=== PATIENT | male | born 1975 | race Caucasian/White ===

== ENCOUNTER → 2017-10-11 07:46 | Outpatient (CLI) | payer OTHER, MEDICAID, SELFPAY ==
[2017-10-11 09:35] LABS: Add Manual Diff / Slide Review NO; Basophils Percent Auto 1.1 % (0-2); Eosinophils Percent Auto 3.2 % (2-4); Hematocrit 46.5 % (41-53); Hemoglobin 16.5 g/dL (13.5-17.5); Lymphocytes Percent Auto 22.4 % (25-40); Mean Corpuscular HGB Conc 35.4 % (30-36); Mean Corpuscular Hemoglobin 29.3 PG (26-34); Mean Corpuscular Volume 82.8 fL (80-100); Monocytes Percent Auto 7.4 % (3-14); Neutrophils Absolute Auto 3700 /uL (3000-5900); Neutrophils Percent Auto 65.9 % (50-75); Platelet Count 209 X10^3/uL (150-400); Red Blood Cell Count 5.62 X10^6/uL (4.5-5.9); Red Cell Distribution Width 12.8 % (11.6-14.8); White Blood Cell Count 5.6 X10^3/uL (4.5-11.0)
[2017-10-11 09:48] LABS: Alanine Aminotransferase 48 IU/L (21-72); Albumin 4.5 g/dL (3.5-5.0); Albumin Globulin Ratio 1.5 (1.0-2.8); Alkaline Phosphatase 72 U/L (38-126); Aspartate Aminotransferase 31 IU/L (17-59); BUN Creatinine Ratio 15.7 (6-22); Bilirubin Total 1.6 mg/dL (0.2-1.3); Blood Urea Nitrogen 11 mg/dL (9-20); Carbon Dioxide 24 mmol/L (22-32); Chloride 100 mmol/L (98-107); Cholesterol 223 mg/dL (140-199); Estimated Glomerular Filt Rate > 60.0 mL/min (>60); Glucose 257 mg/dL (70-100); HDL Cholesterol 34 mg/dL (40-60); HEMOLYSIS < 15 (0-50); LDL Cholesterol Calculated 159 mg/dL (<100); Potassium 4.4 mmol/L (3.4-5.1); Sodium 137 mmol/L (137-145); Total Protein 7.5 g/dL (6.3-8.2); Triglycerides 152 mg/dL (35-150)
[2017-10-11 10:11] LABS: Hemoglobin A1C% w Est Avg Glu 12.1 % (4.0-6.0)
[2017-10-11 10:16] LABS: Thyroid Stimulating Hormone 1.17 uIU/mL (0.47-4.68)
== END ==
PROVIDERS: PCP Family Medicine; Visit Provider Nurse Practitioner Family
DX: Z00.01 Encounter for general adult medical examination with abnormal findings (principal)
CPT/HCPCS: 36415; 80053; 80061; 83036; 84443; 85025

== ENCOUNTER → 2017-11-23 13:16 | Outpatient (CLI) | payer OTHER, MEDICAID, SELFPAY ==
[2017-11-23 15:20] VITALS: BMI 34.4
== END ==
PROVIDERS: Visit Provider Family Medicine
DX: E11.9 Type 2 diabetes mellitus without complications (principal); Z71.3 Dietary counseling and surveillance
CPT/HCPCS: 97802

== ENCOUNTER → 2018-01-24 09:27 | Outpatient (CLI) | payer MEDICARE, MEDICAID, SELFPAY ==
[2018-01-24 11:18] LABS: Albumin 4.7 g/dL (3.5-5.0); Blood Urea Nitrogen 16 mg/dL (9-20); Calcium 9.8 mg/dL (8.4-10.2); Carbon Dioxide 25 mmol/L (22-32); Chloride 103 mmol/L (98-107); Estimated Glomerular Filt Rate > 60.0 mL/min (>60); Glucose 185 mg/dL (70-100); HEMOLYSIS 17 (0-50); Phosphorous 3.7 mg/dL (2.5-4.5); Potassium 4.9 mmol/L (3.4-5.1); Sodium 142 mmol/L (137-145)
== END ==
PROVIDERS: PCP Nurse Practitioner Family; Visit Provider Nurse Practitioner Family
DX: E11.65 Type 2 diabetes mellitus with hyperglycemia (principal)
CPT/HCPCS: 36415; 80069; 83036

== ENCOUNTER → 2018-05-21 10:45 | Outpatient (CLI) | payer MEDICARE, MEDICAID, SELFPAY ==
[2018-05-21 11:49] LABS: Hemoglobin A1C% w Est Avg Glu 9.6 % (4.0-6.0)
[2018-05-21 11:53] LABS: BUN Creatinine Ratio 12.5 (6-22); Blood Urea Nitrogen 10 mg/dL (9-20); Calcium 9.3 mg/dL (8.4-10.2); Carbon Dioxide 24 mmol/L (22-32); Chloride 102 mmol/L (98-107); Cholesterol 238 mg/dL (140-199); Estimated Glomerular Filt Rate > 60.0 mL/min (>60); Glucose 301 mg/dL (70-100); HDL Cholesterol 42 mg/dL (40-60); HEMOLYSIS 15 (0-50); LDL Cholesterol Calculated 157 mg/dL (<100); Potassium 4.3 mmol/L (3.4-5.1); Sodium 140 mmol/L (137-145); Triglycerides 196 mg/dL (35-150)
== END ==
PROVIDERS: Visit Provider Internal Medicine
DX: I10 Essential (primary) hypertension (principal); E11.9 Type 2 diabetes mellitus without complications; E66.9 Obesity, unspecified
CPT/HCPCS: 36415; 80048; 80061; 83036

== ENCOUNTER 2018-10-18 10:15 | Observation (INO) | payer MEDICARE, MEDICAID, SELFPAY ==
[2018-10-18] VITALS (9 sets, daily range): BP systolic 106–150; BP diastolic 65–96; PULSE 79–113; RESP 17–27; TEMP 36.3–36.7; O2SAT 95–100; BMI 30.7; BMI 30.3
--- NOTE | 2018-10-18 10:22 | ED.NEUROSD ---
HPI - Neuro Symptoms/Deficit General Chief Complaint: Neuro Symptoms/Deficit Stated Complaint: right half went numb, back to normal, nervous Time Seen by Provider: 10/18/18 10:19 Source: patient Mode of arrival: ambulatory Limitations: no limitations History of Present Illness HPI Narrative: 43-year-old male nonsmoker with a history of diabetes and asthma presents with a chief complaint of blurred vision which started at 6:00 a.m., lasted 15 minutes and then resolved. He he was in his normal state of health until about 10:00 a.m. when he started developing right-sided facial numbness and tingling as well as right upper and lower extremity numbness and tingling. He denies any weakness, trouble with speech or ambulation. He states the tingling is largely improved at this point Onset (ago): hour(s) Location: right face and right arm History of same: No Severity: mild Quality: numb and tingling Relieving factors: none Exacerbating factors: none Context: sudden onset On Anticoagulants: No Treatments Prior to Arrival: none Related Data Previous Rx's Medication Instructions Recorded METFORMIN HCL (GLUCOPHAGE) 500 mg PO Q DAY #180 08/16/11 ALBUTEROL SULFATE (Ventolin Hfa) 0 INH SEE INSTRUCTIONS #1 inh 06/10/12 AZITHROMYCIN (ZITHROMAX Z-HARRIETT) 250 mg PO QDAY #1 pck 06/10/12 Allergies Allergy/AdvReac Type Severity Reaction Status Date / Time Penicillins [PENICILLINS] Allergy Severe RASH Verified 10/18/18 10:28 acetaminophen AdvReac Severe VOMITING Verified 10/18/18 10:28 [From EXCEDRIN PM] diphenhydramine AdvReac Severe VOMITING Verified 10/18/18 10:28 [From EXCEDRIN PM] Review of Systems Constitutional Denies chills, Denies fever(s), Denies lethargy and Denies weakness Eyes Reports change in vision, Denies eye discharge, Denies irritation and Denies loss of vision ENT Ears, Nose, Mouth, and Throat: Denies change in voice, Denies neck pain and Denies sore throat Cardiovascular Denies chest pain, Denies irregular heart rhythm, Denies lightheadedness, Denies palpitations, Denies dyspnea, Denies dyspnea on exertion and Denies orthopnea Respiratory Denies cough, Denies dyspnea, Denies dyspnea on exertion and Denies wheezing Gastrointestinal Gastrointestinal: Denies abdominal pain, Denies change in bowel habits, Denies diarrhea, Denies nausea and Denies vomiting Genitourinary Denies hematuria, Denies flank pain, Denies urinary incontinence and Denies urinary urgency Musculoskeletal Denies neck pain Integumentary/Breasts Denies pruritus, Denies erythema, Denies rash and Denies wounds Neurologic Denies confusion, Denies loss of vision, Reports sensory deficit and Denies weakness Psychiatric Denies anxiety, Denies confusion, Denies depression, Denies homicidal ideation and Denies suicidal ideation Endocrine Denies palpitations Hematologic/Lymphatic Denies easy bruising Allergic/Immunologic Denies wheezing PFSH Social History Smoking Status: Never smoker Social History Smoking Status: Never smoker Exam Narrative Exam Narrative: GENERAL: This is a well-nourished, well-developed patient, in mild distress. HEAD: Atraumatic. Normocephalic. No temporal or scalp tenderness. EYES: Pupils equal round and reactive. Extraocular motions intact. No scleral icterus. No injection or drainage. ENT: Nose without bleeding, purulent drainage or septal hematoma. Throat without erythema, tonsillar hypertrophy or exudate. Uvula midline. Airway patent. NECK: Trachea midline. No JVD or lymphadenopathy. Supple, nontender, no meningeal signs. CARDIOVASCULAR: Regular rate and rhythm without murmurs, gallops, or rubs. RESPIRATORY: Clear to auscultation. Breath sounds equal bilaterally. No wheezes, rales, or rhonchi. GASTROINTESTINAL: Abdomen soft, non-tender, nondistended. No hepato-splenomegaly, or palpable masses. No guarding. EXTREMITIES: No clubbing, cyanosis, or edema. No joint tenderness, effusion, or edema noted. BACK: Nontender without deformity or crepitance. No flank tenderness. NEURO: AOx3. SKIN: No rash or erythema. Initial Vital Signs Initial Vital Signs: Vital Signs Temperature 97.6 F 10/18/18 10:15 Pulse Rate 113 H 10/18/18 10:15 Respiratory Rate 18 10/18/18 10:15 Blood Pressure 150/94 H 10/18/18 10:15 Pulse Oximetry 97 10/18/18 10:15 Course Orders Ordered: ED Orders 10/18/18 10:21 Urine Drug Screen, Rapid Stat EKG-12 Lead Stat 10/18/18 10:25 Basic Metabolic Panel Stat Complete Blood Count AUTO DIFF Stat Partial Thromboplastin Time Stat Prothrombin Time INR Stat 10/18/18 10:51 CT head/brain wo con Stat 10/18/18 11:14 MR stroke Stat 10/18/18 14:06 Education, smoking cessation ONGOING 10/19/18 Lipid Panel Routine Enoxaparin Sodium (Lovenox) 40 mg SUBCUT DAILY TRENT Sodium Chloride (Normal Saline 0.9%) 1,000 mls @ 150 mls/hr IV CONT TRENT Last Admin: 10/18/18 10:37 Dose: 150 mls/hr Discontinued Medications Aspirin (Aspirin Chew) 324 mg PO NOW ONE Stop: 10/18/18 14:05 Reevaluation(s) Reevaluation #1: Patient remains symptom-free Consultations Consultation #1: Called to [facility] stroke physician to discuss case. He is quick to recommend admission for echo, tele, etc. Consultation #2: hospitalist happy to accept. Plan relayed to patient and he is in agreement Vital Signs - 8 hr 10/18/18 10:15 10/18/18 10:39 10/18/18 11:30 Temperature 97.6 F Pulse Rate 113 H 97 H 94 H Respiratory Rate 18 27 H 23 Blood Pressure 150/94 H Blood Pressure [Left Arm] 120/78 116/81 Pulse Oximetry 97 95 100 10/18/18 13:14 Temperature Pulse Rate 94 H Respiratory Rate 19 Blood Pressure Blood Pressure [Left Arm] 106/74 Pulse Oximetry 98 MDM - Neuro Symptoms/Deficit Lab Data Result diagrams: 10/18/18 10:25 10/18/18 10:25 Lab Results 10/18/18 10/18/18 10/18/18 Range/Units 10:25 10:25 10:25 WBC 5.8 (4.5-11.0) X10^3/uL RBC 5.40 (4.5-5.9) X10^6/uL Hgb 15.6 (13.5-17.5) g/dL Hct 44.9 (41-53) % MCV 83.2 (80-100) fL MCH 28.9 (26-34) PG MCHC 34.8 (30-36) % RDW 12.6 (11.6-14.8) % Plt Count 209 (150-400) X10^3/uL Neut % (Auto) 62.0 (50-75) % Lymph % (Auto) 25.6 (25-40) % [place] % (Auto) 7.4 (3-14) % Eos % (Auto) 4.1 H (2-4) % Baso % (Auto) 0.9 (0-2) % Neut # (Auto) 3600 (2066-2352) /uL Lymph # (Auto) 1500 (8490-8489) /uL [place] # (Auto) 400 (0-900) /uL Eos # (Auto) 200 (0-450) /uL Baso # (Auto) 100 (0-100) /uL PT 10.9 (10.1-12.7) SECONDS INR 0.9 (0.9-1.3) APTT 29 (26.4-36.2) SECONDS Sodium 136 L (137-145) mmol/L Potassium 4.1 (3.4-5.1) mmol/L Chloride 98 (98-107) mmol/L Carbon Dioxide 26 (22-32) mmol/L BUN 13 (9-20) mg/dL Creatinine 0.80 (0.66-1.25) mg/dL Estimated GFR > 60.0 (>60) mL/min BUN/Creatinine Ratio 16.3 (6-22) Glucose 249 H (70-100) mg/dL Calcium 9.5 (8.4-10.2) mg/dL Point of Care Testing Glucose POC [address] scan - head: Radiologist's impression: Kyle Navarrete 43 M [address] [address] [address] Scan Report Signed Patient: Kyle Navarrete EMR#: [id number] : 1975Acct:[id number] Age/Sex: 43 / MDate of Service: 10/18/18 Loc: ED Accession Number: [id number] Procedure: CT head/brain wo con Ordering Provider: Salazar Luna D.O. PROCEDURE: CT HEAD/BRAIN WO CON INDICATIONS: vision, Right side weakness TECHNIQUE: Noncontrast 4.5 mm thick angled axial sections acquired from the foramen magnum to the vertex, with coronal and sagittal reformats. For radiation dose reduction, the following was used: automated exposure control, adjustment of mA and/or kV according to patient size. COMPARISON: None. FINDINGS: Image quality: Excellent. CSF spaces: Basal cisterns are patent. No extra-axial fluid collections. Ventricles are normal in size and shape. Brain: No midline shift. No intracranial masses or hemorrhage. Andres-white matter interface is normal. Skull and face: Calvarium and visualized facial bones are intact, without suspicious lesions. Sinuses: Visualized sinuses and mastoids are clear. IMPRESSION: Normal intracranial study, without an imaging explanation for patient's presenting symptoms. If there is strong clinical suspicion for an acute stroke, please consider an MRI for further evaluation, as it is more sensitive (assuming that there is no contraindication to MRI). Dictated by: Gabriel Saab M.D. on 10/18/2018 at 9:58 Approved by: Gabriel Saab M.D. on 10/18/2018 at 9:59 MRI - head: Radiologist's impression: [place] [address] Magnetic Resonance Report Signed Patient: Kyle Navarrete EMR#: [id number] : 1975Acct:[id number] Age/Sex: 43 / MDate of Service: 10/18/18 Loc: ED Accession Number: [id number] Procedure: MR stroke Ordering Provider: Salazar Luna D.O. PROCEDURE: MR STROKE Pre- and post-contrast brain MRI, non-contrast brain MR angiogram, pre- and postcontrast neck MR angiogram INDICATIONS: vision change, R sided numbness tingling TECHNIQUE: Brain: Noncontrast axial T1 spin echo, axial T2 fast spin echo, sagittal and axial FLAIR, coronal T2 fast spin echo, axial gradient echo, axial diffusion and ADC through the brain. After the administration of contrast, axial 3D VIBE of the cranial vasculature and brain. Brain MRA: Non-contrast 3-D time of flight MR angiogram, with multiple ushltsh-qltvcbmlc-gzqdszriad (MIP) reformats performed. Neck MRA: Axial and sagittal TruFISP through the neck. Coronal dynamic MR angiogram during administration of contrast in the arterial and venous phases, with 3-dimenstional wdrapwi-qhwzgbmyi-zpqtyxozvh (MIP) reformats constructed from subtraction images. COMPARISON: [facility], CT, CT HEAD/BRAIN WO CON, 10/18/2018, 10:24. FINDINGS: Image quality: Excellent. BRAIN: CSF spaces: Ventricles are normal in size and shape. Basal cisterns are patent. No extra-axial fluid collections. Brain: No intracranial bleeds or mass effects. Andres-white matter interface is normal. Diffusion weighted images show no acute ischemic insults. Brainstem appears normal. Normal intravascular flow voids are present. No abnormal intracranial enhancement. Skull and face: Calvarial marrow signal is normal. Orbits appear normal. Sinuses: Sinuses and mastoids are clear. BRAIN MR ANGIOGRAM: Anterior circulation: Intracranial internal carotid arteries are normal in size and enhancement. The flow within the paired anterior cerebral arteries is normal and symmetric. The flow within the middle cerebral arteries is normal and symmetric. The anterior communicating artery is seen. No stenoses, occlusions, or aneurysms. Posterior circulation: The visualized portions of the vertebral arteries demonstrate normal caliber, and join to form a normal appearing basilar artery. The flow within the posterior cerebral arteries is normal and symmetric. No stenoses, occlusions, or aneurysms. NECK MR ANGIOGRAM: Carotids: Great vessels demonstrate a conventional anatomy as they arise from the aortic arch. The origins of the common carotid arteries appear patent. The calibers and courses of both common carotid arteries are normal. The bifurcation regions appear normal bilaterally. The internal carotid arteries demonstrate normal course and caliber. Posterior circulation: The origins of the vertebral arteries appear patent. More superior portions of both vertebral arteries demonstrate normal course and caliber, and join to form a normal appearing basilar artery. Miscellaneous: Subclavian arteries appear patent. Pre-contrast images through the neck show no soft tissue abnormalities. IMPRESSION: BRAIN MRI: 1. No acute process. No recent infarct. BRAIN MR ANGIOGRAM: Negative cerebral MR angiography. NECK MR ANGIOGRAM: 1. No internal carotid artery stenosis bilaterally. 2. Patent bilateral vertebral arteries. Dictated by: Clint Ogden M.D. on 10/18/2018 at 12:58 Approved by: Clint Ogden M.D. on 10/18/2018 at 13:03 [facility] Narrative Medical decision making narrative: 43-year-old male diabetic with concerning symptoms for stroke presents with symptoms that had largely resolved. He had blurred vision and right-sided numbness and tingling. Head CT and MRI are unremarkable. Patient will require hospitalization none the last 2 perform echocardiogram, cardiac monitoring etc Discharge Plan Departure Patient Disposition: Admitted as Observation Clinical Impression: Transient cerebral ischemia Qualifiers: Transient cerebral ischemia type: unspecified Qualified Code(s): G45.9 - Transient cerebral ischemic attack, unspecified Admit Date/Time: 10/18/18 14:00 Admit Provider: Jason Hampton
--- NOTE | 2018-10-18 10:27 | ED_ITS ---
HPI - Neuro Symptoms/Deficit General Chief Complaint: Neuro Symptoms/Deficit Stated Complaint: right half went numb, back to normal, nervous Time Seen by Provider: 10/18/18 10:19 Source: patient Mode of arrival: ambulatory Limitations: no limitations History of Present Illness HPI Narrative: 43-year-old male nonsmoker with a history of diabetes and asthma presents with a chief complaint of blurred vision which started at 6:00 a.m., lasted 15 minutes and then resolved. He he was in his normal state of health until about 10:00 a.m. when he started developing right-sided facial numbness and tingling as well as right upper and lower extremity numbness and tingling. He denies any weakness, trouble with speech or ambulation. He states the tingling is largely improved at this point Onset (ago): hour(s) Location: right face and right arm History of same: No Severity: mild Quality: numb and tingling Relieving factors: none Exacerbating factors: none Context: sudden onset On Anticoagulants: No Treatments Prior to Arrival: none Related Data Previous Rx's Medication Instructions Recorded METFORMIN HCL (GLUCOPHAGE) 500 mg PO Q DAY #180 08/16/11 ALBUTEROL SULFATE (Ventolin Hfa) 0 INH SEE INSTRUCTIONS #1 inh 06/10/12 AZITHROMYCIN (ZITHROMAX Z-HARRIETT) 250 mg PO QDAY #1 pck 06/10/12 Allergies Allergy/AdvReac Type Severity Reaction Status Date / Time Penicillins [PENICILLINS] Allergy Severe RASH Verified 10/18/18 10:28 acetaminophen AdvReac Severe VOMITING Verified 10/18/18 10:28 [From EXCEDRIN PM] diphenhydramine AdvReac Severe VOMITING Verified 10/18/18 10:28 [From EXCEDRIN PM] Review of Systems Constitutional Denies chills, Denies fever(s), Denies lethargy and Denies weakness Eyes Reports change in vision, Denies eye discharge, Denies irritation and Denies loss of vision ENT Ears, Nose, Mouth, and Throat: Denies change in voice, Denies neck pain and Denies sore throat Cardiovascular Denies chest pain, Denies irregular heart rhythm, Denies lightheadedness, Denies palpitations, Denies dyspnea, Denies dyspnea on exertion and Denies orthopnea Respiratory Denies cough, Denies dyspnea, Denies dyspnea on exertion and Denies wheezing Gastrointestinal Gastrointestinal: Denies abdominal pain, Denies change in bowel habits, Denies diarrhea, Denies nausea and Denies vomiting Genitourinary Denies hematuria, Denies flank pain, Denies urinary incontinence and Denies urinary urgency Musculoskeletal Denies neck pain Integumentary/Breasts Denies pruritus, Denies erythema, Denies rash and Denies wounds Neurologic Denies confusion, Denies loss of vision, Reports sensory deficit and Denies weakness Psychiatric Denies anxiety, Denies confusion, Denies depression, Denies homicidal ideation and Denies suicidal ideation Endocrine Denies palpitations Hematologic/Lymphatic Denies easy bruising Allergic/Immunologic Denies wheezing PFSH Social History Smoking Status: Never smoker Social History Smoking Status: Never smoker Exam Narrative Exam Narrative: GENERAL: This is a well-nourished, well-developed patient, in mild distress. HEAD: Atraumatic. Normocephalic. No temporal or scalp tenderness. EYES: Pupils equal round and reactive. Extraocular motions intact. No scleral icterus. No injection or drainage. ENT: Nose without bleeding, purulent drainage or septal hematoma. Throat without erythema, tonsillar hypertrophy or exudate. Uvula midline. Airway patent. NECK: Trachea midline. No JVD or lymphadenopathy. Supple, nontender, no meningeal signs. CARDIOVASCULAR: Regular rate and rhythm without murmurs, gallops, or rubs. RESPIRATORY: Clear to auscultation. Breath sounds equal bilaterally. No wheezes, rales, or rhonchi. GASTROINTESTINAL: Abdomen soft, non-tender, nondistended. No hepato-s plenomegaly, or palpable masses. No guarding. EXTREMITIES: No clubbing, cyanosis, or edema. No joint tenderness, effusion, or edema noted. BACK: Nontender without deformity or crepitance. No flank tenderness. NEURO: AOx3. SKIN: No rash or erythema. Initial Vital Signs Initial Vital Signs: Vital Signs Temperature 97.6 F 10/18/18 10:15 Pulse Rate 113 H 10/18/18 10:15 Respiratory Rate 18 10/18/18 10:15 Blood Pressure 150/94 H 10/18/18 10:15 Pulse Oximetry 97 10/18/18 10:15 Course Orders Ordered: ED Orders 10/18/18 10:21 Urine Drug Screen, Rapid Stat EKG-12 Lead Stat 10/18/18 10:25 Basic Metabolic Panel Stat Complete Blood Count AUTO DIFF Stat Partial Thromboplastin Time Stat Prothrombin Time INR Stat 10/18/18 10:51 CT head/brain wo con Stat 10/18/18 11:14 MR stroke Stat 10/18/18 14:06 Education, smoking cessation ONGOING 10/19/18 Lipid Panel Routine Enoxaparin Sodium (Lovenox) 40 mg SUBCUT DAILY TRENT Sodium Chloride (Normal Saline 0.9%) 1,000 mls @ 150 mls/hr IV CONT TRENT Last Admin: 10/18/18 10:37 Dose: 150 mls/hr Discontinued Medications Aspirin (Aspirin Chew) 324 mg PO NOW ONE Stop: 10/18/18 14:05 Reevaluation(s) Reevaluation #1: Patient remains symptom-free Consultations Consultation #1: Called to [facility] stroke physician to discuss case. He is quick to recommend admission for echo, tele, etc. Consultation #2: hospitalist happy to accept. Plan relayed to patient and he is in agreement Vital Signs - 8 hr 10/18/18 10:15 10/18/18 10:39 10/18/18 11:30 Temperature 97.6 F Pulse Rate 113 H 97 H 94 H Respiratory Rate 18 27 H 23 Blood Pressure 150/94 H Blood Pressure [Left Arm] 120/78 116/81 Pulse Oximetry 97 95 100 10/18/18 13:14 Temperature Pulse Rate 94 H Respiratory Rate 19 Blood Pressure Blood Pressure [Left Arm] 106/74 Pulse Oximetry 98 MDM - Neuro Symptoms/Deficit Lab Data Result diagrams: 10/18/18 10:25 10/18/18 10:25 Lab Results 10/18/18 10/18/18 10/18/18 Range/Units 10:25 10:25 10:25 WBC 5.8 (4.5-11.0) X10^3/uL RBC 5.40 (4.5-5.9) X10^6/uL Hgb 15.6 (13.5-17.5) g/dL Hct 44.9 (41-53) % MCV 83.2 (80-100) fL MCH 28.9 (26-34) PG MCHC 34.8 (30-36) % RDW 12.6 (11.6-14.8) % Plt Count 209 (150-400) X10^3/uL Neut % (Auto) 62.0 (50-75) % Lymph % (Auto) 25.6 (25-40) % Faulk % (Auto) 7.4 (3-14) % Eos % (Auto) 4.1 H (2-4) % Baso % (Auto) 0.9 (0-2) % Neut # (Auto) 3600 (3825-2207) /uL Lymph # (Auto) 1500 (0142-8965) /uL Faulk # (Auto) 400 (0-900) /uL Eos # (Auto) 200 (0-450) /uL Baso # (Auto) 100 (0-100) /uL PT 10.9 (10.1-12.7) SECONDS INR 0.9 (0.9-1.3) APTT 29 (26.4-36.2) SECONDS Sodium 136 L (137-145) mmol/L Potassium 4.1 (3.4-5.1) mmol/L Chloride 98 (98-107) mmol/L Carbon Dioxide 26 (22-32) mmol/L BUN 13 (9-20) mg/dL Creatinine 0.80 (0.66-1.25) mg/dL Estimated GFR > 60.0 (>60) mL/min BUN/Creatinine Ratio 16.3 (6-22) Glucose 249 H (70-100) mg/dL Calcium 9.5 (8.4-10.2) mg/dL Point of Care Testing Glucose POC [address] scan - head: Radiologist's impression: Kyle Navarrete 43 M [address] [address] [address] Scan Report Signed Patient: Kyle Navarrete EMR#: [id number] : 1975Acct:[id number] Age/Sex: 43 / MDate of Service: 10/18/18 Loc: ED Accession Number: [id number] Procedure: CT head/brain wo con Ordering Provider: Salazar Luna D.O. PROCEDURE: CT HEAD/BRAIN WO CON INDICATIONS: vision, Right side weakness TECHNIQUE: Noncontrast 4.5 mm thick angled axial sections acquired from the foramen magnum to the vertex, with coronal and sagittal reformats. For radiation dose reduction, the following was used: automated exposure control, adjustment of mA and/or kV according to patient size. COMPARISON: None. FINDINGS: Image quality: Excellent. CSF spaces: Basal cisterns are patent. No extra-axial fluid collections. Ventricles are normal in size and shape. Brain: No midline shift. No intracranial masses or hemorrhage. Andres-white matter interface is normal. Skull and face: Calvarium and visualized facial bones are intact, without suspicious lesions. Sinuses: Visualized sinuses and mastoids are clear. IMPRESSION: Normal intracranial study, without an imaging explanation for patient's presenting symptoms. If there is strong clinical suspicion for an acute stroke, please consider an MRI for further evaluation, as it is more sensitive (assuming that there is no contraindication to MRI). Dictated by: Gabriel Saab M.D. on 10/18/2018 at 9:58 Approved by: Gabriel Saab M.D. on 10/18/2018 at 9:59 MRI - head: Radiologist's impression: [place] [address] Magnetic Resonance Report Signed Patient: Kyle Navarrete EMR#: [id number] : 1975Acct:[id number] Age/Sex: 43 / MDate of Service: 10/18/18 Loc: Accession Number: [id number] Procedure: MR stroke Ordering Provider: Salazar Luna D.O. PROCEDURE: MR STROKE Pre- and post-contrast brain MRI, non-contrast brain MR angiogram, pre- and postcontrast neck MR angiogram INDICATIONS: vision change, R sided numbness tingling TECHNIQUE: Brain: Noncontrast axial T1 spin echo, axial T2 fast spin echo, sagittal and axial FLAIR, coronal T2 fast spin echo, axial gradient echo, axial diffusion and ADC through the brain. After the administration of contrast, axial 3D VIBE of the cranial vasculature and brain. Brain MRA: Non-contrast 3-D time of flight MR angiogram, with multiple kkidscl-fpryhuplk-ileezrbpeh (MIP) reformats performed. Neck MRA: Axial and sagittal TruFISP through the neck. Coronal dynamic MR angiogram during administration of contrast in the arterial and venous phases, with 3- dimenstional avahlxr-lioxiilbc-fuysojtjpb (MIP) reformats constructed from subtraction images. COMPARISON: [facility], CT, CT HEAD/BRAIN WO CON, 10/18/2018, 10:24. FINDINGS: Image quality: Excellent. BRAIN: CSF spaces: Ventricles are normal in size and shape. Basal cisterns are patent. No extra-axial fluid collections. Brain: No intracranial bleeds or mass effects. Andres-white matter interface is normal. Diffusion weighted images show no acute ischemic insults. Brainstem appears normal. Normal intravascular flow voids are present. No abnormal intracranial enhancement. Skull and face: Calvarial marrow signal is normal. Orbits appear normal. Sinuses: Sinuses and mastoids are clear. BRAIN MR ANGIOGRAM: Anterior circulation: Intracranial internal carotid arteries are normal in size and enhancement. The flow within the paired anterior cerebral arteries is normal and symmetric. The flow within the middle cerebral arteries is normal and symmetric. The anterior communicating artery is seen. No stenoses, occlusions, or aneurysms. Posterior circulation: The visualized portions of the vertebral arteries demonstrate normal caliber, and join to form a normal appearing basilar artery. The flow within the posterior cerebral arteries is normal and symmetric. No stenoses, occlusions, or aneurysms. NECK MR ANGIOGRAM: Carotids: Great vessels demonstrate a conventional anatomy as they arise from the aortic arch. The origins of the common carotid arteries appear patent. The calibers and courses of both common carotid arteries are normal. The bifurcation regions appear normal bilaterally. The internal carotid arteries demonstrate normal course and caliber. Posterior circulation: The origins of the vertebral arteries appear patent. More superior portions of both vertebral arteries demonstrate normal course and caliber, and join to form a normal appearing basilar artery. Miscellaneous: Subclavian arteries appear patent. Pre-contrast images through the neck show no soft tissue abnormalities. IMPRESSION: BRAIN MRI: 1. No acute process. No recent infarct. BRAIN MR ANGIOGRAM: Negative cerebral MR angiography. NECK MR ANGIOGRAM: 1. No internal carotid artery stenosis bilaterally. 2. Patent bilateral vertebral arteries. Dictated by: Clint Ogden M.D. on 10/18/2018 at 12:58 Approved by: Clint Ogden M.D. on 10/18/2018 at 13:03 MDM Narrative Medical decision making narrative: 43-year-old male diabetic with concerning symptoms for stroke presents with symptoms that had largely resolved. He had blurred vision and right-sided numbness and tingling. Head CT and MRI are unremarkable. Patient will require hospitalization none the last 2 perform echocardiogram, cardiac monitoring etc Discharge Plan Departure Patient Disposition: Admitted as Observation Clinical Impression: Transient cerebral ischemia Qualifiers: Transient cerebral ischemia type: unspecified Qualified Code(s): G45.9 - Transient cerebral ischemic attack, unspecified Admit Date/Time: 10/18/18 14:00 Admit Provider: Jason Hampton
[2018-10-18 10:33] LABS: Add Manual Diff / Slide Review NO; Basophils Absolute Auto 100 /uL (0-100); Basophils Percent Auto 0.9 % (0-2); Eosinophils Absolute Auto 200 /uL (0-450); Eosinophils Percent Auto 4.1 % (2-4); Hematocrit 44.9 % (41-53); Hemoglobin 15.6 g/dL (13.5-17.5); Lymphocytes Absolute Auto 1500 /uL (1100-4500); Lymphocytes Percent Auto 25.6 % (25-40); Mean Corpuscular HGB Conc 34.8 % (30-36); Mean Corpuscular Hemoglobin 28.9 PG (26-34); Mean Corpuscular Volume 83.2 fL (80-100); Monocytes Absolute Auto 400 /uL (0-900); Monocytes Percent Auto 7.4 % (3-14); Neutrophils Absolute Auto 3600 /uL (1500-7000); Platelet Count 209 X10^3/uL (150-400); Red Cell Distribution Width 12.6 % (11.6-14.8); White Blood Cell Count 5.8 X10^3/uL (4.5-11.0)
[2018-10-18] MEDS: SODIUM CHLORIDE 0.9% 1,000 ML 150 ML IV (10:37)
[2018-10-18 10:41] LABS: INR 0.9 (0.9-1.3); Prothrombin Time 10.9 SECONDS (10.1-12.7)
[2018-10-18 10:43] LABS: BUN Creatinine Ratio 16.3 (6-22); Blood Urea Nitrogen 13 mg/dL (9-20); Calcium 9.5 mg/dL (8.4-10.2); Carbon Dioxide 26 mmol/L (22-32); Chloride 98 mmol/L (98-107); Estimated Glomerular Filt Rate > 60.0 mL/min (>60); Glucose 249 mg/dL (70-100); HEMOLYSIS < 15 (0-50); Potassium 4.1 mmol/L (3.4-5.1); Sodium 136 mmol/L (137-145)
[2018-10-18 10:44] LABS: PTT Partial Thromboplastin Tim 29 SECONDS (26.4-36.2)
--- NOTE | 2018-10-18 10:51 | DI.CT.S_ITS ---
PROCEDURE: CT HEAD/BRAIN WO CON INDICATIONS: vision, Right side weakness TECHNIQUE: Noncontrast 4.5 mm thick angled axial sections acquired from the foramen magnum to the vertex, with coronal and sagittal reformats. For radiation dose reduction, the following was used: automated exposure control, adjustment of mA and/or kV according to patient size. COMPARISON: None. FINDINGS: Image quality: Excellent. CSF spaces: Basal cisterns are patent. No extra-axial fluid collections. Ventricles are normal in size and shape. Brain: No midline shift. No intracranial masses or hemorrhage. Andres-white matter interface is normal. Skull and face: Calvarium and visualized facial bones are intact, without suspicious lesions. Sinuses: Visualized sinuses and mastoids are clear. IMPRESSION: Normal intracranial study, without an imaging explanation for patient's presenting symptoms. If there is strong clinical suspicion for an acute stroke, please consider an MRI for further evaluation, as it is more sensitive (assuming that there is no contraindication to MRI). Dictated by: Gabriel Saab M.D. on 10/18/2018 at 9:58 Approved by: Gabriel Saab M.D. on 10/18/2018 at 9:59
--- NOTE | 2018-10-18 11:14 | DI.MRI.S_ITS ---
PROCEDURE: MR STROKE Pre- and post-contrast brain MRI, non-contrast brain MR angiogram, pre- and postcontrast neck MR angiogram INDICATIONS: vision change, R sided numbness tingling TECHNIQUE: Brain: Noncontrast axial T1 spin echo, axial T2 fast spin echo, sagittal and axial FLAIR, coronal T2 fast spin echo, axial gradient echo, axial diffusion and ADC through the brain. After the administration of contrast, axial 3D VIBE of the cranial vasculature and brain. Brain MRA: Non-contrast 3-D time of flight MR angiogram, with multiple uubenjo-asupbotco-wzwssyvssc (MIP) reformats performed. Neck MRA: Axial and sagittal TruFISP through the neck. Coronal dynamic MR angiogram during administration of contrast in the arterial and venous phases, with 3-dimenstional pauonyc-baefbymsl-qmvezsoywa (MIP) reformats constructed from subtraction images. COMPARISON: [facility], CT, CT HEAD/BRAIN WO CON, 10/18/2018, 10:24. FINDINGS: Image quality: Excellent. BRAIN: CSF spaces: Ventricles are normal in size and shape. Basal cisterns are patent. No extra-axial fluid collections. Brain: No intracranial bleeds or mass effects. Andres-white matter interface is normal. Diffusion weighted images show no acute ischemic insults. Brainstem appears normal. Normal intravascular flow voids are present. No abnormal intracranial enhancement. Skull and face: Calvarial marrow signal is normal. Orbits appear normal. Sinuses: Sinuses and mastoids are clear. BRAIN MR ANGIOGRAM: Anterior circulation: Intracranial internal carotid arteries are normal in size and enhancement. The flow within the paired anterior cerebral arteries is normal and symmetric. The flow within the middle cerebral arteries is normal and symmetric. The anterior communicating artery is seen. No stenoses, occlusions, or aneurysms. Posterior circulation: The visualized portions of the vertebral arteries demonstrate normal caliber, and join to form a normal appearing basilar artery. The flow within the posterior cerebral arteries is normal and symmetric. No stenoses, occlusions, or aneurysms. NECK MR ANGIOGRAM: Carotids: Great vessels demonstrate a conventional anatomy as they arise from the aortic arch. The origins of the common carotid arteries appear patent. The calibers and courses of both common carotid arteries are normal. The bifurcation regions appear normal bilaterally. The internal carotid arteries demonstrate normal course and caliber. Posterior circulation: The origins of the vertebral arteries appear patent. More superior portions of both vertebral arteries demonstrate normal course and caliber, and join to form a normal appearing basilar artery. Miscellaneous: Subclavian arteries appear patent. Pre-contrast images through the neck show no soft tissue abnormalities. IMPRESSION: BRAIN MRI: 1. No acute process. No recent infarct. BRAIN MR ANGIOGRAM: Negative cerebral MR angiography. NECK MR ANGIOGRAM: 1. No internal carotid artery stenosis bilaterally. 2. Patent bilateral vertebral arteries. Dictated by: Clint Ogden M.D. on 10/18/2018 at 12:58 Approved by: Clint Ogden M.D. on 10/18/2018 at 13:03
--- NOTE | 2018-10-18 14:09 | DI.ECHO.S_ITS ---
[facility] +---------+ : : [address] [place] : : : : [id number] : : : : Phone: [phone]+ Echocardiogram Report + + :Name: FRANCESCA HICKMAN Study Date: 10/19/2018 Height: 66 in : :[facility] Weight: 190 lb : : Gender: Male BSA: 2.0 m2 : :: 1975 Age: 43 yrs BP: 130/90 mmHg: :Reason For Study: STROKE : :Ordering Physician: Alka : :Hospitalist Performed By: Rizwana Luis : :Referring: Jason WHALEN E : + + Interpretation Summary The left ventricle is normal in size, wall thickness, and systolic function without any focal wall motion abnormalities. The ejection fraction is estimated to be 60-65%. Diastolic parameters suggest probable normal left ventricular diastolic function and normal filling pressures. The right ventricle is normal in size and function. Pulmonary artery pressures cannot be estimated because of the lack of a measurable TR jet velocity. The left atrial size is normal. The right atrium is borderline dilated. Injection of contrast documented no interatrial shunt. There is no significant valvular heart disease. The aortic root is normal size. Procedure: A two-dimensional transthoracic echocardiogram with color flow and Doppler was performed. The study quality was technically adequate. There is no prior echocardiogram noted for this patient. A saline contrast injection was performed to assess for cardiac shunting. The patient was in normal sinus rhythm during the exam. Left Ventricle: The left ventricle is normal in size, wall thickness, and systolic function without any focal wall motion abnormalities. The ejection fraction is estimated to be 60-65%. Diastolic parameters suggest probable normal left ventricular diastolic function and normal filling pressures. Right Ventricle: The right ventricle is normal in size and function. Atria: The left atrial size is normal. The right atrium is borderline dilated. Injection of contrast documented no interatrial shunt. Mitral Valve: The mitral valve is normal. There is trace mitral regurgitation. Aortic Valve: The aortic valve is normal in structure and function. No aortic regurgitation is present. Tricuspid Valve: The tricuspid valve is normal. There is a trace or physiologic amount of tricuspid regurgitation. Pulmonary artery pressures cannot be estimated because of the lack of a measurable TR jet velocity. Pulmonic Valve: The pulmonic valve is not well visualized. There is a trace or physiologic amount of pulmonic regurgitation. There is no significant valvular heart disease. Great Vessels: The aortic root is normal size. The ascending aorta is normal in size. The aortic arch is normal in size. The pulmonary is not well visualized. The IVC is of normal diameter and collapses greater than 50% with a sniff. This suggests a low right atrial pressure of 3 mm Hg. Pericardium/ Pleura There is no pericardial effusion. There is no pleural effusion. MMode/2D Measurements & Calculations LVIDd: 4.0 cm LVOT diam: 2.1 cm LVIDs: 2.4 cm Ao root diam: 3.2 cm FS: 40.4 % asc Aorta Diam: 2.7 cm IVSd: 0.72 cm Ao Arch Diam (Prox Trans): 2.4 cm LVPWd: 0.82 cm LV ramirez. diameter/BSA (cm/m^2): 2.0 LV sys. diameter/BSA (cm/m^2): 1.2 LA A2 area: 16.5 cm2 RA long axis: 4.5 cm LA A4 area: 16.3 cm2 RA area: 18.1 cm2 LA length (vol): 4.8 cm RA vol: 62.5 ml LA vol: 47.1 ml RA : 31.9 ml/m2 LA vol index: 24.1 ml/m2 IVC diam: 1.3 cm RVD1 (basal): 4.0 cm RVD2 (mid): 3.6 cm TAPSE: 2.4 cm Doppler Measurements & Calculations Ao V2 max: 105.6 cm/sec LVOT Max Benjamin: 104.8 cm/sec Ao V2 mean: 71.6 cm/sec LV V1 max P.4 mmHg Ao max P.5 mmHg LV V1 VTI: 18.0 cm Ao mean P.3 mmHg ISRA(I,D): 3.6 cm2 Ao V2 VTI: 17.7 cm ISAR(V,D): 3.5 cm2 sev ratio: 1.0 ISRA indexed to BSA (cm^2/m^2): 1.8 MV E max benjamin: 97.7 cm/sec PA V2 max: 73.7 cm/sec MV A max benjamin: 46.1 cm/sec PA V2 mean: 48.4 cm/sec MV E/A: 2.1 PA mean P.1 mmHg Med Peak E' Benjamin: 7.5 cm/sec PA Accel Time: 0.10 sec E/E' med: 13.1 Lat Peak E' Benjamin: 10.2 cm/sec E/E' lat: 9.6 E/e' average: 11.3 MV dec time: 0.13 sec SV(LVOT): 63.8 ml Reading Physician:12:49 PM
--- NOTE | 2018-10-18 14:10 | PM.HP.1 ---
History of Present Illness Date Patient Seen: 10/18/18 Time Patient Seen: 14:10 Chief complaint: right half went numb, back to normal, nervous Narrative: This is a 43-year-old male with 2 episodes of neurological symptoms this morning. He is at baseline disabled due to borderline personality and other mental issues since the age of 20. He lives alone in an apartment 2 blocks away from the hospital. He has diabetes and psoriasis but is otherwise generally healthy. At 6:00 a.m. he had an episode of blurry vision and a splotchy spot in the vision of the right eye that lasted for 15 minutes. Then at 10:00 a.m. he began to experience tingling and numbness on the right face, right arm, right body and right leg. This lasted for 5 minutes. There was no headache. He did not have any seizures. He has no history of migraines and there is no family history of migraines. He used to have some stress/tension headaches but that was over 10 years ago and they were not considered migraines. His MR stroke protocol is negative. He has had no arrhythmia so far. After discussion with Neurology he will be monitored on telemetry overnight with an echocardiogram in the morning. His main risk factor is the diabetes. There is no family history of strokes or heart attack. He was started on bupropion for depression a few weeks ago but had not noticed any symptoms or side effects. Patient History Medical History (Updated 10/18/18 @ 14:38 by Jason Hampton MD) Borderline personality disorder (Acute) Depression (Acute) Diabetes mellitus (Acute) Psoriasis (Acute) Family History (Updated 10/18/18 @ 14:39 by Jason Hampton MD) Grandmother Diabetes mellitus Grandfather Diabetes mellitus Social History Smoking Status: Never smoker Comment: He denies any surgical history. Family & Social History Family History (Updated 10/18/18 @ 14:39 by Jason Hampton MD) Grandmother Diabetes mellitus Grandfather Diabetes mellitus Social History: He lives alone in an apartment 2 blocks away from the hospital. His primary care provider is at the [facility] clinic here in town He denies smoking, marijuana, alcohol, illicit drugs. 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 His backup decision maker would be his mother Jessica Navarrete and his father. Safety & Behavioral: Feels Safe in Current Yes Environment Tobacco & Substance use: Smoking Status Never smoker alcohol intake frequency 0-2 drinks per day Substance Use Type does not use Meds Home Medications Medication Instructions Recorded Confirmed Type bupropion HCl 75 mg PO DAILY 10/18/18 10/18/18 History lisinopril 5 mg PO DAILY 10/18/18 10/18/18 History metformin 500 mg PO DAILY 10/18/18 10/18/18 History Allergies Allergy/AdvReac Type Severity Reaction Status Date / Time Penicillins [PENICILLINS] Allergy Severe RASH Verified 10/18/18 10:28 acetaminophen AdvReac Severe VOMITING Verified 10/18/18 10:28 [From EXCEDRIN PM] diphenhydramine AdvReac Severe VOMITING Verified 10/18/18 10:28 [From EXCEDRIN PM] Review of Systems Review of Systems Positive for numbness, visual changes and depression. Negative for headache, seizures, chest pain, nausea, vomiting, abdominal pain, coughing, fever, chills, sweating, joint pain, rash other than his baseline psoriasis, new allergies, difficulty talking, difficulty walking, sore throat. All systems reviewed & are unremarkable except as noted in HPI and below Exam Vital Signs (past 8 hours): - 10/18/18 10:15 10/18/18 10:39 10/18/18 11:30 Temperature 97.6 F Pulse Rate 113 H 97 H 94 H Respiratory Rate 18 27 H 23 Blood Pressure 150/94 H Blood Pressure [Left Arm] 120/78 116/81 Pulse Oximetry 97 95 100 10/18/18 13:14 Temperature Pulse Rate 94 H Respiratory Rate 19 Blood Pressure Blood Pressure [Left Arm] 106/74 Pulse Oximetry 98 Oxygen Delivery Method Room Air Narrative Exam Narrative: He is alert and oriented x3. There is no apparent distress. He appears to be quite bright and interacts at a high social level. Pupils are equally round and reactive to light and accommodation. Extraocular muscles are intact. Sclerae are pink and not icteric. No lymph nodes are felt head, neck, supraclavicular area. There is diffuse thickening of the thyroid area consistent with diffuse thyroid enlargement. JVD is less than 6 cm. No carotid bruits are heard. Heart is regular rate and rhythm without murmur. Lungs are clear to auscultation bilaterally. Abdomen is soft, bowel sounds positive, nontender, no organomegaly. Extremities have no ankle edema. Neuro exam cranial nerves 2-12 test intact. Motor function is 5/5 throughout. Gait and balance are normal. Finger to nose pointing is normal. Deep tendon reflexes are symmetric throughout. Skin exam. Mild psoriatic changes on the elbows. There is a 3 x 4 cm rash on the anterior aspect of the right ankle. This looks like a Koebners Phenomena. The skin is slightly pink, slightly raised, flaking and plaque-like. There is no jaundice. Objective Labs Result Diagrams: 10/18/18 10:25 10/18/18 10:25 Labs: Laboratory Results - last 24 hr 10/18/18 10/18/18 10/18/18 10:25 10:25 10:25 WBC 5.8 RBC 5.40 Hgb 15.6 Hct 44.9 MCV 83.2 MCH 28.9 MCHC 34.8 RDW 12.6 Plt Count 209 Neut % (Auto) 62.0 Lymph % (Auto) 25.6 [place] % (Auto) 7.4 Eos % (Auto) 4.1 H Baso % (Auto) 0.9 Neut # (Auto) 3600 Lymph # (Auto) 1500 [place] # (Auto) 400 Eos # (Auto) 200 Baso # (Auto) 100 PT 10.9 INR 0.9 APTT 29 Sodium 136 L Potassium 4.1 Chloride 98 Carbon Dioxide 26 BUN 13 Creatinine 0.80 Estimated GFR > 60.0 BUN/Creatinine Ratio 16.3 Glucose 249 H Calcium 9.5 Assessment & Plan Assessment & Plan narrative: Neurological Event -Rule out TIA and Migraine Equivalent -observe on telemetry, obtain echocardiogram, check lipids and continue blood sugar checks. Diabetes Mellitus 2 -follow blood sugars and continue metformin. -check lipids and continue lisinopril. Depression/borderline personality -continue bupropion. Thyroid enlargement -check TSH and thyroid ultrasound. Psoriasis -the plaque on his ankle is quite impressive. It is probably not a neoplastic rash but a biopsy should be considered. Consider topical steroid therapy. -follow-up as an outpatient with his primary care.
[2018-10-18] MEDS: ASPIRIN 81 MG TAB 324 MG PO (14:33)
--- NOTE | 2018-10-18 15:00 | PC.NURSE ---
AM Shift pt arrived to room at 1500. AOx4, pleasant, and reporting some anxiety regarding communications with his girlfriend. The ELECTRICAL MANUFACTURING TECHNICIAN and I oriented the pt to the room, especially the phone, and stated his plan of care. pt has no questions currently.
--- NOTE | 2018-10-18 15:57 | DI.US.S_ITS ---
PROCEDURE: US THYROID INDICATIONS: THYROID ENLARGEMENT TECHNIQUE: Real-time scanning was performed of the thyroid gland, with image documentation. COMPARISON: [facility], MR, MR STROKE, 10/18/2018, 12:25. FINDINGS: Right: Thyroid lobe measures 5.6 x 2.2 x 2.2 cm, and is homogeneous in echotexture. Left: Thyroid lobe measures 5.0 x 1.5 x 1.9 cm, and is homogenous in echotexture. Isthmus: 4 mm thick. Nodule number: 1 Location: Superior right thyroid lobe Size: 4 x 3 x 4 mm. Composition: Cystic Echogenicity: Hypoechoic Shape: wider than tall. Margins: Smooth Echogenic foci: Punctate Total points: 5 ACR TI-RADS category: 4 Nodule number: 2 Location: Inferior right thyroid lobe Size: 0.8 x 0.5 x 0.6 cm. Composition: Predominantly solid Echogenicity: Isoechoic Shape: wider than tall. Margins: Smooth Echogenic foci: None Total points: 3 ACR TI-RADS category: 3 Nodule number: 3 Location: Mid left thyroid lobe Size: 1.5 x 1.0 x 1.4 cm. Composition: Predominantly solid Echogenicity: Isoechoic Shape: wider than tall. Margins: Irregular Echogenic foci: Punctate Total points: 8 ACR TI-RADS category: 5 IMPRESSION: 1. Thyromegaly 2. Bilateral thyroid nodules. Recommend ultrasound guided fine needle aspiration biopsy of nodule #3. Other nodules can be followed with ultrasound. ACR TI-RADS definitions and recommendations: TI-RADS 1 (benign): 0 points. FNA not needed. TI-RADS 2 (not suspicious): 2 points. FNA not needed. TI-RADS 3 (mildly suspicious): 3 points. * FNA if 2.5 cm or larger, follow up if 1.5 cm or larger (at 1, 3, and 5 years). TI-RADS 4 (moderately suspicious): 4-6 points. * FNA if 1.5 cm or larger, follow up if 1 cm or larger (at 1, 2, 3, and 5 years). TI-RADS 5 (highly suspicious): 7 points or more. * FNA if 1 cm or larger, follow up if 0.5 cm or larger (every year for 5 years). Dictated by: Amelia Hernandez M.D. on 10/18/2018 at 22:12 Approved by: Amelia Hernandez M.D. on 10/18/2018 at 22:19
[2018-10-18 16:29] LABS: Urine Amphetamines Negative (Negative); Urine Barbiturates Negative (Negative); Urine Benzodiazepines Negative (Negative); Urine Cocaine Negative (Negative); Urine MDMA Negative (Negative); Urine Methadone Negative (Negative); Urine Methamphetamines Negative (Negative); Urine Morphine/Opi cutoff 2000 Negative (Negative); Urine Oxycodone Negative (Negative); Urine Phencyclidine Negative (Negative); Urine Tetrahydrocannabinol Negative (Negative); Urine Tricyclic Antidepressant Negative (Negative)
[2018-10-18 18:18] LABS: TSH w/ Reflex to FT4 0.84 uIU/mL (0.47-4.68)
[2018-10-19 00:05] VITALS: O2SAT 98
[2018-10-19 03:50] VITALS: BP 111/71; PULSE 65; RESP 16; TEMP 36.4; O2SAT 98
[2018-10-19 05:50] LABS: Cholesterol 189 mg/dL (140-199); HDL Cholesterol 30 mg/dL (40-60); LDL Cholesterol Calculated 125 mg/dL (<100); Triglycerides 170 mg/dL (35-150)
[2018-10-19 08:00] VITALS: BP 130/90; PULSE 80; RESP 18; TEMP 36.3; O2SAT 97; O2SAT 99
[2018-10-19] MEDS: METFORMIN HCL 500 MG TABLET PO (08:32)
[2018-10-19] MEDS: LISINOPRIL 5 MG TABLET PO (08:32)
[2018-10-19] MEDS: buPROPion 75 MG TABLET PO (08:32)
[2018-10-19] MEDS: ENOXAPARIN 40 MG/0.4 ML SYRINGE SUBCUT (08:32)
[2018-10-19] MEDS: SODIUM CHLORIDE 0.9% FLUSH 10 ML IV (08:33)
--- NOTE | 2018-10-19 10:59 | PC.NURSE ---
AM NOTE - pt is alert, states earlier r side numbness and tingling, r eye visual change have all resolved, no headache, speech is clear, responses appropriate, extremities wnl, hr reg 66, ra 99%, echo in this am.
[2018-10-19 12:00] VITALS: BP 142/82; PULSE 84; RESP 18; TEMP 36.6; O2SAT 97
--- NOTE | 2018-10-19 13:15 | CM.DANOTE ---
Addendum entered by Raine Robbins 10/19/18 13:23: Contact is Alfie Navarrete (Father) [phone]. Original Note: DCP/Assessment: Reviewed chart. Patient is a 43yr old male admitted to [facility] under [facility] status complaining of unusual numbness. PCP is Dr. Chandler at [facility]. Primary payor is 1) Medicare 2)Medicaid. Met with patient explained CM/SW role. Patient very pleasant, alert and oriented male. Patient reports that he is completely I in all ADL's. Patient resides in apartment about 2 blocks away from the hospital. Patient denies any d/c planning needs. Patient confirms history of depression and borderline personality disorder. Patient reports that medications he receives for these conditions are prescribed by [facility]. Patient denies seeing a psychiatrist at this time. Provided patient with community resources for [facility] if he were to ever decide to obtain mental health assistance or find himself in crisis. Patient appreciative. At this time d/c plan is for patient to d/c home when medically stable. Patient hopeful he can leave today. P: Home when stable. Community resources provided. EDUARDO Douglas Discharge Planning/Care Management CM Discharge Assessment Start: 10/19/18 13:11 Freq: Status: Active Protocol: Document 10/19/18 13:11 KJS (Rec: 10/19/18 13:15 KJS [id number]) Discharge Planning Assessment Assigned Biofuels Technology Manager EDUARDO Douglas Contact Information Jessica Navarrete (mother) Advance Directives? No History Provided By Patient Medical Record Prior Living Arrangements Apartment/Condo Household Members none Independent with ADL's Yes Is patient alert and oriented? Yes Caregiver for Another No Barriers to Discharge No Discharge Plan Home Referrals Initiated Other Additional Comment [facility] brochure provided. Whiteboard Updated in Patient Room with Yes name and ext. # of Biofuels Technology Manager Review Status In Process Next Review Type Continued Stay Review
--- NOTE | 2018-10-19 14:45 | PM.DS.1 ---
History of Present Illness Date Patient Seen: 10/19/18 Time Patient Seen: 14:46 Chief complaint: right half went numb, back to normal, nervous Narrative: This is a 43-year-old male with 2 episodes of neurological symptoms this morning. He is at baseline disabled due to borderline personality and other mental issues since the age of 20. He lives alone in an apartment 2 blocks away from the hospital. He has diabetes and psoriasis but is otherwise generally healthy. At 6:00 a.m. he had an episode of blurry vision and a splotchy spot in the vision of the right eye that lasted for 15 minutes. Then at 10:00 a.m. he began to experience tingling and numbness on the right face, right arm, right body and right leg. This lasted for 5 minutes. There was no headache. He did not have any seizures. He has no history of migraines and there is no family history of migraines. He used to have some stress/tension headaches but that was over 10 years ago and they were not considered migraines. His MR stroke protocol is negative. He has had no arrhythmia so far. After discussion with Neurology he will be monitored on telemetry overnight with an echocardiogram in the morning. His main risk factor is the diabetes. There is no family history of strokes or heart attack. He was started on bupropion for depression a few weeks ago but had not noticed any symptoms or side effects. Discharge Providers Date of admission: 10/18/18 14:00 Discharge Date: 10/19/18 Primary care physician: JERRY Jang Discharge provider: Jason Hampton MD Summary Discharge Diagnosis: Neurological Event Diabetes Mellitus Type 2 Depression/borderline personality Thyroid enlargement Psoriasis Hospital Course: Neurological Event -echocardiogram and telemetry monitoring overnight is normal. -MR stroke protocol yesterday showed no stroke or other brain lesion. -his symptoms sound most suspicious for a migraine equivalent. He is directed to follow up with his primary care provider and discuss possible neurological consultation or treatment if symptoms recur with migraine directed medications. Diabetes Mellitus 2 -continue metformin. -continue lisinopril. -total cholesterol today of 189 with an LDL 125. Consider statin therapy. Depression/borderline personality -continue bupropion. Thyroid enlargement Nodule number: 3 Location: Mid left thyroid lobe Size: 1.5 x 1.0 x 1.4 cm. Composition: Predominantly solid Echogenicity: Isoechoic Shape: wider than tall. Margins: Irregular Echogenic foci: Punctate Total points: 8 ACR TI-RADS category: 5 IMPRESSION: 1. Thyromegaly 2. Bilateral thyroid nodules. Recommend ultrasound guided fine needle aspiration biopsy of nodule #3. Other nodules can be followed with ultrasound. I called him back, after he left the hospital, to discuss the thyroid ultrasound findings as those had been overlooked when he was here. He acknowledged that he understood my concern and would be speaking with his doctor about arranging a fine-needle aspiration. Psoriasis -the plaque on his ankle is quite impressive. It is probably not a neoplastic rash but a biopsy should be considered. Consider topical steroid therapy. -follow-up as an outpatient with his primary care. Status at Discharge Cognitive/behavioral status at discharge: at baseline, oriented Functional status at discharge: independent ambulation Overall status at discharge: patient is back to baseline Time Spent with Patient Less than 30 minutes Exam Vital Signs (past 8 hours): - 10/19/18 08:00 Temperature 97.4 F L Pulse Rate 80 Respiratory Rate 18 Blood Pressure 130/90 Pulse Oximetry 99 Oxygen Delivery Method Room Air Oxygen Flow Rate 0 Narrative Exam Narrative: Heart is regular rate and rhythm without murmur. Lungs are clear to auscultation bilaterally. He is alert and oriented x3, impatient to go home. No apparent distress. Cranial nerves 2-12 tested intact. Motor function is 5/5 throughout. There has been no recurrence of numbness since admission. Objective Labs Result Diagrams: 10/18/18 10:25 10/18/18 10:25 Labs: Laboratory Results - last 24 hr 10/18/18 10/18/18 10/19/18 10:25 16:20 04:42 Triglycerides 170 H Cholesterol 189 LDL Cholesterol, Calc 125 H HDL Cholesterol 30 L TSH 0.84 Urine Opiates Screen Negative Ur Oxycodone Screen Negative Urine Methadone Screen Negative Ur Barbiturates Screen Negative U Tricyclic Antidepress Negative Ur Phencyclidine Scrn Negative Ur Amphetamines Screen Negative U Methamphetamines Scrn Negative Ur MDMA Scrn (Ecstasy) Negative U Benzodiazepines Scrn Negative Urine Cocaine Screen Negative U Marijuana (THC) Screen Negative Discharge Plan Discharge Plan Patient Disposition: Home Discharge Med Rec/Prescriptions Prescriptions: Continued metformin 500 mg Tablet 500 mg PO DAILY RF: 0 bupropion HCl 75 mg Tablet 75 mg PO DAILY RF: 0 lisinopril 5 mg Tablet 5 mg PO DAILY RF: 0 Follow up/Referrals: Mary Bueno ARNP [Primary Care Provider] - Visit Report/Discharge Packet Instructions: DI for Transient Ischemic Attack Discharge Data Primary Care Provider: Mary Bueno Attending Provider: Jason Hampton Admit Date/Time: 10/18/18 14:00 Discharges patient from system. Discharge Date/Time: 10/19/18 15:37 Quality VTE Deep Vein Thrombosis/Pulmonary Embolism Present on Admission: No
== END 2018-10-19 15:37 | disposition home or self-care (01) ==
LOC: ED 13:49 → AC 14:00
PROVIDERS: Admitting Provider Family Medicine; Emergency Provider Emergency Medicine; PCP Nurse Practitioner Family; Visit Provider Family Medicine
DX: R29.818 Other symptoms and signs involving the nervous system (principal); H53.8 Other visual disturbances; E11.9 Type 2 diabetes mellitus without complications; Z79.84 Long term (current) use of oral hypoglycemic drugs; E04.9 Nontoxic goiter, unspecified; L40.9 Psoriasis, unspecified; F60.3 Borderline personality disorder; F32.9 Major depressive disorder, single episode, unspecified
CPT/HCPCS: 36415; 36591; 70450; 70548; 70553; 76536; 80048; 80061; 80305; 82962; 84443; 85025; 85610; 85730; 93005; 93306; 96360; 96361; 96372; 99283; 99285; G0378; A9579; J1650

== ENCOUNTER → 2018-11-06 09:31 | Outpatient (CLI) | payer MEDICARE, MEDICAID, SELFPAY ==
[2018-10-18 17:45] VITALS: BMI 30.3
--- NOTE | 2018-11-06 | PATH_ITS ---
Note [facility] Accession Number: [id number] TESTS RESULT FLAG UNITS REF RANGE LAB Clinician Provided Cytology Information No. of containers..01 ThinPrep Vial No. of containers..10 Previously Prepared Cytology Slide 01 L MID THYROID NODULE DIAGNOSIS: 02 L MID THYROID NODULE NEGATIVE FOR MALIGNANT CELLS. B[place] CATEGORY II. SPECIMEN CONSISTS OF BENIGN FOLLICULAR CELLS, COLLOID, AND BLOOD. THIS PATTERN IS CONSISTENT WITH A COLLOID NODULE. Pathologist ICD10: 02 E04.1 02 Naheed Herndon MD, Pathologist NPI- [id number] John Weaver, Retail Business Analyst ([facility]) 01 30 CC, COLORLESS, CLEAR RECEIVED: 5 ALCOHOL FIXED AND 5 QUICK STAINED SLIDES WITH 1 RNA VIAL FOR FUTHER TESTING. /VDU FLAG LEGEND: L-Low Normal,H-High Normal,LL-Alert Low,HH-Alert High <-Panic Low,>-Panic High,A-Abnormal,AA-Critical Abnormal Performed at: 01 =Z [facility] [address], [place] [address] Alfie Palomo MD, 02 [facility] [address] [place] [id number] Mary Hernandez MD, Performed at: 01 [facility] [address], [place], [place] [id number] MD Alfie Palomo MD Phone: [phone]
--- NOTE | 2018-11-06 | DI.US.S_ITS ---
PROCEDURE: US FINE NEEDLE ASPIRATION INDICATIONS: LEFT THYROID NODULE TECHNIQUE: The indications, alternatives, benefits, risks, and complications of the procedure were explained to the patient. Written informed consent was obtained and placed in the chart. The thyroid region was examined sonographically and a site was chosen for ultrasound guided percutaneous sampling. The skin was prepared and draped in the usual fashion, and anesthetized with 1% lidocaine infiltrated from the skin down to the thyroid gland. Multiple passes were then performed, with contents emptied into an appropriate pathology specimen container. A bandage was applied to the area of access at completion of the study. COMPARISON: None. FINDINGS: Location(s) of lesion(s) sampled: Left lobe [place]: 25 gauge hypodermic needles. Number of passes: 6 Medications: 1% lidocaine for local anaesthesia. Complications: None. IMPRESSION: Successful ultrasound-guided thyroid nodule fine needle aspiration, with cytology results pending. Please see chart below for management recommendations based on cytology results. [facility] ReportingRecommendationsNon-diagnostic* Repeat US-guided FNA, with on-site cytology evaluation if possible. * Repeated non-diagnostic nodules without high suspicion US features: close observation vs surgical consult. * Consider surgery if nodule has high suspicion US features, grows >20% in 2 dimensions on followup, or patient has clinical risk factors for malignancy. Benign* If nodule has high suspicion US features: repeat US and FNA within 12 months. * If nodule has low to intermediate suspicion US features: repeat US at 12-24 months. If nodule grows (20% increase in at least 2 dimensions, with minimal increase of 2 mm or >50% change in volume), or development of new suspicious US features, then repeat FNA or continue followup. * If nodule has very low suspicion US features: followup US at >24 months. Atypia of undetermined significance, follicular lesion of undetermined significanceRepeat FNA, molecular testing, followup US, or surgical consult.Follicular neoplasm, suspicious for follicular neoplasmSurgical consult; also consider molecular testing. Suspicious for malignancySurgical consult.MalignantSurgical consult. Dictated by: Robel Alvarado M.D. on 11/06/2018 at 13:31 Approved by: Robel Alvarado M.D. on 11/06/2018 at 13:33
== END ==
PROVIDERS: PCP Internal Medicine; Visit Provider Internal Medicine
DX: E04.1 Nontoxic single thyroid nodule (principal)
CPT/HCPCS: 10005

== ENCOUNTER → 2019-02-17 10:06 | Outpatient (CLI) | payer MEDICARE, SELFPAY ==
[2018-10-18 17:45] VITALS: BMI 30.3
[2019-02-17 11:47] LABS: Add Manual Diff / Slide Review NO; Basophils Absolute Auto 100 /uL (0-100); Basophils Percent Auto 1.1 % (0-2); Eosinophils Absolute Auto 300 /uL (0-450); Eosinophils Percent Auto 4.7 % (2-4); Hematocrit 43.8 % (41-53); Lymphocytes Absolute Auto 1400 /uL (1100-4500); Lymphocytes Percent Auto 24.3 % (25-40); Mean Corpuscular HGB Conc 34.1 % (30-36); Mean Corpuscular Volume 85.1 fL (80-100); Monocytes Absolute Auto 400 /uL (0-900); Monocytes Percent Auto 6.3 % (3-14); Neutrophils Absolute Auto 3800 /uL (1500-7000); Neutrophils Percent Auto 63.6 % (50-75); Platelet Count 216 X10^3/uL (150-400); Red Blood Cell Count 5.15 X10^6/uL (4.5-5.9); White Blood Cell Count 5.9 X10^3/uL (4.5-11.0)
[2019-02-17 11:53] LABS: Hemoglobin A1C% w Est Avg Glu 8.5 % (4.0-6.0)
[2019-02-17 12:02] LABS: Alanine Aminotransferase 29 IU/L (21-72); Albumin 4.4 g/dL (3.5-5.0); Albumin Globulin Ratio 1.5 (1.0-2.8); Alkaline Phosphatase 66 U/L (38-126); Aspartate Aminotransferase 29 IU/L (17-59); BUN Creatinine Ratio 16.3 (6-22); Bilirubin Total 2.2 mg/dL (0.2-1.3); Blood Urea Nitrogen 13 mg/dL (9-20); Calcium 9.4 mg/dL (8.4-10.2); Carbon Dioxide 26 mmol/L (22-32); Chloride 100 mmol/L (98-107); Cholesterol 196 mg/dL (140-199); Estimated Glomerular Filt Rate > 60.0 mL/min (>60); Globulin 2.9 g/dL (1.7-4.1); Glucose 194 mg/dL (70-100); HDL Cholesterol 36 mg/dL (40-60); HEMOLYSIS < 15 (0-50); LDL Cholesterol Calculated 136 mg/dL (<100); Potassium 4.3 mmol/L (3.4-5.1); Sodium 137 mmol/L (137-145); Total Protein 7.3 g/dL (6.3-8.2); Triglycerides 122 mg/dL (35-150)
[2019-02-17 12:32] LABS: Thyroid Stimulating Hormone 0.87 uIU/mL (0.47-4.68)
[2019-02-17 14:32] LABS: Appearance Urine UA CLEAR; Bilirubin Urine UA NEGATIVE (NEGATIVE); Color Urine UA YELLOW; Glucose Urine UA 1+ g/dL (Negative); Ketones Urine UA TRACE (NEGATIVE); Leukocyte Esterase Urine UA NEGATIVE (NEGATIVE); Nitrite Urine UA NEGATIVE (Negative); Occult Blood Urine UA NEGATIVE (Negative); Protein Urine UA NEGATIVE (Negative)
== END ==
PROVIDERS: PCP Family Medicine; Visit Provider Family Medicine
DX: E11.9 Type 2 diabetes mellitus without complications (principal); F60.3 Borderline personality disorder; S46.911A Strain of unspecified muscle, fascia and tendon at shoulder and upper arm level, right arm, initial encounter; Z91.19 Patient's noncompliance with other medical treatment and regimen
CPT/HCPCS: 36415; 80053; 80061; 81003; 83036; 84443; 85025

== ENCOUNTER → 2019-04-16 09:32 | Outpatient (CLI) | payer MEDICARE, MEDICAID, SELFPAY ==
[2018-10-18 17:45] VITALS: BMI 30.3
--- NOTE | 2019-04-16 09:36 | DI.RAD.S_ITS ---
PROCEDURE: XR SHOULDER RT MIN 2V INDICATIONS: shoulder pain TECHNIQUE: 3 views of the shoulder were acquired. COMPARISON: None. FINDINGS: Bones: No acute fractures or dislocations. No suspicious bony lesions. Visualized ribs appear intact. Soft tissues: There is a 0.9 cm linear soft tissue calcification along the superior lateral aspect of the proximal right humeral head. IMPRESSION: 0.9 cm linear soft tissue calcification along the superior lateral aspect of the proximal right humeral head. Differential considerations include calcific tendinitis versus chronic sequela of prior rotator cuff injury (with degenerative change or prior chronic fracture thought less likely). Dictated by: Navneet Rivera M.D. on 04/16/2019 at 11:06 Approved by: Navneet Rivera M.D. on 04/16/2019 at 11:15
== END ==
PROVIDERS: PCP Family Medicine; Visit Provider Family Medicine
DX: S46.911A Strain of unspecified muscle, fascia and tendon at shoulder and upper arm level, right arm, initial encounter (principal); M25.511 Pain in right shoulder; X58.XXXA Exposure to other specified factors, initial encounter
CPT/HCPCS: 73030

== ENCOUNTER 2019-08-05 09:00 | Outpatient (RCR) | payer MEDICARE, MEDICAID, SELFPAY ==
[2018-10-18 17:45] VITALS: BMI 30.3
--- NOTE | 2019-05-01 16:25 | PT.OIE ---
Current Diagnoses Other soft tissue disorders related to use, overuse and pressure, right shoulder (05/01/19) Other symptoms and signs involving the musculoskeletal system (05/01/19) Strain of unspecified muscle, fascia and tendon at shoulder and upper arm level, right arm, initial encounter (05/01/19) Past Medical History (Last Reviewed 02/05/19 @ 11:03 by Dary Gudino DO) Borderline personality disorder (Acute) Depression (Acute) Diabetes mellitus (Acute) Psoriasis (Acute) Visit Care Team Role Provider Type Dary Gudino DO Attending Provider Physician Primary Care Provider Specialty: Family Practice Address: [address] [place] [address], [address], [facility] Email: [email or web address] Physical Therapy Initial Evaluation PT-OP-A Visit Information Start: 05/01/19 11:24 Freq: Status: Active Protocol: Document 05/01/19 11:25 LRN (Rec: 05/01/19 17:38 LRN [id number]) Out-Patient Physical Therapy Visit Information Visit Information Visit Type Initial Evaluation Visit Start Time 11:25 Visit Stop Time 12:13 Total Visit Minutes 48 Visit Number 1 Number of TIGHTENING MACHINE OPERATOR Visits 0 Evaluation Information Evaluation Date 05/01/19 Precautions Precautions Adult onset Diabetes. ?TIA vs Migraine PT-OP-B Current Condition Start: 05/01/19 11:24 Freq: Status: Active Protocol: Document 05/01/19 11:25 LRN (Rec: 05/01/19 17:38 LRN [id number]) Current Condition History of Current Condition Onset Date 1 month ago Current Complaints Intermittent R shoulder pain when moving in back (taking jacket off) History of Current Condition Slept wrong on the shoulder and woke with R shoulder pain. Pt is R handed. Never had before. Mild throbbing pain with twitches of pain. The L arm feels like the L elbow joint is being poked. Slowly improved because not moving the arm, but does use the arm. Pain with extreme rotation of the arm. Prior Treatments and Tests X-rays Treatment Goals Patient/Caregiver Goals PT goal is no pain putting on jacket, dressing, sleeping (on R side), getting out of the tub. Denies difficulty with carrying groceries or eating. Prior Functional Status Baseline Function- ADL's Independent Baseline Function- Mobility Independent Baseline Function- Work/School Not employed Baseline Function- Other Sleeps on R side without difficulty Current Functional Impairments (Reported) Functional Limitations- ADL's Difficulty dressing, sleeping and getting out of a tub. Functional Limitations- Other Having to sleep on back, can't sleep on the R side. Personal Factors Other Personal Factors That May Effect Diabetes. Therapy/Recovery Pt denies TIA,states he was told it was a migraine. PT-OP-C Subjective Start: 05/01/19 11:24 Freq: Status: Active Protocol: Document 05/01/19 11:25 LRN (Rec: 05/01/19 17:38 LRN [id number]) OP-PT Pain Assessment Location R shoulder Pain Location Details R shoulder subacromial > Deltoid Intensity 2 Scale Used Numeric (1 - 10) Description Aching Frequency Intermittent Pain Aggravating Factors Position,Activity Pain Alleviating Factors Medication Other Pain Alleviating Factors IBP PT-OP-E Functional Tests Start: 05/01/19 11:24 Freq: Status: Active Protocol: Document 05/01/19 11:25 LRN (Rec: 05/01/19 17:38 LRN [id number]) Functional Tests Apley's Scratch Test Action 2- Left T2 Action 2- Right T2 Action 3- Left 1 away from spine Action 3- Right 1 away from spine PT-OP-F Manual Assessment Start: 05/01/19 11:24 Freq: Status: Active Protocol: Document 05/01/19 11:25 LRN (Rec: 05/01/19 17:38 LRN [id number]) Manual Assessments Soft Tissue Assessment Soft Tissue Mobility Assessment Increased tightness and tender at R UT, Supraspinatus, Anterior Scalene. Decreased muscle tone of R posterior upper back muscles. PT-OP-H Neuro Start: 05/01/19 11:24 Freq: Status: Active Protocol: Document 05/01/19 11:25 LRN (Rec: 05/01/19 17:38 LRN [id number]) Sensation Evaluation Gross Sensation Gross Sensation WNL Deep Tendon Reflex & Clonus Assessment Deep Tendon Reflex Bilateral Brachioradialis Deep Tendon Reflex 2+ Normal Bilateral Tricep Deep Tendon Reflex 3+ Normal But Brisk Bilateral Bicep Deep Tendon Reflex 2+ Normal PT-OP-J Posture/Palpation/Skin Start: 05/01/19 11:24 Freq: Status: Active Protocol: Document 05/01/19 11:25 LRN (Rec: 05/01/19 17:38 LRN [id number]) Posture Evaluation Position Standing Evaluation View All positions Head/C-Spine Posture C-Spine Flattened,Forward Head T-Spine Posture Increased Kyphosis Scapula Posture (R) Rotated Down,(R) Depressed Arm Posture (L) Internally Rotated,(R) Internally Rotated PT-OP-K Range of Motion Start: 05/01/19 11:24 Freq: Status: Active Protocol: Document 05/01/19 11:25 LRN (Rec: 05/01/19 17:38 LRN [id number]) Cervical Spine Range of Motion Cervical Spine Active Degrees Testing Position Sitting Flexion 40 Extension 38 Rotation Left 45 Rotation Right 67 Lateral Flexion Left 45 Lateral Flexion Right 67 Comments Pain limitations from L elbow and R shoulder Shoulder Goniometric Range of Motion Shoulder Right Active Testing Position Sitting Flexion 128 Abduction 78 External Rotation at 0 degrees Abduction 23 Left Active Testing Position Sitting Flexion 130 Abduction 80 External Rotation at 0 degrees Abduction 22 Shoulder ROM Limitations Shoulder ROM Limitations Pain Comments supine: shoulder ER is 68 deg right, 53 deg left. shoulder IR is 25 deg right, 8 deg left. PT-OP-L Special Tests Start: 05/01/19 11:24 Freq: Status: Active Protocol: Document 05/01/19 11:25 LRN (Rec: 05/01/19 17:38 LRN [id number]) Special Tests Cervical Spine Special Tests Vertebral Artery Test Results negative bilaterally Traction Test Results negative Foraminal Compression Test Results negative Shoulder Special Tests IR/Horizontal ADD Impingement Test Results + bilaterally Drop Arm Rotator Cuff Test Results negative bilaterally PT-OP-M Strength Start: 05/01/19 11:24 Freq: Status: Active Protocol: Document 05/01/19 11:25 LRN (Rec: 05/01/19 17:38 LRN [id number]) Cervical Spine Strength Cervical Spine Manual Muscle Testing Testing Position Sitting Comments Generally 5/5 without complaints of pain of UE's. Shoulder Strength Shoulder Manual Muscle Testing Right Comments Generally, 5/5. Pain with testing of shoulder abductors. Left Comments Generally 5/5 PT-OP-Q Treatments Start: 05/01/19 11:24 Freq: Status: Active Protocol: Document 05/01/19 11:25 LRN (Rec: 05/01/19 17:38 LRN [id number]) Therapeutic Exercises Standing Exercises Pec stretch Standing Exercise Name Ehsan Pec stretch Reps/Minutes 2' Self-Care/Home Management Treatment Education Patient Education Home Exercise Program,Posture Other Education Educated pt in proper upper body posturing to open chest. Activities Self-Care/Home Management Activities Reviewed and issued HEP: corner Pectoralis stretch, and I/S to use cold pack for pain management. PT-OP-T Assessment and Plan Start: 05/01/19 11:24 Freq: Status: Active Protocol: Document 05/01/19 11:25 LRN (Rec: 05/01/19 17:38 LRN [id number]) Physical Therapy Assessment Rehab Potential Rehabilitation Potential Good Evaluation Complexity Number of Personal Factors/Comorbidities 1-2 Number of Body Systems Impaired 4 or More Clinical Presentation at Evaluation Stable Impairments Impairments Functional Activities,Pain, Posture,ROM,Soft Tissue Mobility Goals Four Impairment Functional strength limited due to subacromial pain. Short Term Goal (STG) Pt will increase use of ice for pain management at home. STG Duration 05/08/19 Business Applications Analyst Goal (LTG) Pt will be able to exit a bathtub without pain. LTG Duration 07/30/19 Three Impairment Decreased R shoulder AROM limiting ability to dress self Prison Goal (LTG) Pt will be able to don/doff his coat and a T-shirt with mild discomfort, but no pain. LTG Duration 07/30/19 Two Impairment R shoulder pain with lying on R side Business Applications Analyst Goal (LTG) Pt will be able to sleep at night with ability to be on his R side with discomfort, no pain. LTG Duration 07/30/19 One Impairment Pt lacks appropriate HEP. Business Applications Analyst Goal (LTG) Pt will be independent in self care HEP. LTG Duration 07/30/19 Assessment Summary Assessment Pt presents with a mechanical dysfunction of the R shoulder, exhibiting signs of Impingement Syndrome, after sleeping on his R shoulder through the night. He doesn't appear to have neurological cervical involvement but may have UE neural tension resulting from his poor posturing. The pt will benefit from skilled physical therapy to improve posture, R shoulder ROM and functional use and strength. He does indicate that he has L anterior elbow pain, but the pt will be referred back for further assessment if needed after his R shoulder rehabilitation. Physical Therapy Plan Frequency and Duration Frequency of Treatment 2x/Week Plan of Care Start Date 05/01/19 Plan of Care End Date 07/29/18 Therapeutic Interventions Therapeutic Interventions Aquatic Therapy,Home Exercise Program,Joint Mobilizations, Manual Therapy,Neuromuscular Re-education,Patient/Caregiver Education,Self-Care/Home Management,Soft Tissue Mobilization,Taping, Therapeutic Activities, Therapeutic Exercises Modalities Cold Pack/Ice Massage,Electric Stimulation,Hot Packs, Iontophoresis,Ultrasound Other Therapeutic Interventions Iontophoresis with 4mg/mL Dexamethasone with Sodium Phosphate. Next Visit Focus/Plan Next Note Type Treatment Note Next Visit Plan MH/IFES to the R neck/shoulder followed by manual STM and ROM of R shoulder and stretch to anterior neck and anterior chest for improved posture and GHJ mechanics. Pt will be progressed with rotator cuff strengthening when appropriate . Modalities of Iontophoresis and cryotherapy will be used if needed for pain management once plan of care has been returned.
--- NOTE | 2019-05-15 15:46 | PT.OTN ---
Current Diagnoses Other soft tissue disorders related to use, overuse and pressure, right shoulder (05/15/19) Other symptoms and signs involving the musculoskeletal system (05/15/19) Strain of unspecified muscle, fascia and tendon at shoulder and upper arm level, right arm, initial encounter (05/15/19) Physical Therapy Treatment Note PT-OP-A Visit Information Start: 05/01/19 11:24 Freq: Status: Active Protocol: Document 05/15/19 09:54 LRN (Rec: 05/15/19 10:36 LRN [id number]) Out-Patient Physical Therapy Visit Information Visit Information Visit Type Treatment Note Visit Start Time 09:55 Visit Stop Time 10:46 Total Visit Minutes 41 Visit Number 2 Number of HUNTER GUIDE Visits 0 Evaluation Information Evaluation Date 05/01/19 Precautions Precautions Adult onset Diabetes. ?TIA vs Migraine PT-OP-B Current Condition Start: 05/01/19 11:24 Freq: Status: Active Protocol: Document 05/01/19 11:25 LRN (Rec: 05/01/19 17:38 LRN [id number]) Current Condition History of Current Condition Onset Date 1 month ago Current Complaints Intermittent R shoulder pain when moving in back (taking jacket off) History of Current Condition Slept wrong on the shoulder and woke with R shoulder pain. Pt is R handed. Never had before. Mild throbbing pain with twitches of pain. The L arm feels like the L elbow joint is being poked. Slowly improved because not moving the arm, but does use the arm. Pain with extreme rotation of the arm. Prior Treatments and Tests X-rays Treatment Goals Patient/Caregiver Goals PT goal is no pain putting on jacket, dressing, sleeping (on R side), getting out of the tub. Denies difficulty with carrying groceries or eating. Prior Functional Status Baseline Function- ADL's Independent Baseline Function- Mobility Independent Baseline Function- Work/School Not employed Baseline Function- Other Sleeps on R side without difficulty Current Functional Impairments (Reported) Functional Limitations- ADL's Difficulty dressing, sleeping and getting out of a tub. Functional Limitations- Other Having to sleep on back, can't sleep on the R side. Personal Factors Other Personal Factors That May Effect Diabetes. Therapy/Recovery Pt denies TIA,states he was told it was a migraine. PT-OP-C Subjective Start: 05/01/19 11:24 Freq: Status: Active Protocol: Document 05/15/19 09:54 LRN (Rec: 05/15/19 10:36 LRN [id number]) OP-PT Subjective Patient Comments Patient Comments Overall doing a lot better, because the pain is down. The other arm (L) is worse than the R now. Doing stretches and working on posture. PT-OP-E Functional Tests Start: 05/01/19 11:24 Freq: Status: Active Protocol: Document 05/01/19 11:25 LRN (Rec: 05/01/19 17:38 LRN [id number]) Functional Tests Apley's Scratch Test Action 2- Left T2 Action 2- Right T2 Action 3- Left 1 away from spine Action 3- Right 1 away from spine PT-OP-F Manual Assessment Start: 05/01/19 11:24 Freq: Status: Active Protocol: Document 05/01/19 11:25 LRN (Rec: 05/01/19 17:38 LRN [id number]) Manual Assessments Soft Tissue Assessment Soft Tissue Mobility Assessment Increased tightness and tender at R UT, Supraspinatus, Anterior Scalene. Decreased muscle tone of R posterior upper back muscles. PT-OP-H Neuro Start: 05/01/19 11:24 Freq: Status: Active Protocol: Document 05/01/19 11:25 LRN (Rec: 05/01/19 17:38 LRN [id number]) Sensation Evaluation Gross Sensation Gross Sensation WNL Deep Tendon Reflex & Clonus Assessment Deep Tendon Reflex Bilateral Brachioradialis Deep Tendon Reflex 2+ Normal Bilateral Tricep Deep Tendon Reflex 3+ Normal But Brisk Bilateral Bicep Deep Tendon Reflex 2+ Normal PT-OP-J Posture/Palpation/Skin Start: 05/01/19 11:24 Freq: Status: Active Protocol: Document 05/01/19 11:25 LRN (Rec: 05/01/19 17:38 LRN [id number]) Posture Evaluation Position Standing Evaluation View All positions Head/C-Spine Posture C-Spine Flattened,Forward Head T-Spine Posture Increased Kyphosis Scapula Posture (R) Rotated Down,(R) Depressed Arm Posture (L) Internally Rotated,(R) Internally Rotated PT-OP-K Range of Motion Start: 05/01/19 11:24 Freq: Status: Active Protocol: Document 05/01/19 11:25 LRN (Rec: 05/01/19 17:38 LRN [id number]) Cervical Spine Range of Motion Cervical Spine Active Degrees Testing Position Sitting Flexion 40 Extension 38 Rotation Left 45 Rotation Right 67 Lateral Flexion Left 45 Lateral Flexion Right 67 Comments Pain limitations from L elbow and R shoulder Shoulder Goniometric Range of Motion Shoulder Right Active Testing Position Sitting Flexion 128 Abduction 78 External Rotation at 0 degrees Abduction 23 Left Active Testing Position Sitting Flexion 130 Abduction 80 External Rotation at 0 degrees Abduction 22 Shoulder ROM Limitations Shoulder ROM Limitations Pain Comments supine: shoulder ER is 68 deg right, 53 deg left. shoulder IR is 25 deg right, 8 deg left. PT-OP-L Special Tests Start: 05/01/19 11:24 Freq: Status: Active Protocol: Document 05/01/19 11:25 LRN (Rec: 05/01/19 17:38 LRN [id number]) Special Tests Cervical Spine Special Tests Vertebral Artery Test Results negative bilaterally Traction Test Results negative Foraminal Compression Test Results negative Shoulder Special Tests IR/Horizontal ADD Impingement Test Results + bilaterally Drop Arm Rotator Cuff Test Results negative bilaterally PT-OP-M Strength Start: 05/01/19 11:24 Freq: Status: Active Protocol: Document 05/01/19 11:25 LRN (Rec: 05/01/19 17:38 LRN [id number]) Cervical Spine Strength Cervical Spine Manual Muscle Testing Testing Position Sitting Comments Generally 5/5 without complaints of pain of UE's. Shoulder Strength Shoulder Manual Muscle Testing Right Comments Generally, 5/5. Pain with testing of shoulder abductors. Left Comments Generally 5/5 PT-OP-Q Treatments Start: 05/01/19 11:24 Freq: Status: Active Protocol: Document 05/15/19 09:54 LRN (Rec: 05/15/19 10:36 LRN [id number]) Therapeutic Exercises Supine Exercises Windshield wipe Supine Exercise Name Active shoulder ER/IR, arm at 45 deg AB Reps/Minutes 10x Shoulder IR Supine Exercise Name Stretch w/arm in 90/90 Side right Shoulder ER Supine Exercise Name Stretch w/arm 90/90, & with hand on forehead Side right Pec Stretch Supine Exercise Name Kade shoulder pinches Reps/Minutes 8x Manual Therapy Treatment Manual Techniques R pec major/minor Type Manual stretch Body Location R Pec Mario/Minor Body Position Supine Reps/Duration 5' R anterior Scaplenes Type Manual stretch Body Location R Anterior Scalenes Body Position Supine Reps/Duration 4' R UT Type Manual stretch Body Location R UT Body Position Supine Reps/Duration 8' Self-Care/Home Management Treatment Education Patient Education Home Exercise Program Activities Self-Care/Home Management Activities HEP issued: Pec stretch and shoulder ER stretch in 90/90 PT-OP-T Assessment and Plan Start: 05/01/19 11:24 Freq: Status: Active Protocol: Document 05/15/19 09:54 LRN (Rec: 05/15/19 10:36 LRN [id number]) Physical Therapy Assessment Goals Four Impairment Functional strength limited due to subacromial pain. Short Term Goal (STG) Pt will increase use of ice for pain management at home. STG Duration 05/08/19 Road Train Driver Goal (LTG) Pt will be able to exit a bathtub without pain. LTG Duration 07/30/19 Three Impairment Decreased R shoulder AROM limiting ability to dress self Alf Goal (LTG) Pt will be able to don/doff his coat and a T-shirt with mild discomfort, but no pain. LTG Duration 07/30/19 Two Impairment R shoulder pain with lying on R side Road Train Driver Goal (LTG) Pt will be able to sleep at night with ability to be on his R side with discomfort, no pain. LTG Duration 07/30/19 One Impairment Pt lacks appropriate HEP. Alf Goal (LTG) Pt will be independent in self care HEP. LTG Duration 07/30/19 Assessment Summary Assessment R shoulder impingement with decreased shoulder IR>ER today . Tender at R UT & Supraspinatus. Appears to be tight in R Subscapularis. No tenderness at intrascapular, extrascapular, or deltoid region. Cryotherapy today vs MH/IFES to assess need for IFES at next visit. Physical Therapy Plan Frequency and Duration Frequency of Treatment 2x/Week Plan of Care Start Date 05/01/19 Plan of Care End Date 07/29/18 Next Visit Focus/Plan Next Note Type Treatment Note Next Visit Plan Assess need for MH/IFES to the R neck/shoulder. Manual stretch to subscapularis and ROM of R shoulder and stretch to anterior neck and anterior chest for improved posture and GHJ mechanics. Pt will be progressed with rotator cuff strengthening when appropriate . Modalities of Iontophoresis and cryotherapy will be used if needed for pain management once plan of care has been returned.
--- NOTE | 2019-05-15 15:48 | PT.OTN ---
Current Diagnoses Other soft tissue disorders related to use, overuse and pressure, right shoulder (05/15/19) Other symptoms and signs involving the musculoskeletal system (05/15/19) Strain of unspecified muscle, fascia and tendon at shoulder and upper arm level, right arm, initial encounter (05/15/19) Physical Therapy Treatment Note PT-OP-A Visit Information Start: 05/01/19 11:24 Freq: Status: Active Protocol: Document 05/15/19 09:54 LRN (Rec: 05/15/19 10:36 LRN [id number]) Out-Patient Physical Therapy Visit Information Visit Information Visit Type Treatment Note Visit Start Time 09:55 Visit Stop Time 10:46 Total Visit Minutes 41 Visit Number 2 Number of SHIPPING CLERK CRATING Visits 0 Evaluation Information Evaluation Date 05/01/19 Precautions Precautions Adult onset Diabetes. ?TIA vs Migraine PT-OP-B Current Condition Start: 05/01/19 11:24 Freq: Status: Active Protocol: Document 05/01/19 11:25 LRN (Rec: 05/01/19 17:38 LRN [id number]) Current Condition History of Current Condition Onset Date 1 month ago Current Complaints Intermittent R shoulder pain when moving in back (taking jacket off) History of Current Condition Slept wrong on the shoulder and woke with R shoulder pain. Pt is R handed. Never had before. Mild throbbing pain with twitches of pain. The L arm feels like the L elbow joint is being poked. Slowly improved because not moving the arm, but does use the arm. Pain with extreme rotation of the arm. Prior Treatments and Tests X-rays Treatment Goals Patient/Caregiver Goals PT goal is no pain putting on jacket, dressing, sleeping (on R side), getting out of the tub. Denies difficulty with carrying groceries or eating. Prior Functional Status Baseline Function- ADL's Independent Baseline Function- Mobility Independent Baseline Function- Work/School Not employed Baseline Function- Other Sleeps on R side without difficulty Current Functional Impairments (Reported) Functional Limitations- ADL's Difficulty dressing, sleeping and getting out of a tub. Functional Limitations- Other Having to sleep on back, can't sleep on the R side. Personal Factors Other Personal Factors That May Effect Diabetes. Therapy/Recovery Pt denies TIA,states he was told it was a migraine. PT-OP-C Subjective Start: 05/01/19 11:24 Freq: Status: Active Protocol: Document 05/15/19 09:54 LRN (Rec: 05/15/19 10:36 LRN [id number]) OP-PT Subjective Patient Comments Patient Comments Overall doing a lot better, because the pain is down. The other arm (L) is worse than the R now. Doing stretches and working on posture. PT-OP-E Functional Tests Start: 05/01/19 11:24 Freq: Status: Active Protocol: Document 05/01/19 11:25 LRN (Rec: 05/01/19 17:38 LRN [id number]) Functional Tests Apley's Scratch Test Action 2- Left T2 Action 2- Right T2 Action 3- Left 1 away from spine Action 3- Right 1 away from spine PT-OP-F Manual Assessment Start: 05/01/19 11:24 Freq: Status: Active Protocol: Document 05/01/19 11:25 LRN (Rec: 05/01/19 17:38 LRN [id number]) Manual Assessments Soft Tissue Assessment Soft Tissue Mobility Assessment Increased tightness and tender at R UT, Supraspinatus, Anterior Scalene. Decreased muscle tone of R posterior upper back muscles. PT-OP-H Neuro Start: 05/01/19 11:24 Freq: Status: Active Protocol: Document 05/01/19 11:25 LRN (Rec: 05/01/19 17:38 LRN [id number]) Sensation Evaluation Gross Sensation Gross Sensation WNL Deep Tendon Reflex & Clonus Assessment Deep Tendon Reflex Bilateral Brachioradialis Deep Tendon Reflex 2+ Normal Bilateral Tricep Deep Tendon Reflex 3+ Normal But Brisk Bilateral Bicep Deep Tendon Reflex 2+ Normal PT-OP-J Posture/Palpation/Skin Start: 05/01/19 11:24 Freq: Status: Active Protocol: Document 05/01/19 11:25 LRN (Rec: 05/01/19 17:38 LRN [id number]) Posture Evaluation Position Standing Evaluation View All positions Head/C-Spine Posture C-Spine Flattened,Forward Head T-Spine Posture Increased Kyphosis Scapula Posture (R) Rotated Down,(R) Depressed Arm Posture (L) Internally Rotated,(R) Internally Rotated PT-OP-K Range of Motion Start: 05/01/19 11:24 Freq: Status: Active Protocol: Document 05/01/19 11:25 LRN (Rec: 05/01/19 17:38 LRN [id number]) Cervical Spine Range of Motion Cervical Spine Active Degrees Testing Position Sitting Flexion 40 Extension 38 Rotation Left 45 Rotation Right 67 Lateral Flexion Left 45 Lateral Flexion Right 67 Comments Pain limitations from L elbow and R shoulder Shoulder Goniometric Range of Motion Shoulder Right Active Testing Position Sitting Flexion 128 Abduction 78 External Rotation at 0 degrees Abduction 23 Left Active Testing Position Sitting Flexion 130 Abduction 80 External Rotation at 0 degrees Abduction 22 Shoulder ROM Limitations Shoulder ROM Limitations Pain Comments supine: shoulder ER is 68 deg right, 53 deg left. shoulder IR is 25 deg right, 8 deg left. PT-OP-L Special Tests Start: 05/01/19 11:24 Freq: Status: Active Protocol: Document 05/01/19 11:25 LRN (Rec: 05/01/19 17:38 LRN [id number]) Special Tests Cervical Spine Special Tests Vertebral Artery Test Results negative bilaterally Traction Test Results negative Foraminal Compression Test Results negative Shoulder Special Tests IR/Horizontal ADD Impingement Test Results + bilaterally Drop Arm Rotator Cuff Test Results negative bilaterally PT-OP-M Strength Start: 05/01/19 11:24 Freq: Status: Active Protocol: Document 05/01/19 11:25 LRN (Rec: 05/01/19 17:38 LRN [id number]) Cervical Spine Strength Cervical Spine Manual Muscle Testing Testing Position Sitting Comments Generally 5/5 without complaints of pain of UE's. Shoulder Strength Shoulder Manual Muscle Testing Right Comments Generally, 5/5. Pain with testing of shoulder abductors. Left Comments Generally 5/5 PT-OP-Q Treatments Start: 05/01/19 11:24 Freq: Status: Active Protocol: Document 05/15/19 09:54 LRN (Rec: 05/15/19 10:36 LRN [id number]) Therapeutic Exercises Supine Exercises Windshield wipe Supine Exercise Name Active shoulder ER/IR, arm at 45 deg AB Reps/Minutes 10x Shoulder IR Supine Exercise Name Stretch w/arm in 90/90 Side right Shoulder ER Supine Exercise Name Stretch w/arm 90/90, & with hand on forehead Side right Pec Stretch Supine Exercise Name Kade shoulder pinches Reps/Minutes 8x Manual Therapy Treatment Manual Techniques R pec major/minor Type Manual stretch Body Location R Pec Mario/Minor Body Position Supine Reps/Duration 5' R anterior Scaplenes Type Manual stretch Body Location R Anterior Scalenes Body Position Supine Reps/Duration 4' R UT Type Manual stretch Body Location R UT Body Position Supine Reps/Duration 8' Self-Care/Home Management Treatment Education Patient Education Home Exercise Program Activities Self-Care/Home Management Activities HEP issued: Pec stretch and shoulder ER stretch in 90/90 PT-OP-R Modalities Start: 05/01/19 11:24 Freq: Status: Active Protocol: Document 05/15/19 09:54 LRN (Rec: 05/15/19 15:48 LRN [id number]) Hot Pack/Cold Pack Treatment Cold Pack Location R Shoulder Patient Position Supine Treatment Duration (minutes) 10 PT-OP-T Assessment and Plan Start: 05/01/19 11:24 Freq: Status: Active Protocol: Document 05/15/19 09:54 LRN (Rec: 05/15/19 10:36 LRN [id number]) Physical Therapy Assessment Goals Four Impairment Functional strength limited due to subacromial pain. Short Term Goal (STG) Pt will increase use of ice for pain management at home. STG Duration 05/08/19 [facility] Goal (LTG) Pt will be able to exit a bathtub without pain. LTG Duration 07/30/19 Three Impairment Decreased R shoulder AROM limiting ability to dress self [facility] Goal (LTG) Pt will be able to don/doff his coat and a T-shirt with mild discomfort, but no pain. 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 LTG Duration 07/30/19 One Impairment Pt lacks appropriate HEP. [facility] Goal (LTG) Pt will be independent in self care HEP. LTG Duration 07/30/19 Assessment Summary Assessment R shoulder impingement with decreased shoulder IR>ER today . Tender at R UT & Supraspinatus. Appears to be tight in R Subscapularis. No tenderness at intrascapular, extrascapular, or deltoid region. Cryotherapy today vs MH/IFES to assess need for IFES at next visit. Physical Therapy Plan Frequency and Duration Frequency of Treatment 2x/Week Plan of Care Start Date 05/01/19 Plan of Care End Date 07/29/18 Next Visit Focus/Plan Next Note Type Treatment Note Next Visit Plan Assess need for MH/IFES to the R neck/shoulder. Manual stretch to subscapularis and ROM of R shoulder and stretch to anterior neck and anterior chest for improved posture and GHJ mechanics. Pt will be progressed with rotator cuff strengthening when appropriate . Modalities of Iontophoresis and cryotherapy will be used if needed for pain management once plan of care has been returned.
--- NOTE | 2019-05-20 12:42 | PT-OP ANOTE ---
Per phone, pt forgot.
--- NOTE | 2019-05-23 14:02 | PT.OTN ---
Current Diagnoses Other soft tissue disorders related to use, overuse and pressure, right shoulder (05/23/19) Other symptoms and signs involving the musculoskeletal system (05/23/19) Strain of unspecified muscle, fascia and tendon at shoulder and upper arm level, right arm, initial encounter (05/23/19) Physical Therapy Treatment Note PT-OP-A Visit Information Start: 05/01/19 11:24 Freq: Status: Active Protocol: Document 05/23/19 13:09 LRN (Rec: 05/23/19 14:00 LRN [id number]) Out-Patient Physical Therapy Visit Information Visit Information Visit Type Treatment Note Visit Start Time 13:09 Visit Stop Time 14:02 Total Visit Minutes 53 Visit Number 3 Number of CAN CLOSING MACHINE TENDER Visits 0 Evaluation Information Evaluation Date 05/01/19 Precautions Precautions Adult onset Diabetes. ?TIA vs Migraine PT-OP-B Current Condition Start: 05/01/19 11:24 Freq: Status: Active Protocol: Document 05/01/19 11:25 LRN (Rec: 05/01/19 17:38 LRN [id number]) Current Condition History of Current Condition Onset Date 1 month ago Current Complaints Intermittent R shoulder pain when moving in back (taking jacket off) History of Current Condition Slept wrong on the shoulder and woke with R shoulder pain. Pt is R handed. Never had before. Mild throbbing pain with twitches of pain. The L arm feels like the L elbow joint is being poked. Slowly improved because not moving the arm, but does use the arm. Pain with extreme rotation of the arm. Prior Treatments and Tests X-rays Treatment Goals Patient/Caregiver Goals PT goal is no pain putting on jacket, dressing, sleeping (on R side), getting out of the tub. Denies difficulty with carrying groceries or eating. Prior Functional Status Baseline Function- ADL's Independent Baseline Function- Mobility Independent Baseline Function- Work/School Not employed Baseline Function- Other Sleeps on R side without difficulty Current Functional Impairments (Reported) Functional Limitations- ADL's Difficulty dressing, sleeping and getting out of a tub. Functional Limitations- Other Having to sleep on back, can't sleep on the R side. Personal Factors Other Personal Factors That May Effect Diabetes. Therapy/Recovery Pt denies TIA,states he was told it was a migraine. PT-OP-C Subjective Start: 05/01/19 11:24 Freq: Status: Active Protocol: Document 05/23/19 13:09 LRN (Rec: 05/23/19 14:00 LRN [id number]) OP-PT Subjective Patient Comments Patient Comments States his R shoulder is getting better, pretty painless. Pain in R shoulder with movement is 3-4/10. PT-OP-E Functional Tests Start: 05/01/19 11:24 Freq: Status: Active Protocol: Document 05/01/19 11:25 LRN (Rec: 05/01/19 17:38 LRN [id number]) Functional Tests Apley's Scratch Test Action 2- Left T2 Action 2- Right T2 Action 3- Left 1 away from spine Action 3- Right 1 away from spine PT-OP-F Manual Assessment Start: 05/01/19 11:24 Freq: Status: Active Protocol: Document 05/01/19 11:25 LRN (Rec: 05/01/19 17:38 LRN [id number]) Manual Assessments Soft Tissue Assessment Soft Tissue Mobility Assessment Increased tightness and tender at R UT, Supraspinatus, Anterior Scalene. Decreased muscle tone of R posterior upper back muscles. PT-OP-H Neuro Start: 05/01/19 11:24 Freq: Status: Active Protocol: Document 05/01/19 11:25 LRN (Rec: 05/01/19 17:38 LRN [id number]) Sensation Evaluation Gross Sensation Gross Sensation WNL Deep Tendon Reflex & Clonus Assessment Deep Tendon Reflex Bilateral Brachioradialis Deep Tendon Reflex 2+ Normal Bilateral Tricep Deep Tendon Reflex 3+ Normal But Brisk Bilateral Bicep Deep Tendon Reflex 2+ Normal PT-OP-J Posture/Palpation/Skin Start: 05/01/19 11:24 Freq: Status: Active Protocol: Document 05/01/19 11:25 LRN (Rec: 05/01/19 17:38 LRN [id number]) Posture Evaluation Position Standing Evaluation View All positions Head/C-Spine Posture C-Spine Flattened,Forward Head T-Spine Posture Increased Kyphosis Scapula Posture (R) Rotated Down,(R) Depressed Arm Posture (L) Internally Rotated,(R) Internally Rotated PT-OP-K Range of Motion Start: 05/01/19 11:24 Freq: Status: Active Protocol: Document 05/01/19 11:25 LRN (Rec: 05/01/19 17:38 LRN [id number]) Cervical Spine Range of Motion Cervical Spine Active Degrees Testing Position Sitting Flexion 40 Extension 38 Rotation Left 45 Rotation Right 67 Lateral Flexion Left 45 Lateral Flexion Right 67 Comments Pain limitations from L elbow and R shoulder Shoulder Goniometric Range of Motion Shoulder Right Active Testing Position Sitting Flexion 128 Abduction 78 External Rotation at 0 degrees Abduction 23 Left Active Testing Position Sitting Flexion 130 Abduction 80 External Rotation at 0 degrees Abduction 22 Shoulder ROM Limitations Shoulder ROM Limitations Pain Comments supine: shoulder ER is 68 deg right, 53 deg left. shoulder IR is 25 deg right, 8 deg left. PT-OP-L Special Tests Start: 05/01/19 11:24 Freq: Status: Active Protocol: Document 05/01/19 11:25 LRN (Rec: 05/01/19 17:38 LRN [id number]) Special Tests Cervical Spine Special Tests Vertebral Artery Test Results negative bilaterally Traction Test Results negative Foraminal Compression Test Results negative Shoulder Special Tests IR/Horizontal ADD Impingement Test Results + bilaterally Drop Arm Rotator Cuff Test Results negative bilaterally PT-OP-M Strength Start: 05/01/19 11:24 Freq: Status: Active Protocol: Document 05/01/19 11:25 LRN (Rec: 05/01/19 17:38 LRN [id number]) Cervical Spine Strength Cervical Spine Manual Muscle Testing Testing Position Sitting Comments Generally 5/5 without complaints of pain of UE's. Shoulder Strength Shoulder Manual Muscle Testing Right Comments Generally, 5/5. Pain with testing of shoulder abductors. Left Comments Generally 5/5 PT-OP-Q Treatments Start: 05/01/19 11:24 Freq: Status: Active Protocol: Document 05/23/19 13:09 LRN (Rec: 05/23/19 14:00 LRN [id number]) Cardio Equipment Upper Body Ergometer (UBE) Duration (Minutes) 6 RPM 90 Height 1.5 Therapeutic Exercises Supine Exercises Lat Pull Down Supine Exercise Name Lat Pull Down Side bilateral Resistance Lev 2 Equipment Used Stick/T-Band Reps/Minutes 10x Comments Pt moved slowly Windshield wipe Supine Exercise Name Active shoulder ER/IR, arm at 45 deg AB Side right Reps/Minutes 15 x Sitting Exercises Makayla shoulder ROM Sitting Exercise Name PROM Flex & AB Side right Reps/Minutes 10' Manual Therapy Treatment Manual Techniques R pec major/minor Type Manual stretch Body Location R Pec Mario/Minor Body Position Supine Reps/Duration 5' R anterior Scaplenes Type Manual stretch Body Location R Anterior Scalenes Body Position Supine Reps/Duration 4' PT-OP-R Modalities Start: 05/01/19 11:24 Freq: Status: Active Protocol: Document 05/23/19 13:09 LRN (Rec: 05/23/19 14:00 LRN [id number]) Hot Pack/Cold Pack Treatment Cold Pack Location R Shoulder Patient Position Supine Treatment Duration (minutes) 10 PT-OP-T Assessment and Plan Start: 05/01/19 11:24 Freq: Status: Active Protocol: Document 05/23/19 13:09 LRN (Rec: 05/23/19 14:00 LRN [id number]) Physical Therapy Assessment Goals Four Impairment Functional strength limited due to subacromial pain. Short Term Goal (STG) Pt will increase use of ice for pain management at home. (05/23/19: Not using ice at home because he reports it hasn't been hurting). STG Duration 05/08/19 Sebd Teacher Goal (LTG) Pt will be able to exit a bathtub without pain. LTG Duration 07/30/19 Three Impairment Decreased R shoulder AROM limiting ability to dress self Sebd Teacher Goal (LTG) Pt will be able to don/doff his coat and a T-shirt with mild discomfort, but no pain. LTG Duration 07/30/19 Two Impairment R shoulder pain with lying on R side Sebd Teacher Goal (LTG) Pt will be able to sleep at night with ability to be on his R side with discomfort, no pain. LTG Duration 07/30/19 (05/23/19: Partially Met> Sleeping on the back without pain) One Impairment Pt lacks appropriate HEP. Jail Goal (LTG) Pt will be independent in self care HEP. LTG Duration 07/30/19 Assessment Summary Assessment Pt R shoulder mobility appears to be improving with supine ER ~75-80 deg's. Good tolerance to exercise without pain except end-range shoulder stretching; therefore currently use of E-Stim does't seem necessary. Pt is ready to slowly progress RC strengthening. Physical Therapy Plan Frequency and Duration Frequency of Treatment 2x/Week Plan of Care Start Date 05/01/19 Plan of Care End Date 07/29/18 Next Visit Focus/Plan Next Note Type Treatment Note Next Visit Plan Issue HEP for scapular depression and when able, RC strengthening with T-Band. Manual stretch to subscapularis and ROM of R shoulder. Cont stretch to anterior neck and anterior chest for improved posture and GHJ mechanics. Progress rotator cuff strengthening. Modalities of Iontophoresis and cryotherapy if needed for pain management (with return of plan of care).
--- NOTE | 2019-05-26 11:08 | PT.OTN ---
Current Diagnoses Other soft tissue disorders related to use, overuse and pressure, right shoulder (05/26/19) Other symptoms and signs involving the musculoskeletal system (05/26/19) Strain of unspecified muscle, fascia and tendon at shoulder and upper arm level, right arm, initial encounter (05/26/19) Physical Therapy Treatment Note PT-OP-A Visit Information Start: 05/01/19 11:24 Freq: Status: Active Protocol: Document 05/26/19 09:06 LRN (Rec: 05/26/19 09:45 LRN [id number]) Out-Patient Physical Therapy Visit Information Visit Information Visit Type Treatment Note Visit Start Time 09:06 Visit Stop Time 09:55 Total Visit Minutes 49 Visit Number 4 Number of TOP PRECIPITATOR OPERATOR Visits 0 Evaluation Information Evaluation Date 05/01/19 Precautions Precautions Adult onset Diabetes. ?TIA vs Migraine PT-OP-B Current Condition Start: 05/01/19 11:24 Freq: Status: Active Protocol: Document 05/01/19 11:25 LRN (Rec: 05/01/19 17:38 LRN [id number]) Current Condition History of Current Condition Onset Date 1 month ago Current Complaints Intermittent R shoulder pain when moving in back (taking jacket off) History of Current Condition Slept wrong on the shoulder and woke with R shoulder pain. Pt is R handed. Never had before. Mild throbbing pain with twitches of pain. The L arm feels like the L elbow joint is being poked. Slowly improved because not moving the arm, but does use the arm. Pain with extreme rotation of the arm. Prior Treatments and Tests X-rays Treatment Goals Patient/Caregiver Goals PT goal is no pain putting on jacket, dressing, sleeping (on R side), getting out of the tub. Denies difficulty with carrying groceries or eating. Prior Functional Status Baseline Function- ADL's Independent Baseline Function- Mobility Independent Baseline Function- Work/School Not employed Baseline Function- Other Sleeps on R side without difficulty Current Functional Impairments (Reported) Functional Limitations- ADL's Difficulty dressing, sleeping and getting out of a tub. Functional Limitations- Other Having to sleep on back, can't sleep on the R side. Personal Factors Other Personal Factors That May Effect Diabetes. Therapy/Recovery Pt denies TIA,states he was told it was a migraine. PT-OP-C Subjective Start: 05/01/19 11:24 Freq: Status: Active Protocol: Document 05/26/19 09:06 LRN (Rec: 05/26/19 09:45 LRN [id number]) OP-PT Subjective Patient Comments Patient Comments Mobility is better, making steady progress. Hurts a little today. PT-OP-E Functional Tests Start: 05/01/19 11:24 Freq: Status: Active Protocol: Document 05/01/19 11:25 LRN (Rec: 05/01/19 17:38 LRN [id number]) Functional Tests Apley's Scratch Test Action 2- Left T2 Action 2- Right T2 Action 3- Left 1 away from spine Action 3- Right 1 away from spine PT-OP-F Manual Assessment Start: 05/01/19 11:24 Freq: Status: Active Protocol: Document 05/01/19 11:25 LRN (Rec: 05/01/19 17:38 LRN [id number]) Manual Assessments Soft Tissue Assessment Soft Tissue Mobility Assessment Increased tightness and tender at R UT, Supraspinatus, Anterior Scalene. Decreased muscle tone of R posterior upper back muscles. PT-OP-H Neuro Start: 05/01/19 11:24 Freq: Status: Active Protocol: Document 05/01/19 11:25 LRN (Rec: 05/01/19 17:38 LRN [id number]) Sensation Evaluation Gross Sensation Gross Sensation WNL Deep Tendon Reflex & Clonus Assessment Deep Tendon Reflex Bilateral Brachioradialis Deep Tendon Reflex 2+ Normal Bilateral Tricep Deep Tendon Reflex 3+ Normal But Brisk Bilateral Bicep Deep Tendon Reflex 2+ Normal PT-OP-J Posture/Palpation/Skin Start: 05/01/19 11:24 Freq: Status: Active Protocol: Document 05/01/19 11:25 LRN (Rec: 05/01/19 17:38 LRN [id number]) Posture Evaluation Position Standing Evaluation View All positions Head/C-Spine Posture C-Spine Flattened,Forward Head T-Spine Posture Increased Kyphosis Scapula Posture (R) Rotated Down,(R) Depressed Arm Posture (L) Internally Rotated,(R) Internally Rotated PT-OP-K Range of Motion Start: 05/01/19 11:24 Freq: Status: Active Protocol: Document 05/01/19 11:25 LRN (Rec: 05/01/19 17:38 LRN [id number]) Cervical Spine Range of Motion Cervical Spine Active Degrees Testing Position Sitting Flexion 40 Extension 38 Rotation Left 45 Rotation Right 67 Lateral Flexion Left 45 Lateral Flexion Right 67 Comments Pain limitations from L elbow and R shoulder Shoulder Goniometric Range of Motion Shoulder Right Active Testing Position Sitting Flexion 128 Abduction 78 External Rotation at 0 degrees Abduction 23 Left Active Testing Position Sitting Flexion 130 Abduction 80 External Rotation at 0 degrees Abduction 22 Shoulder ROM Limitations Shoulder ROM Limitations Pain Comments supine: shoulder ER is 68 deg right, 53 deg left. shoulder IR is 25 deg right, 8 deg left. PT-OP-L Special Tests Start: 05/01/19 11:24 Freq: Status: Active Protocol: Document 05/01/19 11:25 LRN (Rec: 05/01/19 17:38 LRN [id number]) Special Tests Cervical Spine Special Tests Vertebral Artery Test Results negative bilaterally Traction Test Results negative Foraminal Compression Test Results negative Shoulder Special Tests IR/Horizontal ADD Impingement Test Results + bilaterally Drop Arm Rotator Cuff Test Results negative bilaterally PT-OP-M Strength Start: 05/01/19 11:24 Freq: Status: Active Protocol: Document 05/01/19 11:25 LRN (Rec: 05/01/19 17:38 LRN [id number]) Cervical Spine Strength Cervical Spine Manual Muscle Testing Testing Position Sitting Comments Generally 5/5 without complaints of pain of UE's. Shoulder Strength Shoulder Manual Muscle Testing Right Comments Generally, 5/5. Pain with testing of shoulder abductors. Left Comments Generally 5/5 PT-OP-Q Treatments Start: 05/01/19 11:24 Freq: Status: Active Protocol: Document 05/26/19 09:06 LRN (Rec: 05/26/19 09:45 LRN [id number]) Cardio Equipment Recumbent Elliptical ([employer]) Duration (Minutes) 5 Resistance 1 Seat Position 9 Therapeutic Exercises Supine Exercises T-Bar shoulder Flex Supine Exercise Name Shoulder Flex stretch Side bilateral Lat Pull Down Supine Exercise Name Lat Pull Down Side bilateral Resistance Lev 2 Equipment Used Stick/T-Band Reps/Minutes 10x Comments Pt moved slowly Shoulder IR Supine Exercise Name Stretch w/arm in 90/90, PROM Side right Shoulder ER Supine Exercise Name Stretch w/arm 90/90, PROM Side right Pec Stretch Supine Exercise Name Kade shoulder pinches Reps/Minutes 10x Standing Exercises Row Standing Exercise Name Scapular Depression/Retraction Side bilateral Resistance Lev 1 T-Band, minimal @ end- range Equipment Used T-Band Reps/Minutes 10x Shoulder ER Standing Exercise Name Shoulder ER Side right Resistance Lev 1 T-Band, minimal @ end- range Equipment Used T-Band & towel roll Reps/Minutes 15x Comments Towel roll @ elbow Shoulder IR Standing Exercise Name Shoulder IR Side right Resistance Lev 1 T-Band, minimal @ end- range Equipment Used T-Band & towel roll Reps/Minutes 15 x Comments Towel roll @ elbow PT-OP-R Modalities Start: 05/01/19 11:24 Freq: Status: Active Protocol: Document 05/26/19 09:06 LRN (Rec: 05/26/19 09:45 LRN [id number]) Hot Pack/Cold Pack Treatment Cold Pack Location R Shoulder Patient Position Supine Treatment Duration (minutes) 10 PT-OP-T Assessment and Plan Start: 05/01/19 11:24 Freq: Status: Active Protocol: Document 05/26/19 09:06 LRN (Rec: 05/26/19 09:45 LRN [id number]) Physical Therapy Assessment Assessment Summary Assessment Good tolerance to start of RC strengthening. PT is extremely weak and was shaking during all movements with T- Band at minimal resistance at the end-range. No increase in R shoulder pain with ex's. Pt had more complaints wth L shoulder. Physical Therapy Plan Frequency and Duration Frequency of Treatment 2x/Week Plan of Care Start Date 05/01/19 Plan of Care End Date 07/29/18 Next Visit Focus/Plan Next Note Type Treatment Note Next Visit Plan Start Biodex and Makayla for start of ex and stretch. Issue HEP for scapular depression and shoulder IR/ER/ row with T-Band if pt shows + response to ex. Manual stretch to subscapularis and ROM of R shoulder. Cont stretch to anterior neck and anterior chest for improved posture and GHJ mechanics. Progress rotator cuff strengthening. Modalities of Iontophoresis and cryotherapy if needed for pain management (with return of plan of care).
--- NOTE | 2019-05-29 16:49 | PT.OTN ---
Current Diagnoses Other soft tissue disorders related to use, overuse and pressure, right shoulder (05/29/19) Other symptoms and signs involving the musculoskeletal system (05/29/19) Strain of unspecified muscle, fascia and tendon at shoulder and upper arm level, right arm, initial encounter (05/29/19) Physical Therapy Treatment Note PT-OP-A Visit Information Start: 05/01/19 11:24 Freq: Status: Active Protocol: Document 05/29/19 09:09 LRN (Rec: 05/29/19 10:29 LRN [id number]) Out-Patient Physical Therapy Visit Information Visit Information Visit Type Progress Note Visit Start Time 09:09 Visit Stop Time 10:11 Total Visit Minutes 62 Visit Number 5 Number of DATA SECURITY ADMINISTRATOR Visits 0 PT-OP-B Current Condition Start: 05/01/19 11:24 Freq: Status: Active Protocol: Document 05/01/19 11:25 LRN (Rec: 05/01/19 17:38 LRN [id number]) Current Condition History of Current Condition Onset Date 1 month ago Current Complaints Intermittent R shoulder pain when moving in back (taking jacket off) History of Current Condition Slept wrong on the shoulder and woke with R shoulder pain. Pt is R handed. Never had before. Mild throbbing pain with twitches of pain. The L arm feels like the L elbow joint is being poked. Slowly improved because not moving the arm, but does use the arm. Pain with extreme rotation of the arm. Prior Treatments and Tests X-rays Treatment Goals Patient/Caregiver Goals PT goal is no pain putting on jacket, dressing, sleeping (on R side), getting out of the tub. Denies difficulty with carrying groceries or eating. Prior Functional Status Baseline Function- ADL's Independent Baseline Function- Mobility Independent Baseline Function- Work/School Not employed Baseline Function- Other Sleeps on R side without difficulty Current Functional Impairments (Reported) Functional Limitations- ADL's Difficulty dressing, sleeping and getting out of a tub. Functional Limitations- Other Having to sleep on back, can't sleep on the R side. Personal Factors Other Personal Factors That May Effect Diabetes. Therapy/Recovery Pt denies TIA,states he was told it was a migraine. PT-OP-C Subjective Start: 05/01/19 11:24 Freq: Status: Active Protocol: Document 01/16/20 09:09 LRN (Rec: 05/29/19 10:29 LRN [id number]) OP-PT Subjective Patient Comments Patient Comments States dressing and removing clothes his pain is less, 1/10 , primarily with his arm moving backwards. PT-OP-E Functional Tests Start: 05/01/19 11:24 Freq: Status: Active Protocol: Document 05/01/19 11:25 LRN (Rec: 05/01/19 17:38 LRN [id number]) Functional Tests Apley's Scratch Test Action 2- Left T2 Action 2- Right T2 Action 3- Left 1 away from spine Action 3- Right 1 away from spine PT-OP-F Manual Assessment Start: 05/01/19 11:24 Freq: Status: Active Protocol: Document 05/01/19 11:25 LRN (Rec: 05/01/19 17:38 LRN [id number]) Manual Assessments Soft Tissue Assessment Soft Tissue Mobility Assessment Increased tightness and tender at R UT, Supraspinatus, Anterior Scalene. Decreased muscle tone of R posterior upper back muscles. PT-OP-H Neuro Start: 05/01/19 11:24 Freq: Status: Active Protocol: Document 05/01/19 11:25 LRN (Rec: 05/01/19 17:38 LRN [id number]) Sensation Evaluation Gross Sensation Gross Sensation WNL Deep Tendon Reflex & Clonus Assessment Deep Tendon Reflex Bilateral Brachioradialis Deep Tendon Reflex 2+ Normal Bilateral Tricep Deep Tendon Reflex 3+ Normal But Brisk Bilateral Bicep Deep Tendon Reflex 2+ Normal PT-OP-J Posture/Palpation/Skin Start: 05/01/19 11:24 Freq: Status: Active Protocol: Document 05/01/19 11:25 LRN (Rec: 05/01/19 17:38 LRN [id number]) Posture Evaluation Position Standing Evaluation View All positions Head/C-Spine Posture C-Spine Flattened,Forward Head T-Spine Posture Increased Kyphosis Scapula Posture (R) Rotated Down,(R) Depressed Arm Posture (L) Internally Rotated,(R) Internally Rotated PT-OP-K Range of Motion Start: 05/01/19 11:24 Freq: Status: Active Protocol: Document 05/29/19 09:09 LRN (Rec: 05/29/19 16:47 LRN [id number]) Shoulder Goniometric Range of Motion Shoulder Right Active Shoulder ROM WFL No Testing Position Sitting Flexion 145 Abduction 154 Shoulder ROM Limitations Shoulder ROM Limitations Pain Comments Supine: R shoulder: ER is 68 degs, IR is 54 deg's Flex is 140 deg's, AB (in scapular plane) is 95 deg's. PT-OP-L Special Tests Start: 05/01/19 11:24 Freq: Status: Active Protocol: Document 05/01/19 11:25 LRN (Rec: 05/01/19 17:38 LRN [id number]) Special Tests Cervical Spine Special Tests Vertebral Artery Test Results negative bilaterally Traction Test Results negative Foraminal Compression Test Results negative Shoulder Special Tests IR/Horizontal ADD Impingement Test Results + bilaterally Drop Arm Rotator Cuff Test Results negative bilaterally PT-OP-M Strength Start: 05/01/19 11:24 Freq: Status: Active Protocol: Document 05/01/19 11:25 LRN (Rec: 05/01/19 17:38 LRN [id number]) Cervical Spine Strength Cervical Spine Manual Muscle Testing Testing Position Sitting Comments Generally 5/5 without complaints of pain of UE's. Shoulder Strength Shoulder Manual Muscle Testing Right Comments Generally, 5/5. Pain with testing of shoulder abductors. Left Comments Generally 5/5 PT-OP-Q Treatments Start: 05/01/19 11:24 Freq: Status: Active Protocol: Document 05/29/19 09:09 LRN (Rec: 05/29/19 10:29 LRN [id number]) Cardio Equipment Upper Body Ergometer (UBE) Duration (Minutes) 8 RPM 80 Seat Position 13 Height 2 Therapeutic Exercises Supine Exercises T-Bar shoulder AB Supine Exercise Name T-Bar shoulder AB stretch Side right Reps/Minutes 2' T-Bar shoulder rot stretch Supine Exercise Name T-Bar self shoulder rot stretch Side right Reps/Minutes 2' T-Bar shoulder Flex Supine Exercise Name Shoulder Flex stretch Side bilateral Reps/Minutes 2' Lat Pull Down Supine Exercise Name Lat Pull Down Side bilateral Resistance Lev 2 Equipment Used Stick/T-Band Reps/Minutes 10x 2 Comments Pt moved slowly Shoulder ER Supine Exercise Name Stretch w/arm 90/90, PROM Side right Pec Stretch Supine Exercise Name Kade shoulder pinches Reps/Minutes 10x Sitting Exercises Makayla shoulder ROM Sitting Exercise Name PROM Flex & AB Side right Reps/Minutes 10' Standing Exercises Row Standing Exercise Name Scapular Depression/Retraction Side bilateral Resistance Lev 2 T-Band, minimal @ end- range Equipment Used T-Band Reps/Minutes 10x Shoulder ER Standing Exercise Name Shoulder ER Side right Resistance Lev 1 T-Band, minimal @ end- range Equipment Used T-Band & towel roll Reps/Minutes 15x Comments Towel roll @ elbow Shoulder IR Standing Exercise Name Shoulder IR Side right Resistance Lev 1 T-Band, minimal @ end- range Equipment Used T-Band & towel roll Reps/Minutes 15 x Comments Towel roll @ elbow Self-Care/Home Management Treatment Education Patient Education Home Exercise Program Activities Self-Care/Home Management Activities Issued & reviewed HEP: Wand ex for ROM - flex, ab, ER. Issued Lev 1 T-Band with I/S to try RC strengthening if he can remember the exercise. PT-OP-R Modalities Start: 05/01/19 11:24 Freq: Status: Active Protocol: Document 05/29/19 09:09 LRLucas (Rec: 05/29/19 10:29 [facility] [id number]) Hot Pack/Cold Pack Treatment Cold Pack Location R Shoulder Patient Position Supine Treatment Duration (minutes) 10 PT-OP-T Assessment and Plan Start: 05/01/19 11:24 Freq: Status: Active Protocol: Document 05/29/19 09:09 LRN (Rec: 05/29/19 10:29 [facility] [id number]) Physical Therapy Assessment Rehab Potential Rehabilitation Potential Good Evaluation Complexity Number of Personal Factors/Comorbidities 1-2 Number of Body Systems Impaired 4 or More Clinical Presentation at Evaluation Stable Impairments Impairments Functional Activities,Pain, Posture,ROM,Soft Tissue Mobility Goals Six Impairment L shoulder pain with lying on L side Founder President And Ceo Goal (LTG) If new Plan of Care signed, LTG: Pt will be able to sleep at night with ability to be on his R side with discomfort, no pain. LTG Duration 07/30/19 Five Impairment Decreased L shoulder ROM Founder President [employer] Goal (LTG) If new Plan of Care signed, LTG: Pt will be able to don/ doff his coat and a T-shirt with mild discomfort, but no pain. LTG Duration 07/30/19 Four Impairment Functional strength limited due to subacromial pain. Short Term Goal (STG) Pt will increase use of ice for pain management at home. (05/23/19: Not using ice at home because he reports it hasn't been hurting). STG Duration 05/08/19 (05/29/19: DC Goal, no longer appropriate) Senior Living Goal (LTG) Pt will be able to exit a bathtub without pain. LTG Duration 07/30/19 (05/29/19: NOT MET, focus has been on ROM) Three Impairment Decreased R shoulder AROM limiting ability to dress self F[employer] President [employer] Goal (LTG) Pt will be able to don/doff his coat and a T-shirt with mild discomfort, but no pain. LTG Duration 07/30/19 (05/29/19: Pain rated ) Two Impairment R shoulder pain with lying on R side Senior Living Goal (LTG) Pt will be able to sleep at night with ability to be on his R side with discomfort, no pain. LTG Duration 07/30/19 (05/29/19: Partially Met> On the back without pain ) One Impairment Pt lacks appropriate HEP. Founder President [employer] Goal (LTG) Pt will be independent in self care HEP. LTG Duration 07/30/19 (05/29/19: Progressing ) Assessment Summary Assessment The pt showed good tolerance to R shoulder strengthening with no c/o increased pain. His painfree R shoulder is improving except ER/IR is limited probably due to to poor posture and scapular positioning. He has pain with functional activities at this time due to UE weakness, but shows good tolerance to progressive strengthening. he pt is also being limited with L shoulder mobility and strength that the pt reports started the same way his R shoulder pain started. His L shoulder pain as well as his R shoulder pain appears to be afffecting his function; therefore it is recommended rehabilitation be started on his L shoulder as well as the R. A new Plan of Care will be needed to start of treatment on the L shoulder. Physical Therapy Plan Frequency and Duration Frequency of Treatment 2x/Week Plan of Care Start Date 05/01/19 Plan of Care End Date 07/29/18 Therapeutic Interventions Therapeutic Interventions Aquatic Therapy,Home Exercise Program,Joint Mobilizations, Manual Therapy,Neuromuscular Re-education,Patient/Caregiver Education,Self-Care/Home Management,Soft Tissue Mobilization,Taping, Therapeutic Activities, Therapeutic Exercises Modalities Cold Pack/Ice Massage,Electric Stimulation,Hot Packs, Iontophoresis,Ultrasound Other Therapeutic Interventions Iontophoresis with 4mg/mL Dexamethasone with Sodium Phosphate. Other Referrals/Consults Referrals/Consults Recommended PT rehab for L shoulder. ( Please see assessment above and plan of care below). Next Visit Focus/Plan Next Note Type Treatment Note Next Visit Plan Re-eval needed for L shoulder if new Plan of Care is returned. MD to sign new Plan of Care if agreeable to treatment of the L shoulder, otherwise we will continue with treatment of the R shoulder only. Rx Plan: Start UBE or Biodex and Makayla for start of ex and stretch. Check for a change of neck involvement. Review HEP last issued and start shoulder IR stretch with towel and wand. Issue HEP for scapular depression. Issue HEP for shoulder IR/ER/row with T-Band if pt shows + response to ex. Manual stretch to subscapularis and ROM of R shoulder. Cont stretch to anterior neck and anterior chest for improved posture and GHJ mechanics. Progress rotator cuff strengthening. Modalities of Iontophoresis and cryotherapy if needed for pain management (with return of plan of care).
--- NOTE | 2019-05-29 17:02 | PT.OPPN ---
Current Diagnoses Other soft tissue disorders related to use, overuse and pressure, right shoulder (05/29/19) Other symptoms and signs involving the musculoskeletal system (05/29/19) Strain of unspecified muscle, fascia and tendon at shoulder and upper arm level, right arm, initial encounter (05/29/19) Physical Therapy Progress Note PT-OP-A Visit Information Start: 05/01/19 11:24 Freq: Status: Active Protocol: Document 05/29/19 09:09 LRN (Rec: 05/29/19 10:29 LRN [id number]) Out-Patient Physical Therapy Visit Information Visit Information Visit Type Progress Note Visit Start Time 09:09 Visit Stop Time 10:11 Total Visit Minutes 62 Visit Number 5 Number of LAST PATTERN GRADER Visits 0 PT-OP-B Current Condition Start: 05/01/19 11:24 Freq: Status: Active Protocol: Document 05/01/19 11:25 LRN (Rec: 05/01/19 17:38 LRN [id number]) Current Condition History of Current Condition Onset Date 1 month ago Current Complaints Intermittent R shoulder pain when moving in back (taking jacket off) History of Current Condition Slept wrong on the shoulder and woke with R shoulder pain. Pt is R handed. Never had before. Mild throbbing pain with twitches of pain. The L arm feels like the L elbow joint is being poked. Slowly improved because not moving the arm, but does use the arm. Pain with extreme rotation of the arm. Prior Treatments and Tests X-rays Treatment Goals Patient/Caregiver Goals PT goal is no pain putting on jacket, dressing, sleeping (on R side), getting out of the tub. Denies difficulty with carrying groceries or eating. Prior Functional Status Baseline Function- ADL's Independent Baseline Function- Mobility Independent Baseline Function- Work/School Not employed Baseline Function- Other Sleeps on R side without difficulty Current Functional Impairments (Reported) Functional Limitations- ADL's Difficulty dressing, sleeping and getting out of a tub. Functional Limitations- Other Having to sleep on back, can't sleep on the R side. Personal Factors Other Personal Factors That May Effect Diabetes. Therapy/Recovery Pt denies TIA,states he was told it was a migraine. PT-OP-C Subjective Start: 05/01/19 11:24 Freq: Status: Active Protocol: Document 01/16/20 09:09 LRN (Rec: 05/29/19 10:29 LRN [id number]) OP-PT Subjective Patient Comments Patient Comments States dressing and removing clothes his pain is less, 1/10 , primarily with his arm moving backwards. PT-OP-E Functional Tests Start: 05/01/19 11:24 Freq: Status: Active Protocol: Document 05/01/19 11:25 LRN (Rec: 05/01/19 17:38 LRN [id number]) Functional Tests Apley's Scratch Test Action 1: The subject is instructed to touch the opposite shoulder with his/her hand. This motion checks Glenohumeral adduction, internal rotation , horizontal adduction and scapular protraction Action 2: The subject is instructed to place his/her arm overhead and reach behind the neck to touch his/her upper back. This motion checks Glenohumeral abduction, external rotation and scapular upward rotation and elevation. Action 3: The subject puts his/her hand on the lower back and reaches upward as far as possible. This motion checks glenohumeral adduction, internal rotation and scapular retraction with downward rotation Action 2- Left T2 Action 2- Right T2 Action 3- Left 1 away from spine Action 3- Right 1 away from spine PT-OP-F Manual Assessment Start: 05/01/19 11:24 Freq: Status: Active Protocol: Document 05/01/19 11:25 LRN (Rec: 05/01/19 17:38 LRN [id number]) Manual Assessments Soft Tissue Assessment Soft Tissue Mobility Assessment Increased tightness and tender at R UT, Supraspinatus, Anterior Scalene. Decreased muscle tone of R posterior upper back muscles. PT-OP-H Neuro Start: 05/01/19 11:24 Freq: Status: Active Protocol: Document 05/01/19 11:25 LRN (Rec: 05/01/19 17:38 LRN [id number]) Sensation Evaluation Gross Sensation Gross Sensation WNL Deep Tendon Reflex & Clonus Assessment Deep Tendon Reflex Bilateral Brachioradialis Deep Tendon Reflex 2+ Normal Bilateral Tricep Deep Tendon Reflex 3+ Normal But Brisk Bilateral Bicep Deep Tendon Reflex 2+ Normal PT-OP-J Posture/Palpation/Skin Start: 05/01/19 11:24 Freq: Status: Active Protocol: Document 05/01/19 11:25 LRN (Rec: 05/01/19 17:38 LRN [id number]) Posture Evaluation Position Standing Evaluation View All positions Head/C-Spine Posture C-Spine Flattened,Forward Head T-Spine Posture Increased Kyphosis Scapula Posture (R) Rotated Down,(R) Depressed Arm Posture (L) Internally Rotated,(R) Internally Rotated PT-OP-K Range of Motion Start: 05/01/19 11:24 Freq: Status: Active Protocol: Document 05/29/19 09:09 LRN (Rec: 05/29/19 16:47 LRN [id number]) Shoulder Goniometric Range of Motion Shoulder Measured in Degrees Right Active Shoulder ROM WFL No Testing Position Sitting Flexion 145 Abduction 154 Shoulder ROM Limitations Shoulder ROM Limitations Pain Comments Supine: R shoulder: ER is 68 degs, IR is 54 deg's Flex is 140 deg's, AB (in scapular plane) is 95 deg's. PT-OP-L Special Tests Start: 05/01/19 11:24 Freq: Status: Active Protocol: Document 05/01/19 11:25 LRN (Rec: 05/01/19 17:38 LRN [id number]) Special Tests Cervical Spine Special Tests Vertebral Artery Test Results negative bilaterally Traction Test Results negative Foraminal Compression Test Results negative Shoulder Special Tests IR/Horizontal ADD Impingement Test Results + bilaterally Drop Arm Rotator Cuff Test Results negative bilaterally PT-OP-M Strength Start: 05/01/19 11:24 Freq: Status: Active Protocol: Document 05/01/19 11:25 LRN (Rec: 05/01/19 17:38 LRN [id number]) Cervical Spine Strength Cervical Spine Manual Muscle Testing Testing Position Sitting Comments Generally 5/5 without complaints of pain of UE's. Shoulder Strength Shoulder Manual Muscle Testing Right Comments Generally, 5/5. Pain with testing of shoulder abductors. Left Comments Generally 5/5 PT-OP-T Assessment and Plan Start: 05/01/19 11:24 Freq: Status: Active Protocol: Document 05/29/19 09:09 LRN (Rec: 05/29/19 10:29 LRN [id number]) Physical Therapy Assessment Rehab Potential Rehabilitation Potential Good Evaluation Complexity Number of Personal Factors/Comorbidities 1-2 Number of Body Systems Impaired 4 or More Clinical Presentation at Evaluation Stable Impairments Impairments Functional Activities,Pain, Posture,ROM,Soft Tissue Mobility Goals Six Impairment L shoulder pain with lying on L side Senior Living Goal (LTG) If new Plan of Care signed, LTG: Pt will be able to sleep at night with ability to be on his R side with discomfort, no pain. LTG Duration 07/30/19 Five Impairment Decreased L shoulder ROM Senior Living Goal (LTG) If new Plan of Care signed, LTG: Pt will be able to don/ doff his coat and a T-shirt with mild discomfort, but no pain. LTG Duration 07/30/19 Four Impairment Functional strength limited due to subacromial pain. Short Term Goal (STG) Pt will increase use of ice for pain management at home. (05/23/19: Not using ice at home because he reports it hasn't been hurting). STG Duration 05/08/19 (05/29/19: DC Goal, no longer appropriate) [employer] War[employer] Combatant Crewman Goal (LTG) Pt will be able to exit a bathtub without pain. LTG Duration 07/30/19 (05/29/19: NOT MET, focus has been on ROM) Three Impairment Decreased R shoulder AROM limiting ability to dress self [employer]ant Crewman Goal (LTG) Pt will be able to don/doff his coat and a T-shirt with mild discomfort, but no pain. LTG Duration 07/30/19 (05/29/19: Pain rated 1 /10) Two Impairment R shoulder pain with lying on R side [employer] Crewman Goal (LTG) Pt will be able to sleep at night with ability to be on his R side with discomfort, no pain. LTG Duration 07/30/19 (05/29/19: Partially Met> On the back without pain ) One Impairment Pt lacks appropriate HEP. [employer] Combatant Crewman Goal (LTG) Pt will be independent in self care HEP. LTG Duration 07/30/19 (05/29/19: Progressing ) Assessment Summary Assessment The pt showed good tolerance to R shoulder strengthening with no c/o increased pain. His painfree R shoulder is improving except ER/IR is limited probably due to to poor posture and scapular positioning. He has pain with functional activities at this time due to UE weakness, but shows good tolerance to progressive strengthening. he pt is also being limited with L shoulder mobility and strength that the pt reports started the same way his R shoulder pain started. His L shoulder pain as well as his R shoulder pain appears to be afffecting his function; therefore it is recommended rehabilitation be started on his L shoulder as well as the R. A new Plan of Care will be needed to start of treatment on the L shoulder. Physical Therapy Plan Frequency and Duration Frequency of Treatment 2x/Week Plan of Care Start Date 05/01/19 Plan of Care End Date 07/29/18 Therapeutic Interventions Therapeutic Interventions Aquatic Therapy,Home Exercise Program,Joint Mobilizations, Manual Therapy,Neuromuscular Re-education,Patient/Caregiver Education,Self-Care/Home Management,Soft Tissue Mobilization,Taping, Therapeutic Activities, Therapeutic Exercises Modalities Cold Pack/Ice Massage,Electric Stimulation,Hot Packs, Iontophoresis,Ultrasound Other Therapeutic Interventions Iontophoresis with 4mg/mL Dexamethasone with Sodium Phosphate. Other Referrals/Consults Referrals/Consults Recommended PT rehab for L shoulder. ( Please see assessment above and plan of care below). Next Visit Focus/Plan Next Note Type Treatment Note Next Visit Plan Re-eval needed for L shoulder if new Plan of Care is returned. MD to sign new Plan of Care if agreeable to treatment of the L shoulder, otherwise we will continue with treatment of the R shoulder only. Rx Plan: Start UBE or Biodex and Makayla for start of ex and stretch. Check for a change of neck involvement. Review HEP last issued and start shoulder IR stretch with towel and wand. Issue HEP for scapular depression. Issue HEP for shoulder IR/ER/row with T-Band if pt shows + response to ex. Manual stretch to subscapularis and ROM of R shoulder. Cont stretch to anterior neck and anterior chest for improved posture and GHJ mechanics. Progress rotator cuff strengthening. Modalities of Iontophoresis and cryotherapy if needed for pain management (with return of plan of care).
--- NOTE | 2019-05-29 17:02 | PT.OPPOC ---
Physical, Occupational & Speech Therapy At [facility] Current Diagnoses Other soft tissue disorders related to use, overuse and pressure, right shoulder (05/29/19) Other symptoms and signs involving the musculoskeletal system (05/29/19) Strain of unspecified muscle, fascia and tendon at shoulder and upper arm level, right arm, initial encounter (05/29/19) Visit Care Team Role Provider Type Dary Gudino DO Attending Provider Physician Primary Care Provider Specialty: [facility] Address: [address] [place] [address], [address], [facility] Email: [email or web address] Plan Of Care PT-OP-T Assessment and Plan Start: 05/01/19 11:24 Freq: Status: Active Protocol: Document 05/29/19 09:09 LRN (Rec: 05/29/19 10:29 LRN [id number]) Physical Therapy Assessment Rehab Potential Rehabilitation Potential Good Evaluation Complexity Number of Personal Factors/Comorbidities 1-2 Number of Body Systems Impaired 4 or More Clinical Presentation at Evaluation Stable Impairments Impairments Functional Activities,Pain, Posture,ROM,Soft Tissue Mobility Goals Six Impairment L shoulder pain with lying on L side Long-Term Goal (LTG) If new Plan of Care signed, LTG: Pt will be able to sleep at night with ability to be on his R side with discomfort, no pain. LTG Duration 07/30/19 Five Impairment Decreased L shoulder ROM Long-Term Goal (LTG) If new Plan of Care signed, LTG: Pt will be able to don/ doff his coat and a T-shirt with mild discomfort, but no pain. LTG Duration 07/30/19 Four Impairment Functional strength limited due to subacromial pain. Short Term Goal (STG) Pt will increase use of ice for pain management at home. (05/23/19: Not using ice at home because he reports it hasn't been hurting). STG Duration 05/08/19 (05/29/19: DC Goal, no longer appropriate) Portable Trackman Goal (LTG) Pt will be able to exit a bathtub without pain. LTG Duration 07/30/19 (05/29/19: NOT MET, focus has been on ROM) Three Impairment Decreased R shoulder AROM limiting ability to dress self Portable Trackman Goal (LTG) Pt will be able to don/doff his coat and a T-shirt with mild discomfort, but no pain. LTG Duration 07/30/19 (05/29/19: Pain rated 1 /10) Two Impairment R shoulder pain with lying on R side Long-Term Goal (LTG) Pt will be able to sleep at night with ability to be on his R side with discomfort, no pain. LTG Duration 07/30/19 (05/29/19: Partially Met> On the back without pain ) One Impairment Pt lacks appropriate HEP. Portable Trackman Goal (LTG) Pt will be independent in self care HEP. LTG Duration 07/30/19 (05/29/19: Progressing ) Assessment Summary Assessment The pt showed good tolerance to R shoulder strengthening with no c/o increased pain. His painfree R shoulder is improving except ER/IR is limited probably due to to poor posture and scapular positioning. He has pain with functional activities at this time due to UE weakness, but shows good tolerance to progressive strengthening. he pt is also being limited with L shoulder mobility and strength that the pt reports started the same way his R shoulder pain started. His L shoulder pain as well as his R shoulder pain appears to be afffecting his function; therefore it is recommended rehabilitation be started on his L shoulder as well as the R. A new Plan of Care will be needed to start of treatment on the L shoulder. Physical Therapy Plan Frequency and Duration Frequency of Treatment 2x/Week Plan of Care Start Date 05/01/19 Plan of Care End Date 07/29/18 Therapeutic Interventions Therapeutic Interventions Aquatic Therapy,Home Exercise Program,Joint Mobilizations, Manual Therapy,Neuromuscular Re-education,Patient/Caregiver Education,Self-Care/Home Management,Soft Tissue Mobilization,Taping, Therapeutic Activities, Therapeutic Exercises Modalities Cold Pack/Ice Massage,Electric Stimulation,Hot Packs, Iontophoresis,Ultrasound Other Therapeutic Interventions Iontophoresis with 4mg/mL Dexamethasone with Sodium Phosphate. Other Referrals/Consults Referrals/Consults Recommended PT rehab for L shoulder. ( Please see assessment above and plan of care below). Next Visit Focus/Plan Next Note Type Treatment Note Next Visit Plan Re-eval needed for L shoulder if new Plan of Care is returned. MD to sign new Plan of Care if agreeable to treatment of the L shoulder, otherwise we will continue with treatment of the R shoulder only. Rx Plan: Start UBE or Biodex and Makayla for start of ex and stretch. Check for a change of neck involvement. Review HEP last issued and start shoulder IR stretch with towel and wand. Issue HEP for scapular depression. Issue HEP for shoulder IR/ER/row with T-Band if pt shows + response to ex. Manual stretch to subscapularis and ROM of R shoulder. Cont stretch to anterior neck and anterior chest for improved posture and GHJ mechanics. Progress rotator cuff strengthening. Modalities of Iontophoresis and cryotherapy if needed for pain management (with return of plan of care). Plan of Care Dates Plan of Care Start Date 05/01/19 Plan of Care End Date 07/29/18 Electronically Signed by: Barbara Gates, PT 05/29/19 [id number] Please Sign and Return: I have reviewed this Plan of Care and certify that the skilled therapy services above are required to meet the patient?s needs. Physician Signature Date Printed Name and Credentials Clinical Instructor Signature Printed Name and Credentials
--- NOTE | 2019-06-02 13:19 | PT.OTN ---
Current Diagnoses Other soft tissue disorders related to use, overuse and pressure, right shoulder (06/02/19) Other symptoms and signs involving the musculoskeletal system (06/02/19) Strain of unspecified muscle, fascia and tendon at shoulder and upper arm level, right arm, initial encounter (06/02/19) Physical Therapy Treatment Note PT-OP-A Visit Information Start: 05/01/19 11:24 Freq: Status: Active Protocol: Document 06/02/19 09:07 LRN (Rec: 06/02/19 09:48 LRN [id number]) Out-Patient Physical Therapy Visit Information Visit Information Visit Type Treatment Note Visit Start Time 09:07 Visit Stop Time 09:53 Total Visit Minutes 46 Visit Number 6 Number of MEDICAL RECORD SPECIALIST Visits 0 Evaluation Information Evaluation Date 05/01/19 Precautions Precautions Adult onset Diabetes. ?TIA vs Migraine PT-OP-B Current Condition Start: 05/01/19 11:24 Freq: Status: Active Protocol: Document 05/01/19 11:25 LRN (Rec: 05/01/19 17:38 LRN [id number]) Current Condition History of Current Condition Onset Date 1 month ago Current Complaints Intermittent R shoulder pain when moving in back (taking jacket off) History of Current Condition Slept wrong on the shoulder and woke with R shoulder pain. Pt is R handed. Never had before. Mild throbbing pain with twitches of pain. The L arm feels like the L elbow joint is being poked. Slowly improved because not moving the arm, but does use the arm. Pain with extreme rotation of the arm. Prior Treatments and Tests X-rays Treatment Goals Patient/Caregiver Goals PT goal is no pain putting on jacket, dressing, sleeping (on R side), getting out of the tub. Denies difficulty with carrying groceries or eating. Prior Functional Status Baseline Function- ADL's Independent Baseline Function- Mobility Independent Baseline Function- Work/School Not employed Baseline Function- Other Sleeps on R side without difficulty Current Functional Impairments (Reported) Functional Limitations- ADL's Difficulty dressing, sleeping and getting out of a tub. Functional Limitations- Other Having to sleep on back, can't sleep on the R side. Personal Factors Other Personal Factors That May Effect Diabetes. Therapy/Recovery Pt denies TIA,states he was told it was a migraine. PT-OP-C Subjective Start: 05/01/19 11:24 Freq: Status: Active Protocol: Document 06/02/19 09:07 LRN (Rec: 06/02/19 09:48 LRN [id number]) OP-PT Subjective Patient Comments Patient Comments Didn't exercises for past 3 days. R shoulder is tenser No pain but rates it at 2/10. PT-OP-E Functional Tests Start: 05/01/19 11:24 Freq: Status: Active Protocol: Document 05/01/19 11:25 LRN (Rec: 05/01/19 17:38 LRN [id number]) Functional Tests Apley's Scratch Test Action 2- Left T2 Action 2- Right T2 Action 3- Left 1 away from spine Action 3- Right 1 away from spine PT-OP-F Manual Assessment Start: 05/01/19 11:24 Freq: Status: Active Protocol: Document 05/01/19 11:25 LRN (Rec: 05/01/19 17:38 LRN [id number]) Manual Assessments Soft Tissue Assessment Soft Tissue Mobility Assessment Increased tightness and tender at R UT, Supraspinatus, Anterior Scalene. Decreased muscle tone of R posterior upper back muscles. PT-OP-H Neuro Start: 05/01/19 11:24 Freq: Status: Active Protocol: Document 05/01/19 11:25 LRN (Rec: 05/01/19 17:38 LRN [id number]) Sensation Evaluation Gross Sensation Gross Sensation WNL Deep Tendon Reflex & Clonus Assessment Deep Tendon Reflex Bilateral Brachioradialis Deep Tendon Reflex 2+ Normal Bilateral Tricep Deep Tendon Reflex 3+ Normal But Brisk Bilateral Bicep Deep Tendon Reflex 2+ Normal PT-OP-J Posture/Palpation/Skin Start: 05/01/19 11:24 Freq: Status: Active Protocol: Document 05/01/19 11:25 LRN (Rec: 05/01/19 17:38 LRN [id number]) Posture Evaluation Position Standing Evaluation View All positions Head/C-Spine Posture C-Spine Flattened,Forward Head T-Spine Posture Increased Kyphosis Scapula Posture (R) Rotated Down,(R) Depressed Arm Posture (L) Internally Rotated,(R) Internally Rotated PT-OP-K Range of Motion Start: 05/01/19 11:24 Freq: Status: Active Protocol: Document 01/16/20 09:09 LRN (Rec: 05/29/19 16:47 LRN [id number]) Shoulder Goniometric Range of Motion Shoulder Right Active Shoulder ROM WFL No Testing Position Sitting Flexion 145 Abduction 154 Shoulder ROM Limitations Shoulder ROM Limitations Pain Comments Supine: R shoulder: ER is 68 degs, IR is 54 deg's Flex is 140 deg's, AB (in scapular plane) is 95 deg's. PT-OP-L Special Tests Start: 05/01/19 11:24 Freq: Status: Active Protocol: Document 05/01/19 11:25 LRN (Rec: 05/01/19 17:38 LRN [id number]) Special Tests Cervical Spine Special Tests Vertebral Artery Test Results negative bilaterally Traction Test Results negative Foraminal Compression Test Results negative Shoulder Special Tests IR/Horizontal ADD Impingement Test Results + bilaterally Drop Arm Rotator Cuff Test Results negative bilaterally PT-OP-M Strength Start: 05/01/19 11:24 Freq: Status: Active Protocol: Document 05/01/19 11:25 LRN (Rec: 05/01/19 17:38 LRN [id number]) Cervical Spine Strength Cervical Spine Manual Muscle Testing Testing Position Sitting Comments Generally 5/5 without complaints of pain of UE's. Shoulder Strength Shoulder Manual Muscle Testing Right Comments Generally, 5/5. Pain with testing of shoulder abductors. Left Comments Generally 5/5 PT-OP-Q Treatments Start: 05/01/19 11:24 Freq: Status: Active Protocol: Document 06/02/19 09:07 LRN (Rec: 06/02/19 09:48 LRN [id number]) Cardio Equipment Upper Body Ergometer (UBE) Duration (Minutes) 10 RPM 80 Seat Position 13 Height 2.5 for 5', 2.0 for 5' Therapeutic Exercises Supine Exercises T-Bar shoulder AB Supine Exercise Name T-Bar shoulder AB stretch Side right Reps/Minutes 3' Comments Pt moves slowly T-Bar shoulder rot stretch Supine Exercise Name T-Bar self shoulder rot stretch Side right Reps/Minutes 2' Comments Pt moves slowly T-Bar shoulder Flex Supine Exercise Name Shoulder Flex stretch Side bilateral Reps/Minutes 3' Comments Pt moves slowly Lat Pull Down Supine Exercise Name Lat Pull Down Side bilateral Resistance Lev 1 Equipment Used YBar/T-Band Reps/Minutes 10x 2 Comments Pt moves slowly Sitting Exercises Shoulder IR stretch Sitting Exercise Name Towel stretch Side right Manual Therapy Treatment Manual Techniques R UT Type Manual stretch Body Location R UT Body Position Supine Reps/Duration 2' PT-OP-R Modalities Start: 05/01/19 11:24 Freq: Status: Active Protocol: Document 06/02/19 09:07 LRN (Rec: 06/02/19 09:48 LRN [id number]) Hot Pack/Cold Pack Treatment Cold Pack Location R Shoulder Patient Position Supine Treatment Duration (minutes) 10 PT-OP-T Assessment and Plan Start: 05/01/19 11:24 Freq: Status: Active Protocol: Document 06/02/19 09:07 LRN (Rec: 06/02/19 09:48 LRN [id number]) Physical Therapy Assessment Goals Six Impairment L shoulder pain with lying on L side Senior Living Goal (LTG) If new Plan of Care signed, LTG: Pt will be able to sleep at night with ability to be on his R side with discomfort, no pain. LTG Duration 07/30/19 Five Impairment Decreased L shoulder ROM Senior Living Goal (LTG) If new Plan of Care signed, LTG: Pt will be able to don/ doff his coat and a T-shirt with mild discomfort, but no pain. LTG Duration 07/30/19 Four Impairment Functional strength limited due to subacromial pain. Short Term Goal (STG) Pt will increase use of ice for pain management at home. (05/23/19: Not using ice at home because he reports it hasn't been hurting). STG Duration 05/08/19 (05/29/19: DC Goal, no longer appropriate) Senior Living Goal (LTG) Pt will be able to exit a bathtub without pain. LTG Duration 07/30/19 (05/29/19: NOT MET, focus has been on ROM) Three Impairment Decreased R shoulder AROM limiting ability to dress self Senior Living Goal (LTG) Pt will be able to don/doff his coat and a T-shirt with mild discomfort, but no pain. LTG Duration 07/30/19 (05/29/19: Pain rated 1 /10) Two Impairment R shoulder pain with lying on R side Shirt Creaser Goal (LTG) Pt will be able to sleep at night with ability to be on his R side with discomfort, no pain. LTG Duration 07/30/19 (05/29/19: Partially Met> On the back without pain ) One Impairment Pt lacks appropriate HEP. Shirt Creaser Goal (LTG) Pt will be independent in self care HEP. LTG Duration 07/30/19 (05/29/19: Progressing ) Assessment Summary Assessment Pt had poor tolerance to increasing hgt of UBE for ex strengthening. Pt shows good attitude to therapy. Progress is slow, poor posture and inconsistent w/HEP due to sleep disturbance. Physical Therapy Plan Frequency and Duration Frequency of Treatment 2x/Week Plan of Care Start Date 05/01/19 Plan of Care End Date 07/29/18 Next Visit Focus/Plan Next Note Type Treatment Note Next Visit Plan Check for return of POC. Re- eval needed for L shoulder if new Plan of Care is returned. MD to sign new Plan of Care if agreeable to treatment of the L shoulder, otherwise we will continue with treatment of the R shoulder only. Rx Plan: Start UBE or Biodex and Makayla for start of ex and stretch. Check for a change of neck involvement. Review HEP last issued and start shoulder IR stretch with towel and wand. Issue HEP for scapular depression. Issue HEP for shoulder IR/ER/row with T-Band if pt shows + response to ex. Manual stretch to subscapularis and ROM of R shoulder. Cont stretch to anterior neck and anterior chest for improved posture and GHJ mechanics. Progress rotator cuff strengthening. Modalities of Iontophoresis and cryotherapy if needed for pain management (with return of plan of care).
--- NOTE | 2019-06-05 17:09 | PT.OTN ---
Current Diagnoses Other soft tissue disorders related to use, overuse and pressure, right shoulder (06/05/19) Other symptoms and signs involving the musculoskeletal system (06/05/19) Strain of unspecified muscle, fascia and tendon at shoulder and upper arm level, right arm, initial encounter (06/05/19) Physical Therapy Treatment Note PT-OP-A Visit Information Start: 05/01/19 11:24 Freq: Status: Active Protocol: Document 06/05/19 09:03 LRN (Rec: 06/05/19 09:50 LRN [id number]) Out-Patient Physical Therapy Visit Information Visit Information Visit Type Treatment Note Visit Note POC signed by Dr. Gudino . Visit Start Time 09:03 Visit Stop Time 09:56 Total Visit Minutes 53 Visit Number 7 Number of AIRCRAFT LOAD CONTROLLER Visits 0 Evaluation Information Evaluation Date 05/01/19 Precautions Precautions Adult onset Diabetes. ?TIA vs Migraine PT-OP-B Current Condition Start: 05/01/19 11:24 Freq: Status: Active Protocol: Document 05/01/19 11:25 LRN (Rec: 05/01/19 17:38 LRN [id number]) Current Condition History of Current Condition Onset Date 1 month ago Current Complaints Intermittent R shoulder pain when moving in back (taking jacket off) History of Current Condition Slept wrong on the shoulder and woke with R shoulder pain. Pt is R handed. Never had before. Mild throbbing pain with twitches of pain. The L arm feels like the L elbow joint is being poked. Slowly improved because not moving the arm, but does use the arm. Pain with extreme rotation of the arm. Prior Treatments and Tests X-rays Treatment Goals Patient/Caregiver Goals PT goal is no pain putting on jacket, dressing, sleeping (on R side), getting out of the tub. Denies difficulty with carrying groceries or eating. Prior Functional Status Baseline Function- ADL's Independent Baseline Function- Mobility Independent Baseline Function- Work/School Not employed Baseline Function- Other Sleeps on R side without difficulty Current Functional Impairments (Reported) Functional Limitations- ADL's Difficulty dressing, sleeping and getting out of a tub. Functional Limitations- Other Having to sleep on back, can't sleep on the R side. Personal Factors Other Personal Factors That May Effect Diabetes. Therapy/Recovery Pt denies TIA,states he was told it was a migraine. PT-OP-C Subjective Start: 05/01/19 11:24 Freq: Status: Active Protocol: Document 06/05/19 09:03 LRN (Rec: 06/05/19 09:50 LRN [id number]) OP-PT Subjective Patient Comments Patient Comments Is a little sore on the lateral R arm, maybe because he has been doing his reaching behind the back exercise. Shoulder loosened after UBE. PT-OP-E Functional Tests Start: 05/01/19 11:24 Freq: Status: Active Protocol: Document 06/05/19 09:03 LRN (Rec: 06/05/19 09:50 LRN [id number]) Functional Tests Apley's Scratch Test Action 2- Right T2 Action 3- Right Lower Sacrum PT-OP-F Manual Assessment Start: 05/01/19 11:24 Freq: Status: Active Protocol: Document 05/01/19 11:25 LRN (Rec: 05/01/19 17:38 LRN [id number]) Manual Assessments Soft Tissue Assessment Soft Tissue Mobility Assessment Increased tightness and tender at R UT, Supraspinatus, Anterior Scalene. Decreased muscle tone of R posterior upper back muscles. PT-OP-H Neuro Start: 05/01/19 11:24 Freq: Status: Active Protocol: Document 05/01/19 11:25 LRN (Rec: 05/01/19 17:38 LRN [id number]) Sensation Evaluation Gross Sensation Gross Sensation WNL Deep Tendon Reflex & Clonus Assessment Deep Tendon Reflex Bilateral Brachioradialis Deep Tendon Reflex 2+ Normal Bilateral Tricep Deep Tendon Reflex 3+ Normal But Brisk Bilateral Bicep Deep Tendon Reflex 2+ Normal PT-OP-J Posture/Palpation/Skin Start: 05/01/19 11:24 Freq: Status: Active Protocol: Document 05/01/19 11:25 LRN (Rec: 05/01/19 17:38 LRN [id number]) Posture Evaluation Position Standing Evaluation View All positions Head/C-Spine Posture C-Spine Flattened,Forward Head T-Spine Posture Increased Kyphosis Scapula Posture (R) Rotated Down,(R) Depressed Arm Posture (L) Internally Rotated,(R) Internally Rotated PT-OP-K Range of Motion Start: 05/01/19 11:24 Freq: Status: Active Protocol: Document 06/05/19 09:03 LRN (Rec: 06/05/19 09:50 LRN [id number]) Shoulder Goniometric Range of Motion Shoulder Right Passive Shoulder ROM WFL No Testing Position Sitting Flexion 145 Extension 140 Right Active Shoulder ROM WFL No Testing Position Sitting Flexion 140 Abduction 145 Left Active Shoulder ROM WFL No Flexion 130 Abduction 55 PT-OP-L Special Tests Start: 05/01/19 11:24 Freq: Status: Active Protocol: Document 05/01/19 11:25 LRN (Rec: 05/01/19 17:38 LRN [id number]) Special Tests Cervical Spine Special Tests Vertebral Artery Test Results negative bilaterally Traction Test Results negative Foraminal Compression Test Results negative Shoulder Special Tests IR/Horizontal ADD Impingement Test Results + bilaterally Drop Arm Rotator Cuff Test Results negative bilaterally PT-OP-M Strength Start: 05/01/19 11:24 Freq: Status: Active Protocol: Document 05/01/19 11:25 LRN (Rec: 05/01/19 17:38 LRN [id number]) Cervical Spine Strength Cervical Spine Manual Muscle Testing Testing Position Sitting Comments Generally 5/5 without complaints of pain of UE's. Shoulder Strength Shoulder Manual Muscle Testing Right Comments Generally, 5/5. Pain with testing of shoulder abductors. Left Comments Generally 5/5 PT-OP-Q Treatments Start: 05/01/19 11:24 Freq: Status: Active Protocol: Document 06/05/19 09:03 LRN (Rec: 06/05/19 09:50 LRN [id number]) Cardio Equipment Upper Body Ergometer (UBE) Duration (Minutes) 10 RPM 80 Seat Position 13 Height 2.5 for 5' Therapeutic Exercises Sitting Exercises Shoulder IR stretch Sitting Exercise Name Towel stretch Side right Comments Pt thumb @ lower sacrum. Makayla shoulder ROM Sitting Exercise Name PROM f/b AAROM Flex & AB Side right Reps/Minutes 18 Standing Exercises Row Standing Exercise Name Scapular Depression/Retraction Side bilateral Resistance Lev 2 T-Band, minimal @ end- range Equipment Used T-Band Reps/Minutes 20x Shoulder ER Standing Exercise Name Shoulder ER Side right Resistance Lev 1 T-Band, minimal @ end- range Equipment Used T-Band & towel roll Reps/Minutes 20x Comments Towel roll @ elbow Shoulder IR Standing Exercise Name Shoulder IR Side right Resistance Lev 1 T-Band, minimal @ end- range Equipment Used T-Band & towel roll Reps/Minutes 20 x Comments Towel roll @ elbow Self-Care/Home Management Treatment Education Patient Education Home Exercise Program Activities Self-Care/Home Management Activities Issued & Reviewed HEP: TB shoulder ER/IR/row, Active shoulder flex, ER, IR and shoulder rolls. PT-OP-R Modalities Start: 05/01/19 11:24 Freq: Status: Active Protocol: Document 06/05/19 09:03 LRN (Rec: 06/05/19 09:50 LRN [id number]) Hot Pack/Cold Pack Treatment Cold Pack Location R Shoulder Patient Position Supine Treatment Duration (minutes) 10 PT-OP-T Assessment and Plan Start: 05/01/19 11:24 Freq: Status: Active Protocol: Document 06/05/19 09:03 LRN (Rec: 06/05/19 09:50 LRN [id number]) Physical Therapy Assessment Goals Six Impairment L shoulder pain with lying on L side Group Home Goal (LTG) If new Plan of Care signed, LTG: Pt will be able to sleep at night with ability to be on his R side with discomfort, no pain. LTG Duration 07/30/19 Five Impairment Decreased L shoulder ROM Human Resource Statistician Goal (LTG) If new Plan of Care signed, LTG: Pt will be able to don/ doff his coat and a T-shirt with mild discomfort, but no pain. LTG Duration 07/30/19 Four Impairment Functional strength limited due to subacromial pain. Short Term Goal (STG) Pt will increase use of ice for pain management at home. (05/23/19: Not using ice at home because he reports it hasn't been hurting). STG Duration 05/08/19 (05/29/19: DC Goal, no longer appropriate) Group Home Goal (LTG) Pt will be able to exit a bathtub without pain. LTG Duration 07/30/19 (05/29/19: NOT MET, focus has been on ROM) Three Impairment Decreased R shoulder AROM limiting ability to dress self Human Resource Statistician Goal (LTG) Pt will be able to don/doff his coat and a T-shirt with mild discomfort, but no pain. LTG Duration 07/30/19 (05/29/19: Pain rated 1 /10) Two Impairment R shoulder pain with lying on R side Human Resource Statistician Goal (LTG) Pt will be able to sleep at night with ability to be on his R side with discomfort, no pain. LTG Duration 07/30/19 (05/29/19: Partially Met> On the back without pain ) One Impairment Pt lacks appropriate HEP. Group Home Goal (LTG) Pt will be independent in self care HEP. LTG Duration 07/30/19 (06/05/19: Progressing ) Assessment Summary Assessment Improvement noted with sitting active shoulder flex and AB. ER not measured. Pt is tolerating exercise well. Physical Therapy Plan Frequency and Duration Frequency of Treatment 2x/Week Plan of Care Start Date 05/01/19 Plan of Care End Date 07/29/18 Next Visit Focus/Plan Next Note Type Treatment Note Next Visit Plan Re-eval for L shoulder and send new Plan of Care. MD to sign new Plan of Care if agreeable to treatment of the L shoulder, otherwise we will continue with treatment of the R shoulder only. Rx Plan: Start UBE or Biodex, cont Makayla for R>L shoulder PROM/AAROM. Check for a change of neck involvement. Review HEP last issued. Issue HEP for scapular depression. Manual stretch to subscapularis and ROM of R shoulder. Cont stretch to anterior neck and anterior chest for improved posture and GHJ mechanics. Progress rotator cuff strengthening. Modalities of Iontophoresis and cryotherapy if needed for pain management.
--- NOTE | 2019-06-09 11:55 | PT.OTN ---
Current Diagnoses Other soft tissue disorders related to use, overuse and pressure, right shoulder (06/09/19) Other symptoms and signs involving the musculoskeletal system (06/09/19) Strain of unspecified muscle, fascia and tendon at shoulder and upper arm level, right arm, initial encounter (06/09/19) Physical Therapy Treatment Note PT-OP-A Visit Information Start: 05/01/19 11:24 Freq: Status: Active Protocol: Document 06/09/19 09:05 LRN (Rec: 06/09/19 09:46 LRN [id number]) Out-Patient Physical Therapy Visit Information Visit Information Visit Type Treatment Note Visit Note Inital Eval POC signed by Dr. Gudino 05/05/19. Visit Start Time 09:05 Visit Stop Time 09:55 Total Visit Minutes 50 Visit Number 8 Number of YARD CONDUCTOR Visits 0 Evaluation Information Evaluation Date 05/01/19 Precautions Precautions Adult onset Diabetes. ?TIA vs Migraine PT-OP-B Current Condition Start: 05/01/19 11:24 Freq: Status: Active Protocol: Document 05/01/19 11:25 LRN (Rec: 05/01/19 17:38 LRN [id number]) Current Condition History of Current Condition Onset Date 1 month ago Current Complaints Intermittent R shoulder pain when moving in back (taking jacket off) History of Current Condition Slept wrong on the shoulder and woke with R shoulder pain. Pt is R handed. Never had before. Mild throbbing pain with twitches of pain. The L arm feels like the L elbow joint is being poked. Slowly improved because not moving the arm, but does use the arm. Pain with extreme rotation of the arm. Prior Treatments and Tests X-rays Treatment Goals Patient/Caregiver Goals PT goal is no pain putting on jacket, dressing, sleeping (on R side), getting out of the tub. Denies difficulty with carrying groceries or eating. Prior Functional Status Baseline Function- ADL's Independent Baseline Function- Mobility Independent Baseline Function- Work/School Not employed Baseline Function- Other Sleeps on R side without difficulty Current Functional Impairments (Reported) Functional Limitations- ADL's Difficulty dressing, sleeping and getting out of a tub. Functional Limitations- Other Having to sleep on back, can't sleep on the R side. Personal Factors Other Personal Factors That May Effect Diabetes. Therapy/Recovery Pt denies TIA,states he was told it was a migraine. PT-OP-C Subjective Start: 05/01/19 11:24 Freq: Status: Active Protocol: Document 06/09/19 09:05 LRN (Rec: 06/09/19 09:46 LRN [id number]) OP-PT Subjective Patient Comments Patient Comments States his R shoulder is progressing. L shoulder is a little better too. PT-OP-E Functional Tests Start: 05/01/19 11:24 Freq: Status: Active Protocol: Document 06/05/19 09:03 LRN (Rec: 06/05/19 09:50 LRN [id number]) Functional Tests Apley's Scratch Test Action 2- Right T2 Action 3- Right Lower Sacrum PT-OP-F Manual Assessment Start: 05/01/19 11:24 Freq: Status: Active Protocol: Document 05/01/19 11:25 LRN (Rec: 05/01/19 17:38 LRN [id number]) Manual Assessments Soft Tissue Assessment Soft Tissue Mobility Assessment Increased tightness and tender at R UT, Supraspinatus, Anterior Scalene. Decreased muscle tone of R posterior upper back muscles. PT-OP-H Neuro Start: 05/01/19 11:24 Freq: Status: Active Protocol: Document 05/01/19 11:25 LRN (Rec: 05/01/19 17:38 LRN [id number]) Sensation Evaluation Gross Sensation Gross Sensation WNL Deep Tendon Reflex & Clonus Assessment Deep Tendon Reflex Bilateral Brachioradialis Deep Tendon Reflex 2+ Normal Bilateral Tricep Deep Tendon Reflex 3+ Normal But Brisk Bilateral Bicep Deep Tendon Reflex 2+ Normal PT-OP-J Posture/Palpation/Skin Start: 05/01/19 11:24 Freq: Status: Active Protocol: Document 05/01/19 11:25 LRN (Rec: 05/01/19 17:38 LRN [id number]) Posture Evaluation Position Standing Evaluation View All positions Head/C-Spine Posture C-Spine Flattened,Forward Head T-Spine Posture Increased Kyphosis Scapula Posture (R) Rotated Down,(R) Depressed Arm Posture (L) Internally Rotated,(R) Internally Rotated PT-OP-K Range of Motion Start: 05/01/19 11:24 Freq: Status: Active Protocol: Document 06/09/19 09:05 LRN (Rec: 06/09/19 09:46 LRN [id number]) Shoulder Goniometric Range of Motion Shoulder Left Passive Shoulder ROM WFL No Testing Position Supine Flexion 130 Abduction 52 External Rotation at 45 degrees 5 Abduction Internal Rotation 40 Internal Rotation Behind Back (text) Mid low back at Iliac Crest level Left Active Shoulder ROM WFL No Flexion 138 Abduction 75 PT-OP-L Special Tests Start: 05/01/19 11:24 Freq: Status: Active Protocol: Document 05/01/19 11:25 LRN (Rec: 05/01/19 17:38 LRN [id number]) Special Tests Cervical Spine Special Tests Vertebral Artery Test Results negative bilaterally Traction Test Results negative Foraminal Compression Test Results negative Shoulder Special Tests IR/Horizontal ADD Impingement Test Results + bilaterally Drop Arm Rotator Cuff Test Results negative bilaterally PT-OP-M Strength Start: 05/01/19 11:24 Freq: Status: Active Protocol: Document 06/09/19 09:05 LRN (Rec: 06/09/19 09:46 LRN [id number]) Shoulder Strength Shoulder Manual Muscle Testing Left Flexion 5 Normal Extension 5 Normal Abduction (C5) 3- Fair- Adduction 5 Normal External Rotation 4 Good Internal Rotation 5 Normal PT-OP-Q Treatments Start: 05/01/19 11:24 Freq: Status: Active Protocol: Document 06/09/19 09:05 LRN (Rec: 06/09/19 09:46 LRN [id number]) Cardio Equipment Upper Body Ergometer (UBE) Duration (Minutes) 10 RPM 75 Seat Position 13 Height 3 Therapeutic Exercises Supine Exercises PROM Supine Exercise Name Shoulder PROM flex, AB, ER, IR Side bilateral T-Bar shoulder rot stretch Supine Exercise Name T-Bar self shoulder rot stretch Side bilateral Reps/Minutes 2' Comments Pt moves slowly T-Bar shoulder Flex Supine Exercise Name Shoulder Flex stretch Side bilateral Reps/Minutes 3' Comments Pt moves slowly Shoulder IR Supine Exercise Name AAOM shoulder IR Side bilateral Shoulder ER Supine Exercise Name AAROM Shoulder ER Side bilateral Pec Stretch Supine Exercise Name V-Shoulder stretch Side bilateral Reps/Minutes 10x Standing Exercises Shoulder IR Standing Exercise Name Shoulder IR stretch Side bilateral Comments L hand behind back to middle of Iliac crest. PT-OP-R Modalities Start: 05/01/19 11:24 Freq: Status: Active Protocol: Document 06/09/19 09:05 LRN (Rec: 06/09/19 09:46 LRN [id number]) Hot Pack/Cold Pack Treatment Cold Pack Location Bilateral shoulders Patient Position Supine Treatment Duration (minutes) 10 PT-OP-T Assessment and Plan Start: 05/01/19 11:24 Freq: Status: Active Protocol: Document 06/09/19 09:05 JANEL (Rec: 06/09/19 09:46 LRN [id number]) Physical Therapy Assessment Goals Six Impairment L shoulder pain with lying on L side Manufacturing Lead Goal (LTG) If new Plan of Care signed, LTG: Pt will be able to sleep at night with ability to be on his R side with discomfort, no pain. LTG Duration 07/30/19 Five Impairment Decreased L shoulder ROM Longterm Goal (LTG) If new Plan of Care signed, LTG: Pt will be able to don/ doff his coat and a T-shirt with mild discomfort, but no pain. LTG Duration 07/30/19 Four Impairment Functional strength limited due to subacromial pain. Short Term Goal (STG) Pt will increase use of ice for pain management at home. (05/23/19: Not using ice at home because he reports it hasn't been hurting). STG Duration 05/08/19 (05/29/19: DC Goal, no longer appropriate) Longterm Goal (LTG) Pt will be able to exit a bathtub without pain. LTG Duration 07/30/19 (05/29/19: NOT MET, focus has been on ROM) Three Impairment Decreased R shoulder AROM limiting ability to dress self Longterm Goal (LTG) Pt will be able to don/doff his coat and a T-shirt with mild discomfort, but no pain. LTG Duration 07/30/19 (05/29/19: Pain rated 1 /10) Two Impairment R shoulder pain with lying on R side Manufacturing Lead Goal (LTG) Pt will be able to sleep at night with ability to be on his R side with discomfort, no pain. LTG Duration 07/30/19 (05/29/19: Partially Met> On the back without pain ) One Impairment Pt lacks appropriate HEP. Longterm Goal (LTG) Pt will be independent in self care HEP. LTG Duration 07/30/19 (06/05/19: Progressing ) Assessment Summary Assessment Pt tolerance to exercise is improving. Physical Therapy Plan Frequency and Duration Frequency of Treatment 2x/Week Plan of Care Start Date 05/01/19 Plan of Care End Date 07/29/18 Next Visit Focus/Plan Next Note Type Treatment Note Next Visit Plan MD to sign new Plan of Care if agreeable to treatment of the L shoulder, otherwise we will continue with treatment of the R shoulder only. Rx Plan: Start UBE or Biodex, cont Makayla for R>L shoulder PROM/AAROM. Check for a change of neck involvement. Review HEP last issued. Issue HEP for scapular depression. Manual stretch to subscapularis and ROM of R shoulder. Cont stretch to anterior neck and anterior chest for improved posture and GHJ mechanics. Progress rotator cuff strengthening. Modalities of Iontophoresis and cryotherapy if needed for pain management.
--- NOTE | 2019-06-12 10:08 | PT.OTN ---
Current Diagnoses Other soft tissue disorders related to use, overuse and pressure, right shoulder (06/12/19) Other symptoms and signs involving the musculoskeletal system (06/12/19) Strain of unspecified muscle, fascia and tendon at shoulder and upper arm level, right arm, initial encounter (06/12/19) Physical Therapy Treatment Note PT-OP-A Visit Information Start: 05/01/19 11:24 Freq: Status: Active Protocol: Document 06/12/19 09:11 LRN (Rec: 06/12/19 10:07 LRN [id number]) Out-Patient Physical Therapy Visit Information Visit Information Visit Type Treatment Note Visit Start Time 09:11 Visit Stop Time 10:01 Total Visit Minutes 50 Visit Number 9 Number of JUNIOR ART DIRECTOR Visits 0 Evaluation Information Evaluation Date 05/01/19 Precautions Precautions Adult onset Diabetes. ?TIA vs Migraine PT-OP-B Current Condition Start: 05/01/19 11:24 Freq: Status: Active Protocol: Document 05/01/19 11:25 LRN (Rec: 05/01/19 17:38 LRN [id number]) Current Condition History of Current Condition Onset Date 1 month ago Current Complaints Intermittent R shoulder pain when moving in back (taking jacket off) History of Current Condition Slept wrong on the shoulder and woke with R shoulder pain. Pt is R handed. Never had before. Mild throbbing pain with twitches of pain. The L arm feels like the L elbow joint is being poked. Slowly improved because not moving the arm, but does use the arm. Pain with extreme rotation of the arm. Prior Treatments and Tests X-rays Treatment Goals Patient/Caregiver Goals PT goal is no pain putting on jacket, dressing, sleeping (on R side), getting out of the tub. Denies difficulty with carrying groceries or eating. Prior Functional Status Baseline Function- ADL's Independent Baseline Function- Mobility Independent Baseline Function- Work/School Not employed Baseline Function- Other Sleeps on R side without difficulty Current Functional Impairments (Reported) Functional Limitations- ADL's Difficulty dressing, sleeping and getting out of a tub. Functional Limitations- Other Having to sleep on back, can't sleep on the R side. Personal Factors Other Personal Factors That May Effect Diabetes. Therapy/Recovery Pt denies TIA,states he was told it was a migraine. PT-OP-C Subjective Start: 05/01/19 11:24 Freq: Status: Active Protocol: Document 06/12/19 09:11 LRN (Rec: 06/12/19 10:07 LRN [id number]) OP-PT Subjective Patient Comments Patient Comments States he can get in/out of a bathtub without pain. PT-OP-E Functional Tests Start: 05/01/19 11:24 Freq: Status: Active Protocol: Document 06/05/19 09:03 LRN (Rec: 06/05/19 09:50 LRN [id number]) Functional Tests Apley's Scratch Test Action 2- Right T2 Action 3- Right Lower Sacrum PT-OP-F Manual Assessment Start: 05/01/19 11:24 Freq: Status: Active Protocol: Document 05/01/19 11:25 LRN (Rec: 05/01/19 17:38 LRN [id number]) Manual Assessments Soft Tissue Assessment Soft Tissue Mobility Assessment Increased tightness and tender at R UT, Supraspinatus, Anterior Scalene. Decreased muscle tone of R posterior upper back muscles. PT-OP-H Neuro Start: 05/01/19 11:24 Freq: Status: Active Protocol: Document 05/01/19 11:25 LRN (Rec: 05/01/19 17:38 LRN [id number]) Sensation Evaluation Gross Sensation Gross Sensation WNL Deep Tendon Reflex & Clonus Assessment Deep Tendon Reflex Bilateral Brachioradialis Deep Tendon Reflex 2+ Normal Bilateral Tricep Deep Tendon Reflex 3+ Normal But Brisk Bilateral Bicep Deep Tendon Reflex 2+ Normal PT-OP-J Posture/Palpation/Skin Start: 05/01/19 11:24 Freq: Status: Active Protocol: Document 05/01/19 11:25 LRN (Rec: 05/01/19 17:38 LRN [id number]) Posture Evaluation Position Standing Evaluation View All positions Head/C-Spine Posture C-Spine Flattened,Forward Head T-Spine Posture Increased Kyphosis Scapula Posture (R) Rotated Down,(R) Depressed Arm Posture (L) Internally Rotated,(R) Internally Rotated PT-OP-K Range of Motion Start: 05/01/19 11:24 Freq: Status: Active Protocol: Document 06/12/19 09:11 LRN (Rec: 06/12/19 10:07 LRN [id number]) Shoulder Goniometric Range of Motion Shoulder Right Passive Shoulder ROM WFL No Testing Position Supine Flexion 148 Abduction 137 External Rotation at 90 degrees 68 Abduction Internal Rotation 38 PT-OP-L Special Tests Start: 05/01/19 11:24 Freq: Status: Active Protocol: Document 05/01/19 11:25 LRN (Rec: 05/01/19 17:38 LRN [id number]) Special Tests Cervical Spine Special Tests Vertebral Artery Test Results negative bilaterally Traction Test Results negative Foraminal Compression Test Results negative Shoulder Special Tests IR/Horizontal ADD Impingement Test Results + bilaterally Drop Arm Rotator Cuff Test Results negative bilaterally PT-OP-M Strength Start: 05/01/19 11:24 Freq: Status: Active Protocol: Document 06/09/19 09:05 LRN (Rec: 06/09/19 09:46 LRN [id number]) Shoulder Strength Shoulder Manual Muscle Testing Left Flexion 5 Normal Extension 5 Normal Abduction (C5) 3- Fair- Adduction 5 Normal External Rotation 4 Good Internal Rotation 5 Normal PT-OP-Q Treatments Start: 05/01/19 11:24 Freq: Status: Active Protocol: Document 06/12/19 09:11 LRN (Rec: 06/12/19 10:07 LRN [id number]) Cardio Equipment Upper Body Ergometer (UBE) Duration (Minutes) 10 RPM 75 Seat Position 13 Height 3 Therapeutic Exercises Supine Exercises PROM Supine Exercise Name Shoulder PROM flex, AB, ER, IR Side right T-Bar shoulder AB Supine Exercise Name T-Bar shoulder AB stretch Side right Reps/Minutes 3' Comments Pt moves slowly T-Bar shoulder rot stretch Supine Exercise Name T-Bar self shoulder rot stretch Side right Reps/Minutes 3' Comments Pt moves slowly T-Bar shoulder Flex Supine Exercise Name Shoulder Flex stretch Side right Reps/Minutes 3' Comments Pt moves slowly Lat Pull Down Supine Exercise Name Lat Pull Down Side bilateral Resistance 2# & Lev 2 TBand Equipment Used TBar/T-Band Reps/Minutes 10x 2 Comments Pt moves slowly Shoulder IR Supine Exercise Name AAOM shoulder IR Side right Reps/Minutes 10x Shoulder ER Supine Exercise Name AAROM Shoulder ER Side right Pec Stretch Supine Exercise Name V-Shoulder stretch Side bilateral Reps/Minutes 10x Self-Care/Home Management Treatment Education Patient Education Home Exercise Program Activities Self-Care/Home Management Activities Issued Lev 2 T-Band with strap for door, for HEP. Issued & Reviewed HEP: Lat pull down in doorway with elbows flexed and elbows straight. PT-OP-R Modalities Start: 05/01/19 11:24 Freq: Status: Active Protocol: Document 06/12/19 09:11 LRN (Rec: 06/12/19 10:07 LRN [id number]) Hot Pack/Cold Pack Treatment Cold Pack Location Bilateral shoulders Patient Position Supine Treatment Duration (minutes) 10 PT-OP-T Assessment and Plan Start: 05/01/19 11:24 Freq: Status: Active Protocol: Document 06/12/19 09:11 LRN (Rec: 06/12/19 10:07 LRN [id number]) Physical Therapy Assessment Goals Six Impairment L shoulder pain with lying on L side Custodial Goal (LTG) If new Plan of Care signed, LTG: Pt will be able to sleep at night with ability to be on his R side with discomfort, no pain. LTG Duration 07/30/19 Five Impairment Decreased L shoulder ROM Pulp Bleacher Goal (LTG) If new Plan of Care signed, LTG: Pt will be able to don/ doff his coat and a T-shirt with mild discomfort, but no pain. LTG Duration 07/30/19 Four Impairment Functional strength limited due to subacromial pain. Short Term Goal (STG) Pt will increase use of ice for pain management at home. (05/23/19: Not using ice at home because he reports it hasn't been hurting). STG Duration 05/08/19 (05/29/19: DC Goal, no longer appropriate) Pulp Bleacher Goal (LTG) Pt will be able to exit a bathtub without pain. LTG Duration 07/30/19 (06/12/19: GOAL MET) Three Impairment Decreased R shoulder AROM limiting ability to dress self Custodial Goal (LTG) Pt will be able to don/doff his coat and a T-shirt with mild discomfort, but no pain. LTG Duration 07/30/19 (06/12/19: ROM improving) Two Impairment R shoulder pain with lying on R side Pulp Bleacher Goal (LTG) Pt will be able to sleep at night with ability to be on his R side with discomfort, no pain. LTG Duration 07/30/19 (05/29/19: Partially Met> On the back without pain ) One Impairment Pt lacks appropriate HEP. Pulp Bleacher Goal (LTG) Pt will be independent in self care HEP. LTG Duration 07/30/19 (06/12/19: Progressing ) Assessment Summary Assessment Improved R shoulder mobility. Pt tolerance to ex improving Physical Therapy Plan Frequency and Duration Frequency of Treatment 2x/Week Plan of Care Start Date 05/01/19 Plan of Care End Date 07/29/18 Next Visit Focus/Plan Next Note Type Treatment Note Next Visit Plan Check for MD sign off on new Plan of Care, for treatment of the L shoulder, otherwise continue with treatment of the R shoulder only. Rx Plan: UBE or Biodex, Manual stretch Makayla for R>L shoulder or PROM/AAROM. Check for a change of neck involvement. Review HEP last issued. Manual stretch to subscapularis. Cont stretch to anterior neck and anterior chest for improved posture and GHJ mechanics. Progress rotator cuff strengthening. Cryotherapy to end.
--- NOTE | 2019-06-17 10:05 | PT.OTN ---
Current Diagnoses Other soft tissue disorders related to use, overuse and pressure, right shoulder (06/17/19) Other symptoms and signs involving the musculoskeletal system (06/17/19) Strain of unspecified muscle, fascia and tendon at shoulder and upper arm level, right arm, initial encounter (06/17/19) Physical Therapy Treatment Note PT-OP-A Visit Information Start: 05/01/19 11:24 Freq: Status: Active Protocol: Document 06/17/19 09:04 LRN (Rec: 06/17/19 10:03 LRN [id number]) Out-Patient Physical Therapy Visit Information Visit Information Visit Type Treatment Note Visit Note Pt has new MD, Dr. Solomon, to replace Dr. Gudino. Visit Start Time 09:04 Visit Stop Time 09:56 Total Visit Minutes 52 Visit Number 10 Number of CLAIM PROCESSOR Visits 0 Evaluation Information Evaluation Date 05/01/19 Precautions Precautions Adult onset Diabetes. ?TIA vs Migraine PT-OP-B Current Condition Start: 05/01/19 11:24 Freq: Status: Active Protocol: Document 05/01/19 11:25 LRN (Rec: 05/01/19 17:38 LRN [id number]) Current Condition History of Current Condition Onset Date 1 month ago Current Complaints Intermittent R shoulder pain when moving in back (taking jacket off) History of Current Condition Slept wrong on the shoulder and woke with R shoulder pain. Pt is R handed. Never had before. Mild throbbing pain with twitches of pain. The L arm feels like the L elbow joint is being poked. Slowly improved because not moving the arm, but does use the arm. Pain with extreme rotation of the arm. Prior Treatments and Tests X-rays Treatment Goals Patient/Caregiver Goals PT goal is no pain putting on jacket, dressing, sleeping (on R side), getting out of the tub. Denies difficulty with carrying groceries or eating. Prior Functional Status Baseline Function- ADL's Independent Baseline Function- Mobility Independent Baseline Function- Work/School Not employed Baseline Function- Other Sleeps on R side without difficulty Current Functional Impairments (Reported) Functional Limitations- ADL's Difficulty dressing, sleeping and getting out of a tub. Functional Limitations- Other Having to sleep on back, can't sleep on the R side. Personal Factors Other Personal Factors That May Effect Diabetes. Therapy/Recovery Pt denies TIA,states he was told it was a migraine. PT-OP-C Subjective Start: 05/01/19 11:24 Freq: Status: Active Protocol: Document 06/17/19 09:04 LRN (Rec: 06/17/19 10:03 LRN [id number]) OP-PT Subjective Patient Comments Patient Comments R shoulder is a little sore this morning. L shoulder is worse. States Dr Solomon is his new doctor. PT-OP-E Functional Tests Start: 05/01/19 11:24 Freq: Status: Active Protocol: Document 06/05/19 09:03 LRN (Rec: 06/05/19 09:50 LRN [id number]) Functional Tests Apley's Scratch Test Action 2- Right T2 Action 3- Right Lower Sacrum PT-OP-F Manual Assessment Start: 05/01/19 11:24 Freq: Status: Active Protocol: Document 05/01/19 11:25 LRN (Rec: 05/01/19 17:38 LRN [id number]) Manual Assessments Soft Tissue Assessment Soft Tissue Mobility Assessment Increased tightness and tender at R UT, Supraspinatus, Anterior Scalene. Decreased muscle tone of R posterior upper back muscles. PT-OP-H Neuro Start: 05/01/19 11:24 Freq: Status: Active Protocol: Document 05/01/19 11:25 LRN (Rec: 05/01/19 17:38 LRN [id number]) Sensation Evaluation Gross Sensation Gross Sensation WNL Deep Tendon Reflex & Clonus Assessment Deep Tendon Reflex Bilateral Brachioradialis Deep Tendon Reflex 2+ Normal Bilateral Tricep Deep Tendon Reflex 3+ Normal But Brisk Bilateral Bicep Deep Tendon Reflex 2+ Normal PT-OP-J Posture/Palpation/Skin Start: 05/01/19 11:24 Freq: Status: Active Protocol: Document 05/01/19 11:25 LRN (Rec: 05/01/19 17:38 LRN [id number]) Posture Evaluation Position Standing Evaluation View All positions Head/C-Spine Posture C-Spine Flattened,Forward Head T-Spine Posture Increased Kyphosis Scapula Posture (R) Rotated Down,(R) Depressed Arm Posture (L) Internally Rotated,(R) Internally Rotated PT-OP-K Range of Motion Start: 05/01/19 11:24 Freq: Status: Active Protocol: Document 06/17/19 09:04 LRN (Rec: 06/17/19 10:03 LRN [id number]) Shoulder Goniometric Range of Motion Shoulder Left Passive Shoulder ROM WFL No Testing Position Supine Flexion 130 Abduction 58 External Rotation at 45 degrees 30 Abduction Internal Rotation 30 Right Passive Shoulder ROM WFL No Testing Position Supine Flexion 150 Abduction 112 External Rotation at 90 degrees 60 Abduction Internal Rotation 50 Right Active Shoulder ROM WFL No Flexion 150 Abduction 100 Left Active Shoulder ROM WFL No Flexion 135 Abduction 80 PT-OP-L Special Tests Start: 05/01/19 11:24 Freq: Status: Active Protocol: Document 05/01/19 11:25 LRN (Rec: 05/01/19 17:38 LRN [id number]) Special Tests Cervical Spine Special Tests Vertebral Artery Test Results negative bilaterally Traction Test Results negative Foraminal Compression Test Results negative Shoulder Special Tests IR/Horizontal ADD Impingement Test Results + bilaterally Drop Arm Rotator Cuff Test Results negative bilaterally PT-OP-M Strength Start: 05/01/19 11:24 Freq: Status: Active Protocol: Document 06/09/19 09:05 LRN (Rec: 06/09/19 09:46 LRN [id number]) Shoulder Strength Shoulder Manual Muscle Testing Left Flexion 5 Normal Extension 5 Normal Abduction (C5) 3- Fair- Adduction 5 Normal External Rotation 4 Good Internal Rotation 5 Normal PT-OP-Q Treatments Start: 05/01/19 11:24 Freq: Status: Active Protocol: Document 06/17/19 09:04 LRN (Rec: 06/17/19 10:03 LRN [id number]) Cardio Equipment Upper Body Ergometer (UBE) Duration (Minutes) 10 RPM 75 Seat Position 13 Height 4 Other 5' fwd/bkwd Therapeutic Exercises Supine Exercises PROM Supine Exercise Name Shoulder PROM flex, AB, ER, IR Side right T-Bar shoulder AB Supine Exercise Name T-Bar shoulder AB stretch Side right Reps/Minutes 3' Comments Pt moves slowly T-Bar shoulder rot stretch Supine Exercise Name T-Bar self shoulder rot stretch Side right Reps/Minutes 3' Comments Pt moves slowly T-Bar shoulder Flex Supine Exercise Name Shoulder Flex stretch Side right Reps/Minutes 3' Comments Pt moves slowly Pec Stretch Supine Exercise Name V-Shoulder stretch w/hands on head Side bilateral Reps/Minutes 2' Sitting Exercises Makayla shoulder ROM Sitting Exercise Name PROM f/b AAROM Flex & AB Side right Reps/Minutes 8' Comments 10 holds Standing Exercises Lat Pull Down Standing Exercise Name Lat Pull Down Side bilateral Resistance Lev 1 T-Band Reps/Minutes 15x Comments Pt moves slowly Row Standing Exercise Name Row - scapiular pinches Reps/Minutes 15 x Manual Therapy Treatment Manual Techniques R pec major/minor Type Manual stretch Body Location R Pec Mario/Minor Body Position Supine Reps/Duration 5' R anterior Scaplenes Type Manual stretch Body Location R Anterior Scalenes Body Position Supine Reps/Duration 4' PT-OP-R Modalities Start: 05/01/19 11:24 Freq: Status: Active Protocol: Document 06/17/19 09:04 LRN (Rec: 06/17/19 10:03 LRN [id number]) Hot Pack/Cold Pack Treatment Cold Pack Location R shoulders Patient Position Supine Treatment Duration (minutes) 10 PT-OP-T Assessment and Plan Start: 05/01/19 11:24 Freq: Status: Active Protocol: Document 06/17/19 09:04 LRN (Rec: 06/17/19 10:03 LRN [id number]) Physical Therapy Assessment Goals Six Impairment L shoulder pain with lying on L side Electronic Gluer Goal (LTG) If new Plan of Care signed, LTG: Pt will be able to sleep at night with ability to be on his R side with discomfort, no pain. LTG Duration 07/30/19 Five Impairment Decreased L shoulder ROM Electronic Gluer Goal (LTG) If new Plan of Care signed, LTG: Pt will be able to don/ doff his coat and a T-shirt with mild discomfort, but no pain. LTG Duration 07/30/19 Four Impairment Functional strength limited due to subacromial pain. Short Term Goal (STG) Pt will increase use of ice for pain management at home. (05/23/19: Not using ice at home because he reports it hasn't been hurting). STG Duration 05/08/19 (05/29/19: DC Goal, no longer appropriate) Electronic Gluer Goal (LTG) Pt will be able to exit a bathtub without pain. LTG Duration 07/30/19 (06/12/19: GOAL MET) Three Impairment Decreased R shoulder AROM limiting ability to dress self Fpc Goal (LTG) Pt will be able to don/doff his coat and a T-shirt with mild discomfort, but no pain. LTG Duration 07/30/19 (06/12/19: ROM improving) Two Impairment R shoulder pain with lying on R side Electronic Gluer Goal (LTG) Pt will be able to sleep at night with ability to be on his R side with discomfort, no pain. LTG Duration 07/30/19 (05/29/19: Partially Met> On the back without pain ) One Impairment Pt lacks appropriate HEP. Electronic Gluer Goal (LTG) Pt will be independent in self care HEP. LTG Duration 07/30/19 (06/12/19: Progressing ) Assessment Summary Assessment Pt R shoulder mobility shows variable improvement. L shoulder mobility is quite limited. New POC for treatment of L shoulder, not yet received. Pt has been assigned a new MD; therefore unable to exer L side. Pt is moving with greater ease, but ROM improvement is slow. Physical Therapy Plan Frequency and Duration Frequency of Treatment 2x/Week Plan of Care Start Date 05/01/19 Plan of Care End Date 07/29/18 Next Visit Focus/Plan Next Note Type Progress Note Next Visit Plan Reassess for PN. Check for MD sign off on new Plan of Care, for treatment of the L shoulder, otherwise continue with treatment of the R shoulder only. Add manual stretch to subscapularis. Rx Plan: UBE or Biodex, Manual stretch Makayla for R>L shoulder or PROM/AAROM. Check for a change of neck involvement. Cont stretch to anterior neck and anterior chest for improved posture and GHJ mechanics. Progress rotator cuff strengthening. Cryotherapy to end.
--- NOTE | 2019-06-19 16:00 | PT.OPPOC ---
Physical, Occupational & Speech Therapy At [facility] Current Diagnoses Other soft tissue disorders related to use, overuse and pressure, right shoulder (06/19/19) Other symptoms and signs involving the musculoskeletal system (06/19/19) Strain of unspecified muscle, fascia and tendon at shoulder and upper arm level, right arm, initial encounter (06/19/19) Visit Care Team Role Provider Type Beto Solomon DO Attending Provider Physician Primary Care Provider Specialty: [facility] Address: [address] [place] [address] Email: [email or web address] Plan Of Care PT-OP-T Assessment and Plan Start: 05/01/19 11:24 Freq: Status: Active Protocol: Document 06/19/19 09:09 LRN (Rec: 06/19/19 09:54 LRN [id number]) Physical Therapy Assessment Rehab Potential Rehabilitation Potential Good Evaluation Complexity Number of Personal Factors/Comorbidities 1-2 Number of Body Systems Impaired 4 or More Clinical Presentation at Evaluation Stable Impairments Impairments Functional Activities,Pain, Posture,ROM,Soft Tissue Mobility Goals Six Impairment L shoulder pain with lying on L side [employer] Goal (LTG) If new Plan of Care signed, LTG: Pt will be able to sleep at night with ability to be on his R side with discomfort, no pain. LTG Duration 07/30/19 Five Impairment Decreased L shoulder ROM [employer] H[employer] Sales Assistant Goal (LTG) If new Plan of Care signed, LTG: Pt will be able to don/ doff his coat and a T-shirt with mild discomfort, but no pain. LTG Duration 07/30/19 Four Impairment Functional strength limited due to subacromial pain. Short Term Goal (STG) Pt will increase use of ice for pain management at home. (05/23/19: Not using ice at home because he reports it hasn't been hurting). STG Duration 05/08/19 (05/29/19: DC Goal, no longer appropriate) [employer] H[employer] Sales Assistant Goal (LTG) Pt will be able to exit a bathtub without pain. LTG Duration 07/30/19 (06/12/19: GOAL MET right, L elbow pain) Three Impairment Decreased R shoulder AROM limiting ability to dress self Industrial H[employer] Sales Assistant Goal (LTG) Pt will be able to don/doff his coat and a T-shirt with mild discomfort, but no pain. LTG Duration 07/30/19 (05/19/19: MET GOAL) Two Impairment R shoulder pain with lying on R side [employer] Goal (LTG) Pt will be able to sleep at night with ability to be on his R side with discomfort, no pain. LTG Duration 07/30/19 (06/19/19: MET GOAL) One Impairment Pt lacks appropriate HEP. Industrial H[employer] Sales Assistant Goal (LTG) Pt will be independent in self care HEP. LTG Duration 07/30/19 (06/12/19: Progressing ) Assessment Summary Assessment Pt show improvement with bilateral shoulder mobility although + impingement persists, probably due to poor posturing of the shoulders. The pt is very restricted in the L shoulder for IR and is barely able to get his arm behind his back. The pt would benefit from skilled physical therapy of both shoulders to improve his functional mobility and strength. New POC for treatment of L shoulder, not yet received. Pt is moving with greater ease , but ROM improvement is slow. Physical Therapy Plan Frequency and Duration Frequency of Treatment 2x/Week Plan of Care Start Date 05/01/19 Plan of Care End Date 07/29/18 Therapeutic Interventions Therapeutic Interventions Aquatic Therapy,Home Exercise Program,Joint Mobilizations, Manual Therapy,Neuromuscular Re-education,Patient/Caregiver Education,Self-Care/Home Management,Soft Tissue Mobilization,Taping, Therapeutic Activities, Therapeutic Exercises Modalities Cold Pack/Ice Massage,Electric Stimulation,Hot Packs, Iontophoresis,Ultrasound Other Therapeutic Interventions Iontophoresis with 4mg/mL Dexamethasone with Sodium Phosphate. Next Visit Focus/Plan Next Note Type Treatment Note Next Visit Plan Check for MD sign off on new Plan of Care, for treatment of the L shoulder, otherwise continue with treatment of the R shoulder only. Add manual stretch to subscapularis. Rx Plan: UBE or Biodex, Manual stretch Makayla for R>L shoulder or PROM/AAROM. Cont stretch to anterior neck and anterior chest for improved posture and GHJ mechanics. Progress rotator cuff & scapular stabilizer strength and progress towards painfree functional activities. Cryotherapy to end. Plan of Care Dates Plan of Care Start Date 05/01/19 Plan of Care End Date 07/29/18 Electronically Signed by: Barbara Gates, PT 06/20/19 1820 Please Sign and Return: I have reviewed this Plan of Care and certify that the skilled therapy services above are required to meet the patient?s needs. Physician Signature Date Printed Name and Credentials Clinical Instructor Signature Printed Name and Credentials
--- NOTE | 2019-06-19 16:00 | PT.OTN ---
Current Diagnoses Other soft tissue disorders related to use, overuse and pressure, right shoulder (06/19/19) Other symptoms and signs involving the musculoskeletal system (06/19/19) Strain of unspecified muscle, fascia and tendon at shoulder and upper arm level, right arm, initial encounter (06/19/19) Physical Therapy Treatment Note PT-OP-A Visit Information Start: 05/01/19 11:24 Freq: Status: Active Protocol: Document 06/19/19 09:09 LRN (Rec: 06/19/19 09:54 LRN [id number]) Out-Patient Physical Therapy Visit Information Visit Information Visit Type Progress Note Visit Note Pt has new MD, Dr. Solomon, to replace Dr. Gudino. Visit Start Time 09:09 Visit Stop Time 09:56 Total Visit Minutes 47 Visit Number 11 Number of DIRECTOR OF AVIATION Visits 0 Evaluation Information Evaluation Date 05/01/19 Precautions Precautions Adult onset Diabetes. ?TIA vs Migraine PT-OP-B Current Condition Start: 05/01/19 11:24 Freq: Status: Active Protocol: Document 05/01/19 11:25 LRN (Rec: 05/01/19 17:38 LRN [id number]) Current Condition History of Current Condition Onset Date 1 month ago Current Complaints Intermittent R shoulder pain when moving in back (taking jacket off) History of Current Condition Slept wrong on the shoulder and woke with R shoulder pain. Pt is R handed. Never had before. Mild throbbing pain with twitches of pain. The L arm feels like the L elbow joint is being poked. Slowly improved because not moving the arm, but does use the arm. Pain with extreme rotation of the arm. Prior Treatments and Tests X-rays Treatment Goals Patient/Caregiver Goals PT goal is no pain putting on jacket, dressing, sleeping (on R side), getting out of the tub. Denies difficulty with carrying groceries or eating. Prior Functional Status Baseline Function- ADL's Independent Baseline Function- Mobility Independent Baseline Function- Work/School Not employed Baseline Function- Other Sleeps on R side without difficulty Current Functional Impairments (Reported) Functional Limitations- ADL's Difficulty dressing, sleeping and getting out of a tub. Functional Limitations- Other Having to sleep on back, can't sleep on the R side. Personal Factors Other Personal Factors That May Effect Diabetes. Therapy/Recovery Pt denies TIA,states he was told it was a migraine. PT-OP-C Subjective Start: 05/01/19 11:24 Freq: Status: Active Protocol: Document 06/19/19 09:09 LRN (Rec: 06/19/19 09:54 LRN [id number]) OP-PT Subjective Patient Comments Patient Comments States Questionnaire answered with pain only at end range. States he didn't sleep well last night. No longer hurts to type on gameboy. Pt reports lying on R side he has no pain on the L side. Patient Questionnaires Quick Dash- Upper Extremity Quick Dash UE Score 11.36 Quick Dash UE Impairment 1 to 19% Impaired (Score 1-19) OP-PT Pain Assessment Pain Assessment Grid Paper Pain Assessment Grid Completed Yes Location R shoulder Pain Location Details R shoulder subacromial > Deltoid Intensity 2 Scale Used Numeric (1 - 10) Description Aching Frequency Intermittent Pain Aggravating Factors Position,Activity Comments Pain Comments End range pain. Pain alleviated 1/2weeks with medication. PT-OP-E Functional Tests Start: 05/01/19 11:24 Freq: Status: Active Protocol: Document 06/20/19 09:09 LRN (Rec: 06/20/19 18:17 LRN [id number]) Functional Tests Apley's Scratch Test Action 2- Left T2 Action 2- Right T2 Action 3- Left Lateral L hip Action 3- Right L4 PT-OP-F Manual Assessment Start: 05/01/19 11:24 Freq: Status: Active Protocol: Document 05/01/19 11:25 LRN (Rec: 05/01/19 17:38 LRN [id number]) Manual Assessments Soft Tissue Assessment Soft Tissue Mobility Assessment Increased tightness and tender at R UT, Supraspinatus, Anterior Scalene. Decreased muscle tone of R posterior upper back muscles. PT-OP-H Neuro Start: 05/01/19 11:24 Freq: Status: Active Protocol: Document 05/01/19 11:25 LRN (Rec: 05/01/19 17:38 LRN [id number]) Sensation Evaluation Gross Sensation Gross Sensation WNL Deep Tendon Reflex & Clonus Assessment Deep Tendon Reflex Bilateral Brachioradialis Deep Tendon Reflex 2+ Normal Bilateral Tricep Deep Tendon Reflex 3+ Normal But Brisk Bilateral Bicep Deep Tendon Reflex 2+ Normal PT-OP-J Posture/Palpation/Skin Start: 05/01/19 11:24 Freq: Status: Active Protocol: Document 05/01/19 11:25 LRN (Rec: 05/01/19 17:38 LRN [id number]) Posture Evaluation Position Standing Evaluation View All positions Head/C-Spine Posture C-Spine Flattened,Forward Head T-Spine Posture Increased Kyphosis Scapula Posture (R) Rotated Down,(R) Depressed Arm Posture (L) Internally Rotated,(R) Internally Rotated PT-OP-K Range of Motion Start: 05/01/19 11:24 Freq: Status: Active Protocol: Document 06/19/19 09:09 LRN (Rec: 06/19/19 09:54 LRN [id number]) Shoulder Goniometric Range of Motion Shoulder Left Passive Shoulder ROM WFL No Testing Position Supine Flexion 150 Abduction 95 External Rotation at 45 degrees 42 Abduction Internal Rotation 42 Right Passive Shoulder ROM WFL No Testing Position Supine Flexion 158 Abduction 105 External Rotation at 90 degrees 65 Abduction Internal Rotation 50 Right Active Shoulder ROM WFL No Flexion 150 Abduction 150 Left Active Shoulder ROM WFL No Flexion 145 Abduction 142 PT-OP-L Special Tests Start: 05/01/19 11:24 Freq: Status: Active Protocol: Document 05/01/19 11:25 LRN (Rec: 05/01/19 17:38 LRN [id number]) Special Tests Cervical Spine Special Tests Vertebral Artery Test Results negative bilaterally Traction Test Results negative Foraminal Compression Test Results negative Shoulder Special Tests IR/Horizontal ADD Impingement Test Results + bilaterally Drop Arm Rotator Cuff Test Results negative bilaterally PT-OP-M Strength Start: 05/01/19 11:24 Freq: Status: Active Protocol: Document 06/09/19 09:05 LRN (Rec: 06/09/19 09:46 LRN [id number]) Shoulder Strength Shoulder Manual Muscle Testing Left Flexion 5 Normal Extension 5 Normal Abduction (C5) 3- Fair- Adduction 5 Normal External Rotation 4 Good Internal Rotation 5 Normal PT-OP-Q Treatments Start: 05/01/19 11:24 Freq: Status: Active Protocol: Document 06/19/19 09:09 LRN (Rec: 06/19/19 09:54 LRN [id number]) Cardio Equipment Upper Body Ergometer (UBE) Duration (Minutes) 6 RPM 75 Seat Position 13 Height 4 Other 3' fwd/bkwd Recumbent Elliptical (Biodex) Duration (Minutes) 4 Resistance 3 Seat Position 9 Therapeutic Exercises Supine Exercises PROM Supine Exercise Name Shoulder PROM flex, AB, ER, IR Side bilateral Comments ROM msmts taken Lat Pull Down Supine Exercise Name Lat Pull Down Side bilateral Resistance 2# & Lev 2 TBand Equipment Used TBar/T-Band Reps/Minutes 10x 2 Comments Pt moves slowly Sitting Exercises Shoulder AROM Sitting Exercise Name Shoulder AROM Side bilateral Comments ROM msmts taken Standing Exercises Row Standing Exercise Name Row - scapiular pinches Reps/Minutes 10 x 3 Shoulder ER Standing Exercise Name Shoulder ER Side bilateral Resistance Lev 1 T-Band, minimal @ end- range Equipment Used T-Band & towel roll Reps/Minutes 20x Comments Towel roll @ elbow Shoulder IR Standing Exercise Name Shoulder IR stretch Side bilateral Comments L hand behind back to middle of Iliac crest. PT-OP-R Modalities Start: 05/01/19 11:24 Freq: Status: Active Protocol: Document 06/19/19 09:09 LRN (Rec: 06/19/19 09:54 LRN [id number]) Hot Pack/Cold Pack Treatment Cold Pack Location R shoulders Patient Position Supine Treatment Duration (minutes) 10 PT-OP-T Assessment and Plan Start: 05/01/19 11:24 Freq: Status: Active Protocol: Document 06/19/19 09:09 LRN (Rec: 06/19/19 09:54 [facility] [id number]) Physical Therapy Assessment Rehab Potential Rehabilitation Potential Good Evaluation Complexity Number of Personal Factors/Comorbidities 1-2 Number of Body Systems Impaired 4 or More Clinical Presentation at Evaluation Stable Impairments Impairments Functional Activities,Pain, Posture,ROM,Soft Tissue Mobility Goals Six Impairment L shoulder pain with lying on L side Group Home Goal (LTG) If new Plan of Care signed, LTG: Pt will be able to sleep at night with ability to be on his R side with discomfort, no pain. LTG Duration 07/30/19 Five Impairment Decreased L shoulder ROM Insurance Professional Goal (LTG) If new Plan of Care signed, LTG: Pt will be able to don/ doff his coat and a T-shirt with mild discomfort, but no pain. LTG Duration 07/30/19 Four Impairment Functional strength limited due to subacromial pain. Short Term Goal (STG) Pt will increase use of ice for pain management at home. (05/23/19: Not using ice at home because he reports it hasn't been hurting). STG Duration 05/08/19 (05/29/19: DC Goal, no longer appropriate) Group Home Goal (LTG) Pt will be able to exit a bathtub without pain. LTG Duration 07/30/19 (06/12/19: GOAL MET right, L elbow pain) Three Impairment Decreased R shoulder AROM limiting ability to dress self Insurance Professional Goal (LTG) Pt will be able to don/doff his coat and a T-shirt with mild discomfort, but no pain. LTG Duration 07/30/19 (05/19/19: MET GOAL) Two Impairment R shoulder pain with lying on R side Group Home Goal (LTG) Pt will be able to sleep at night with ability to be on his R side with discomfort, no pain. LTG Duration 07/30/19 (06/19/19: MET GOAL) One Impairment Pt lacks appropriate HEP. Group Home Goal (LTG) Pt will be independent in self care HEP. LTG Duration 07/30/19 (06/12/19: Progressing ) Assessment Summary Assessment Pt show improvement with bilateral shoulder mobility although + impingement persists, probably due to poor posturing of the shoulders. The pt is very restricted in the L shoulder for IR and is barely able to get his arm behind his back. The pt would benefit from skilled physical therapy of both shoulders to improve his functional mobility and strength. New POC for treatment of L shoulder, not yet received. Pt is moving with greater ease , but ROM improvement is slow. Physical Therapy Plan Frequency and Duration Frequency of Treatment 2x/Week Plan of Care Start Date 05/01/19 Plan of Care End Date 07/29/18 Therapeutic Interventions Therapeutic Interventions Aquatic Therapy,Home Exercise Program,Joint Mobilizations, Manual Therapy,Neuromuscular Re-education,Patient/Caregiver Education,Self-Care/Home Management,Soft Tissue Mobilization,Taping, Therapeutic Activities, Therapeutic Exercises Modalities Cold Pack/Ice Massage,Electric Stimulation,Hot Packs, Iontophoresis,Ultrasound Other Therapeutic Interventions Iontophoresis with 4mg/mL Dexamethasone with Sodium Phosphate. Next Visit Focus/Plan Next Note Type Treatment Note Next Visit Plan Check for MD sign off on new Plan of Care, for treatment of the L shoulder, otherwise continue with treatment of the R shoulder only. Add manual stretch to subscapularis. Rx Plan: UBE or Biodex, Manual stretch Makayla for R>L shoulder or PROM/AAROM. Cont stretch to anterior neck and anterior chest for improved posture and GHJ mechanics. Progress rotator cuff & scapular stabilizer strength and progress towards painfree functional activities. Cryotherapy to end.
--- NOTE | 2019-06-24 13:18 | PT.OTN ---
Current Diagnoses Other soft tissue disorders related to use, overuse and pressure, right shoulder (06/24/19) Other symptoms and signs involving the musculoskeletal system (06/24/19) Strain of unspecified muscle, fascia and tendon at shoulder and upper arm level, right arm, initial encounter (06/24/19) Physical Therapy Treatment Note PT-OP-A Visit Information Start: 05/01/19 11:24 Freq: Status: Active Protocol: Document 06/24/19 09:04 LRN (Rec: 06/24/19 09:52 LRN [id number]) Out-Patient Physical Therapy Visit Information Visit Information Visit Type Treatment Note Visit Start Time 09:04 Visit Stop Time 10:00 Total Visit Minutes 56 Visit Number 12 Number of MANAGER PHARMACY Visits 0 Evaluation Information Evaluation Date 05/01/19 Precautions Precautions Adult onset Diabetes. ?TIA vs Migraine PT-OP-B Current Condition Start: 05/01/19 11:24 Freq: Status: Active Protocol: Document 05/01/19 11:25 LRN (Rec: 05/01/19 17:38 LRN [id number]) Current Condition History of Current Condition Onset Date 1 month ago Current Complaints Intermittent R shoulder pain when moving in back (taking jacket off) History of Current Condition Slept wrong on the shoulder and woke with R shoulder pain. Pt is R handed. Never had before. Mild throbbing pain with twitches of pain. The L arm feels like the L elbow joint is being poked. Slowly improved because not moving the arm, but does use the arm. Pain with extreme rotation of the arm. Prior Treatments and Tests X-rays Treatment Goals Patient/Caregiver Goals PT goal is no pain putting on jacket, dressing, sleeping (on R side), getting out of the tub. Denies difficulty with carrying groceries or eating. Prior Functional Status Baseline Function- ADL's Independent Baseline Function- Mobility Independent Baseline Function- Work/School Not employed Baseline Function- Other Sleeps on R side without difficulty Current Functional Impairments (Reported) Functional Limitations- ADL's Difficulty dressing, sleeping and getting out of a tub. Functional Limitations- Other Having to sleep on back, can't sleep on the R side. Personal Factors Other Personal Factors That May Effect Diabetes. Therapy/Recovery Pt denies TIA,states he was told it was a migraine. PT-OP-C Subjective Start: 05/01/19 11:24 Freq: Status: Active Protocol: Document 06/24/19 09:04 LRN (Rec: 06/24/19 09:52 LRN [id number]) OP-PT Subjective Patient Comments Patient Comments Noticing able to go back further behind the back with the R Shoulder. States Dr Solomon agreed to PT for L shoulder. PT-OP-E Functional Tests Start: 05/01/19 11:24 Freq: Status: Active Protocol: Document 06/20/19 09:09 LRN (Rec: 06/20/19 18:17 LRN [id number]) Functional Tests Apley's Scratch Test Action 2- Left T2 Action 2- Right T2 Action 3- Left Lateral L hip Action 3- Right L4 PT-OP-F Manual Assessment Start: 05/01/19 11:24 Freq: Status: Active Protocol: Document 05/01/19 11:25 LRN (Rec: 05/01/19 17:38 LRN [id number]) Manual Assessments Soft Tissue Assessment Soft Tissue Mobility Assessment Increased tightness and tender at R UT, Supraspinatus, Anterior Scalene. Decreased muscle tone of R posterior upper back muscles. PT-OP-H Neuro Start: 05/01/19 11:24 Freq: Status: Active Protocol: Document 05/01/19 11:25 LRN (Rec: 05/01/19 17:38 LRN [id number]) Sensation Evaluation Gross Sensation Gross Sensation WNL Deep Tendon Reflex & Clonus Assessment Deep Tendon Reflex Bilateral Brachioradialis Deep Tendon Reflex 2+ Normal Bilateral Tricep Deep Tendon Reflex 3+ Normal But Brisk Bilateral Bicep Deep Tendon Reflex 2+ Normal PT-OP-J Posture/Palpation/Skin Start: 05/01/19 11:24 Freq: Status: Active Protocol: Document 05/01/19 11:25 LRN (Rec: 05/01/19 17:38 LRN [id number]) Posture Evaluation Position Standing Evaluation View All positions Head/C-Spine Posture C-Spine Flattened,Forward Head T-Spine Posture Increased Kyphosis Scapula Posture (R) Rotated Down,(R) Depressed Arm Posture (L) Internally Rotated,(R) Internally Rotated PT-OP-K Range of Motion Start: 05/01/19 11:24 Freq: Status: Active Protocol: Document 06/19/19 09:09 LRN (Rec: 06/19/19 09:54 LRN [id number]) Shoulder Goniometric Range of Motion Shoulder Left Passive Shoulder ROM WFL No Testing Position Supine Flexion 150 Abduction 95 External Rotation at 45 degrees 42 Abduction Internal Rotation 42 Right Passive Shoulder ROM WFL No Testing Position Supine Flexion 158 Abduction 105 External Rotation at 90 degrees 65 Abduction Internal Rotation 50 Right Active Shoulder ROM WFL No Flexion 150 Abduction 150 Left Active Shoulder ROM WFL No Flexion 145 Abduction 142 PT-OP-L Special Tests Start: 05/01/19 11:24 Freq: Status: Active Protocol: Document 05/01/19 11:25 LRN (Rec: 05/01/19 17:38 LRN [id number]) Special Tests Cervical Spine Special Tests Vertebral Artery Test Results negative bilaterally Traction Test Results negative Foraminal Compression Test Results negative Shoulder Special Tests IR/Horizontal ADD Impingement Test Results + bilaterally Drop Arm Rotator Cuff Test Results negative bilaterally PT-OP-M Strength Start: 05/01/19 11:24 Freq: Status: Active Protocol: Document 06/09/19 09:05 LRN (Rec: 06/09/19 09:46 LRN [id number]) Shoulder Strength Shoulder Manual Muscle Testing Left Flexion 5 Normal Extension 5 Normal Abduction (C5) 3- Fair- Adduction 5 Normal External Rotation 4 Good Internal Rotation 5 Normal PT-OP-Q Treatments Start: 05/01/19 11:24 Freq: Status: Active Protocol: Document 06/24/19 09:04 LRN (Rec: 06/24/19 09:52 LRN [id number]) Cardio Equipment Upper Body Ergometer (UBE) Duration (Minutes) 10 RPM 75 Seat Position 13 Height 4 Other 5' fwd/bkwd Therapeutic Exercises Supine Exercises Lat Pull Down Supine Exercise Name Lat Pull Down Side bilateral Resistance 2# & Lev 2 TBand Equipment Used TBar/T-Band Reps/Minutes 15x Comments Pt moves slowly Sidelying Exercises Subscapularis stretch Sidelying Exercise Name Distraction of R Scapula from ribcage Side right Reps/Minutes 2' Sitting Exercises Makayla shoulder ROM Sitting Exercise Name PROM f/b AAROM Flex & AB Side right Reps/Minutes 8' Comments 10 stretch f/b 10 hold active stretch Standing Exercises Window slides Standing Exercise Name Shoulder Flex and Diagonals Equipment Used towel & window Reps/Minutes 5' Lat Pull Down Standing Exercise Name Lat Pull Down Side bilateral Resistance Lev 2 T-Band Reps/Minutes 15x Comments Pt moves slowly Row Standing Exercise Name Row - scapiular pinches Reps/Minutes 15x Shoulder ER Standing Exercise Name Shoulder ER Side bilateral Resistance Lev 1 T-Band, minimal @ end- range Equipment Used T-Band & towel roll Reps/Minutes 20x Comments Towel roll @ elbow Shoulder IR Standing Exercise Name Shoulder IR stretch Side bilateral Comments L hand behind back to middle of Iliac crest. Self-Care/Home Management Treatment Education Patient Education Home Exercise Program Activities Self-Care/Home Management Activities Issued & reviewed HEP: Subscapularis strengthening: Pushing hand into belly while rotating elbow forward. PT-OP-R Modalities Start: 05/01/19 11:24 Freq: Status: Active Protocol: Document 06/24/19 09:04 LRN (Rec: 06/24/19 09:52 LRN [id number]) Hot Pack/Cold Pack Treatment Cold Pack Location R shoulders Patient Position Supine Treatment Duration (minutes) 10 PT-OP-T Assessment and Plan Start: 05/01/19 11:24 Freq: Status: Active Protocol: Document 06/24/19 09:04 LRN (Rec: 06/24/19 09:52 LRN [id number]) Physical Therapy Assessment Goals Six Impairment L shoulder pain with lying on L side Fdc Goal (LTG) If new Plan of Care signed, LTG: Pt will be able to sleep at night with ability to be on his R side with discomfort, no pain. LTG Duration 07/30/19 Five Impairment Decreased L shoulder ROM Fdc Goal (LTG) If new Plan of Care signed, LTG: Pt will be able to don/ doff his coat and a T-shirt with mild discomfort, but no pain. LTG Duration 07/30/19 Four Impairment Functional strength limited due to subacromial pain. Short Term Goal (STG) Pt will increase use of ice for pain management at home. (05/23/19: Not using ice at home because he reports it hasn't been hurting). STG Duration 05/08/19 (05/29/19: DC Goal, no longer appropriate) Microwave Technician Goal (LTG) Pt will be able to exit a bathtub without pain. LTG Duration 07/30/19 (06/12/19: GOAL MET right, L elbow pain) Three Impairment Decreased R shoulder AROM limiting ability to dress self Fdc Goal (LTG) Pt will be able to don/doff his coat and a T-shirt with mild discomfort, but no pain. LTG Duration 07/30/19 (05/19/19: MET GOAL) Two Impairment R shoulder pain with lying on R side Fdc Goal (LTG) Pt will be able to sleep at night with ability to be on his R side with discomfort, no pain. LTG Duration 07/30/19 (06/19/19: MET GOAL) One Impairment Pt lacks appropriate HEP. Fdc Goal (LTG) Pt will be independent in self care HEP. LTG Duration 07/30/19 (06/12/19: Progressing ) Assessment Summary Assessment MD has not electronically signed POC yet. Pt appears to be moving with greater ease overhead. His R subscapularis is tight, minimal distraction of R scapula from the ribcage is possible. Pt reported a pop at L elbow (not heard), without pain while window washing for CCK shoulder strengthening; therefore probable self mob of the L elbow. Physical Therapy Plan Frequency and Duration Frequency of Treatment 2x/Week Plan of Care Start Date 05/01/19 Plan of Care End Date 07/29/18 Next Visit Focus/Plan Next Note Type Treatment Note Next Visit Plan Due to insurance limitations for the next 2 weeks the pt will be seen 1x/week to work mainly on a HEP to improve his R shoulder mobility. When he has achieved functional mobility begin RC and postural stabilizer strengtening for return to prior level of functioni. Check for MD sign off on new Plan of Care for treatment of the L shoulder, otherwise continue with treatment of the R shoulder only. Add manual stretch to subscapularis. Rx Plan: UBE or Biodex, Manual stretch Makayla for R>L shoulder or PROM/AAROM. Cont stretch to anterior neck and anterior chest for improved posture and GHJ mechanics. Progress rotator cuff & scapular stabilizer strength and progress towards painfree functional activities. Cryotherapy to end.
--- NOTE | 2019-07-01 09:55 | PT.OTN ---
Current Diagnoses Other soft tissue disorders related to use, overuse and pressure, right shoulder (07/01/19) Other symptoms and signs involving the musculoskeletal system (07/01/19) Strain of unspecified muscle, fascia and tendon at shoulder and upper arm level, right arm, initial encounter (07/01/19) Physical Therapy Treatment Note PT-OP-A Visit Information Start: 05/01/19 11:24 Freq: Status: Active Protocol: Document 07/01/19 09:00 LRN (Rec: 07/01/19 09:47 LRN [id number]) Out-Patient Physical Therapy Visit Information Visit Information Visit Type Treatment Note Visit Start Time 09:00 Visit Stop Time 09:51 Total Visit Minutes 51 Visit Number 13 Number of SQUIRREL MAN Visits 0 Evaluation Information Evaluation Date 05/01/19 Precautions Precautions Adult onset Diabetes. ?TIA vs Migraine PT-OP-B Current Condition Start: 05/01/19 11:24 Freq: Status: Active Protocol: Document 05/01/19 11:25 LRN (Rec: 05/01/19 17:38 LRN [id number]) Current Condition History of Current Condition Onset Date 1 month ago Current Complaints Intermittent R shoulder pain when moving in back (taking jacket off) History of Current Condition Slept wrong on the shoulder and woke with R shoulder pain. Pt is R handed. Never had before. Mild throbbing pain with twitches of pain. The L arm feels like the L elbow joint is being poked. Slowly improved because not moving the arm, but does use the arm. Pain with extreme rotation of the arm. Prior Treatments and Tests X-rays Treatment Goals Patient/Caregiver Goals PT goal is no pain putting on jacket, dressing, sleeping (on R side), getting out of the tub. Denies difficulty with carrying groceries or eating. Prior Functional Status Baseline Function- ADL's Independent Baseline Function- Mobility Independent Baseline Function- Work/School Not employed Baseline Function- Other Sleeps on R side without difficulty Current Functional Impairments (Reported) Functional Limitations- ADL's Difficulty dressing, sleeping and getting out of a tub. Functional Limitations- Other Having to sleep on back, can't sleep on the R side. Personal Factors Other Personal Factors That May Effect Diabetes. Therapy/Recovery Pt denies TIA,states he was told it was a migraine. PT-OP-C Subjective Start: 05/01/19 11:24 Freq: Status: Active Protocol: Document 07/01/19 09:00 LRN (Rec: 07/01/19 09:47 LRN [id number]) OP-PT Subjective Patient Comments Patient Comments Saw Dr. Solomon and was given a piece of paper saying he authorized more therapy. PT-OP-E Functional Tests Start: 05/01/19 11:24 Freq: Status: Active Protocol: Document 06/20/19 09:09 LRN (Rec: 06/20/19 18:17 LRN [id number]) Functional Tests Apley's Scratch Test Action 2- Left T2 Action 2- Right T2 Action 3- Left Lateral L hip Action 3- Right L4 PT-OP-F Manual Assessment Start: 05/01/19 11:24 Freq: Status: Active Protocol: Document 05/01/19 11:25 LRN (Rec: 05/01/19 17:38 LRN [id number]) Manual Assessments Soft Tissue Assessment Soft Tissue Mobility Assessment Increased tightness and tender at R UT, Supraspinatus, Anterior Scalene. Decreased muscle tone of R posterior upper back muscles. PT-OP-H Neuro Start: 05/01/19 11:24 Freq: Status: Active Protocol: Document 05/01/19 11:25 LRN (Rec: 05/01/19 17:38 LRN [id number]) Sensation Evaluation Gross Sensation Gross Sensation WNL Deep Tendon Reflex & Clonus Assessment Deep Tendon Reflex Bilateral Brachioradialis Deep Tendon Reflex 2+ Normal Bilateral Tricep Deep Tendon Reflex 3+ Normal But Brisk Bilateral Bicep Deep Tendon Reflex 2+ Normal PT-OP-J Posture/Palpation/Skin Start: 05/01/19 11:24 Freq: Status: Active Protocol: Document 05/01/19 11:25 LRN (Rec: 05/01/19 17:38 LRN [id number]) Posture Evaluation Position Standing Evaluation View All positions Head/C-Spine Posture C-Spine Flattened,Forward Head T-Spine Posture Increased Kyphosis Scapula Posture (R) Rotated Down,(R) Depressed Arm Posture (L) Internally Rotated,(R) Internally Rotated PT-OP-K Range of Motion Start: 05/01/19 11:24 Freq: Status: Active Protocol: Document 06/19/19 09:09 LRN (Rec: 06/19/19 09:54 LRN [id number]) Shoulder Goniometric Range of Motion Shoulder Left Passive Shoulder ROM WFL No Testing Position Supine Flexion 150 Abduction 95 External Rotation at 45 degrees 42 Abduction Internal Rotation 42 Right Passive Shoulder ROM WFL No Testing Position Supine Flexion 158 Abduction 105 External Rotation at 90 degrees 65 Abduction Internal Rotation 50 Right Active Shoulder ROM WFL No Flexion 150 Abduction 150 Left Active Shoulder ROM WFL No Flexion 145 Abduction 142 PT-OP-L Special Tests Start: 05/01/19 11:24 Freq: Status: Active Protocol: Document 05/01/19 11:25 LRN (Rec: 05/01/19 17:38 LRN [id number]) Special Tests Cervical Spine Special Tests Vertebral Artery Test Results negative bilaterally Traction Test Results negative Foraminal Compression Test Results negative Shoulder Special Tests IR/Horizontal ADD Impingement Test Results + bilaterally Drop Arm Rotator Cuff Test Results negative bilaterally PT-OP-M Strength Start: 05/01/19 11:24 Freq: Status: Active Protocol: Document 06/09/19 09:05 LRN (Rec: 06/09/19 09:46 LRN [id number]) Shoulder Strength Shoulder Manual Muscle Testing Left Flexion 5 Normal Extension 5 Normal Abduction (C5) 3- Fair- Adduction 5 Normal External Rotation 4 Good Internal Rotation 5 Normal PT-OP-Q Treatments Start: 05/01/19 11:24 Freq: Status: Active Protocol: Document 07/01/19 09:00 LRN (Rec: 07/01/19 09:47 LRN [id number]) Cardio Equipment Upper Body Ergometer (UBE) Duration (Minutes) 10 RPM 75 Seat Position 13 Height 4 Other 5' fwd/bkwd Therapeutic Exercises Supine Exercises Lat Pull Down Supine Exercise Name Lat Pull Down Side bilateral Resistance 2# & Lev 2 TBand Equipment Used TBar/T-Band Reps/Minutes 15x Comments Pt moves slowly Sitting Exercises Makayla shoulder ROM Sitting Exercise Name PROM f/b AAROM Flex & AB Side right Reps/Minutes 8' Comments 10 stretch f/b 10 hold active stretch Standing Exercises Window slides Standing Exercise Name Max Circles on the glass Equipment Used towel & window Reps/Minutes 5' Lat Pull Down Standing Exercise Name Lat Pull Down Side bilateral Resistance Lev 2 T-Band Reps/Minutes 10' Comments Extra time taken for retraining of scapular depression/retraction Row Standing Exercise Name Row - scapiular pinches Resistance Lev 2 Reps/Minutes 15x 2 Shoulder IR Standing Exercise Name Shoulder IR stretch, f/b AAROM Side right PT-OP-R Modalities Start: 05/01/19 11:24 Freq: Status: Active Protocol: Document 07/01/19 09:00 LRN (Rec: 07/01/19 09:47 LRN [id number]) Hot Pack/Cold Pack Treatment Cold Pack Location Kade shoulders Patient Position Supine Treatment Duration (minutes) 10 PT-OP-T Assessment and Plan Start: 05/01/19 11:24 Freq: Status: Active Protocol: Document 07/01/19 09:00 LRN (Rec: 07/01/19 09:47 LRN [id number]) Physical Therapy Assessment Goals Seven Impairment Decreased R UE ability to reach behind the back (level of sacrum) Short Term Goal (STG) Pt will be able to reach behind the back at or above the level of the iliac crest. STG Duration 07/11/19 Six Impairment L shoulder pain with lying on L side Fdc Goal (LTG) If new Plan of Care signed, LTG: Pt will be able to sleep at night with ability to be on his R side with discomfort, no pain at L shoulder or elbow. LTG Duration 07/30/19 Five Impairment Decreased L shoulder ROM Fdc Goal (LTG) If new Plan of Care signed, LTG: Pt will be able to don/ doff his coat and a T-shirt with mild L shoulder/elbow discomfort, but no pain. LTG Duration 07/30/19 Four Impairment Functional strength limited due to subacromial pain. Short Term Goal (STG) Pt will increase use of ice for pain management at home. (05/23/19: Not using ice at home because he reports it hasn't been hurting). STG Duration 05/08/19 (05/29/19: DC Goal, no longer appropriate) Fdc Goal (LTG) Pt will be able to exit a bathtub without pain. LTG Duration 07/30/19 (06/12/19: GOAL MET right, L elbow pain) Three Impairment Decreased R shoulder AROM limiting ability to dress self Doubling Machine Operator Goal (LTG) Pt will be able to don/doff his coat and a T-shirt with mild discomfort, but no pain. LTG Duration 07/30/19 (05/19/19: MET GOAL) Two Impairment R shoulder pain with lying on R side Doubling Machine Operator Goal (LTG) Pt will be able to sleep at night with ability to be on his R side with discomfort, no pain. LTG Duration 07/30/19 (06/19/19: MET GOAL) One Impairment Pt lacks appropriate HEP. Fdc Goal (LTG) Pt will be independent in self care HEP. LTG Duration 07/30/19 (06/12/19: Progressing ) Assessment Summary Assessment New POC not signed; therefore hold on PT for L shoulder. Pt appears to have met most of the goals for the R shoulder except for independence with HEP (scapular depression/ retraction. Waiting for therapy approval on his L shoulder (waiting for POC to be signed) to begin L shoulder rehab. Physical Therapy Plan Frequency and Duration Frequency of Treatment 2x/Week Plan of Care Start Date 05/01/19 Plan of Care End Date 07/29/18 Next Visit Focus/Plan Next Note Type Treatment Note Next Visit Plan Add manual stretch to subscapularis. Due to insurance limitations, next week the pt will be seen 1x/ week to work mainly on a HEP to improve his R shoulder mobility (focus on IR). When new POC signed for rx of L shoulder, re-eval & resume 2x/ week. Continue RC and postural stabilizer strengthening for return to prior level of function. Check for MD sign off on new Plan of Care for treatment of the L shoulder, otherwise continue with treatment of the R shoulder only. Rx Plan: UBE or Biodex, Manual stretch Makayla for R>L shoulder or PROM/AAROM. Cont stretch to anterior neck and anterior chest for improved posture and GHJ mechanics. Progress rotator cuff & scapular stabilizer strength and progress towards painfree functional activities. Cryotherapy to end.
--- NOTE | 2019-07-08 09:28 | PT-OP ANOTE ---
Per telephone conversation, pt forgot his appointment, head hurting. Reminded pt of next appt and offered opening next week Tues in addition to TH appt. Pt states he can't think currently and will call back after he thinks about whether he can come 2x next week
--- NOTE | 2019-07-10 11:30 | PT.OTN ---
Current Diagnoses Other soft tissue disorders related to use, overuse and pressure, right shoulder (07/10/19) Other symptoms and signs involving the musculoskeletal system (07/10/19) Strain of unspecified muscle, fascia and tendon at shoulder and upper arm level, right arm, initial encounter (07/10/19) Physical Therapy Treatment Note PT-OP-A Visit Information Start: 05/01/19 11:24 Freq: Status: Active Protocol: Document 07/10/19 11:15 LRN (Rec: 07/10/19 11:29 LRN [id number]) Out-Patient Physical Therapy Visit Information Visit Information Visit Type Treatment Note Visit Start Time 10:31 Visit Stop Time 11:23 Total Visit Minutes 52 Visit Number 14 Number of ADULT PAROLE OFFICER Visits 0 Evaluation Information Evaluation Date 05/01/19 Precautions Precautions Adult onset Diabetes. ?TIA vs Migraine PT-OP-B Current Condition Start: 05/01/19 11:24 Freq: Status: Active Protocol: Document 05/01/19 11:25 LRN (Rec: 05/01/19 17:38 LRN [id number]) Current Condition History of Current Condition Onset Date 1 month ago Current Complaints Intermittent R shoulder pain when moving in back (taking jacket off) History of Current Condition Slept wrong on the shoulder and woke with R shoulder pain. Pt is R handed. Never had before. Mild throbbing pain with twitches of pain. The L arm feels like the L elbow joint is being poked. Slowly improved because not moving the arm, but does use the arm. Pain with extreme rotation of the arm. Prior Treatments and Tests X-rays Treatment Goals Patient/Caregiver Goals PT goal is no pain putting on jacket, dressing, sleeping (on R side), getting out of the tub. Denies difficulty with carrying groceries or eating. Prior Functional Status Baseline Function- ADL's Independent Baseline Function- Mobility Independent Baseline Function- Work/School Not employed Baseline Function- Other Sleeps on R side without difficulty Current Functional Impairments (Reported) Functional Limitations- ADL's Difficulty dressing, sleeping and getting out of a tub. Functional Limitations- Other Having to sleep on back, can't sleep on the R side. Personal Factors Other Personal Factors That May Effect Diabetes. Therapy/Recovery Pt denies TIA,states he was told it was a migraine. PT-OP-C Subjective Start: 05/01/19 11:24 Freq: Status: Active Protocol: Document 07/10/19 11:15 LRN (Rec: 07/10/19 11:29 LRN [id number]) OP-PT Subjective Patient Comments Patient Comments States the Dr's office told him they would sign off on therapy. PT-OP-E Functional Tests Start: 05/01/19 11:24 Freq: Status: Active Protocol: Document 06/20/19 09:09 LRN (Rec: 06/20/19 18:17 LRN [id number]) Functional Tests Apley's Scratch Test Action 2- Left T2 Action 2- Right T2 Action 3- Left Lateral L hip Action 3- Right L4 PT-OP-F Manual Assessment Start: 05/01/19 11:24 Freq: Status: Active Protocol: Document 05/01/19 11:25 LRN (Rec: 05/01/19 17:38 LRN [id number]) Manual Assessments Soft Tissue Assessment Soft Tissue Mobility Assessment Increased tightness and tender at R UT, Supraspinatus, Anterior Scalene. Decreased muscle tone of R posterior upper back muscles. PT-OP-H Neuro Start: 05/01/19 11:24 Freq: Status: Active Protocol: Document 05/01/19 11:25 LRN (Rec: 05/01/19 17:38 LRN [id number]) Sensation Evaluation Gross Sensation Gross Sensation WNL Deep Tendon Reflex & Clonus Assessment Deep Tendon Reflex Bilateral Brachioradialis Deep Tendon Reflex 2+ Normal Bilateral Tricep Deep Tendon Reflex 3+ Normal But Brisk Bilateral Bicep Deep Tendon Reflex 2+ Normal PT-OP-J Posture/Palpation/Skin Start: 05/01/19 11:24 Freq: Status: Active Protocol: Document 05/01/19 11:25 LRN (Rec: 05/01/19 17:38 LRN [id number]) Posture Evaluation Position Standing Evaluation View All positions Head/C-Spine Posture C-Spine Flattened,Forward Head T-Spine Posture Increased Kyphosis Scapula Posture (R) Rotated Down,(R) Depressed Arm Posture (L) Internally Rotated,(R) Internally Rotated PT-OP-K Range of Motion Start: 05/01/19 11:24 Freq: Status: Active Protocol: Document 07/10/19 11:15 LRN (Rec: 02/27/20 11:29 LRN [id number]) Shoulder Goniometric Range of Motion Shoulder Right Passive Shoulder ROM WFL No Testing Position Supine Flexion 165 Abduction 114 External Rotation at 90 degrees 70 Abduction Internal Rotation 40 Right Active Testing Position Sitting Flexion 165 Abduction 175 PT-OP-L Special Tests Start: 05/01/19 11:24 Freq: Status: Active Protocol: Document 05/01/19 11:25 LRN (Rec: 05/01/19 17:38 LRN [id number]) Special Tests Cervical Spine Special Tests Vertebral Artery Test Results negative bilaterally Traction Test Results negative Foraminal Compression Test Results negative Shoulder Special Tests IR/Horizontal ADD Impingement Test Results + bilaterally Drop Arm Rotator Cuff Test Results negative bilaterally PT-OP-M Strength Start: 05/01/19 11:24 Freq: Status: Active Protocol: Document 06/09/19 09:05 LRN (Rec: 06/09/19 09:46 LRN [id number]) Shoulder Strength Shoulder Manual Muscle Testing Left Flexion 5 Normal Extension 5 Normal Abduction (C5) 3- Fair- Adduction 5 Normal External Rotation 4 Good Internal Rotation 5 Normal PT-OP-Q Treatments Start: 05/01/19 11:24 Freq: Status: Active Protocol: Document 07/10/19 11:15 LRN (Rec: 07/10/19 11:29 LRN [id number]) Cardio Equipment Upper Body Ergometer (UBE) Duration (Minutes) 10 RPM 75 Seat Position 13 Height 5 Other 5' fwd/bkwd Therapeutic Exercises Sitting Exercises Isometric shoulder IR Sitting Exercise Name Hand/Belly Press Side bilateral Reps/Minutes 10 hold x 10 Makayla shoulder ROM Sitting Exercise Name PROM f/b AAROM Flex & AB Side right Reps/Minutes 8' Comments 20 stretch f/b 10 hold active stretch Standing Exercises Subscap strengthening Standing Exercise Name Lifting hand off small of back Side bilateral Reps/Minutes 10 hold x 10 Shoulder IR Standing Exercise Name Shoulder IR stretch, f/b AAROM Side right Manual Therapy Treatment Manual Techniques PROM Shoulder Type Manual Stretch: Flex, AB, ER, IR Body Location Bilateral Body Position Supine Reps/Duration 5' Self-Care/Home Management Treatment Education Patient Education Home Exercise Program Activities Self-Care/Home Management Activities Issued & Reviewed HEP: Subscapularis strengthening: Lifting hand off the back. PT-OP-R Modalities Start: 05/01/19 11:24 Freq: Status: Active Protocol: Document 07/10/19 11:15 LRN (Rec: 07/10/19 11:30 LRN [id number]) Hot Pack/Cold Pack Treatment Cold Pack Location Kade shoulders Patient Position Hooklying Treatment Duration (minutes) 10 Patient Tolerance Good PT-OP-T Assessment and Plan Start: 05/01/19 11:24 Freq: Status: Active Protocol: Document 07/10/19 11:15 LRN (Rec: 07/10/19 11:29 LRN [id number]) Physical Therapy Assessment Goals Seven Impairment Decreased R UE ability to reach behind the back (level of sacrum) Short Term Goal (STG) Pt will be able to reach behind the back at or above the level of the iliac crest. STG Duration 07/11/19 Six Impairment L shoulder pain with lying on L side Leadite Worker Goal (LTG) If new Plan of Care signed, LTG: Pt will be able to sleep at night with ability to be on his R side with discomfort, no pain at L shoulder or elbow. LTG Duration 07/30/19 Five Impairment Decreased L shoulder ROM Assisted Goal (LTG) If new Plan of Care signed, LTG: Pt will be able to don/ doff his coat and a T-shirt with mild L shoulder/elbow discomfort, but no pain. LTG Duration 07/30/19 Four Impairment Functional strength limited due to subacromial pain. Short Term Goal (STG) Pt will increase use of ice for pain management at home. (05/23/19: Not using ice at home because he reports it hasn't been hurting). STG Duration 05/08/19 (05/29/19: DC Goal, no longer appropriate) Leadite Worker Goal (LTG) Pt will be able to exit a bathtub without pain. LTG Duration 07/30/19 (06/12/19: GOAL MET right, L elbow pain) Three Impairment Decreased R shoulder AROM limiting ability to dress self Leadite Worker Goal (LTG) Pt will be able to don/doff his coat and a T-shirt with mild discomfort, but no pain. LTG Duration 07/30/19 (05/19/19: MET GOAL) Two Impairment R shoulder pain with lying on R side Leadite Worker Goal (LTG) Pt will be able to sleep at night with ability to be on his R side with discomfort, no pain. LTG Duration 07/30/19 (06/19/19: MET GOAL) One Impairment Pt lacks appropriate HEP. Leadite Worker Goal (LTG) Pt will be independent in self care HEP. LTG Duration 07/30/19 (07/10/19: Progressing ) Assessment Summary Assessment New POC not signed; therefore hold PT for L shoulder therapy , when POC is signed. Pt met goals for the R shoulder although he is limited in shoulder IR mobility. L shoulder is functionally limiting the pt in sleeping, dressing and reaching overhead . Physical Therapy Plan Frequency and Duration Frequency of Treatment 2x/Week Plan of Care Start Date 05/01/19 Plan of Care End Date 07/29/18 Next Visit Focus/Plan Next Note Type Treatment Note Next Visit Plan Check for MD sign off on new Plan of Care for treatment of the L shoulder. Restart therapy when POC signed, for focus on improving function of L shoulder. Add manual stretch to subscapularis. Due to financial limitations hold PT until new POC signed for rx of L shoulder, re-eval & resume 2x/week. Continue RC and postural stabilizer strengthening for return to prior level of function. Rx Plan: UBE or Biodex, Manual stretch Makayla for new rx of L shoulder or PROM/AAROM. Stretch to anterior neck and anterior chest as needed for improved posture and GHJ mechanics. Progress rotator cuff & scapular stabilizer strength and progress towards painfree functional activities . Cryotherapy to end.
--- NOTE | 2019-07-15 16:16 | PT-OP ANOTE ---
Contacted Dr. Beto Solomon's office , spoke to CJ, Triage nurse, requesting Dr. Solomon review and sign recent POC's for continued treatment of the pt on his R shoulder.
--- NOTE | 2019-07-21 12:19 | PT.OTRE ---
Current Diagnoses Other soft tissue disorders related to use, overuse and pressure, right shoulder (07/21/19) Other symptoms and signs involving the musculoskeletal system (07/21/19) Strain of unspecified muscle, fascia and tendon at shoulder and upper arm level, right arm, initial encounter (07/21/19) Past Medical History (Last Reviewed 06/20/19 @ 12:29 by Beto Solomon DO) Borderline personality disorder (Acute) Depression (Acute) Diabetes mellitus (Acute) Psoriasis (Acute) Visit Care Team Role Provider Type Beto Solomon DO Attending Provider Physician Primary Care Provider Specialty: Family Practice Address: [address] [place] [address] Email: [email or web address] Physical Therapy Re-Evaluation PT-OP-A Visit Information Start: 05/01/19 11:24 Freq: Status: Active Protocol: Document 07/21/19 09:10 LRN (Rec: 07/21/19 10:46 LRN [id number]) Out-Patient Physical Therapy Visit Information Visit Information Visit Type Re-Evaluation Visit Start Time 09:10 Visit Stop Time 10:05 Total Visit Minutes 55 Visit Number 15 Evaluation Information Evaluation Date 05/01/19 Precautions Precautions Adult onset Diabetes. ?TIA vs Migraine PT-OP-B Current Condition Start: 05/01/19 11:24 Freq: Status: Active Protocol: Document 07/21/19 09:10 LRN (Rec: 07/21/19 12:12 LRN [id number]) Current Condition History of Current Condition Onset Date 5 months ago Current Complaints Kade shoulder pain, L > R, with dressing (taking jacket off), sleeping History of Current Condition Slept wrong on the R shoulder and woke with R shoulder pain. Pt is R handed. Never had before. Mild throbbing pain with twitches of pain. The L shoulder is painful with sleeping on the shoulder and reaching behind (dressing). He also complains of L elbow joint pokey pain. Slowly improved because not moving the arm, but does use the arm. Pain with extreme rotation of the arm. Prior Treatments and Tests X-rays Treatment Goals Patient/Caregiver Goals PT goal is no bilateral shoulder pain putting on jacket, dressing, sleeping (on L side), getting out of the tub. Pt has no difficulty carrying groceries or eating. Prior Functional Status Baseline Function- ADL's Independent Baseline Function- Mobility Independent Baseline Function- Work/School Not employed Baseline Function- Other Sleeps on R side without difficulty Current Functional Impairments (Reported) Functional Limitations- ADL's Difficulty dressing, sleeping and getting out of a tub. Functional Limitations- Other Having to sleep on back, can't sleep on the R side. Personal Factors Other Personal Factors That May Effect Diabetes. Therapy/Recovery Pt denies TIA,states he was told it was a migraine. PT-OP-C Subjective Start: 05/01/19 11:24 Freq: Status: Active Protocol: Document 07/21/19 09:10 LRN (Rec: 07/21/19 10:46 LRN [id number]) OP-PT Subjective Patient Comments Patient Comments L shoulder has been sore. Patient Questionnaires Quick Dash- Upper Extremity Quick Dash UE Score 15.9 Quick Dash UE Impairment 1 to 19% Impaired (Score 1-19) OP-PT Pain Assessment Location L shoulder Pain Location Details L shoulder Subacromial with end-range shoulder ROM Intensity 3 Scale Used Numeric (1 - 10) R shoulder Pain Location Details R shoulder subacromial > Deltoid Intensity 3 Scale Used Numeric (1 - 10) PT-OP-E Functional Tests Start: 05/01/19 11:24 Freq: Status: Active Protocol: Document 07/21/19 09:10 LRN (Rec: 07/21/19 10:46 LRN [id number]) Functional Tests Apley's Scratch Test Action 1: The subject is instructed to touch the opposite shoulder with his/her hand. This motion checks Glenohumeral adduction, internal rotation , horizontal adduction and scapular protraction Action 2: The subject is instructed to place his/her arm overhead and reach behind the neck to touch his/her upper back. This motion checks Glenohumeral abduction, external rotation and scapular upward rotation and elevation. Action 3: The subject puts his/her hand on the lower back and reaches upward as far as possible. This motion checks glenohumeral adduction, internal rotation and scapular retraction with downward rotation Action 3- Left Lateral L hip Action 3- Right L4 PT-OP-F Manual Assessment Start: 05/01/19 11:24 Freq: Status: Active Protocol: Document 05/01/19 11:25 LRN (Rec: 05/01/19 17:38 LRN [id number]) Manual Assessments Soft Tissue Assessment Soft Tissue Mobility Assessment Increased tightness and tender at R UT, Supraspinatus, Anterior Scalene. Decreased muscle tone of R posterior upper back muscles. PT-OP-H Neuro Start: 05/01/19 11:24 Freq: Status: Active Protocol: Document 05/01/19 11:25 LRN (Rec: 05/01/19 17:38 LRN [id number]) Sensation Evaluation Gross Sensation Gross Sensation WNL Deep Tendon Reflex & Clonus Assessment Deep Tendon Reflex Bilateral Brachioradialis Deep Tendon Reflex 2+ Normal Bilateral Tricep Deep Tendon Reflex 3+ Normal But Brisk Bilateral Bicep Deep Tendon Reflex 2+ Normal PT-OP-J Posture/Palpation/Skin Start: 05/01/19 11:24 Freq: Status: Active Protocol: Document 07/21/19 09:10 LRN (Rec: 07/21/19 10:46 LRN [id number]) Posture Evaluation Position Standing Evaluation View All positions Head/C-Spine Posture C-Spine Flattened,Forward Head Scapula Posture (L) Elevated PT-OP-K Range of Motion Start: 05/01/19 11:24 Freq: Status: Active Protocol: Document 07/21/19 09:10 LRN (Rec: 07/21/19 10:46 LRN [id number]) Shoulder Goniometric Range of Motion Shoulder Measured in Degrees Left Passive Shoulder ROM WFL No Testing Position Supine Flexion 135 Abduction 85 External Rotation at 90 degrees 35 Abduction Internal Rotation 25 Right Passive Shoulder ROM WFL No Testing Position Supine Flexion 155 Abduction 115 External Rotation at 90 degrees 65 Abduction Internal Rotation 40 Right Active Testing Position Sitting Flexion 140 Abduction 95 Left Active Testing Position Sitting Flexion 132 Abduction 85 PT-OP-L Special Tests Start: 05/01/19 11:24 Freq: Status: Active Protocol: Document 05/01/19 11:25 LRN (Rec: 05/01/19 17:38 LRN [id number]) Special Tests Cervical Spine Special Tests Vertebral Artery Test Results negative bilaterally Traction Test Results negative Foraminal Compression Test Results negative Shoulder Special Tests IR/Horizontal ADD Impingement Test Results + bilaterally Drop Arm Rotator Cuff Test Results negative bilaterally PT-OP-M Strength Start: 05/01/19 11:24 Freq: Status: Active Protocol: Document 07/21/19 09:10 LRN (Rec: 07/21/19 10:46 LRN [id number]) Shoulder Strength Shoulder Manual Muscle Testing Right Comments Generally, 5/5. Left Comments Generally 5/5 PT-OP-Q Treatments Start: 05/01/19 11:24 Freq: Status: Active Protocol: Document 07/21/19 09:10 LRN (Rec: 07/21/19 10:46 LRN [id number]) Cardio Equipment Upper Body Ergometer (UBE) Duration (Minutes) 10 RPM 75 Seat Position 13 Height 5 Other 5' fwd/bkwd Therapeutic Exercises Supine Exercises Scapular pinches Supine Exercise Name Scapular pinches with arms overhead Reps/Minutes 10x PROM Supine Exercise Name Shoulder PROM flex, AB, ER, IR Side bilateral Comments ROM msmts taken T-Bar shoulder Flex Supine Exercise Name Shoulder Flex stretch Side bilateral Reps/Minutes 3' Comments Pt moves slowly Shoulder IR Supine Exercise Name AAOM shoulder IR Side left Reps/Minutes 2' Shoulder ER Supine Exercise Name AAROM Shoulder ER Side left Reps/Minutes 2' Sitting Exercises Makayla shoulder ROM Sitting Exercise Name PROM f/b AAROM Flex & AB Side right Reps/Minutes 8' Comments 20 stretch f/b 10 hold active stretch PT-OP-R Modalities Start: 05/01/19 11:24 Freq: Status: Active Protocol: Document 07/10/19 11:15 LRN (Rec: 07/10/19 11:30 LRN [id number]) Hot Pack/Cold Pack Treatment Cold Pack Location Kade shoulders Patient Position Hooklying Treatment Duration (minutes) 10 Patient Tolerance Good PT-OP-T Assessment and Plan Start: 05/01/19 11:24 Freq: Status: Active Protocol: Document 07/21/19 09:10 LRN (Rec: 07/21/19 10:46 LRN [id number]) Physical Therapy Assessment Rehab Potential Rehabilitation Potential Good Evaluation Complexity Number of Personal Factors/Comorbidities 1-2 Number of Body Systems Impaired 4 or More Clinical Presentation at Evaluation Stable Impairments Impairments Functional Activities,Pain, Posture,ROM,Soft Tissue Mobility Goals Seven Impairment Decreased Bilateral UE ability to reach behind the back Fpc Goal (LTG) Pt will be able to reach behind the back at or above the level of the iliac crest. LTG Duration 08/30/19 Six Impairment L shoulder pain with lying on L side Radio Intelligence Operator Goal (LTG) Pt will be able to sleep at night with ability to be on his R side with discomfort, no pain at L shoulder or elbow. LTG Duration 08/30/19 Five Impairment Decreased L shoulder ROM Radio Intelligence Operator Goal (LTG) Pt will be able to don/doff his coat and a T-shirt with mild L shoulder/elbow discomfort, but no pain. LTG Duration 08/30/19 One Impairment Pt lacks appropriate HEP. Fpc Goal (LTG) Pt will be independent in self care HEP. LTG Duration 08/30/19 (07/10/19: Progressing ) Assessment Summary Assessment Pt POC needing extension with initiation of L shoulder rehabilitation. L shoulder ROM decreased compared to the R and decreased scapulohumeral rhythm and scapular stabilizer strength; but general shoulder strength is good. Pt R shoulder has lost some mobility since last treatment due to pt not feeling well and not being consistent with HEP. New POC for L shoulder needed today. Pt will benefit from skilled physical therapy for L>R shoulder ROM, scapular stab strengthening and functional activities training & posturing for return to prior level of function. Physical Therapy Plan Frequency and Duration Frequency of Treatment 2x/Week Plan of Care Start Date 07/21/19 Plan of Care End Date 08/30/19 Therapeutic Interventions Therapeutic Interventions Aquatic Therapy,Home Exercise Program,Joint Mobilizations, Manual Therapy,Neuromuscular Re-education,Patient/Caregiver Education,Self-Care/Home Management,Soft Tissue Mobilization,Taping, Therapeutic Activities, Therapeutic Exercises Modalities Cold Pack/Ice Massage,Electric Stimulation,Hot Packs, Iontophoresis,Ultrasound Other Therapeutic Interventions Iontophoresis with 4mg/mL Dexamethasone with Sodium Phosphate. Next Visit Focus/Plan Next Note Type Treatment Note Next Visit Plan Focus on improving function of L>R shoulder. Add manual stretch to subscapularis. Rx Plan: UBE or Biodex, Manual stretch Makayla for new rx of L shoulder or PROM/AAROM. Stretch to anterior neck and anterior chest as needed for improved posture and GHJ mechanics. Progress rotator cuff & scapular stabilizer strength and progress towards painfree functional activities . Cryotherapy to end.
--- NOTE | 2019-07-21 12:22 | PT.OTRE ---
Current Diagnoses Other soft tissue disorders related to use, overuse and pressure, right shoulder (07/21/19) Other symptoms and signs involving the musculoskeletal system (07/21/19) Strain of unspecified muscle, fascia and tendon at shoulder and upper arm level, right arm, initial encounter (07/21/19) Past Medical History (Last Reviewed 06/20/19 @ 12:29 by Beto Solomon DO) Borderline personality disorder (Acute) Depression (Acute) Diabetes mellitus (Acute) Psoriasis (Acute) Visit Care Team Role Provider Type Beto Solomon DO Attending Provider Physician Primary Care Provider Specialty: Family Practice Address: [address] [place] [address] Email: [email or web address] Re-Evaluation PT-OP-A Visit Information Start: 05/01/19 11:24 Freq: Status: Active Protocol: Document 07/21/19 09:10 LRN (Rec: 07/21/19 10:46 LRN [id number]) Out-Patient Physical Therapy Visit Information Visit Information Visit Type Re-Evaluation Visit Start Time 09:10 Visit Stop Time 10:05 Total Visit Minutes 55 Visit Number 15 Evaluation Information Evaluation Date 05/01/19 Precautions Precautions Adult onset Diabetes. ?TIA vs Migraine PT-OP-B Current Condition Start: 05/01/19 11:24 Freq: Status: Active Protocol: Document 07/21/19 09:10 LRN (Rec: 07/21/19 12:12 LRN [id number]) Current Condition History of Current Condition Onset Date 5 months ago Current Complaints Kade shoulder pain, L > R, with dressing (taking jacket off), sleeping History of Current Condition Slept wrong on the R shoulder and woke with R shoulder pain. Pt is R handed. Never had before. Mild throbbing pain with twitches of pain. The L shoulder is painful with sleeping on the shoulder and reaching behind (dressing). He also complains of L elbow joint pokey pain. Slowly improved because not moving the arm, but does use the arm. Pain with extreme rotation of the arm. Prior Treatments and Tests X-rays Treatment Goals Patient/Caregiver Goals PT goal is no bilateral shoulder pain putting on jacket, dressing, sleeping (on L side), getting out of the tub. Pt has no difficulty carrying groceries or eating. Prior Functional Status Baseline Function- ADL's Independent Baseline Function- Mobility Independent Baseline Function- Work/School Not employed Baseline Function- Other Sleeps on R side without difficulty Current Functional Impairments (Reported) Functional Limitations- ADL's Difficulty dressing, sleeping and getting out of a tub. Functional Limitations- Other Having to sleep on back, can't sleep on the R side. Personal Factors Other Personal Factors That May Effect Diabetes. Therapy/Recovery Pt denies TIA,states he was told it was a migraine. PT-OP-C Subjective Start: 05/01/19 11:24 Freq: Status: Active Protocol: Document 07/21/19 09:10 LRN (Rec: 07/21/19 10:46 LRN [id number]) OP-PT Subjective Patient Comments Patient Comments L shoulder has been sore. Patient Questionnaires Quick Dash- Upper Extremity Quick Dash UE Score 15.9 Quick Dash UE Impairment 1 to 19% Impaired (Score 1-19) OP-PT Pain Assessment Location L shoulder Pain Location Details L shoulder Subacromial with end-range shoulder ROM Intensity 3 Scale Used Numeric (1 - 10) R shoulder Pain Location Details R shoulder subacromial > Deltoid Intensity 3 Scale Used Numeric (1 - 10) PT-OP-E Functional Tests Start: 05/01/19 11:24 Freq: Status: Active Protocol: Document 07/21/19 09:10 LRN (Rec: 07/21/19 10:46 LRN [id number]) Functional Tests Apley's Scratch Test Action 1: The subject is instructed to touch the opposite shoulder with his/her hand. This motion checks Glenohumeral adduction, internal rotation , horizontal adduction and scapular protraction Action 2: The subject is instructed to place his/her arm overhead and reach behind the neck to touch his/her upper back. This motion checks Glenohumeral abduction, external rotation and scapular upward rotation and elevation. Action 3: The subject puts his/her hand on the lower back and reaches upward as far as possible. This motion checks glenohumeral adduction, internal rotation and scapular retraction with downward rotation Action 3- Left Lateral L hip Action 3- Right L4 PT-OP-F Manual Assessment Start: 05/01/19 11:24 Freq: Status: Active Protocol: Document 05/01/19 11:25 LRN (Rec: 05/01/19 17:38 LRN [id number]) Manual Assessments Soft Tissue Assessment Soft Tissue Mobility Assessment Increased tightness and tender at R UT, Supraspinatus, Anterior Scalene. Decreased muscle tone of R posterior upper back muscles. PT-OP-H Neuro Start: 05/01/19 11:24 Freq: Status: Active Protocol: Document 05/01/19 11:25 LRN (Rec: 05/01/19 17:38 LRN [id number]) Sensation Evaluation Gross Sensation Gross Sensation WNL Deep Tendon Reflex & Clonus Assessment Deep Tendon Reflex Bilateral Brachioradialis Deep Tendon Reflex 2+ Normal Bilateral Tricep Deep Tendon Reflex 3+ Normal But Brisk Bilateral Bicep Deep Tendon Reflex 2+ Normal PT-OP-J Posture/Palpation/Skin Start: 05/01/19 11:24 Freq: Status: Active Protocol: Document 07/21/19 09:10 LRN (Rec: 07/21/19 10:46 LRN [id number]) Posture Evaluation Position Standing Evaluation View All positions Head/C-Spine Posture C-Spine Flattened,Forward Head Scapula Posture (L) Elevated PT-OP-K Range of Motion Start: 05/01/19 11:24 Freq: Status: Active Protocol: Document 07/21/19 09:10 LRN (Rec: 07/21/19 10:46 LRN [id number]) Shoulder Goniometric Range of Motion Shoulder Measured in Degrees Left Passive Shoulder ROM WFL No Testing Position Supine Flexion 135 Abduction 85 External Rotation at 90 degrees 35 Abduction Internal Rotation 25 Right Passive Shoulder ROM WFL No Testing Position Supine Flexion 155 Abduction 115 External Rotation at 90 degrees 65 Abduction Internal Rotation 40 Right Active Testing Position Sitting Flexion 140 Abduction 95 Left Active Testing Position Sitting Flexion 132 Abduction 85 PT-OP-L Special Tests Start: 05/01/19 11:24 Freq: Status: Active Protocol: Document 05/01/19 11:25 LRN (Rec: 05/01/19 17:38 LRN [id number]) Special Tests Cervical Spine Special Tests Vertebral Artery Test Results negative bilaterally Traction Test Results negative Foraminal Compression Test Results negative Shoulder Special Tests IR/Horizontal ADD Impingement Test Results + bilaterally Drop Arm Rotator Cuff Test Results negative bilaterally PT-OP-M Strength Start: 05/01/19 11:24 Freq: Status: Active Protocol: Document 07/21/19 09:10 LRN (Rec: 07/21/19 10:46 LRN [id number]) Shoulder Strength Shoulder Manual Muscle Testing Right Comments Generally, 5/5. Left Comments Generally 5/5 PT-OP-Q Treatments Start: 05/01/19 11:24 Freq: Status: Active Protocol: Document 07/21/19 09:10 LRN (Rec: 07/21/19 10:46 LRN [id number]) Cardio Equipment Upper Body Ergometer (UBE) Duration (Minutes) 10 RPM 75 Seat Position 13 Height 5 Other 5' fwd/bkwd Therapeutic Exercises Supine Exercises Scapular pinches Supine Exercise Name Scapular pinches with arms overhead Reps/Minutes 10x PROM Supine Exercise Name Shoulder PROM flex, AB, ER, IR Side bilateral Comments ROM msmts taken T-Bar shoulder Flex Supine Exercise Name Shoulder Flex stretch Side bilateral Reps/Minutes 3' Comments Pt moves slowly Shoulder IR Supine Exercise Name AAOM shoulder IR Side left Reps/Minutes 2' Shoulder ER Supine Exercise Name AAROM Shoulder ER Side left Reps/Minutes 2' Sitting Exercises Makayla shoulder ROM Sitting Exercise Name PROM f/b AAROM Flex & AB Side right Reps/Minutes 8' Comments 20 stretch f/b 10 hold active stretch PT-OP-R Modalities Start: 05/01/19 11:24 Freq: Status: Active Protocol: Document 07/10/19 11:15 LRN (Rec: 07/10/19 11:30 LRN [id number]) Hot Pack/Cold Pack Treatment Cold Pack Location Kade shoulders Patient Position Hooklying Treatment Duration (minutes) 10 Patient Tolerance Good PT-OP-T Assessment and Plan Start: 05/01/19 11:24 Freq: Status: Active Protocol: Document 07/21/19 09:10 LRN (Rec: 07/21/19 10:46 LRN [id number]) Physical Therapy Assessment Rehab Potential Rehabilitation Potential Good Evaluation Complexity Number of Personal Factors/Comorbidities 1-2 Number of Body Systems Impaired 4 or More Clinical Presentation at Evaluation Stable Impairments Impairments Functional Activities,Pain, Posture,ROM,Soft Tissue Mobility Goals Seven Impairment Decreased Bilateral UE ability to reach behind the back Fpc Goal (LTG) Pt will be able to reach behind the back at or above the level of the iliac crest. LTG Duration 08/30/19 Six Impairment L shoulder pain with lying on L side Assessment Counselor Goal (LTG) Pt will be able to sleep at night with ability to be on his R side with discomfort, no pain at L shoulder or elbow. LTG Duration 08/30/19 Five Impairment Decreased L shoulder ROM Assessment Counselor Goal (LTG) Pt will be able to don/doff his coat and a T-shirt with mild L shoulder/elbow discomfort, but no pain. LTG Duration 08/30/19 One Impairment Pt lacks appropriate HEP. Fpc Goal (LTG) Pt will be independent in self care HEP. LTG Duration 08/30/19 (07/10/19: Progressing ) Assessment Summary Assessment Pt POC needing extension with initiation of L shoulder rehabilitation. L shoulder ROM decreased compared to the R and decreased scapulohumeral rhythm and scapular stabilizer strength; but general shoulder strength is good. Pt R shoulder has lost some mobility since last treatment due to pt not feeling well and not being consistent with HEP. New POC for L shoulder needed today. Pt will benefit from skilled physical therapy for L>R shoulder ROM, scapular stab strengthening and functional activities training & posturing for return to prior level of function. Physical Therapy Plan Frequency and Duration Frequency of Treatment 2x/Week Plan of Care Start Date 07/21/19 Plan of Care End Date 08/30/19 Therapeutic Interventions Therapeutic Interventions Aquatic Therapy,Home Exercise Program,Joint Mobilizations, Manual Therapy,Neuromuscular Re-education,Patient/Caregiver Education,Self-Care/Home Management,Soft Tissue Mobilization,Taping, Therapeutic Activities, Therapeutic Exercises Modalities Cold Pack/Ice Massage,Electric Stimulation,Hot Packs, Iontophoresis,Ultrasound Other Therapeutic Interventions Iontophoresis with 4mg/mL Dexamethasone with Sodium Phosphate. Next Visit Focus/Plan Next Note Type Treatment Note Next Visit Plan Focus on improving function of L>R shoulder. Add manual stretch to subscapularis. Rx Plan: UBE or Biodex, Manual stretch Makayla for new rx of L shoulder or PROM/AAROM. Stretch to anterior neck and anterior chest as needed for improved posture and GHJ mechanics. Progress rotator cuff & scapular stabilizer strength and progress towards painfree functional activities . Cryotherapy to end.
--- NOTE | 2019-07-21 12:25 | PT.OTRE ---
Current Diagnoses Other soft tissue disorders related to use, overuse and pressure, right shoulder (07/21/19) Other symptoms and signs involving the musculoskeletal system (07/21/19) Strain of unspecified muscle, fascia and tendon at shoulder and upper arm level, right arm, initial encounter (07/21/19) Past Medical History (Last Reviewed 06/20/19 @ 12:29 by Beto Solomon DO) Borderline personality disorder (Acute) Depression (Acute) Diabetes mellitus (Acute) Psoriasis (Acute) Visit Care Team Role Provider Type Beto Solomon DO Attending Provider Physician Primary Care Provider Specialty: Family Practice Address: [address] [place] [address] Email: [email or web address] Re-Evaluation PT-OP-A Visit Information Start: 05/01/19 11:24 Freq: Status: Active Protocol: Document 07/21/19 09:10 LRN (Rec: 07/21/19 10:46 LRN [id number]) Out-Patient Physical Therapy Visit Information Visit Information Visit Type Re-Evaluation Visit Start Time 09:10 Visit Stop Time 10:05 Total Visit Minutes 55 Visit Number 15 Evaluation Information Evaluation Date 05/01/19 Precautions Precautions Adult onset Diabetes. ?TIA vs Migraine PT-OP-B Current Condition Start: 05/01/19 11:24 Freq: Status: Active Protocol: Document 07/21/19 09:10 LRN (Rec: 07/21/19 12:12 LRN [id number]) Current Condition History of Current Condition Onset Date 5 months ago Current Complaints Kade shoulder pain, L > R, with dressing (taking jacket off), sleeping History of Current Condition Slept wrong on the R shoulder and woke with R shoulder pain. Pt is R handed. Never had before. Mild throbbing pain with twitches of pain. The L shoulder is painful with sleeping on the shoulder and reaching behind (dressing). He also complains of L elbow joint pokey pain. Slowly improved because not moving the arm, but does use the arm. Pain with extreme rotation of the arm. Prior Treatments and Tests X-rays Treatment Goals Patient/Caregiver Goals PT goal is no bilateral shoulder pain putting on jacket, dressing, sleeping (on L side), getting out of the tub. Pt has no difficulty carrying groceries or eating. Prior Functional Status Baseline Function- ADL's Independent Baseline Function- Mobility Independent Baseline Function- Work/School Not employed Baseline Function- Other Sleeps on R side without difficulty Current Functional Impairments (Reported) Functional Limitations- ADL's Difficulty dressing, sleeping and getting out of a tub. Functional Limitations- Other Having to sleep on back, can't sleep on the R side. Personal Factors Other Personal Factors That May Effect Diabetes. Therapy/Recovery Pt denies TIA,states he was told it was a migraine. PT-OP-C Subjective Start: 05/01/19 11:24 Freq: Status: Active Protocol: Document 07/21/19 09:10 LRN (Rec: 07/21/19 10:46 LRN [id number]) OP-PT Subjective Patient Comments Patient Comments L shoulder has been sore. Patient Questionnaires Quick Dash- Upper Extremity Quick Dash UE Score 15.9 Quick Dash UE Impairment 1 to 19% Impaired (Score 1-19) OP-PT Pain Assessment Location L shoulder Pain Location Details L shoulder Subacromial with end-range shoulder ROM Intensity 3 Scale Used Numeric (1 - 10) R shoulder Pain Location Details R shoulder subacromial > Deltoid Intensity 3 Scale Used Numeric (1 - 10) PT-OP-E Functional Tests Start: 05/01/19 11:24 Freq: Status: Active Protocol: Document 07/21/19 09:10 LRN (Rec: 07/21/19 10:46 LRN [id number]) Functional Tests Apley's Scratch Test Action 1: The subject is instructed to touch the opposite shoulder with his/her hand. This motion checks Glenohumeral adduction, internal rotation , horizontal adduction and scapular protraction Action 2: The subject is instructed to place his/her arm overhead and reach behind the neck to touch his/her upper back. This motion checks Glenohumeral abduction, external rotation and scapular upward rotation and elevation. Action 3: The subject puts his/her hand on the lower back and reaches upward as far as possible. This motion checks glenohumeral adduction, internal rotation and scapular retraction with downward rotation Action 3- Left Lateral L hip Action 3- Right L4 PT-OP-F Manual Assessment Start: 05/01/19 11:24 Freq: Status: Active Protocol: Document 05/01/19 11:25 LRN (Rec: 05/01/19 17:38 LRN [id number]) Manual Assessments Soft Tissue Assessment Soft Tissue Mobility Assessment Increased tightness and tender at R UT, Supraspinatus, Anterior Scalene. Decreased muscle tone of R posterior upper back muscles. PT-OP-H Neuro Start: 05/01/19 11:24 Freq: Status: Active Protocol: Document 05/01/19 11:25 LRN (Rec: 05/01/19 17:38 LRN [id number]) Sensation Evaluation Gross Sensation Gross Sensation WNL Deep Tendon Reflex & Clonus Assessment Deep Tendon Reflex Bilateral Brachioradialis Deep Tendon Reflex 2+ Normal Bilateral Tricep Deep Tendon Reflex 3+ Normal But Brisk Bilateral Bicep Deep Tendon Reflex 2+ Normal PT-OP-J Posture/Palpation/Skin Start: 05/01/19 11:24 Freq: Status: Active Protocol: Document 07/21/19 09:10 LRN (Rec: 07/21/19 10:46 LRN [id number]) Posture Evaluation Position Standing Evaluation View All positions Head/C-Spine Posture C-Spine Flattened,Forward Head Scapula Posture (L) Elevated PT-OP-K Range of Motion Start: 05/01/19 11:24 Freq: Status: Active Protocol: Document 07/21/19 09:10 LRN (Rec: 07/21/19 10:46 LRN [id number]) Shoulder Goniometric Range of Motion Shoulder Measured in Degrees Left Passive Shoulder ROM WFL No Testing Position Supine Flexion 135 Abduction 85 External Rotation at 90 degrees 35 Abduction Internal Rotation 25 Right Passive Shoulder ROM WFL No Testing Position Supine Flexion 155 Abduction 115 External Rotation at 90 degrees 65 Abduction Internal Rotation 40 Right Active Testing Position Sitting Flexion 140 Abduction 95 Left Active Testing Position Sitting Flexion 132 Abduction 85 PT-OP-L Special Tests Start: 05/01/19 11:24 Freq: Status: Active Protocol: Document 05/01/19 11:25 LRN (Rec: 05/01/19 17:38 LRN [id number]) Special Tests Cervical Spine Special Tests Vertebral Artery Test Results negative bilaterally Traction Test Results negative Foraminal Compression Test Results negative Shoulder Special Tests IR/Horizontal ADD Impingement Test Results + bilaterally Drop Arm Rotator Cuff Test Results negative bilaterally PT-OP-M Strength Start: 05/01/19 11:24 Freq: Status: Active Protocol: Document 07/21/19 09:10 LRN (Rec: 07/21/19 10:46 LRN [id number]) Shoulder Strength Shoulder Manual Muscle Testing Right Comments Generally, 5/5. Left Comments Generally 5/5 PT-OP-Q Treatments Start: 05/01/19 11:24 Freq: Status: Active Protocol: Document 07/21/19 09:10 LRN (Rec: 07/21/19 10:46 LRN [id number]) Cardio Equipment Upper Body Ergometer (UBE) Duration (Minutes) 10 RPM 75 Seat Position 13 Height 5 Other 5' fwd/bkwd Therapeutic Exercises Supine Exercises Scapular pinches Supine Exercise Name Scapular pinches with arms overhead Reps/Minutes 10x PROM Supine Exercise Name Shoulder PROM flex, AB, ER, IR Side bilateral Comments ROM msmts taken T-Bar shoulder Flex Supine Exercise Name Shoulder Flex stretch Side bilateral Reps/Minutes 3' Comments Pt moves slowly Shoulder IR Supine Exercise Name AAOM shoulder IR Side left Reps/Minutes 2' Shoulder ER Supine Exercise Name AAROM Shoulder ER Side left Reps/Minutes 2' Sitting Exercises Makayla shoulder ROM Sitting Exercise Name PROM f/b AAROM Flex & AB Side right Reps/Minutes 8' Comments 20 stretch f/b 10 hold active stretch PT-OP-R Modalities Start: 05/01/19 11:24 Freq: Status: Active Protocol: Document 07/10/19 11:15 LRN (Rec: 07/10/19 11:30 LRN [id number]) Hot Pack/Cold Pack Treatment Cold Pack Location Kade shoulders Patient Position Hooklying Treatment Duration (minutes) 10 Patient Tolerance Good PT-OP-T Assessment and Plan Start: 05/01/19 11:24 Freq: Status: Active Protocol: Document 07/21/19 09:10 LRN (Rec: 07/21/19 10:46 LRN [id number]) Physical Therapy Assessment Rehab Potential Rehabilitation Potential Good Evaluation Complexity Number of Personal Factors/Comorbidities 1-2 Number of Body Systems Impaired 4 or More Clinical Presentation at Evaluation Stable Impairments Impairments Functional Activities,Pain, Posture,ROM,Soft Tissue Mobility Goals Seven Impairment Decreased Bilateral UE ability to reach behind the back Senior Care Goal (LTG) Pt will be able to reach behind the back at or above the level of the iliac crest. LTG Duration 08/30/19 Six Impairment L shoulder pain with lying on L side Construction Technology Instructor Goal (LTG) Pt will be able to sleep at night with ability to be on his R side with discomfort, no pain at L shoulder or elbow. LTG Duration 08/30/19 Five Impairment Decreased L shoulder ROM Construction Technology Instructor Goal (LTG) Pt will be able to don/doff his coat and a T-shirt with mild L shoulder/elbow discomfort, but no pain. LTG Duration 08/30/19 One Impairment Pt lacks appropriate HEP. Senior Care Goal (LTG) Pt will be independent in self care HEP. LTG Duration 08/30/19 (07/10/19: Progressing ) Assessment Summary Assessment Pt POC needing extension with initiation of L shoulder rehabilitation. L shoulder ROM decreased compared to the R and decreased scapulohumeral rhythm and scapular stabilizer strength; but general shoulder strength is good. Pt R shoulder has lost some mobility since last treatment due to pt not feeling well and not being consistent with HEP. New POC for L shoulder needed today. Pt will benefit from skilled physical therapy for L>R shoulder ROM, scapular stab strengthening and functional activities training & posturing for return to prior level of function. Physical Therapy Plan Frequency and Duration Frequency of Treatment 2x/Week Plan of Care Start Date 05/01/19 Plan of Care End Date 08/30/19 Therapeutic Interventions Therapeutic Interventions Aquatic Therapy,Home Exercise Program,Joint Mobilizations, Manual Therapy,Neuromuscular Re-education,Patient/Caregiver Education,Self-Care/Home Management,Soft Tissue Mobilization,Taping, Therapeutic Activities, Therapeutic Exercises Modalities Cold Pack/Ice Massage,Electric Stimulation,Hot Packs, Iontophoresis,Ultrasound Other Therapeutic Interventions Iontophoresis with 4mg/mL Dexamethasone with Sodium Phosphate. Next Visit Focus/Plan Next Note Type Treatment Note Next Visit Plan Focus on improving function of L>R shoulder. Add manual stretch to subscapularis. Rx Plan: UBE or Biodex, Manual stretch Makayla for new rx of L shoulder or PROM/AAROM. Stretch to anterior neck and anterior chest as needed for improved posture and GHJ mechanics. Progress rotator cuff & scapular stabilizer strength and progress towards painfree functional activities . Cryotherapy to end.
--- NOTE | 2019-07-21 12:25 | PT.OPPOC ---
Physical, Occupational & Speech Therapy At [facility] Current Diagnoses Other soft tissue disorders related to use, overuse and pressure, right shoulder (07/21/19) Other symptoms and signs involving the musculoskeletal system (07/21/19) Strain of unspecified muscle, fascia and tendon at shoulder and upper arm level, right arm, initial encounter (07/21/19) Visit Care Team Role Provider Type Beto Solomon DO Attending Provider Physician Primary Care Provider Specialty: [facility] Address: [address] [place] [address] Email: [email or web address] Plan Of Care PT-OP-T Assessment and Plan Start: 05/01/19 11:24 Freq: Status: Active Protocol: Document 07/21/19 09:10 LRN (Rec: 07/21/19 10:46 LRN [id number]) Physical Therapy Assessment Rehab Potential Rehabilitation Potential Good Evaluation Complexity Number of Personal Factors/Comorbidities 1-2 Number of Body Systems Impaired 4 or More Clinical Presentation at Evaluation Stable Impairments Impairments Functional Activities,Pain, Posture,ROM,Soft Tissue Mobility Goals Seven Impairment Decreased Bilateral UE ability to reach behind the back Groundwater Consultant Goal (LTG) Pt will be able to reach behind the back at or above the level of the iliac crest. LTG Duration 08/30/19 Six Impairment L shoulder pain with lying on L side Care Home Goal (LTG) Pt will be able to sleep at night with ability to be on his R side with discomfort, no pain at L shoulder or elbow. LTG Duration 08/30/19 Five Impairment Decreased L shoulder ROM Groundwater Consultant Goal (LTG) Pt will be able to don/doff his coat and a T-shirt with mild L shoulder/elbow discomfort, but no pain. LTG Duration 08/30/19 One Impairment Pt lacks appropriate HEP. Groundwater Consultant Goal (LTG) Pt will be independent in self care HEP. LTG Duration 08/30/19 (07/10/19: Progressing ) Assessment Summary Assessment Pt POC needing extension with initiation of L shoulder rehabilitation. L shoulder ROM decreased compared to the R and decreased scapulohumeral rhythm and scapular stabilizer strength; but general shoulder strength is good. Pt R shoulder has lost some mobility since last treatment due to pt not feeling well and not being consistent with HEP. New POC for L shoulder needed today. Pt will benefit from skilled physical therapy for L>R shoulder ROM, scapular stab strengthening and functional activities training & posturing for return to prior level of function. Physical Therapy Plan Frequency and Duration Frequency of Treatment 2x/Week Plan of Care Start Date 05/01/19 Plan of Care End Date 08/30/19 Therapeutic Interventions Therapeutic Interventions Aquatic Therapy,Home Exercise Program,Joint Mobilizations, Manual Therapy,Neuromuscular Re-education,Patient/Caregiver Education,Self-Care/Home Management,Soft Tissue Mobilization,Taping, Therapeutic Activities, Therapeutic Exercises Modalities Cold Pack/Ice Massage,Electric Stimulation,Hot Packs, Iontophoresis,Ultrasound Other Therapeutic Interventions Iontophoresis with 4mg/mL Dexamethasone with Sodium Phosphate. Next Visit Focus/Plan Next Note Type Treatment Note Next Visit Plan Focus on improving function of L>R shoulder. Add manual stretch to subscapularis. Rx Plan: UBE or Biodex, Manual stretch Makayla for new rx of L shoulder or PROM/AAROM. Stretch to anterior neck and anterior chest as needed for improved posture and GHJ mechanics. Progress rotator cuff & scapular stabilizer strength and progress towards painfree functional activities . Cryotherapy to end. Plan of Care Dates Plan of Care Start Date 05/01/19 Plan of Care End Date 08/30/19 Electronically Signed by: Barbara Gates, PT 07/21/19 [id number] Please Sign and Return: I have reviewed this Plan of Care and certify that the skilled therapy services above are required to meet the patient?s needs. Physician Signature Date Printed Name and Credentials Clinical Instructor Signature Printed Name and Credentials
--- NOTE | 2019-07-24 10:59 | PT.OTN ---
Current Diagnoses Other soft tissue disorders related to use, overuse and pressure, right shoulder (07/24/19) Other symptoms and signs involving the musculoskeletal system (07/24/19) Strain of unspecified muscle, fascia and tendon at shoulder and upper arm level, right arm, initial encounter (07/24/19) Physical Therapy Treatment Note PT-OP-A Visit Information Start: 05/01/19 11:24 Freq: Status: Active Protocol: Document 07/24/19 09:51 LRN (Rec: 07/24/19 10:30 LRN [id number]) Out-Patient Physical Therapy Visit Information Visit Information Visit Type Treatment Note Visit Start Time 09:51 Visit Stop Time 10:37 Total Visit Minutes 46 Visit Number 16 Evaluation Information Evaluation Date 05/01/19 Precautions Precautions Adult onset Diabetes. ?TIA vs Migraine PT-OP-B Current Condition Start: 05/01/19 11:24 Freq: Status: Active Protocol: Document 07/21/19 09:10 LRN (Rec: 07/21/19 12:12 LRN [id number]) Current Condition History of Current Condition Onset Date 5 months ago Current Complaints Kade shoulder pain, L > R, with dressing (taking jacket off), sleeping History of Current Condition Slept wrong on the R shoulder and woke with R shoulder pain. Pt is R handed. Never had before. Mild throbbing pain with twitches of pain. The L shoulder is painful with sleeping on the shoulder and reaching behind (dressing). He also complains of L elbow joint pokey pain. Slowly improved because not moving the arm, but does use the arm. Pain with extreme rotation of the arm. Prior Treatments and Tests X-rays Treatment Goals Patient/Caregiver Goals PT goal is no bilateral shoulder pain putting on jacket, dressing, sleeping (on L side), getting out of the tub. Pt has no difficulty carrying groceries or eating. Prior Functional Status Baseline Function- ADL's Independent Baseline Function- Mobility Independent Baseline Function- Work/School Not employed Baseline Function- Other Sleeps on R side without difficulty Current Functional Impairments (Reported) Functional Limitations- ADL's Difficulty dressing, sleeping and getting out of a tub. Functional Limitations- Other Having to sleep on back, can't sleep on the R side. Personal Factors Other Personal Factors That May Effect Diabetes. Therapy/Recovery Pt denies TIA,states he was told it was a migraine. PT-OP-C Subjective Start: 05/01/19 11:24 Freq: Status: Active Protocol: Document 07/24/19 09:51 LRN (Rec: 07/24/19 10:55 LRN [id number]) OP-PT Subjective Patient Comments Patient Comments Pt states he is a bit anxious (due to Coronovirus concerns). PT-OP-E Functional Tests Start: 05/01/19 11:24 Freq: Status: Active Protocol: Document 07/21/19 09:10 LRN (Rec: 07/21/19 10:46 LRN [id number]) Functional Tests Apley's Scratch Test Action 3- Left Lateral L hip Action 3- Right L4 PT-OP-F Manual Assessment Start: 05/01/19 11:24 Freq: Status: Active Protocol: Document 05/01/19 11:25 LRN (Rec: 05/01/19 17:38 LRN [id number]) Manual Assessments Soft Tissue Assessment Soft Tissue Mobility Assessment Increased tightness and tender at R UT, Supraspinatus, Anterior Scalene. Decreased muscle tone of R posterior upper back muscles. PT-OP-H Neuro Start: 05/01/19 11:24 Freq: Status: Active Protocol: Document 05/01/19 11:25 LRN (Rec: 05/01/19 17:38 LRN [id number]) Sensation Evaluation Gross Sensation Gross Sensation WNL Deep Tendon Reflex & Clonus Assessment Deep Tendon Reflex Bilateral Brachioradialis Deep Tendon Reflex 2+ Normal Bilateral Tricep Deep Tendon Reflex 3+ Normal But Brisk Bilateral Bicep Deep Tendon Reflex 2+ Normal PT-OP-J Posture/Palpation/Skin Start: 05/01/19 11:24 Freq: Status: Active Protocol: Document 07/21/19 09:10 LRN (Rec: 07/21/19 10:46 LRN [id number]) Posture Evaluation Position Standing Evaluation View All positions Head/C-Spine Posture C-Spine Flattened,Forward Head Scapula Posture (L) Elevated PT-OP-K Range of Motion Start: 05/01/19 11:24 Freq: Status: Active Protocol: Document 07/21/19 09:10 LRN (Rec: 07/21/19 10:46 LRN [id number]) Shoulder Goniometric Range of Motion Shoulder Left Passive Shoulder ROM WFL No Testing Position Supine Flexion 135 Abduction 85 External Rotation at 90 degrees 35 Abduction Internal Rotation 25 Right Passive Shoulder ROM WFL No Testing Position Supine Flexion 155 Abduction 115 External Rotation at 90 degrees 65 Abduction Internal Rotation 40 Right Active Testing Position Sitting Flexion 140 Abduction 95 Left Active Testing Position Sitting Flexion 132 Abduction 85 PT-OP-L Special Tests Start: 05/01/19 11:24 Freq: Status: Active Protocol: Document 05/01/19 11:25 LRN (Rec: 05/01/19 17:38 LRN [id number]) Special Tests Cervical Spine Special Tests Vertebral Artery Test Results negative bilaterally Traction Test Results negative Foraminal Compression Test Results negative Shoulder Special Tests IR/Horizontal ADD Impingement Test Results + bilaterally Drop Arm Rotator Cuff Test Results negative bilaterally PT-OP-M Strength Start: 05/01/19 11:24 Freq: Status: Active Protocol: Document 07/21/19 09:10 LRN (Rec: 07/21/19 10:46 LRN [id number]) Shoulder Strength Shoulder Manual Muscle Testing Right Comments Generally, 5/5. Left Comments Generally 5/5 PT-OP-Q Treatments Start: 05/01/19 11:24 Freq: Status: Active Protocol: Document 07/24/19 09:51 LRN (Rec: 07/24/19 10:30 LRN [id number]) Therapeutic Exercises Supine Exercises Lat Pull Down Supine Exercise Name Lat Pull Down Side bilateral Resistance 2# & Lev 2 TBand Equipment Used TBar/T-Band Reps/Minutes 15x 2 Comments Pt moves slowly Pec Stretch Supine Exercise Name V-Shoulder stretch w/hands on head Side bilateral Reps/Minutes 2' Sitting Exercises Makayla shoulder ROM Sitting Exercise Name PROM f/b AAROM Flex & AB Side bilateral Reps/Minutes 8' Comments 20 stretch f/b 10 hold active stretch Standing Exercises Subscap strengthening Standing Exercise Name Lifting hand off small of back Reps/Minutes 15x Comments Pt unable to connect hands behind back; therefore assist needed. Window slides Standing Exercise Name Flex, arc side to side, & max Circles on the glass Side bilateral Equipment Used towel & window Reps/Minutes 5' Lat Pull Down Standing Exercise Name Lat Pull Down Side bilateral Resistance Lev 3 T-Band Reps/Minutes 15x 2 Row Standing Exercise Name Row - scapiular pinches Resistance Lev 2 Reps/Minutes 15x 2 Shoulder ER Standing Exercise Name Shoulder ER Side bilateral Resistance Lev 2 T-Band Equipment Used T-Band & towel rolls Reps/Minutes 15x 2 Comments Towel roll @ elbows PT-OP-R Modalities Start: 05/01/19 11:24 Freq: Status: Active Protocol: Document 07/24/19 09:51 LRN (Rec: 07/24/19 10:30 LRN [id number]) Hot Pack/Cold Pack Treatment Cold Pack Location Kade shoulders Patient Position Hooklying Treatment Duration (minutes) 10 PT-OP-T Assessment and Plan Start: 05/01/19 11:24 Freq: Status: Active Protocol: Document 07/24/19 09:51 LRN (Rec: 07/24/19 10:30 LRN [id number]) Physical Therapy Assessment Goals Seven Impairment Decreased Bilateral UE ability to reach behind the back Portfolio Assistant Goal (LTG) Pt will be able to reach behind the back at or above the level of the iliac crest. LTG Duration 08/30/19 Six Impairment L shoulder pain with lying on L side Portfolio Assistant Goal (LTG) Pt will be able to sleep at night with ability to be on his R side with discomfort, no pain at L shoulder or elbow. LTG Duration 08/30/19 Five Impairment Decreased L shoulder ROM Portfolio Assistant Goal (LTG) Pt will be able to don/doff his coat and a T-shirt with mild L shoulder/elbow discomfort, but no pain. LTG Duration 08/30/19 One Impairment Pt lacks appropriate HEP. Portfolio Assistant Goal (LTG) Pt will be independent in self care HEP. LTG Duration 08/30/19 (07/10/19: Progressing ) Assessment Summary Assessment Pt was sore in the shoulders with subscap strengthening ( lifting hand off back). Pt tolerated strengthening well. Pain from muscle use in intrascapular area. Physical Therapy Plan Frequency and Duration Frequency of Treatment 2x/Week Plan of Care Start Date 05/01/19 Plan of Care End Date 08/30/19 Next Visit Focus/Plan Next Note Type Treatment Note Next Visit Plan Add manual stretch to subscapularis. Focus on improving ROM, strength & function of L>R shoulder. Rx Plan: UBE or Biodex, Manual stretch Makayla for L >R shoulder or PROM/AAROM. Stretch to anterior neck and anterior chest as needed for improved posture and GHJ mechanics. Progress rotator cuff & scapular stabilizer strength. Cryotherapy to end.
--- NOTE | 2019-07-29 10:46 | PT.OTN ---
Current Diagnoses Other soft tissue disorders related to use, overuse and pressure, right shoulder (07/29/19) Other symptoms and signs involving the musculoskeletal system (07/29/19) Strain of unspecified muscle, fascia and tendon at shoulder and upper arm level, right arm, initial encounter (07/29/19) Physical Therapy Treatment Note PT-OP-A Visit Information Start: 05/01/19 11:24 Freq: Status: Active Protocol: Document 07/29/19 09:52 LRN (Rec: 07/29/19 10:45 LRN [id number]) Out-Patient Physical Therapy Visit Information Visit Information Visit Type Treatment Note Visit Start Time 09:52 Visit Stop Time 10:45 Total Visit Minutes 53 Visit Number 17 Evaluation Information Evaluation Date 05/01/19 Precautions Precautions Adult onset Diabetes. ?TIA vs Migraine PT-OP-B Current Condition Start: 05/01/19 11:24 Freq: Status: Active Protocol: Document 07/21/19 09:10 LRN (Rec: 07/21/19 12:12 LRN [id number]) Current Condition History of Current Condition Onset Date 5 months ago Current Complaints Kade shoulder pain, L > R, with dressing (taking jacket off), sleeping History of Current Condition Slept wrong on the R shoulder and woke with R shoulder pain. Pt is R handed. Never had before. Mild throbbing pain with twitches of pain. The L shoulder is painful with sleeping on the shoulder and reaching behind (dressing). He also complains of L elbow joint pokey pain. Slowly improved because not moving the arm, but does use the arm. Pain with extreme rotation of the arm. Prior Treatments and Tests X-rays Treatment Goals Patient/Caregiver Goals PT goal is no bilateral shoulder pain putting on jacket, dressing, sleeping (on L side), getting out of the tub. Pt has no difficulty carrying groceries or eating. Prior Functional Status Baseline Function- ADL's Independent Baseline Function- Mobility Independent Baseline Function- Work/School Not employed Baseline Function- Other Sleeps on R side without difficulty Current Functional Impairments (Reported) Functional Limitations- ADL's Difficulty dressing, sleeping and getting out of a tub. Functional Limitations- Other Having to sleep on back, can't sleep on the R side. Personal Factors Other Personal Factors That May Effect Diabetes. Therapy/Recovery Pt denies TIA,states he was told it was a migraine. PT-OP-C Subjective Start: 05/01/19 11:24 Freq: Status: Active Protocol: Document 07/29/19 09:52 LRN (Rec: 07/29/19 10:45 LRN [id number]) OP-PT Subjective Patient Comments Patient Comments States he is getting a little more ROM of L shoulder Patient Reported Progress Improving PT-OP-E Functional Tests Start: 05/01/19 11:24 Freq: Status: Active Protocol: Document 07/21/19 09:10 LRN (Rec: 07/21/19 10:46 LRN [id number]) Functional Tests Apley's Scratch Test Action 3- Left Lateral L hip Action 3- Right L4 PT-OP-F Manual Assessment Start: 05/01/19 11:24 Freq: Status: Active Protocol: Document 05/01/19 11:25 LRN (Rec: 05/01/19 17:38 LRN [id number]) Manual Assessments Soft Tissue Assessment Soft Tissue Mobility Assessment Increased tightness and tender at R UT, Supraspinatus, Anterior Scalene. Decreased muscle tone of R posterior upper back muscles. PT-OP-H Neuro Start: 05/01/19 11:24 Freq: Status: Active Protocol: Document 05/01/19 11:25 LRN (Rec: 05/01/19 17:38 LRN [id number]) Sensation Evaluation Gross Sensation Gross Sensation WNL Deep Tendon Reflex & Clonus Assessment Deep Tendon Reflex Bilateral Brachioradialis Deep Tendon Reflex 2+ Normal Bilateral Tricep Deep Tendon Reflex 3+ Normal But Brisk Bilateral Bicep Deep Tendon Reflex 2+ Normal PT-OP-J Posture/Palpation/Skin Start: 05/01/19 11:24 Freq: Status: Active Protocol: Document 07/21/19 09:10 LRN (Rec: 07/21/19 10:46 LRN [id number]) Posture Evaluation Position Standing Evaluation View All positions Head/C-Spine Posture C-Spine Flattened,Forward Head Scapula Posture (L) Elevated PT-OP-K Range of Motion Start: 05/01/19 11:24 Freq: Status: Active Protocol: Document 07/21/19 09:10 LRN (Rec: 07/21/19 10:46 LRN [id number]) Shoulder Goniometric Range of Motion Shoulder Left Passive Shoulder ROM WFL No Testing Position Supine Flexion 135 Abduction 85 External Rotation at 90 degrees 35 Abduction Internal Rotation 25 Right Passive Shoulder ROM WFL No Testing Position Supine Flexion 155 Abduction 115 External Rotation at 90 degrees 65 Abduction Internal Rotation 40 Right Active Testing Position Sitting Flexion 140 Abduction 95 Left Active Testing Position Sitting Flexion 132 Abduction 85 PT-OP-L Special Tests Start: 05/01/19 11:24 Freq: Status: Active Protocol: Document 05/01/19 11:25 LRN (Rec: 05/01/19 17:38 LRN [id number]) Special Tests Cervical Spine Special Tests Vertebral Artery Test Results negative bilaterally Traction Test Results negative Foraminal Compression Test Results negative Shoulder Special Tests IR/Horizontal ADD Impingement Test Results + bilaterally Drop Arm Rotator Cuff Test Results negative bilaterally PT-OP-M Strength Start: 05/01/19 11:24 Freq: Status: Active Protocol: Document 07/21/19 09:10 LRN (Rec: 07/21/19 10:46 LRN [id number]) Shoulder Strength Shoulder Manual Muscle Testing Right Comments Generally, 5/5. Left Comments Generally 5/5 PT-OP-Q Treatments Start: 05/01/19 11:24 Freq: Status: Active Protocol: Document 07/29/19 09:52 LRN (Rec: 07/29/19 10:45 LRN [id number]) Cardio Equipment Upper Body Ergometer (UBE) Duration (Minutes) 10 RPM 75 Seat Position 13 Height 6 Other 5' fwd/bkwd Therapeutic Exercises Supine Exercises PROM Supine Exercise Name See Manual Rx Sidelying Exercises Subscapularis stretch Sidelying Exercise Name Subscapularis stretch Reps/Minutes 5' Standing Exercises Subscap strengthening Standing Exercise Name Assisted Lifting hand off small of back Reps/Minutes 15x Comments Pt is able to connect hands Window slides Standing Exercise Name Flex, arc side to side, & max Circles on the glass Side bilateral Equipment Used towel & window Reps/Minutes 3' Lat Pull Down Standing Exercise Name Lat Pull Down Side bilateral Resistance Lev 3 T-Band Reps/Minutes 15x 2 Row Standing Exercise Name Row - scapular pinches Resistance Lev 2 Reps/Minutes 15x 2 Shoulder ER Standing Exercise Name Shoulder ER Side bilateral Resistance Lev 2 T-Band Equipment Used T-Band & towel rolls Reps/Minutes 15x 2 Comments Towel roll @ elbows Shoulder IR Standing Exercise Name Shoulder IR stretch, f/b AAROM Side bilateral Reps/Minutes 3' Comments L>R Manual Therapy Treatment Manual Techniques PROM Shoulder Type Manual Stretch: Flex, AB, ER, IR Body Location Bilateral Body Position Supine Reps/Duration 8' PT-OP-R Modalities Start: 05/01/19 11:24 Freq: Status: Active Protocol: Document 07/29/19 09:52 LRN (Rec: 07/29/19 10:45 LRN [id number]) Hot Pack/Cold Pack Treatment Cold Pack Location Kade shoulders Patient Position Hooklying Treatment Duration (minutes) 10 PT-OP-T Assessment and Plan Start: 05/01/19 11:24 Freq: Status: Active Protocol: Document 07/29/19 09:52 LRN (Rec: 07/29/19 10:45 LRN [id number]) Physical Therapy Assessment Goals Seven Impairment Decreased Bilateral UE ability to reach behind the back Longterm Goal (LTG) Pt will be able to reach behind the back at or above the level of the iliac crest. LTG Duration 08/30/19 Six Impairment L shoulder pain with lying on L side Interventional Physiatrist Goal (LTG) Pt will be able to sleep at night with ability to be on his R side with discomfort, no pain at L shoulder or elbow. LTG Duration 08/30/19 Five Impairment Decreased L shoulder ROM Longterm Goal (LTG) Pt will be able to don/doff his coat and a T-shirt with mild L shoulder/elbow discomfort, but no pain. LTG Duration 08/30/19 One Impairment Pt lacks appropriate HEP. Interventional Physiatrist Goal (LTG) Pt will be independent in self care HEP. LTG Duration 08/30/19 (07/10/19: Progressing ) Assessment Summary Assessment Pt shows good tolerance to stretching, scapular stabilizer of subscap and intrascapular ms are weak. Physical Therapy Plan Frequency and Duration Frequency of Treatment 2x/Week Plan of Care Start Date 05/01/19 Plan of Care End Date 08/30/19 Next Visit Focus/Plan Next Note Type Treatment Note Next Visit Plan Progress rotator cuff & scapular stabilizer strength. Focus on improving ROM, strength & function of L>R shoulder. Rx Plan: UBE or Biodex, Manual stretch Makayla for L >R shoulder or PROM/ AAROM. Stretch to anterior neck and anterior chest as needed for improved posture and GHJ mechanics. Cryotherapy to end.
--- NOTE | 2019-08-05 10:06 | PT.OTN ---
Current Diagnoses Other soft tissue disorders related to use, overuse and pressure, right shoulder (08/05/19) Other symptoms and signs involving the musculoskeletal system (08/05/19) Strain of unspecified muscle, fascia and tendon at shoulder and upper arm level, right arm, initial encounter (08/05/19) Physical Therapy Treatment Note PT-OP-A Visit Information Start: 05/01/19 11:24 Freq: Status: Active Protocol: Document 08/05/19 09:00 AMB (Rec: 08/05/19 09:43 AMB [id number]) Out-Patient Physical Therapy Visit Information Visit Information Visit Type Treatment Note Visit Start Time 09:00 Visit Stop Time 09:54 Total Visit Minutes 54 Visit Number 18 Evaluation Information Evaluation Date 05/01/19 PT-OP-B Current Condition Start: 05/01/19 11:24 Freq: Status: Active Protocol: Document 07/21/19 09:10 LRN (Rec: 07/21/19 12:12 LRN [id number]) Current Condition History of Current Condition Onset Date 5 months ago Current Complaints Kade shoulder pain, L > R, with dressing (taking jacket off), sleeping History of Current Condition Slept wrong on the R shoulder and woke with R shoulder pain. Pt is R handed. Never had before. Mild throbbing pain with twitches of pain. The L shoulder is painful with sleeping on the shoulder and reaching behind (dressing). He also complains of L elbow joint pokey pain. Slowly improved because not moving the arm, but does use the arm. Pain with extreme rotation of the arm. Prior Treatments and Tests X-rays Treatment Goals Patient/Caregiver Goals PT goal is no bilateral shoulder pain putting on jacket, dressing, sleeping (on L side), getting out of the tub. Pt has no difficulty carrying groceries or eating. Prior Functional Status Baseline Function- ADL's Independent Baseline Function- Mobility Independent Baseline Function- Work/School Not employed Baseline Function- Other Sleeps on R side without difficulty Current Functional Impairments (Reported) Functional Limitations- ADL's Difficulty dressing, sleeping and getting out of a tub. Functional Limitations- Other Having to sleep on back, can't sleep on the R side. Personal Factors Other Personal Factors That May Effect Diabetes. Therapy/Recovery Pt denies TIA,states he was told it was a migraine. PT-OP-C Subjective Start: 05/01/19 11:24 Freq: Status: Active Protocol: Document 08/05/19 09:00 AMB (Rec: 08/05/19 09:43 AMB [email or web address]) OP-PT Subjective Patient Comments Patient Comments Overall feels he is functional , L shoulder still bothers him with certain movements, feels stiff. PT-OP-E Functional Tests Start: 05/01/19 11:24 Freq: Status: Active Protocol: Document 07/21/19 09:10 LRN (Rec: 07/21/19 10:46 LRN [id number]) Functional Tests Apley's Scratch Test Action 3- Left Lateral L hip Action 3- Right L4 PT-OP-F Manual Assessment Start: 05/01/19 11:24 Freq: Status: Active Protocol: Document 05/01/19 11:25 LRN (Rec: 05/01/19 17:38 LRN [id number]) Manual Assessments Soft Tissue Assessment Soft Tissue Mobility Assessment Increased tightness and tender at R UT, Supraspinatus, Anterior Scalene. Decreased muscle tone of R posterior upper back muscles. PT-OP-H Neuro Start: 05/01/19 11:24 Freq: Status: Active Protocol: Document 05/01/19 11:25 LRN (Rec: 05/01/19 17:38 LRN [id number]) Sensation Evaluation Gross Sensation Gross Sensation WNL Deep Tendon Reflex & Clonus Assessment Deep Tendon Reflex Bilateral Brachioradialis Deep Tendon Reflex 2+ Normal Bilateral Tricep Deep Tendon Reflex 3+ Normal But Brisk Bilateral Bicep Deep Tendon Reflex 2+ Normal PT-OP-J Posture/Palpation/Skin Start: 05/01/19 11:24 Freq: Status: Active Protocol: Document 07/21/19 09:10 LRN (Rec: 07/21/19 10:46 LRN [id number]) Posture Evaluation Position Standing Evaluation View All positions Head/C-Spine Posture C-Spine Flattened,Forward Head Scapula Posture (L) Elevated PT-OP-K Range of Motion Start: 05/01/19 11:24 Freq: Status: Active Protocol: Document 07/21/19 09:10 LRN (Rec: 07/21/19 10:46 LRN [id number]) Shoulder Goniometric Range of Motion Shoulder Left Passive Shoulder ROM WFL No Testing Position Supine Flexion 135 Abduction 85 External Rotation at 90 degrees 35 Abduction Internal Rotation 25 Right Passive Shoulder ROM WFL No Testing Position Supine Flexion 155 Abduction 115 External Rotation at 90 degrees 65 Abduction Internal Rotation 40 Right Active Testing Position Sitting Flexion 140 Abduction 95 Left Active Testing Position Sitting Flexion 132 Abduction 85 PT-OP-L Special Tests Start: 05/01/19 11:24 Freq: Status: Active Protocol: Document 05/01/19 11:25 LRN (Rec: 05/01/19 17:38 LRN [id number]) Special Tests Cervical Spine Special Tests Vertebral Artery Test Results negative bilaterally Traction Test Results negative Foraminal Compression Test Results negative Shoulder Special Tests IR/Horizontal ADD Impingement Test Results + bilaterally Drop Arm Rotator Cuff Test Results negative bilaterally PT-OP-M Strength Start: 05/01/19 11:24 Freq: Status: Active Protocol: Document 07/21/19 09:10 LRN (Rec: 07/21/19 10:46 LRN [id number]) Shoulder Strength Shoulder Manual Muscle Testing Right Comments Generally, 5/5. Left Comments Generally 5/5 PT-OP-Q Treatments Start: 05/01/19 11:24 Freq: Status: Active Protocol: Document 08/05/19 09:00 AMB (Rec: 08/05/19 09:19 AMB [id number]) Cardio Equipment Upper Body Ergometer (UBE) Duration (Minutes) 10 RPM 75 Seat Position 13 Height 6 Other 5' fwd/bkwd Therapeutic Exercises Supine Exercises T-Bar shoulder rot stretch Supine Exercise Name T-Bar self shoulder rot stretch Side right Reps/Minutes 3' Comments Pt moves slowly T-Bar shoulder Flex Supine Exercise Name Shoulder Flex stretch Side bilateral Reps/Minutes 3' Comments Pt moves slowly Lat Pull Down Supine Exercise Name Lat Pull Down Side bilateral Resistance 2# & Lev 2 TBand Equipment Used TBar/T-Band Reps/Minutes 15x 2 Comments Pt moves slowly Shoulder IR Supine Exercise Name AAOM shoulder IR Side left Reps/Minutes 2' Standing Exercises Window slides Standing Exercise Name Flex, arc side to side, & max Circles on the glass Side bilateral Equipment Used towel & window Reps/Minutes 3' Row Standing Exercise Name Row - scapular pinches Resistance Lev 2 Reps/Minutes 15x 2 Manual Therapy Treatment Manual Techniques PROM Shoulder Type Manual Stretch: Flex, AB, ER, IR Body Location Bilateral Body Position Supine Reps/Duration 8' PT-OP-R Modalities Start: 12/19/19 11:24 Freq: Status: Active Protocol: Document 08/05/19 09:00 AMB (Rec: 08/05/19 09:43 AMB [email or web address]) Hot Pack/Cold Pack Treatment Cold Pack Location Kade shoulders Patient Position Hooklying Treatment Duration (minutes) 10 PT-OP-T Assessment and Plan Start: 05/01/19 11:24 Freq: Status: Active Protocol: Document 08/05/19 09:00 AMB (Rec: 08/05/19 09:19 AMB [id number]) Physical Therapy Assessment Goals Seven Impairment Decreased Bilateral UE ability to reach behind the back Cancer Registry Manager Goal (LTG) Pt will be able to reach behind the back at or above the level of the iliac crest. LTG Duration 08/30/19 Six Impairment L shoulder pain with lying on L side Retirement Goal (LTG) Pt will be able to sleep at night with ability to be on his R side with discomfort, no pain at L shoulder or elbow. LTG Duration MET Five Impairment Decreased L shoulder ROM Retirement Goal (LTG) Pt will be able to don/doff his coat and a T-shirt with mild L shoulder/elbow discomfort, but no pain. LTG Duration 08/30/19 One Impairment Pt lacks appropriate HEP. Retirement Goal (LTG) Pt will be independent in self care HEP. LTG Duration 08/30/19 (07/10/19: Progressing ) Assessment Summary Assessment Worked today on reviewing HEP. PT admits he is not doing his theraband exercises at home, but this was reviewed. Physical Therapy Plan Next Visit Focus/Plan Next Note Type Treatment Note Next Visit Plan Progress rotator cuff & scapular stabilizer strength. Focus on improving ROM, strength & function of L>R shoulder. Rx Plan: UBE or Biodex, Manual stretch Makayla for L >R shoulder or PROM/ AAROM. Stretch to anterior neck and anterior chest as needed for improved posture and GHJ mechanics. Cryotherapy to end.
--- NOTE | 2019-12-23 09:36 | PT.OPDS ---
Current Diagnoses Other soft tissue disorders related to use, overuse and pressure, right shoulder (08/05/19) Other symptoms and signs involving the musculoskeletal system (08/05/19) Strain of unspecified muscle, fascia and tendon at shoulder and upper arm level, right arm, initial encounter (08/05/19) Visit Care Team Role Provider Type Beto Solomon DO Attending Provider Physician Primary Care Provider Specialty: [facility] Address: [address] [place] [address], [facility] Email: [email or web address] Visit Number Visit Number 18 Discharge Summary PT-OP-B Current Condition Start: 05/01/19 11:24 Freq: Status: Active Protocol: Document 07/21/19 09:10 LRN (Rec: 07/21/19 12:12 LRN [id number]) Current Condition History of Current Condition Onset Date 5 months ago Current Complaints Kade shoulder pain, L > R, with dressing (taking jacket off), sleeping History of Current Condition Slept wrong on the R shoulder and woke with R shoulder pain. Pt is R handed. Never had before. Mild throbbing pain with twitches of pain. The L shoulder is painful with sleeping on the shoulder and reaching behind (dressing). He also complains of L elbow joint pokey pain. Slowly improved because not moving the arm, but does use the arm. Pain with extreme rotation of the arm. Prior Treatments and Tests X-rays Treatment Goals Patient/Caregiver Goals PT goal is no bilateral shoulder pain putting on jacket, dressing, sleeping (on L side), getting out of the tub. Pt has no difficulty carrying groceries or eating. Prior Functional Status Baseline Function- ADL's Independent Baseline Function- Mobility Independent Baseline Function- Work/School Not employed Baseline Function- Other Sleeps on R side without difficulty Current Functional Impairments (Reported) Functional Limitations- ADL's Difficulty dressing, sleeping and getting out of a tub. Functional Limitations- Other Having to sleep on back, can't sleep on the R side. Personal Factors Other Personal Factors That May Effect Diabetes. Therapy/Recovery Pt denies TIA,states he was told it was a migraine. PT-OP-C Subjective Start: 05/01/19 11:24 Freq: Status: Active Protocol: Document 08/05/19 09:00 AMB (Rec: 08/05/19 09:43 AMB [id number]) OP-PT Subjective Patient Comments Patient Comments Overall feels he is functional , L shoulder still bothers him with certain movements, feels stiff. PT-OP-E Functional Tests Start: 05/01/19 11:24 Freq: Status: Active Protocol: Document 07/21/19 09:10 LRN (Rec: 07/21/19 10:46 LRN [id number]) Functional Tests Apley's Scratch Test Action 3- Left Lateral L hip Action 3- Right L4 PT-OP-F Manual Assessment Start: 05/01/19 11:24 Freq: Status: Active Protocol: Document 05/01/19 11:25 LRN (Rec: 05/01/19 17:38 LRN [id number]) Manual Assessments Soft Tissue Assessment Soft Tissue Mobility Assessment Increased tightness and tender at R UT, Supraspinatus, Anterior Scalene. Decreased muscle tone of R posterior upper back muscles. PT-OP-H Neuro Start: 05/01/19 11:24 Freq: Status: Active Protocol: Document 05/01/19 11:25 LRN (Rec: 05/01/19 17:38 LRN [id number]) Sensation Evaluation Gross Sensation Gross Sensation WNL Deep Tendon Reflex & Clonus Assessment Deep Tendon Reflex Bilateral Brachioradialis Deep Tendon Reflex 2+ Normal Bilateral Tricep Deep Tendon Reflex 3+ Normal But Brisk Bilateral Bicep Deep Tendon Reflex 2+ Normal PT-OP-J Posture/Palpation/Skin Start: 05/01/19 11:24 Freq: Status: Active Protocol: Document 07/21/19 09:10 LRN (Rec: 07/21/19 10:46 LRN [id number]) Posture Evaluation Position Standing Evaluation View All positions Head/C-Spine Posture C-Spine Flattened,Forward Head Scapula Posture (L) Elevated PT-OP-K Range of Motion Start: 05/01/19 11:24 Freq: Status: Active Protocol: Document 07/21/19 09:10 LRN (Rec: 07/21/19 10:46 LRN [id number]) Shoulder Goniometric Range of Motion Shoulder Left Passive Shoulder ROM WFL No Testing Position Supine Flexion 135 Abduction 85 External Rotation at 90 degrees 35 Abduction Internal Rotation 25 Right Passive Shoulder ROM WFL No Testing Position Supine Flexion 155 Abduction 115 External Rotation at 90 degrees 65 Abduction Internal Rotation 40 Right Active Testing Position Sitting Flexion 140 Abduction 95 Left Active Testing Position Sitting Flexion 132 Abduction 85 PT-OP-L Special Tests Start: 05/01/19 11:24 Freq: Status: Active Protocol: Document 05/01/19 11:25 LRN (Rec: 05/01/19 17:38 LRN [id number]) Special Tests Cervical Spine Special Tests Vertebral Artery Test Results negative bilaterally Traction Test Results negative Foraminal Compression Test Results negative Shoulder Special Tests IR/Horizontal ADD Impingement Test Results + bilaterally Drop Arm Rotator Cuff Test Results negative bilaterally PT-OP-M Strength Start: 05/01/19 11:24 Freq: Status: Active Protocol: Document 07/21/19 09:10 LRN (Rec: 07/21/19 10:46 LRN [id number]) Shoulder Strength Shoulder Manual Muscle Testing Right Comments Generally, 5/5. Left Comments Generally 5/5 PT-OP-T Assessment and Plan Start: 05/01/19 11:24 Freq: Status: Active Protocol: Document 12/23/19 09:36 MB (Rec: 12/23/19 09:36 MB [id number]) Physical Therapy Plan Discharge Physical Therapy Discharge Reasons No Longer Attending PT Discharge Comments Per front office, pt did not return call to reschedule after re-opening after COVID. Will d/c PT.
== END 2019-12-23 12:08 ==
LOC: PHYS 09:00
PROVIDERS: PCP Family Medicine; Visit Provider Family Medicine
DX: S46.911A Strain of unspecified muscle, fascia and tendon at shoulder and upper arm level, right arm, initial encounter (principal); R29.898 Other symptoms and signs involving the musculoskeletal system; M70.811 Other soft tissue disorders related to use, overuse and pressure, right shoulder
CPT/HCPCS: 97010; 97110; 97140; 97161; 97164; 97535

== ENCOUNTER → 2020-08-28 13:44 | Outpatient (CLI) | payer MEDICARE, MEDICAID, SELFPAY ==
[2018-10-18 17:45] VITALS: BMI 30.3
== END ==
PROVIDERS: PCP Family Medicine; Visit Provider Physician Assistant
DX: T14.8XXA Other injury of unspecified body region, initial encounter (principal)
CPT/HCPCS: 87070; 87075; 87077; 87147; 87186; 87205

== ENCOUNTER → 2020-08-30 14:15 | Outpatient (CLI) | payer MEDICARE, MEDICAID, SELFPAY ==
[2018-10-18 17:45] VITALS: BMI 30.3
[2020-08-30 15:57] LABS: Add Manual Diff / Slide Review NO; Basophils Absolute Auto 0 /uL (0-100); Basophils Percent Auto 0.6 % (0-2); Eosinophils Absolute Auto 200 /uL (0-450); Eosinophils Percent Auto 2.8 % (2-4); Hematocrit 40.9 % (41-53); Hemoglobin 14.1 g/dL (13.5-17.5); Lymphocytes Absolute Auto 1300 /uL (1100-4500); Lymphocytes Percent Auto 19.2 % (25-40); Mean Corpuscular HGB Conc 34.5 % (30-36); Mean Corpuscular Hemoglobin 28.9 PG (26-34); Mean Corpuscular Volume 83.8 fL (80-100); Monocytes Absolute Auto 600 /uL (0-900); Monocytes Percent Auto 8.7 % (3-14); Neutrophils Absolute Auto 4600 /uL (1500-7000); Neutrophils Percent Auto 68.7 % (50-75); Platelet Count 294 X10^3/uL (150-400); Red Blood Cell Count 4.88 X10^6/uL (4.5-5.9); Red Cell Distribution Width 12.9 % (11.6-14.8); White Blood Cell Count 6.7 X10^3/uL (4.5-11.0)
[2020-08-30 16:07] LABS: Creatinine Urine Random 126.9 mg/dL
[2020-08-30 16:14] LABS: Microalbumi Creatinin Ratio Ur 124.5 ug/mg CR (<30); Microalbumin Urine Random 15.8 mg/dL (0-1.6)
[2020-08-30 16:17] LABS: Alanine Aminotransferase 20 IU/L (<50); Albumin 3.9 g/dL (3.5-5.0); Albumin Globulin Ratio 1.3 (1.0-2.8); Alkaline Phosphatase 86 U/L (38-126); Aspartate Aminotransferase 21 IU/L (17-59); Bilirubin Total 0.8 mg/dL (0.2-1.3); Blood Urea Nitrogen 13 mg/dL (9-20); Calcium 9.2 mg/dL (8.4-10.2); Carbon Dioxide 23 mmol/L (22-32); Chloride 99 mmol/L (98-107); Cholesterol 184 mg/dL (140-199); Estimated Glomerular Filt Rate > 60.0 mL/min (>60); Globulin 3.1 g/dL (1.7-4.1); Glucose 224 mg/dL (70-100); HDL Cholesterol 25 mg/dL (40-60); Sodium 134 mmol/L (137-145); Triglycerides 128 mg/dL (35-150)
[2020-08-30 16:18] LABS: HEMOLYSIS < 15 (0-50); LDL Cholesterol Calculated 133 mg/dL (<100)
[2020-08-30 16:24] LABS: Hemoglobin A1C% w Est Avg Glu 11.4 % (4.0-6.0)
[2020-08-30 16:47] LABS: Prostate Specific Antigen Scrn 0.865 ng/mL (0.1-4.0)
== END ==
PROVIDERS: PCP Family Medicine; Referring Provider Family Medicine; Visit Provider Family Medicine
DX: E11.9 Type 2 diabetes mellitus without complications (principal); Z12.5 Encounter for screening for malignant neoplasm of prostate; E78.5 Hyperlipidemia, unspecified; G45.9 Transient cerebral ischemic attack, unspecified
CPT/HCPCS: 36415; 80053; 80061; 82043; 82570; 83036; 85025; G0103

== ENCOUNTER → 2020-10-06 13:49 | Outpatient (CLI) | payer MEDICARE, MEDICAID, SELFPAY ==
[2018-10-18 17:45] VITALS: BMI 30.3
[2020-10-06] MEDS: COVID-19 VACC, Ad26(JANSSEN)/PF 0.5 ML IM (13:58)
== END ==
PROVIDERS: PCP Family Medicine; Visit Provider Internal Medicine
DX: Z23 Encounter for immunization (principal)
CPT/HCPCS: 0031A; 91303

== ENCOUNTER → 2020-11-15 09:12 | Outpatient (CLI) | payer MEDICARE, MEDICAID, SELFPAY ==
[2018-10-18 17:45] VITALS: BMI 30.3
--- NOTE | 2020-11-15 09:14 | DI.RAD.S_ITS ---
PROCEDURE: XR FOOT RT MIN 3V INDICATIONS: RIGHT FOOT PAIN TECHNIQUE: 3 views of the foot were acquired. COMPARISON: None. FINDINGS: Bones: No fractures or dislocations. No suspicious bony lesions. Soft tissues: No tibiotalar joint effusion. Achilles tendon appears normal. IMPRESSION: Normal for age, source of current pain symptoms is not seen. Dictated by: Juan Chin M.D. on 11/15/2020 at 9:41 Approved by: Juan Chin M.D. on 11/15/2020 at 9:41
== END ==
PROVIDERS: PCP Family Medicine; Referring Provider Physician Assistant; Visit Provider Physician Assistant
DX: M79.671 Pain in right foot (principal)
CPT/HCPCS: 73630

== ENCOUNTER 2021-02-28 21:35 | Emergency (ER) | payer MEDICARE, MEDICAID, SELFPAY ==
[2020-12-20 14:15] VITALS: BMI 30.3
[2021-02-28 22:08] VITALS: BP 160/89; PULSE 105; RESP 20; TEMP 36.8; O2SAT 97
--- NOTE | 2021-02-28 23:47 | ED.DENTAL ---
HPI - Dental/Oral General Chief complaint: Dental/Oral Stated complaint: SWELLING OF RIGHT SIDE OF FACE Time Seen by Provider: 02/28/21 23:47 Source: patient Mode of arrival: Ambulatory History of Present Illness HPI Narrative: 45-year-old gentleman with significant dental caries presents with pain and swelling over the right maxilla, worsening over the last 72 hours Teeth 7 6 and 5 are significantly decayed and broken off the gums. Just prior to being seen he noted that he had a pop type feeling and discharge from his nose as well as a purulent discharge from around his teeth with significant relief of pain. He had initially described the pain is severe and not responding well to ibuprofen and Tylenol but once the abscess began to drain clearly the ibuprofen and Tylenol for for more effective. He tried calling dentist on Sunday but did not find any open offices. For transportation reasons, he is not able to leave [place] as hoping to find a dentist in town that has space and is willing to take his insurance. He denies fevers, chills, cough, abdominal pain vomiting or diarrhea. Related Data Previous Rx's Medication Instructions Recorded glipizide 2.5 mg tablet, extended 2.5 mg PO DAILY #90 tab 09/28/20 release 24 hr metformin 1,000 mg tablet 1,000 mg PO BID #75 tab 10/08/20 fluoxetine 20 mg capsule (Prozac) 20 mg PO DAILY #30 cap 10/26/20 clindamycin HCl 300 mg capsule 600 mg PO TID #21 cap 03/01/21 Allergies Allergy/AdvReac Type Severity Reaction Status Date / Time Penicillins [PENICILLINS] Allergy Severe RASH Verified 12/20/20 13:38 acetaminophen AdvReac Severe VOMITING Verified 12/20/20 13:38 [From EXCEDRIN PM] diphenhydramine AdvReac Severe VOMITING Verified 12/20/20 13:38 [From EXCEDRIN PM] Review of Systems Review of Systems Narrative: Remainder of complete review of systems is otherwise unremarkable except for that included in the HPI. Patient History Medical History Borderline personality disorder Depression Diabetes mellitus Psoriasis Family History Grandmother Diabetes mellitus Grandfather Diabetes mellitus Social History household members: none Smoking Status: Never smoker alcohol intake: current Smoking Status: Never smoker alcohol intake frequency: holidays/special occasions only Substance Use Type: does not use Exam Narrative Exam Narrative: General: Alert appropriate in no acute distress HEENT: Multiple missing teeth broken teeth and caries. No obvious drainage at time of my exam. He still has some mild fullness over the right maxilla without redness. Teeth 5, 6 and 7 are all broken at the root and presumably 1 of them is responsible for the infection he is currently experiencing Respiratory: Able to speak in full sentences, no obvious respiratory distress Skin: No obvious rashes, warm and dry Neurologic: Grossly intact no obvious asymmetries or abnormalities Psych: appropriate insight and affect, cooperative Initial Vital Signs Initial Vital Signs: Vital Signs Temperature 98.3 F 02/28/21 22:08 Pulse Rate 105 H 02/28/21 22:08 Respiratory Rate 20 02/28/21 22:08 Blood Pressure 160/89 H 02/28/21 22:08 Pulse Oximetry 97 02/28/21 22:08 Course Orders Ordered: Discontinued Medications Clindamycin HCl (Clindamycin 150 Mg Capsule) 300 mg PO NOW ONE Stop: 02/28/21 23:53 Last Admin: 02/28/21 23:57 Dose: 300 mg Documented by: KATHERIN Vital Signs Vital signs: Vital Signs - 8 hr 02/28/21 22:08 Temperature 98.3 F Pulse Rate 105 H Respiratory Rate 20 Blood Pressure 160/89 H Pulse Oximetry 97 MDM - Dental/Oral MDM Narrative Medical decision making narrative: 45-year-old gentleman with dental abscess now draining and pain significantly relieved. He started on clindamycin. Encouraged him to contact all of the dentists in [place] to see who might be able to help care for him. No evidence of meningitis, Enrique's angina or sepsis. He is safe for home discharge Discharge Plan Departure Patient Disposition: Home Clinical Impression: Dental caries, Dental abscess Instructions: Tooth Decay, Tooth Abscess Activity Restrictions/Additional Instructions: Thank you for coming in today Using 400 mg of ibuprofen (2 snxj-tie-acagooe pills) and 1 Tylenol every 6 hours can be very helpful in controlling pain. For the infection, I am going to give you a prescription for clindamycin 300 mg 3 times a day for 1 week. I would encourage you to call again all of the local dentists in [place], many of them do not have open offices on Sunday so you should have better luck on a Sunday. Prescriptions: New clindamycin HCl 300 mg capsule 600 mg PO TID Qty: 21 RF: 0 No Action metformin 1,000 mg tablet 1,000 mg PO BID Qty: 75 RF: 0 glipizide 2.5 mg tablet extended release 24hr 2.5 mg PO DAILY Qty: 90 RF: 1 fluoxetine [Prozac] 20 mg capsule 20 mg PO DAILY Qty: 30 RF: 3 Referrals: Beto Solomon, [Primary Care Provider] -
[2021-02-28] MEDS: CLINDAMYCIN 150 MG CAPSULE 300 MG PO (23:57)
== END 2021-03-01 00:12 | disposition home or self-care (01) ==
PROVIDERS: Emergency Provider Emergency Medicine; PCP Family Medicine
DX: K02.9 Dental caries, unspecified (principal); K04.7 Periapical abscess without sinus
CPT/HCPCS: 99283

== ENCOUNTER → 2022-08-30 09:20 | Outpatient (CLI) | payer MEDICARE, MEDICAID, SELFPAY ==
[2020-12-20 14:15] VITALS: BMI 30.3
[2022-08-30 10:30] LABS: Add Manual Diff / Slide Review NO; Basophils Absolute Auto 0 /uL (0-100); Basophils Percent Auto 0.9 % (0-2); Eosinophils Absolute Auto 300 /uL (0-450); Hematocrit 45.2 % (41-53); Hemoglobin 15.7 g/dL (13.5-17.5); Lymphocytes Absolute Auto 1300 /uL (1100-4500); Mean Corpuscular HGB Conc 34.8 % (30-36); Mean Corpuscular Hemoglobin 28.8 PG (26-34); Mean Corpuscular Volume 82.7 fL (80-100); Monocytes Absolute Auto 400 /uL (0-900); Monocytes Percent Auto 7.9 % (3-14); Neutrophils Absolute Auto 3500 /uL (1500-7000); Neutrophils Percent Auto 63.2 % (50-75); Platelet Count 203 X10^3/uL (150-400); Red Blood Cell Count 5.46 X10^6/uL (4.5-5.9); Red Cell Distribution Width 13.3 % (11.6-14.8); White Blood Cell Count 5.5 X10^3/uL (4.5-11.0)
[2022-08-30 11:10] LABS: Creatinine Urine Random 84.9 mg/dL
[2022-08-30 11:12] LABS: Alanine Aminotransferase 35 IU/L (<50); Albumin 4.2 g/dL (3.5-5.0); Albumin Globulin Ratio 1.5 (1.0-2.8); Alkaline Phosphatase 67 U/L (38-126); Aspartate Aminotransferase 26 IU/L (17-59); BUN Creatinine Ratio 23.2 (6-22); Bilirubin Total 1.5 mg/dL (0.2-1.3); Blood Urea Nitrogen 16 mg/dL (9-20); Calcium 8.6 mg/dL (8.4-10.2); Carbon Dioxide 23 mmol/L (22-32); Chloride 103 mmol/L (98-107); Cholesterol 216 mg/dL (140-199); Estimated Glomerular Filt Rate > 60 mL/min (>60); Globulin 2.8 g/dL (1.7-4.1); Glucose 280 mg/dL (70-100); HDL Cholesterol 36 mg/dL (40-60); HEMOLYSIS < 15 (0-50); LDL Cholesterol Calculated 152 mg/dL (<100); Potassium 4.3 mmol/L (3.4-5.1); Sodium 136 mmol/L (137-145); Triglycerides 139 mg/dL (35-150)
[2022-08-30 11:15] LABS: Microalbumi Creatinin Ratio Ur 171.9 ug/mg CR (<30); Microalbumin Urine Random 14.6 mg/dL (0-1.6)
[2022-08-31 02:36] LABS: Labcorp Hemoglobin (Hb) A1c 11.9 % (4.8-5.6)
== END ==
PROVIDERS: PCP Family Medicine; Referring Provider Family Medicine; Visit Provider Family Medicine
DX: E11.69 Type 2 diabetes mellitus with other specified complication (principal); E78.2 Mixed hyperlipidemia
CPT/HCPCS: 36415; 80053; 80061; 82043; 82570; 83036; 85025

== ENCOUNTER → 2022-10-02 11:25 | Outpatient (CLI) | payer MEDICARE, MEDICAID, SELFPAY ==
[2020-12-20 14:15] VITALS: BMI 30.3
[2022-10-02 13:24] LABS: Alanine Aminotransferase 36 IU/L (<50); Albumin 4.4 g/dL (3.5-5.0); Albumin Globulin Ratio 1.6 (1.0-2.8); Alkaline Phosphatase 67 U/L (38-126); Aspartate Aminotransferase 29 IU/L (17-59); Blood Urea Nitrogen 16 mg/dL (9-20); Calcium 8.7 mg/dL (8.4-10.2); Carbon Dioxide 25 mmol/L (22-32); Chloride 102 mmol/L (98-107); Cholesterol 174 mg/dL (140-199); Estimated Glomerular Filt Rate > 60 mL/min (>60); Globulin 2.7 g/dL (1.7-4.1); Glucose 167 mg/dL (70-100); HDL Cholesterol 37 mg/dL (40-60); HEMOLYSIS < 15 (0-50); LDL Cholesterol Calculated 92 mg/dL (<100); Potassium 4.4 mmol/L (3.4-5.1); Sodium 137 mmol/L (137-145); Total Protein 7.1 g/dL (6.3-8.2); Triglycerides 226 mg/dL (35-150)
[2022-10-03 03:36] LABS: x Labcorp Estim. Avg Glu (eAG) 243 mg/dL (.); x Labcorp Hemoglobin A1c 10.1 % (4.8-5.6)
== END ==
PROVIDERS: Family Provider Family Medicine; PCP Family Medicine; Referring Provider Family Medicine; Visit Provider Family Medicine
DX: E11.69 Type 2 diabetes mellitus with other specified complication (principal); E78.2 Mixed hyperlipidemia
CPT/HCPCS: 36415; 80053; 80061; 83036

== ENCOUNTER → 2022-10-03 08:25 | Outpatient (CLI) | payer MEDICARE, MEDICAID, SELFPAY ==
[2020-12-20 14:15] VITALS: BMI 30.3
--- NOTE | 2022-11-02 13:21 | DIAB.MNT ---
Initial Diabetes Medical Nutrition Therapy Assessment Name: Kyle Navarrete (Anurag) Date: 10/03/22 Time: 749w Dx: Type II Diabetes Anurag presents for initial DM visit. Endorses DM dx fro 5+ years. Tovar snot check BG, does not have SMBG supplies. reports mental health barriers that impact his ability to care for himself. Has therapist. States he often forgets his evening statin. Reports being way overdue for dental. Last eye exam more than five years ago, but now scheduled. Does not have a vehicle. Mostly walks and uses car services for transportation. Food security concerns. Receives SNAP. Unclear if he is taking all meds appropriately since he is unable to recall names of meds. Diet Recall: 8a: eggs and cheese +/- taost 10-12: 2c casserole sn: nothing or same as lunch 5p: 2c casserole limited veggies other snacks: 3oz bag chips, pringles Beverages: sf tea, water, diet soda. Trying to quite diet soda. avoiding certain foods due to her recent gastric bypass sx. Working on Sequence Design. Anthropometrics: Ht: 67 Wt: 185.5# last PCP visit Physical Activity: walking to and from grocery store 30-60 min 2-3 x per week Self-Monitoring Blood Glucose: none but interested. RD to message provider about potential for rx. Diabetes Medications: Glipizide 2.5 ER BID Metformin 1000mg BID Pertinent Labs: HgA1c: 11.9% 08/2022 Past Medical History: (Last Reviewed 10/13/22 @ 10:40 by Beto Solomon DO) Borderline personality disorder Depression Diabetes mellitus Hypertension Psoriasis Right knee pain Skin tag Nutrition Rx: Plate Method Nutrition Diagnosis: -Predicted inadequate fiber intake r/t limited veggies and whole grains and food insecure aeb pt report and diet recall - Nutr and food related knowledge deficit r/t limited previous ed aeb pt report - self monitoring deficit r/t no SMBG supplies or ed aeb pt report Intervention: This participant was very receptive. Provided appropriate educational handouts. Discussed the following topics: Completed intake assessment. Discussed barriers to care. Breif pathophysiology of T2DM Importance of self-monitoring, how often, and when to check. Suggested checking at different times to evaluate meals Plate Method, impact of macronutrients on blood sugar, pairing macronutrients and spreading out carbohydrates for better blood glucose management Recommended servings for carbohydrates at meals and snacks Role of physical activity Fiber benefits and foods Medication techniques for remembering Created SMART goals for patient self-care and success. Goals: Add protein to oatmeal Take photo or bring meds next visit for review Keep adding veggies Check BG- new Take statin with other meds in afternoon Follow-up: YURIY DEGROOT follow-up in 2-3 weeks Monserrat Bruce RDN, ZANE Certified Diabetes Care and Director Government P: [phone] Thank you for this referral
== END ==
PROVIDERS: Absent Provider Family Medicine; Family Provider Family Medicine; PCP Family Medicine; Referring Provider Family Medicine; Visit Provider Family Medicine
DX: E11.9 Type 2 diabetes mellitus without complications (principal); Z79.84 Long term (current) use of oral hypoglycemic drugs; Z71.3 Dietary counseling and surveillance
CPT/HCPCS: 97802

== ENCOUNTER → 2022-10-24 12:40 | Outpatient (CLI) | payer MEDICARE, MEDICAID, SELFPAY ==
[2020-12-20 14:15] VITALS: BMI 30.3
--- NOTE | 2022-11-02 13:31 | DIAB.FU ---
Follow-up Diabetes Education Assessment Name: Kyle Navarrete (Anurag) Date: 10/24/22 Time: 105-135p Dx: Type II Diabetes Anurag presents for DM follow-up. Reports adding protein to breakfast. Endorses some constipation recently. Endorses veggies 1 x per day now. Thinks he needs a pill box to help with taking meds. med change recently to janumet. Has SMBG supply rx but has not picked up yet. Physical Activity: walking to and from grocery store 30-60 min 2-3 x per week Self-Monitoring Blood Glucose: none but interested. RD to message provider about potential for rx. Diabetes Medications: Glipizide 2.5 ER BID Janumet BID: Sitagliptin 50mg/Metformin 1000mg BID-- taking with lunch and dinner Pertinent Labs: HgA1c: 11.9% 08/2022 Past Medical History: (Last Reviewed 10/13/22 @ 10:40 by Beto Solomon DO) Borderline personality disorder Depression Diabetes mellitus Hypertension Psoriasis Right knee pain Skin tag Intervention: This participant was very receptive. Provided appropriate educational handouts. Discussed the following topics: Reviewed medication and med schedule Reviewed actions of DM meds Discussed ways to increase veggie intake Review of general nutrition recommendations and current intake Physical activity plan and impact on blood sugars Created SMART goals for patient self-care and success. Goals: Add protein to oatmeal- d/c since not oats lately Take photo or bring meds next visit for review- d/c Keep adding veggies- met Check BG- in progress Take statin with other meds in afternoon - met Add snacking veggies during day- new Message RD BG readings- new community support specialist SMBG supplies- new Take first dose janumet with breakfast - new supervisor plate pasting pill box- new Follow-up: YURIY DEGROOT follow-up recommended. Will follow-up via messaging after Anurag started SMBG. Due to RD leave until Mar, 1:1 f/u scheduled at that time. Provided alternative support resources prn. Monserrat Bruce, YURIY, [facility] Certified Diabetes Care and Finishing Technician P: [phone] Thank you for this referral
== END ==
PROVIDERS: Family Provider Family Medicine; PCP Family Medicine; Referring Provider Family Medicine; Visit Provider Family Medicine
DX: E11.9 Type 2 diabetes mellitus without complications (principal); Z79.84 Long term (current) use of oral hypoglycemic drugs; Z71.3 Dietary counseling and surveillance
CPT/HCPCS: G0108

== ENCOUNTER 2022-11-16 10:25 | Day surgery (SDC) | payer MEDICARE, MEDICAID, SELFPAY ==
[2020-12-20 14:15] VITALS: BMI 30.3
[2022-11-16 10:53] VITALS: BP 122/79; PULSE 94; RESP 19; TEMP 36.6; O2SAT 94; BMI 29.7
[2022-11-16] MEDS: LACTATED RINGERS 1,000 ML 42 ML IV (11:02)
--- NOTE | 2022-11-16 11:43 | PM.HP.1 ---
History of Present Illness History of Present Illness Date Patient Seen: 11/16/22 Time Patient Seen: 11:43 Chief complaint: SDC Narrative: Anurag is a 47-year-old man who is here for a screening colonoscopy. He has never had one before. No known family history of colon cancer. [facility] Medical History Borderline personality disorder Depression Diabetes mellitus Hypertension Psoriasis Right knee pain Skin tag Family History Grandmother Diabetes mellitus Grandfather Diabetes mellitus Social History household members: spouse and none Smoking Status: Never smoker alcohol intake: current Meds Home Medications and Allergies Home Medications Medication Instructions Recorded Confirmed Type atorvastatin 10 mg tablet 10 mg PO BEDTIME #90 tabs 08/31/22 11/16/22 Rx glipizide 2.5 mg tablet, extended 2.5 mg PO BID #180 tabs 08/31/22 11/16/22 Rx release 24 hr alcohol swabs 1 pad topical QID Use to check BG 10/03/22 10/13/22 Rx QAC/HS #200 ea blood sugar diagnostic (Blood #50 ea 10/03/22 10/13/22 Rx Glucose Test strips) blood-glucose meter #1 ea 10/03/22 10/13/22 Rx empty container (Sharps Container) #1 ea 10/03/22 10/13/22 Rx lancets 30 gauge #200 ea 10/03/22 10/13/22 Rx sitagliptin phosphate 50 1 tab PO BID #180 tabs 10/13/22 10/13/22 Rx mg-metformin 1,000 mg tablet (Janumet) peg 3350-electrolytes 236 240 ml PO Q10M #4,000 mL 10/24/22 Rx gram-22.74 gram-6.74 gram-5.86 gram solution (Golytely) metformin 1,000 mg tablet 2,000 mg PO DAILY 11/16/22 11/16/22 History Allergies Allergy/AdvReac Type Severity Reaction Status Date / Time Penicillins [PENICILLINS] Allergy Severe RASH Verified 11/16/22 10:48 acetaminophen AdvReac Severe VOMITING Verified 11/16/22 10:48 [From EXCEDRIN PM] diphenhydramine AdvReac Severe VOMITING Verified 11/16/22 10:48 [From EXCEDRIN PM] Exam Vital Signs (past 8 hours): - 11/16/22 10:53 Temperature 97.8 F Pulse Rate 94 H Respiratory Rate 19 Blood Pressure 122/79 Pulse Oximetry 94 Oxygen Delivery Method Room Air Oxygen Delivery Method Room Air Const General: No acute distress Resp Effort & Inspection: normal respiratory effort Assessment & Plan Assessment and plan (1) Colon cancer screening: Status: Acute Plan We reviewed the risks and benefits of colonoscopy for colon cancer screening and he would like to proceed.
--- NOTE | 2022-11-16 12:21 | PM.OP.COLON ---
Operative Date/Time/Diagnoses Date of procedure: 11/16/22 Time of procedure: 12:21 Pre-op diagnosis: Colon cancer screening Post-op diagnosis: same Procedure & Clinicians Study performed: Colonoscopy Same procedure as scheduled: Yes Surgeon: Jeevan Lozano Procedure Notes Procedure in detail: Surgeon: Jeevan Lozano MD Anesthesia: Wilber Stanton CRNA Procedure: The patient was brought to the endoscopy suite, placed in left lateral decubitus position. The patient was connected to monitoring devices. A time-out was performed. Sedation was administered. Once the patient was adequately sedated, a digital rectal exam was performed and was normal. The scope was then inserted and advanced to the cecum where the appendiceal orifice was identified and photographed. The scope was then slowly withdrawn over greater than 6 minutes. The mucosa was thoroughly inspected. No abnormalities were found. The scope was retroflexed in the rectum. No abnormalities were seen. The scope was straightened and removed. The patient was awakened and brought to recovery. Scope withdrawal time: 12 minutes Sedation time: 19 minutes EBL: 0 Findings: Normal colon Post-procedure Recommendations: Colonoscopy in 10 years Disposition: PACU
[2022-11-16 12:25] VITALS: BP 90/56; PULSE 77; RESP 16; TEMP 36.1; O2SAT 99
[2022-11-16 12:29] VITALS: BP 93/63; PULSE 79; RESP 10; O2SAT 97
[2022-11-16 12:34] VITALS: BP 98/66; PULSE 76; RESP 10; O2SAT 97
[2022-11-16 12:38] VITALS: BP 100/69; PULSE 78; RESP 15; O2SAT 99
== END 2022-11-16 12:50 | disposition home or self-care (01) ==
PROVIDERS: Family Provider Family Medicine; PCP Family Medicine; Referring Provider Surgery; Visit Provider Surgery
PROC: 0DJD8ZZ Inspection of Lower Intestinal Tract, Via Natural or Artificial Opening Endoscopic (ICD-10-PCS; CPT 45378; principal; 2022-11-16 12:00)
DX: Z12.11 Encounter for screening for malignant neoplasm of colon (principal); I10 Essential (primary) hypertension; E11.9 Type 2 diabetes mellitus without complications; F32.A Depression, unspecified; Z79.84 Long term (current) use of oral hypoglycemic drugs
CPT/HCPCS: G0121; 45378; J2704

== ENCOUNTER → 2022-12-21 10:18 | Outpatient (CLI) | payer MEDICARE, MEDICAID, SELFPAY ==
[2020-12-20 14:15] VITALS: BMI 30.3
[2022-12-22 06:07] LABS: x Labcorp Estim. Avg Glu (eAG) 148 mg/dL (.); x Labcorp Hemoglobin A1c 6.8 % (4.8-5.6)
== END ==
PROVIDERS: Family Provider Family Medicine; PCP Family Medicine; Referring Provider Family Medicine; Visit Provider Family Medicine
DX: E11.69 Type 2 diabetes mellitus with other specified complication (principal)
CPT/HCPCS: 36415; 83036

== ENCOUNTER 2023-02-26 06:00 | Emergency (ER) | payer MEDICARE, MEDICAID, SELFPAY ==
[2020-12-20 14:15] VITALS: BMI 30.3
[2023-02-26] VITALS (15 sets, daily range): BP systolic 124–153; BP diastolic 59–85; PULSE 86–109; RESP 18–24; TEMP 36.6; O2SAT 97–100; BMI 27.8
--- NOTE | 2023-02-26 06:04 | ED.GENADULT ---
HPI - General Adult <Nicolasa Thorpe MD - Last Filed: 02/27/23 02:44> General Chief complaint: Nausea/Vomiting/Diarrhea Stated complaint: not feeling well, threw up Time Seen by Provider: 02/26/23 06:04 History of Present Illness HPI narrative: 47-year-old gentleman with a history of type 2 diabetes, hyperlipidemia hypertension no recent change to medication who presents complaining of vomiting. He states that he had an episode approximately 24 hours ago where he simply had an episode of emesis not associated with nausea. He states he did not look at the emesis to know if there was blood in it or not but he is never had upper GI bleeding. As he was lying down this evening he again experienced as a couple episodes of emesis with out significant nausea. He describes some minor upper abdominal pain that he relates to the force of the vomiting itself. He has been having regular bowel movements. He describes near fevers, cough, chills. There has been no headaches. He states he does not regularly check his blood sugars. He comes in for further evaluation Related Data Home Medications Medication Instructions Recorded Confirmed metformin 1,000 mg tablet 2,000 mg PO DAILY 11/16/22 02/18/23 Previous Rx's Medication Instructions Recorded atorvastatin 10 mg tablet 10 mg PO BEDTIME #90 tabs 08/31/22 glipizide 2.5 mg tablet, extended 2.5 mg PO BID #180 tabs 08/31/22 release 24 hr alcohol swabs 1 pad topical QID Use to check BG 10/03/22 QAC/HS #200 ea blood sugar diagnostic (Blood #50 ea 10/03/22 Glucose Test strips) blood-glucose meter #1 10/03/22 empty container (Sharps Container) #1 ea 10/03/22 lancets 30 gauge #200 ea 10/03/22 sitagliptin phosphate 50 1 tab PO BID #180 tabs 10/13/22 mg-metformin 1,000 mg tablet (Janumet) ondansetron 4 mg disintegrating 4 mg PO QID #7 tabs 02/26/23 tablet Allergies Allergy/AdvReac Type Severity Reaction Status Date / Time Penicillins [PENICILLINS] Allergy Severe RASH Verified 02/18/23 09:21 acetaminophen AdvReac Severe VOMITING Verified 02/18/23 09:21 [From EXCEDRIN PM] diphenhydramine AdvReac Severe VOMITING Verified 02/18/23 09:21 [From EXCEDRIN PM] Review of Systems <Nicolasa Thorpe MD - Last Filed: 02/27/23 02:44> Review of Systems Narrative: Pertinent positive and negative findings as per HPI Patient History <Nicolasa Thorpe MD - Last Filed: 02/27/23 02:44> Medical History Skin tag Hypertension Right knee pain Depression Borderline personality disorder Psoriasis Diabetes mellitus Family History Grandmother Diabetes mellitus Grandfather Diabetes mellitus Social History household members: spouse and none Smoking Status: Never smoker alcohol intake: current Smoking Status: Never smoker alcohol intake frequency: holidays/special occasions only Substance Use Type: does not use Exam <Nicolasa Thorpe MD - Last Filed: 02/27/23 02:44> Initial Vital Signs Initial Vital Signs: Vital Signs Temperature 97.9 F 02/26/23 06:07 Pulse Rate 109 H 02/26/23 06:07 Respiratory Rate 18 02/26/23 06:07 Blood Pressure 132/75 02/26/23 06:07 Pulse Oximetry 97 02/26/23 06:07 Oxygen Delivery Method Room Air 02/26/23 06:07 General: Healthy appearing, in no acute distress. Able to give a complete and coherent history. Well-nourished well-developed HEENT: Moist mucous membranes, normal sclera with reactive pupils, Respiratory: Lungs are clear to auscultation, no wheezing no rales no rhonchi. Full and symmetrical air movement Cardiac: Regular rate and rhythm no murmurs no bruits Abdomen: Soft, nontender, good bowel tones, no flank pain Skin: Slightly pale but otherwise Warm and dry, he does have mild psoriasis with some plaques appreciated on the lower extremities Neurologic: Grossly neurologically intact with no obvious asymmetries or abnormalities Extremities: No trauma, well perfused Psych: Cooperative, appropriate insight and affect <Katty Richey DO - Last Filed: 02/26/23 19:04> Initial Vital Signs Initial Vital Signs: Vital Signs Temperature 97.9 F 02/26/23 06:07 Pulse Rate 109 H 02/26/23 06:07 Respiratory Rate 18 02/26/23 06:07 Blood Pressure 132/75 02/26/23 06:07 Pulse Oximetry 97 02/26/23 06:07 Oxygen Delivery Method Room Air 02/26/23 06:07 Course <Nicolasa Thorpe MD - Last Filed: 02/27/23 02:44> Orders Ordered: Discontinued Medications Sodium Chloride (Normal Saline 0.9%) 1,000 mls @ 1,000 mls/hr IV BOLUS ONE Stop: 02/26/23 07:13 Last Infusion: 02/26/23 07:33 Dose: Infused Documented By: Admin: 02/26/23 06:19 Dose: 1,000 mls/hr Documented By: HERMELINDA Metoclopramide HCl (Metoclopramide 10 Mg/2 Ml Inj) 10 mg IV NOW ONE Stop: 02/26/23 07:47 Last Admin: 02/26/23 07:49 Dose: 10 mg Documented By: CHLOE Ondansetron HCl (Ondansetron 4 Mg/2 Ml Inj) 4 mg IV NOW ONE Stop: 02/26/23 06:15 Last Admin: 02/26/23 06:19 Dose: 4 mg Documented By: HERMELINDA Vital Signs Vital signs: Vital Signs - 8 hr 02/26/23 11:28 Temperature 98 F Pulse Rate 88 Respiratory Rate 20 Blood Pressure 125/59 L Pulse Oximetry 98 Oxygen Delivery Method Room Air <Katty Richey DO - Last Filed: 02/26/23 19:04> Orders Ordered: Discontinued Medications Sodium Chloride (Normal Saline 0.9%) 1,000 mls @ 1,000 mls/hr IV BOLUS ONE Stop: 02/26/23 07:13 Last Infusion: 02/26/23 07:33 Dose: Infused Documented By: Admin: 02/26/23 06:19 Dose: 1,000 mls/hr Documented By: HERMELINDA Metoclopramide HCl (Metoclopramide 10 Mg/2 Ml Inj) 10 mg IV NOW ONE Stop: 02/26/23 07:47 Last Admin: 02/26/23 07:49 Dose: 10 mg Documented By: CHLOE Ondansetron HCl (Ondansetron 4 Mg/2 Ml Inj) 4 mg IV NOW ONE Stop: 02/26/23 06:15 Last Admin: 02/26/23 06:19 Dose: 4 mg Documented By: HERMELINDA Vital Signs Vital signs: Vital Signs - 8 hr 02/26/23 11:28 Temperature 98 F Pulse Rate 88 Respiratory Rate 20 Blood Pressure 125/59 L Pulse Oximetry 98 Oxygen Delivery Method Room Air Medical Decision Making <Nicolasa Thorpe MD - Last Filed: 02/27/23 02:44> Lab Data 02/26/23 06:15 02/26/23 06:15 Labs: Lab Results 02/26/23 02/26/23 Range/Units 06:15 06:58 WBC 11.4 H (4.5-11.0) X10^3/uL RBC 5.26 (4.5-5.9) X10^6/uL Hgb 15.1 (13.5-17.5) g/dL Hct 43.6 (41-53) % MCV 82.9 (80-100) fL MCH 28.8 (26-34) PG MCHC 34.7 (30-36) % RDW 13.1 (11.6-14.8) % Plt Count 268 (150-400) X10^3/uL Neut % (Auto) 80.4 H (50-75) % Lymph % (Auto) 8.7 L (25-40) % [place] % (Auto) 4.8 (3-14) % Eos % (Auto) 5.5 H (2-4) % Baso % (Auto) 0.6 (0-2) % Neut # (Auto) 9200 H (0646-4602) /uL Lymph # (Auto) 1000 L (4015-2222) /uL [place] # (Auto) 500 (0-900) /uL Eos # (Auto) 600 H (0-450) /uL Baso # (Auto) 100 (0-100) /uL Sodium 136 L (137-145) mmol/L Potassium 4.1 (3.4-5.1) mmol/L Chloride 99 (98-107) mmol/L Carbon Dioxide 26 (22-32) mmol/L BUN 19 (9-20) mg/dL Creatinine 0.72 (0.66-1.25) mg/dL Estimated GFR > 60 (>60) mL/min BUN/Creatinine Ratio 26.4 H (6-22) Glucose 255 H (70-100) mg/dL Calcium 9.4 (8.4-10.2) mg/dL Total Bilirubin 1.6 H (0.2-1.3) mg/dL AST 19 (17-59) IU/L ALT 21 (<50) IU/L Alkaline Phosphatase 79 (38-126) U/L Troponin I < 0.012 (0.01-0.034) ng/mL Total Protein 6.9 (6.3-8.2) g/dL Albumin 4.1 (3.5-5.0) g/dL Globulin 2.8 (1.7-4.1) g/dL Albumin/Globulin Ratio 1.5 (1.0-2.8) Lipase 737 H (23-300) U/L Urine Color Yellow Urine Appearance Clear Urine pH 6.0 (4.5-8.0) Ur Specific [place] 1.020 (1.000-1.035) Urine Protein Trace H (Negative) Urine Glucose (UA) 3+ H (Negative) g/dL Urine Ketones 2+ H (NEGATIVE) Urine Occult Blood Negative (Negative) Urine Nitrate Negative (Negative) Urine Bilirubin Negative (NEGATIVE) Urine Urobilinogen 1.0 (0.2) E.U./dL Ur Leukocyte Esterase Negative (NEGATIVE) Urine RBC 1-5/hpf (0-5/HPF) Urine WBC 5-10/hpf H (0-5/HPF) Ur Squamous Epith Cells 1-5 /hpf (0-5/HPF) Urine Bacteria Many (>30) H (None) Ur Culture Indicated? Specimen cultured Point of Care Testing Glucose POC 217 Urine Dip Bedside Urine Glucose 1000 mg/dl Bedside Urine Bilirubin - Negative Bedside Urine Ketone ++ 40 Urine Specific [place] 1.020 Bedside Urine Occult Blood - Negative Bedside Urine pH 6.0 Bedside Urine Protein +/- 15 Bedside Urine Urobilinogen - Negative Bedside Urine Nitrite - Negative Bedside Urine Leukocytes - Negative Esterase Point of care testing: Point of Care Testing Glucose POC 217 Urine Dip Bedside Urine Glucose 1000 mg/dl Bedside Urine Bilirubin - Negative Bedside Urine Ketone ++ 40 Urine Specific [place] 1.020 Bedside Urine Occult Blood - Negative Bedside Urine pH 6.0 Bedside Urine Protein +/- 15 Bedside Urine Urobilinogen - Negative Bedside Urine Nitrite - Negative Bedside Urine Leukocytes - Negative Esterase [facility] Narrative Medical decision making narrative: CC: Emesis 3-4 times without associated nausea or pain Complicating co-morbidities: Hypertension hyperlipidemia, type 2 diabetes Data collected from: patient, Medical records reviewed: Primary care notes are reviewed Differential considered: Psychogenic vomiting, gastroenteritis, DKA, bowel obstruction, anxiety, atypical presentation for acute coronary syndrome in setting of diabetes Exam documented above, pertinent findings include: Exam is entirely benign, no abdominal tenderness Lab Test results independently reviewed as above. Pertinent findings: Mild leukocytosis at 11.4 with slight left shift at 80.4%. No significant anemia Chemistries show glucose at 2:55 a.m.. Creatinine appropriate at 0.72. Normal anion gap at 10. Bilirubin is slightly elevated at 1.6 and lipase is also slightly elevated Independently reviewed EKG sinus rhythm, incomplete right bundle branch block, no acute ischemia, normal intervals, normal axis Imaging studies independently reviewed: Consultations: Treatments: Re-evaluations: Discussion: <Katty Richey, - Last Filed: 02/26/23 19:04> Lab Data Labs: Lab Results 02/26/23 02/26/23 Range/Units 06:15 06:58 WBC 11.4 H (4.5-11.0) X10^3/uL RBC 5.26 (4.5-5.9) X10^6/uL Hgb 15.1 (13.5-17.5) g/dL Hct 43.6 (41-53) % MCV 82.9 (80-100) fL MCH 28.8 (26-34) PG MCHC 34.7 (30-36) % RDW 13.1 (11.6-14.8) % Plt Count 268 (150-400) X10^3/uL Neut % (Auto) 80.4 H (50-75) % Lymph % (Auto) 8.7 L (25-40) % [place] % (Auto) 4.8 (3-14) % Eos % (Auto) 5.5 H (2-4) % Baso % (Auto) 0.6 (0-2) % Neut # (Auto) 9200 H (1554-6813) /uL Lymph # (Auto) 1000 L (0123-4019) /uL [place] # (Auto) 500 (0-900) /uL Eos # (Auto) 600 H (0-450) /uL Baso # (Auto) 100 (0-100) /uL Sodium 136 L (137-145) mmol/L Potassium 4.1 (3.4-5.1) mmol/L Chloride 99 (98-107) mmol/L Carbon Dioxide 26 (22-32) mmol/L BUN 19 (9-20) mg/dL Creatinine 0.72 (0.66-1.25) mg/dL Estimated GFR > 60 (>60) mL/min BUN/Creatinine Ratio 26.4 H (6-22) Glucose 255 H (70-100) mg/dL Calcium 9.4 (8.4-10.2) mg/dL Total Bilirubin 1.6 H (0.2-1.3) mg/dL AST 19 (17-59) IU/L ALT 21 (<50) IU/L Alkaline Phosphatase 79 (38-126) U/L Troponin I < 0.012 (0.01-0.034) ng/mL Total Protein 6.9 (6.3-8.2) g/dL Albumin 4.1 (3.5-5.0) g/dL Globulin 2.8 (1.7-4.1) g/dL Albumin/Globulin Ratio 1.5 (1.0-2.8) Lipase 737 H (23-300) U/L Urine Color Yellow Urine Appearance Clear Urine pH 6.0 (4.5-8.0) Ur Specific [place] 1.020 (1.000-1.035) Urine Protein Trace H (Negative) Urine Glucose (UA) 3+ H (Negative) g/dL Urine Ketones 2+ H (NEGATIVE) Urine Occult Blood Negative (Negative) Urine Nitrate Negative (Negative) Urine Bilirubin Negative (NEGATIVE) Urine Urobilinogen 1.0 (0.2) E.U./dL Ur Leukocyte Esterase Negative (NEGATIVE) Urine RBC 1-5/hpf (0-5/HPF) Urine WBC 5-10/hpf H (0-5/HPF) Ur Squamous Epith Cells 1-5 /hpf (0-5/HPF) Urine Bacteria Many (>30) H (None) Ur Culture Indicated? Specimen cultured Point of Care Testing Glucose POC 217 Urine Dip Bedside Urine Glucose 1000 mg/dl Bedside Urine Bilirubin - Negative Bedside Urine Ketone ++ 40 Urine Specific [place] 1.020 Bedside Urine Occult Blood - Negative Bedside Urine pH 6.0 Bedside Urine Protein +/- 15 Bedside Urine Urobilinogen - Negative Bedside Urine Nitrite - Negative Bedside Urine Leukocytes - Negative Esterase Point of care testing: Point of Care Testing Glucose POC 217 Urine Dip Bedside Urine Glucose 1000 mg/dl Bedside Urine Bilirubin - Negative Bedside Urine Ketone ++ 40 Urine Specific [place] 1.020 Bedside Urine Occult Blood - Negative Bedside Urine pH 6.0 Bedside Urine Protein +/- 15 Bedside Urine Urobilinogen - Negative Bedside Urine Nitrite - Negative Bedside Urine Leukocytes - Negative Esterase Imaging Data CT scan - abdomen/pelvis: Radiologist's Impression: [address] [address] [address] Scan Report Signed Patient: Kyle Navarrete MR#: [id number] : 1975 Acct:[id number] Age/Sex: 47 / M Date of Service: 02/26/23 Loc: ED Accession Number: [id number] Procedure: CT abdomen pelvis w con Ordering Provider: Nicolasa Thorpe MD PROCEDURE: CT ABDOMEN PELVIS W CON INDICATIONS: vomiting, elevated bili and lipase TECHNIQUE: After the administration of intravenous contrast, axial sections acquired from the lung bases to the pubic symphysis. Coronal and sagittal reformats were performed. For radiation dose reduction, the following was used: automated exposure control, adjustment of mA and/or kV according to patient size. COMPARISON: None. FINDINGS: Image quality: Excellent. Lung bases: Unremarkable. Heart: No significant findings. ABDOMEN: Liver: Unremarkable. Gallbladder: Borderline gallbladder wall thickening. No radiopaque stones identified. Biliary ducts: Nondilated. Pancreas: Unremarkable. Spleen: Unremarkable. Adrenal Glands: Unremarkable. Kidneys and Ureters: 3 millimeter nonobstructing left-sided nephrolithiasis.. Stomach and Bowel: Stomach, small bowel loops, and colon are unremarkable. Appendix is unremarkable. No diverticular disease. Peritoneum: No abnormal intraperitoneal fluid. No free air. Ventral Wall: No hernias. Abdominal Nodes: No retroperitoneal or mesenteric adenopathy by size criteria. Vessels: Aorta and inferior vena cava are normal in size. PELVIS: Pelvic Organs: Unremarkable. Bladder: Unremarkable. Pelvic Nodes: No enlarged lymph nodes. Miscellaneous: No hernias are seen. Bones: Unremarkable. IMPRESSION: Possible gallbladder wall thickening. Consider right upper quadrant ultrasound to assess for gallstones/cholecystitis in the setting of elevated bilirubin. No biliary obstruction. No CT evidence of acute pancreatitis. Dictated by: Ta Mata M.D. on 02/26/2023 at 8:15 Approved by: Ta Mata M.D. on 02/26/2023 at 8:19 US - abdomen: Radiologist's Impression: [address] [address] Ultrasound Report Signed Patient: Kyle Navarrete MR#: [id number] : 1975 Acct:[id number] Age/Sex: 47 / M Date of Service: 02/26/23 Loc: ED Accession Number: [id number] Procedure: US abdomen limited Ordering Provider: Katty Richey D.O. PROCEDURE: US ABDOMEN LIMITED INDICATIONS: ELEVATED BILIRUBIN/LIPASE; VOMITING TECHNIQUE: Real-time focused scanning was performed of the abdomen, with image documentation. COMPARISON: [facility], CT, CT ABDOMEN PELVIS W CON, 02/26/2023, 6:53. FINDINGS: The gallbladder is distended. No gallstones or gallbladder wall thickening or fluid around the gallbladder. No pain on examination of the gallbladder. No dilated ducts. Common bile duct measures 5.4 mm. Liver is somewhat echogenic consistent with diffuse fatty infiltration. Visualized portions of the pancreas are unremarkable. IMPRESSION: 1. Distended gallbladder without stones or other findings suspicious for acute cholecystitis. 2. Diffuse hepatic steatosis. Dictated by: Papi [place] M.D. on 02/26/2023 at 9:17 Approved by: P[place] M.D. on 02/26/2023 at 9:19 MDM Narrative Medical decision making narrative: CC: Emesis 3-4 times without associated nausea or pain Complicating co-morbidities: Hypertension hyperlipidemia, type 2 diabetes Data collected from: patient, Medical records reviewed: Primary care notes are reviewed Differential considered: Psychogenic vomiting, gastroenteritis, DKA, bowel obstruction, anxiety, atypical presentation for acute coronary syndrome in setting of diabetes Exam documented above, pertinent findings include: Exam is entirely benign, no abdominal tenderness Lab Test results independently reviewed as above. Pertinent findings: Mild leukocytosis at 11.4 with slight left shift at 80.4%. No significant anemia Chemistries show glucose at 2:55 a.m.. Creatinine appropriate at 0.72. Normal anion gap at 10. Bilirubin is slightly elevated at 1.6 and lipase is also slightly elevated Independently reviewed EKG sinus rhythm, incomplete right bundle branch block, no acute ischemia, normal intervals, normal axis Imaging studies independently reviewed: Consultations: Treatments: Re-evaluations: Discussion: 02/26/23 Mank: Patient seen and independently evaluated by myself. Patient's chart was reviewed. Patient's labs show mild leukocytosis 11.4, no significant anemia, glucose is 255, creatinine appropriate with normal electrolytes anion gap of 10 bilirubin slightly elevated 1.6 has been elevated on and off in the past and lipase slightly elevated in the 700 range. UA shows trace protein 3+ glucose 2+ ketones 5-10 wbc's bacteria was cultured, 1-5 squamous epithelials no nitrates. Patient has not had any urinary symptoms EKG was reviewed incomplete right bundle-branch, no acute ischemic changes. Troponin is negative. CT abdomen pelvis was obtained this shows unremarkable liver borderline gallbladder wall thickening no stones identified biliary ducts were not dilated patient's pancreas shows no acute changes. The rest of CT abdomen pelvis shows no significant changes right upper quadrant ultrasound was obtained. Shows distended gallbladder no gallstones or gallbladder wall thickening no pericholecystic fluid, no pain although patient was very slightly tender on examination but he describes it as very mild. No dilated ducts liver somewhat echogenic consistent with diffuse fatty infiltration. Patient received a L of fluids and Zofran 4 mg IV. He states feels improved after this slightly nauseated but overall well. Did have 1 episode of dry heaves. Discussed with general surgery. Dr. Lozano no acute change this time patient has worsening symptoms return. Hepatitis panel sent. Reviewed with patient this is currently pending he needs to follow up with repeat labs. And return precautions if worsening symptoms. No new medications patient has been on his oral antidiabetic meds for some time. Discharge Plan Departure Patient Disposition: Home Clinical Impression: Vomiting, Elevated liver enzymes Instructions: DI for Vomiting -- Adult Activity Restrictions/Additional Instructions: Please follow up for recheck, your workup today shows elevated bilirubin is slightly elevated lipase. Your imaging overall is reassuring you do have some hepatic steatosis or changes to the liver but no changes to the gallbladder or bile ducts. Please follow up for recheck of your liver enzymes. A hepatitis panel has been sent and is pending. Follow-up with your physician for these results in the next week. You may take Zofran 1 tablet every 6 hours as needed for nausea. Prescription sent to [facility] in [place]. Please return for fevers, persistent vomiting, new abdominal back or flank pain, black or bloody stools, lightheadedness or passing out or other new or concerning changes. Prescriptions: New ondansetron 4 mg tablet,disintegrating 4 mg PO QID Qty: 7 0RF No Action (DME) blood-glucose meter Misc See Rx Instructions .Route Qty: 1 8RF Rx Instructions: Use to check BG QAC/HS (DME) lancets 30 gauge misc See Rx Instructions .Route Qty: 200 8RF Rx Instructions: Use to check BG QAC/HS (DME) Blood Glucose Test Strip See Rx Instructions .Route Qty: 50 8RF Rx Instructions: Use to check BG QAC/HS (DME) Sharps Container Misc See Rx Instructions .Route Qty: 1 8RF Rx Instructions: Use to check BG QAC/HS alcohol swabs Pads, Medicated 1 pad topical QID Qty: 200 8RF glipizide 2.5 mg tablet extended release 24hr 2.5 mg PO BID Qty: 180 1RF Rx Instructions: Start initially 1 with dinner then after 1 week advanced to 1 with lunch and dinner. Must take with food atorvastatin 10 mg tablet 10 mg PO BEDTIME Qty: 90 3RF Janumet 50-1,000 mg tablet 1 tab PO BID Qty: 180 3RF Rx Instructions: Start taking this medication. STOP taking Metformin metformin 1,000 mg tablet 2,000 mg PO DAILY Referrals: Jeevan Lozano MD [Physician] - Beto Solomon DO [Primary Care Provider] - Stand Alone Forms: Patient Portal/API ED Sign-out <Nicolasa Thorpe MD - Last Filed: 02/27/23 02:44> [facility] I was immediately available in the department for consultation throughout this patient's visit. Nicolasa Thorpe MD
[2023-02-26] MEDS: ONDANSETRON 4 MG/2 ML INJ IV (06:19)
[2023-02-26] MEDS: SODIUM CHLORIDE 0.9% 1,000 ML 1000 ML IV (06:19)
[2023-02-26 06:21] LABS: Add Manual Diff / Slide Review NO; Basophils Absolute Auto 100 /uL (0-100); Basophils Percent Auto 0.6 % (0-2); Eosinophils Absolute Auto 600 /uL (0-450); Eosinophils Percent Auto 5.5 % (2-4); Hematocrit 43.6 % (41-53); Hemoglobin 15.1 g/dL (13.5-17.5); Lymphocytes Absolute Auto 1000 /uL (1100-4500); Lymphocytes Percent Auto 8.7 % (25-40); Mean Corpuscular HGB Conc 34.7 % (30-36); Mean Corpuscular Hemoglobin 28.8 PG (26-34); Mean Corpuscular Volume 82.9 fL (80-100); Monocytes Absolute Auto 500 /uL (0-900); Monocytes Percent Auto 4.8 % (3-14); Neutrophils Absolute Auto 9200 /uL (1500-7000); Neutrophils Percent Auto 80.4 % (50-75); Platelet Count 268 X10^3/uL (150-400); Red Blood Cell Count 5.26 X10^6/uL (4.5-5.9); Red Cell Distribution Width 13.1 % (11.6-14.8); White Blood Cell Count 11.4 X10^3/uL (4.5-11.0)
[2023-02-26 06:45] LABS: Alanine Aminotransferase 21 IU/L (<50); Albumin 4.1 g/dL (3.5-5.0); Albumin Globulin Ratio 1.5 (1.0-2.8); Alkaline Phosphatase 79 U/L (38-126); Aspartate Aminotransferase 19 IU/L (17-59); BUN Creatinine Ratio 26.4 (6-22); Bilirubin Total 1.6 mg/dL (0.2-1.3); Blood Urea Nitrogen 19 mg/dL (9-20); Calcium 9.4 mg/dL (8.4-10.2); Carbon Dioxide 26 mmol/L (22-32); Chloride 99 mmol/L (98-107); Estimated Glomerular Filt Rate > 60 mL/min (>60); Globulin 2.8 g/dL (1.7-4.1); Glucose 255 mg/dL (70-100); HEMOLYSIS < 15 (0-50); Lipase 737 U/L (23-300); Potassium 4.1 mmol/L (3.4-5.1); Sodium 136 mmol/L (137-145); Total Protein 6.9 g/dL (6.3-8.2)
--- NOTE | 2023-02-26 06:50 | DI.CT.S_ITS ---
PROCEDURE: CT ABDOMEN PELVIS W CON INDICATIONS: vomiting, elevated bili and lipase TECHNIQUE: After the administration of intravenous contrast, axial sections acquired from the lung bases to the pubic symphysis. Coronal and sagittal reformats were performed. For radiation dose reduction, the following was used: automated exposure control, adjustment of mA and/or kV according to patient size. COMPARISON: None. FINDINGS: Image quality: Excellent. Lung bases: Unremarkable. Heart: No significant findings. ABDOMEN: Liver: Unremarkable. Gallbladder: Borderline gallbladder wall thickening. No radiopaque stones identified. Biliary ducts: Nondilated. Pancreas: Unremarkable. Spleen: Unremarkable. Adrenal Glands: Unremarkable. Kidneys and Ureters: 3 millimeter nonobstructing left-sided nephrolithiasis.. Stomach and Bowel: Stomach, small bowel loops, and colon are unremarkable. Appendix is unremarkable. No diverticular disease. Peritoneum: No abnormal intraperitoneal fluid. No free air. Ventral Wall: No hernias. Abdominal Nodes: No retroperitoneal or mesenteric adenopathy by size criteria. Vessels: Aorta and inferior vena cava are normal in size. PELVIS: Pelvic Organs: Unremarkable. Bladder: Unremarkable. Pelvic Nodes: No enlarged lymph nodes. Miscellaneous: No hernias are seen. Bones: Unremarkable. IMPRESSION: Possible gallbladder wall thickening. Consider right upper quadrant ultrasound to assess for gallstones/cholecystitis in the setting of elevated bilirubin. No biliary obstruction. No CT evidence of acute pancreatitis. Dictated by: Ta Mata M.D. on 02/26/2023 at 8:15 Approved by: Ta Mata M.D. on 02/26/2023 at 8:19
[2023-02-26 06:55] LABS: Troponin I < 0.012 ng/mL (0.01-0.034)
--- NOTE | 2023-02-26 07:34 | PC.NURSE ---
Pt sitting up in bed and reading. Denies nausea or abd pain. States that he is feeling a little bit better.
[2023-02-26 07:36] LABS: Appearance Urine UA CLEAR; Bilirubin Urine UA NEGATIVE (NEGATIVE); Color Urine UA YELLOW; Glucose Urine UA 3+ g/dL (Negative); Ketones Urine UA 2+ (NEGATIVE); Leukocyte Esterase Urine UA NEGATIVE (NEGATIVE); Nitrite Urine UA NEGATIVE (Negative); Occult Blood Urine UA NEGATIVE (Negative); Protein Urine UA TRACE (Negative)
[2023-02-26 07:38] LABS: Bacteria Urine Many (>30); Culture Indicated Urine Specimen Cultured; RBC Urine 1-5/HPF (0-5/HPF); Squamous Epithelial Cell Urine 1-5 /HPF (0-5/HPF); WBC Urine 5-10/HPF (0-5/HPF)
[2023-02-26] MEDS: METOCLOPRAMIDE 10 MG/2 ML INJ IV (07:49)
--- NOTE | 2023-02-26 08:44 | DI.US.S_ITS ---
PROCEDURE: US ABDOMEN LIMITED INDICATIONS: ELEVATED BILIRUBIN/LIPASE; VOMITING TECHNIQUE: Real-time focused scanning was performed of the abdomen, with image documentation. COMPARISON: [facility], CT, CT ABDOMEN PELVIS W CON, 02/26/2023, 6:53. FINDINGS: The gallbladder is distended. No gallstones or gallbladder wall thickening or fluid around the gallbladder. No pain on examination of the gallbladder. No dilated ducts. Common bile duct measures 5.4 mm. Liver is somewhat echogenic consistent with diffuse fatty infiltration. Visualized portions of the pancreas are unremarkable. IMPRESSION: 1. Distended gallbladder without stones or other findings suspicious for acute cholecystitis. 2. Diffuse hepatic steatosis. Dictated by: P[place] M.D. on 02/26/2023 at 9:17 Approved by: P[place] M.D. on 02/26/2023 at 9:19
[2023-02-28 00:07] LABS: HBsAg Screen Negative (Negative); Hepatitis A Antibody IgM Negative (Negative); Hepatitis B Core Antibody IgM Negative (Negative); Hepatitis C Antibody Non Reactive (Non Reactive)
== END 2023-02-26 11:25 | disposition home or self-care (01) ==
PROVIDERS: Emergency Medicine; Emergency Provider Emergency Medicine; Family Provider Family Medicine; PCP Family Medicine
DX: R74.8 Abnormal levels of other serum enzymes (principal); R11.2 Nausea with vomiting, unspecified
CPT/HCPCS: 36415; 74177; 76705; 80053; 80074; 81001; 81003; 82962; 83690; 84484; 85025; 87077; 87086; 87186; 93005; 93010; 96361; 96374; 96375; 99284; J2405; J2765; Q9967

== ENCOUNTER → 2023-03-21 09:24 | Outpatient (CLI) | payer MEDICARE, MEDICAID, SELFPAY ==
[2020-12-20 14:15] VITALS: BMI 30.3
[2023-03-21 10:31] LABS: Add Manual Diff / Slide Review YES; Hemoglobin 15.3 g/dL (13.5-17.5); Mean Corpuscular HGB Conc 34.8 % (30-36); Mean Corpuscular Hemoglobin 28.8 PG (26-34); Mean Corpuscular Volume 82.8 fL (80-100); Platelet Count 226 X10^3/uL (150-400); Red Blood Cell Count 5.32 X10^6/uL (4.5-5.9); White Blood Cell Count 9.9 X10^3/uL (4.5-11.0)
[2023-03-21 10:33] LABS: Hemoglobin A1C% w Est Avg Glu 8.9 % (4.0-6.0)
[2023-03-21 10:41] LABS: Alanine Aminotransferase 26 IU/L (<50); Albumin 4.4 g/dL (3.5-5.0); Albumin Globulin Ratio 1.5 (1.0-2.8); Alkaline Phosphatase 80 U/L (38-126); Aspartate Aminotransferase 23 IU/L (17-59); BUN Creatinine Ratio 19.7 (6-22); Bilirubin Total 2.2 mg/dL (0.2-1.3); Blood Urea Nitrogen 15 mg/dL (9-20); Calcium 9.9 mg/dL (8.4-10.2); Carbon Dioxide 26 mmol/L (22-32); Chloride 99 mmol/L (98-107); Estimated Glomerular Filt Rate > 60 mL/min (>60); Globulin 2.9 g/dL (1.7-4.1); Glucose 231 mg/dL (70-100); HEMOLYSIS < 15 (0-50); Lipase 206 U/L (23-300); Potassium 4.6 mmol/L (3.4-5.1); Sodium 135 mmol/L (137-145); Total Protein 7.3 g/dL (6.3-8.2)
[2023-03-21 10:47] LABS: Neutrophils Absolute Manual 5445 /uL (3000-5900); RBC Morphology Normal Morphology; Total Cells Counted 100
== END ==
LOC: LAB 09:24
PROVIDERS: Family Provider Family Medicine; PCP Family Medicine; Referring Provider Family Medicine; Visit Provider Family Medicine
DX: I10 Essential (primary) hypertension (principal); E11.9 Type 2 diabetes mellitus without complications; E78.5 Hyperlipidemia, unspecified
CPT/HCPCS: 36415; 80053; 83036; 83690; 85007; 85025

== ENCOUNTER → 2023-04-17 12:31 | Outpatient (CLI) | payer MEDICARE, MEDICAID, SELFPAY ==
[2020-12-20 14:15] VITALS: BMI 30.3
--- NOTE | 2023-04-17 17:15 | DIAB.FU ---
Follow-up Diabetes Education Assessment Name: Kyle Navarrete (Anurag) Date: 04/17/23 Time: 105-145p Dx: Type II Diabetes Anurag presents for DM follow-up. States he has been reducing kcal intake since is on a specific diet over the last month. Reports satiety with this diet. Since last visit hgA1c has fluctuated, down to 6.8% and then up to 8.9% more recently. States he is unclear why BG may be up. Also reports recent d/c of Janumet. Only taking Metformin. Not currently checking BG but has supplies. Diet recall indicates carb intake is moderate to low. THree meals per day, occasional HS snack portioned. Beverages all unsweet. 24oz diet soda and 16oz water daily. Physical Activity: Reduced walking. Not walking to grocery store anymore. Walks 1-2x per week for 30 mins. Self-Monitoring Blood Glucose: was checking previously, not now. Diabetes Medications: Glipizide 2.5 ER BID Janumet BID: Sitagliptin 50mg/Metformin 1000mg BID-- d/c'd Metformin 2000mg Pertinent Labs: HgA1c: 10.1% 09/2022 6.8% 12/2022 8.9% 03/2023 Past Medical History: (Last Updated 03/20/23 @ 16:24 by Beto Solomon DO) Borderline personality disorder Depression Diabetes mellitus Hypertension Pancreatitis Psoriasis Right knee pain Skin tag Intervention: This participant was very receptive. Provided appropriate educational handouts. Discussed the following topics: Recent HgA1c and goals Importance of SMBG Review of general nutrition recommendations and current intake Physical activity plan and impact on blood sugars Prevention of complications Fluid intake recommendations Created SMART goals for patient self-care and success. Goals: Add snacking veggies during day- not met Message RD BG readings- not met cleaner carpet and upholstery SMBG supplies- met Take first dose janumet with breakfast - d/c supervisor instrument mechanics pill box- met Restart SMBG (FBG and some pc)- new Bring BG next visit- new Get a water bottle- new Walk at park 2x per week-new Follow-up: YURIY DEGROOT follow-up in 2-3 weeks Monserrat Bruce RDN, [facility] Certified Diabetes Care and Veneer Grader P: [phone] Thank you for this referral
== END ==
PROVIDERS: Family Provider Family Medicine; PCP Family Medicine; Referring Provider Family Medicine; Visit Provider Family Medicine
DX: E11.9 Type 2 diabetes mellitus without complications (principal); Z79.84 Long term (current) use of oral hypoglycemic drugs; Z71.3 Dietary counseling and surveillance
CPT/HCPCS: G0108

== ENCOUNTER → 2023-05-03 13:17 | Outpatient (CLI) | payer MEDICARE, MEDICAID, SELFPAY ==
[2020-12-20 14:15] VITALS: BMI 30.3
--- NOTE | 2023-05-03 17:23 | DIAB.MNTFU ---
Follow-up Diabetes Medical Nutrition Therapy Assessment Name: Kyle Navarrete (Anurag) Date: 05/03/23 Time: 135-205p Dx: Type II Diabetes Anurag presents for DM follow-up. Since last visit, saw PCP and has increased glipizide to 5mg BID and added pioglitizone 15mg. Anurag reports low to moderate carb meals most days. States he has switched to higher fiber options for bread and pasta. Reports reduced portions as well. Avoiding candy. Keeping pro/cho pairing at meals. Continues to have low water intake. Very limited exercise. Wants to increase veggie intake, though finances are a barrier. Anthropometrics: Ht: 67 Wt: None today Physical Activity: Walks to grocery store 30 min 2-3x per week. Takes taxi back. Self-Monitoring Blood Glucose: Did not bring meter today but reports consistent hyperglycemia fasting 130-180mg/dl Diabetes Medications: Glipizide 5 ER BID Metformin 2000mg Pioglitizone 15mg Pertinent Labs: HgA1c: 10.1% 09/2022 6.8% 12/2022 8.9% 03/2023 Past Medical History: (Last Reviewed 04/20/23 @ 10:29 by Beto Solomon DO) Adhesive capsulitis Borderline personality disorder Depression Diabetes mellitus Hypertension Pancreatitis Psoriasis Right knee pain Right shoulder pain Skin tag Nutrition Rx: Carbohydrates: Meal:45g Snack:15-30g Nutrition Diagnosis: Physical inactivity r/t stage of change and weather as a barrier aeb pt report Inadequate fluid intake r/t limited water intake aeb pt report of not enough water Intervention: This participant was very receptive. Provided appropriate educational handouts. Discussed the following topics: Blood sugar goal review. Impact of food intake, meds, and exercise on results. Heart health nutrition: fats, fiber, Meal planning: ways to add veggies in an affordable way Hydration strategies Physical activity plan and progress Created SMART goals for patient self-care and success. Goals: Restart SMBG (FBG and some pc)- met Bring BG next visit- not met Get a water bottle- in progress Walk at park 2x per week-not met Try to incorporate more walks- new Take stairs instead of elevator- new Purchase water bottle- new Add salads back into lunch plans-new Bring meter next visit- new Follow-up: YURIY WOOTENES follow-up in 2-3 weeks Monserrat Bruce RDN, [facility] Certified Diabetes Care and Records Administrator P: [phone] Thank you for this referral
== END ==
PROVIDERS: Family Provider Family Medicine; PCP Family Medicine; Referring Provider Family Medicine; Visit Provider Family Medicine
DX: E11.9 Type 2 diabetes mellitus without complications (principal); Z79.84 Long term (current) use of oral hypoglycemic drugs; Z71.3 Dietary counseling and surveillance
CPT/HCPCS: 97803

== ENCOUNTER → 2023-05-16 14:46 | Outpatient (CLI) | payer MEDICARE, MEDICAID, SELFPAY ==
[2020-12-20 14:15] VITALS: BMI 30.3
--- NOTE | 2023-05-17 12:21 | DIAB.FU ---
Follow-up Diabetes Education Assessment Name: Kyle Navarrete (Anurag) Date: 05/16/22 Time: 3-335p Dx: Type II Diabetes Anurag presents for DM follow-up. States he has been checking BG and noticed continued elevations. Recent [facility] visit r/t concern for BG >300mg/dl, in clinic glucose 189mg/dl. Reports continued conscious diet choices. Choosing low carb bread, more salads. Does not wash hands prior to BG checks. Limited walks. Sleep is interrupted. Often will sleep for 3-4 hours and then lesly for 1-2 hours, then possibly sleep again. Anurag was previously on Janumet, which along with lifestyle changes, seemed to manage BG well. Last PCP visit Janumet was not renewed, but actos and increased glipizide was added. Physical Activity: Infrequent walking to grocery store. Weather dependent walking, again infreq. Self-Monitoring Blood Glucose: Recent FB, 176, 212, 321, 172, 155, 186, 220 (mg/dl). Anurag is unable to report why some mornings are <160 and others >200mg/dl. Diabetes Medications: Glipizide 5 ER BID Metformin 2000mg Pioglitizone 15mg Pertinent Labs: HgA1c: 10.1% 09/2022 6.8% 12/2022 8.9% 03/2023 Past Medical History: (Last Reviewed 04/20/23 @ 10:29 by Beto Solomon DO) Adhesive capsulitis Borderline personality disorder Depression Diabetes mellitus Hypertension Pancreatitis Psoriasis Right knee pain Right shoulder pain Skin tag Intervention: This participant was very receptive. Provided appropriate educational handouts. Discussed the following topics: Recent blood sugar results and trends Hydration impact on BG BG goals Importance of hand washing prior to BG checks Review of general nutrition recommendations and current intake SMBG: checking BG to determine trends, both FBG and HS Physical activity plan and impact on blood sugars Created SMART goals for patient self-care and success. Goals: Try to incorporate more walks- in progress Take stairs instead of elevator- 50% met Purchase water bottle- met Add salads back into lunch plans-met Bring meter next visit- met Wash hands prior to checking BG- new walk 3-4 days per week- new Use new water bottle- new Bring meter to next visit again- new Check FBG and HS BG- new Follow-up: YURIY DEGROOT follow-up in 2-3 weeks Monserrat Bruce RDN, [facility] Certified Diabetes Care and Design Eng P: [phone] Thank you for this referral
== END ==
PROVIDERS: Family Provider Family Medicine; PCP Family Medicine; Referring Provider Family Medicine; Visit Provider Family Medicine
DX: E11.9 Type 2 diabetes mellitus without complications (principal); Z71.3 Dietary counseling and surveillance; Z79.84 Long term (current) use of oral hypoglycemic drugs
CPT/HCPCS: G0108

== ENCOUNTER → 2023-06-27 15:14 | Outpatient (CLI) | payer MEDICARE, MEDICAID, SELFPAY ==
[2020-12-20 14:15] VITALS: BMI 30.3
--- NOTE | 2023-07-06 17:21 | DIAB.MNTFU ---
Follow-up Diabetes Medical Nutrition Therapy Assessment Name: Kyle Navarrete (Anurag) Date: 06/27/23 Time: 340-420p Dx: Type II Diabetes Anurag presents for Dm follow-up visit. States he has not been taking care of myself. States he is taking meds but not checking BG. Reports dealing with mental health barriers in terms of a traumatic event that has been bothering him. Has h/o therapy here at . Currently on a waitlist for care in [place]. States he needs a specialist for self harm, ie scratching his skin to bleeding. Picked up chicken and making chicken in crockpot. Wants to try Janumet again, feels this better managed his BG. Endorses low veggie intake recently. Stress eating lately per report. Cont to have sf beverages. wants to order sf water flavorings. Interested in a way to meet goals like a game, ie stacey. Anthropometrics: Ht: 67 Wt: 188# 03/2024 Physical Activity: Trying to walk more for mental health purposes. Walking to grocery and avoiding taking a taxi most times. Self-Monitoring Blood Glucose: None recently. Diabetes Medications: Glipizide 5 ER BID Metformin 2000mg Pioglitizone 15mg Pertinent Labs: HgA1c: 10.1% 09/2022 6.8% 12/2022 8.9% 03/2023 Past Medical History: (Last Reviewed 04/20/23 @ 10:29 by Beto Solomon DO) Adhesive capsulitis Borderline personality disorder Depression Diabetes mellitus Hypertension Pancreatitis Psoriasis Right knee pain Right shoulder pain Skin tag Nutrition Rx: Carbohydrates: Meal:45g Snack:15-30g Nutrition Diagnosis: Intervention: This participant was very receptive. Provided appropriate educational handouts. Discussed the following topics: ways to incorporate veggies Mental health challenges and impact on overall health Resources for mental health visits, ie virtual? Apps to help with health goals Importance of SMBG Potential for discussing Janument with provider Created SMART goals for patient self-care and success. Goals: Wash hands prior to checking BG- continue walk 3-4 days per week- not met Use new water bottle- met Bring meter to next visit again- not met Check FBG and HS BG- continue Buy salads- new Call insurance about mental health resources- new Try habits stacey- new Check BG: FBG and HS- cont Follow-up: RDLucas DEGROOT follow-up in 2-3 weeks Monserrat Bruce RDN, [facility] Certified Diabetes Care and Biostatistics Director P: [phone] Thank you for this referral
== END ==
PROVIDERS: Family Provider Family Medicine; PCP Family Medicine; Referring Provider Family Medicine; Visit Provider Family Medicine
DX: E11.9 Type 2 diabetes mellitus without complications (principal); Z71.3 Dietary counseling and surveillance; Z79.84 Long term (current) use of oral hypoglycemic drugs
CPT/HCPCS: 97803

== ENCOUNTER → 2023-07-17 12:49 | Outpatient (CLI) | payer MEDICARE, MEDICAID, SELFPAY ==
[2020-12-20 14:15] VITALS: BMI 30.3
--- NOTE | 2023-07-17 15:17 | DIAB.MNTFU ---
Follow-up Diabetes Medical Nutrition Therapy Assessment Name: Kyle Navarrete (Anurag) Date: 07/17/23 Time: 105-2p Dx: Type II Diabetes Anurag presents for follow-up DM visit. Reports continued struggle with depression, which intermittently impacts his appetite. May go long periods of time without eating in a day. States this has been less as of the recent week. Reports his would like to grocery shop, budget foods, and prepare meals separately. She has h/o weight loss sx and wants more control over her own foods. He is in agreement. Diet recall is fairly balanced with protein and carbs. Some dinners higher in carb portions, ie mac and cheese with burger. Implemented salads with protein at lunch. Tried protein oats for breakfast at 24g CHO. Working on 60oz water per day using low kcal flavorings. Dinner sometimes low in veggies. Eye exam up to date and annual. Dental is not current. Barriers: [facility] and travel is a challenge. Reports about 15 years where he did not take care of himself. This included dental. Reports no dental care during that time and experienced teeth breaking off. No pain in his mouth currently, but states he likely needs extractions and potentially dentures. Still on wait list of behavioral health resources. Has phone number on back of insurance card as a resource. Anthropometrics: Ht: 67 Wt: 188# 03/2024 ; today reports wt of 190# Physical Activity: Reports trying to walk more, but this is usually as a means of transportation, ie grocery store. Limited motivations to walk for exercise. States getting dog would motivate this, otherwise contemplation stage of change. Self-Monitoring Blood Glucose: checking FBG, which most are above goal. 07/18 elevated. Date Pre Post Pre Post Pre Post notes 07/09 105 07/10 116 07/11 115 95 at midnight 07/13 171 151 at midnight 07/14 141 07/15 144 07/16 145 Diabetes Medications: Glipizide 5 ER BID Metformin 2000mg Pioglitizone 15mg Pertinent Labs: HgA1c: 10.1% 09/2022 6.8% 12/2022 8.9% 03/2023 Past Medical History: (Last Reviewed 04/20/23 @ 10:29 by Beto Solomon DO) Adhesive capsulitis Borderline personality disorder Depression Diabetes mellitus Hypertension Pancreatitis Psoriasis Right knee pain Right shoulder pain Skin tag Nutrition Rx: Carbohydrates: Meal:45g Snack:15-30g Nutrition Diagnosis: Nutrition and food related knowledge deficit r/t needing more info on pairing macros for snacks aeb diet recall Inconsistent fiber intake r/t veggies x 1 per day aeb diet recall Physical inactivity r/t stage of change contemplative aeb pt report Intervention: This participant was very receptive. Provided appropriate educational handouts. Discussed the following topics: Blood sugar review and trends. Impact of food intake, state of Dm, and exercise on results. Pairing macronutrients and spreading out carbohydrates for better blood glucose management Physical activity plan and progress Behavior health resources Impact of dental care on BG and overall health Created SMART goals for patient self-care and success. Goals: Buy salads- new Call insurance about mental health resources- new Try habits stacey- new Check BG: FBG and HS- cont pleating supervisor veggies for dinner- new Add protein to HS snack- new Call BH number from insurance card- new Follow-up: YURIY DEGROOT follow-up in 2-3 weeks Monserrat Bruce RDN, [facility] Certified Diabetes Care and Sandfill Operator Surface P: [phone] Thank you for this referral
== END ==
PROVIDERS: Family Provider Family Medicine; PCP Family Medicine; Referring Provider Family Medicine; Visit Provider Family Medicine
DX: E11.9 Type 2 diabetes mellitus without complications (principal); Z79.84 Long term (current) use of oral hypoglycemic drugs; Z71.3 Dietary counseling and surveillance
CPT/HCPCS: 97803

== ENCOUNTER → 2023-08-14 13:40 | Outpatient (CLI) | payer MEDICARE, MEDICAID, SELFPAY ==
[2020-12-20 14:15] VITALS: BMI 30.3
--- NOTE | 2023-08-15 14:26 | DIAB.MNTFU ---
Follow-up Diabetes Medical Nutrition Therapy Assessment Name: Kyle Navarrete (Anurag) Date: 08/14/23 Time: 2245p Dx: Type II Diabetes Anurag presents for Dm follow-up. Reports some financial constraints recently impacting food access. Receives EBT tomorrow, which should help. States he has been able to pay off some debt, which will allow for more resources for food. Has not gone to [facility] for foods due to long walk with road closures, however informed him today that the road closures are now discontinued. Has decided with to no longer cook separately. is interested in more meal prep. Has run out of salad and water flavoring. Endorses much less water intake as a result. Endorses stress with father's failing health in [place]. Reports some interrupted sleep. Has not called for behavioral health services via insurance. Wants to re start Janumet. Feels BG was better with this med. Sees Juanito this month. Last visit FBG still had some elevations, but were improved from previous visits. Diet Recall: 9-10a: bagel egg, cheese 12p: sloppy jose luis on bun OR ramen with meat OR salad with chx 4-5p: Sloppy jose luis on bun sn: nothing or chips or carrots Diet soda Anthropometrics: Ht: 67 Wt: 188# 03/2024 ; Last visit reported wt of 190# Physical Activity: Usual walking. No program. Self-Monitoring Blood Glucose: No longer checking FBG due to stage of change contemplation/relapse. Last visit FBG below. Date Pre Post Pre Post Pre Post notes 07/09 105 07/10 116 07/11 115 95 at midnight 07/13 171 151 at midnight 07/14 141 07/15 144 07/16 145 Diabetes Medications: Glipizide 5 ER BID Metformin 2000mg Pioglitizone 15mg Pertinent Labs: HgA1c: 10.1% 09/2022 6.8% 12/2022 8.9% 03/2023 Past Medical History: (Last Reviewed 04/20/23 @ 10:29 by Beto Solomon DO) Adhesive capsulitis Borderline personality disorder Depression Diabetes mellitus Hypertension Pancreatitis Psoriasis Right knee pain Right shoulder pain Skin tag Nutrition Rx: Carbohydrates: Meal:45g Snack:15-30g Nutrition Diagnosis: Inconsistent fiber intake r/t veggies x 1 per day aeb diet recall- in progress Physical inactivity r/t stage of change contemplative aeb pt report- continue Inadequate fluid intake r/t food access for water flavoring aeb pt report- new Food insecurity r/t limited income, unaware of road opening, and waiting on EBT aeb pt report Intervention: This participant was very receptive. Provided appropriate educational handouts. Discussed the following topics: Blood sugar review and trends from last couple visits. Medication management: potential for Janument discussion with PCP Meal planning and food security resources Stress management and behavioral health resources Created SMART goals for patient self-care and success. Goals: lapping machine set up operator veggies for dinner- not met Add protein to HS snack- not met Call BH number from insurance card- continue lapping machine set up operator water flavoring tomorrow- new Check FBG- new lapping machine set up operator salads tomorrow- new Check out [employer] for supplemental foods- new Follow-up: YURIY DEGROOT follow-up in 3-4 weeks Monserrat Bruce RDN, [facility] Certified Diabetes Care and Billet Heater P: [phone] Thank you for this referral
== END ==
PROVIDERS: Family Provider Family Medicine; PCP Family Medicine; Referring Provider Family Medicine; Visit Provider Family Medicine
DX: E11.9 Type 2 diabetes mellitus without complications (principal); Z79.84 Long term (current) use of oral hypoglycemic drugs; Z71.3 Dietary counseling and surveillance
CPT/HCPCS: 97803

== ENCOUNTER → 2023-08-23 08:08 | Outpatient (CLI) | payer MEDICARE, MEDICAID, SELFPAY ==
[2020-12-20 14:15] VITALS: BMI 30.3
[2023-08-23 09:16] LABS: Hemoglobin A1C% w Est Avg Glu 7.7 % (4.0-6.0)
[2023-08-23 09:31] LABS: Alanine Aminotransferase 32 IU/L (<50); Albumin 4.3 g/dL (3.5-5.0); Albumin Globulin Ratio 1.4 (1.0-2.8); Alkaline Phosphatase 62 U/L (38-126); Aspartate Aminotransferase 24 IU/L (17-59); BUN Creatinine Ratio 20.5 (6-22); Bilirubin Total 1.6 mg/dL (0.2-1.3); Blood Urea Nitrogen 16 mg/dL (9-20); Calcium 9.5 mg/dL (8.4-10.2); Carbon Dioxide 29 mmol/L (22-32); Chloride 103 mmol/L (98-107); Estimated Glomerular Filt Rate > 60 mL/min (>60); Glucose 244 mg/dL (70-100); HEMOLYSIS < 15 (0-50); Potassium 4.5 mmol/L (3.4-5.1); Sodium 138 mmol/L (137-145); Total Protein 7.3 g/dL (6.3-8.2)
== END ==
PROVIDERS: Family Provider Family Medicine; PCP Family Medicine; Referring Provider Family Medicine; Visit Provider Family Medicine
DX: I10 Essential (primary) hypertension (principal); E11.9 Type 2 diabetes mellitus without complications
CPT/HCPCS: 36415; 80053; 83036

== ENCOUNTER → 2023-09-13 12:37 | Outpatient (CLI) | payer MEDICARE, MEDICAID, SELFPAY ==
[2020-12-20 14:15] VITALS: BMI 30.3
--- NOTE | 2023-10-02 08:16 | DIAB.FU ---
Follow-up Diabetes Education Assessment Name: Kyle Navarrete (Anurag) Date: 09/13/23 Time: 1-130p Dx: Type II Diabetes Anurag presents for Dm follow-up. Recent HgA1c down from 8.9% to current 7.7%. Has seen PCP and rx'd Jardiance, though has not started it yet. [facility] pharmacy did not have it. Eating smaller portions. Not keeping snacks in the house that might tempt him to binge. If wanting a snack, must walk to store for it. Has water flavoring again, which helps with intake. No longer having salads at lunch. Continues to struggle with mental health per report, though has not called insurance regarding online options. Feeling frustrated about resources/access to care for behavioral health. Doing some online meditation. Reduced stress eating. Physical Activity: Usual walking. No program. Self-Monitoring Blood Glucose: No longer checking FBG due to stage of change contemplation/relapse. Diabetes Medications: Glipizide 5 ER BID Metformin 2000mg Pioglitizone 15mg Jardiance 25mg -- not started Pertinent Labs: HgA1c: 10.1% 09/2022 6.8% 12/2022 8.9% 03/2023 7.7% 08/2023 Past Medical History: (Last Reviewed 09/27/23 @ 11:14 by Beto Solomon DO) Adhesive capsulitis Borderline personality disorder Depression Diabetes mellitus Hypertension Pancreatitis Psoriasis Right knee pain Right shoulder pain Skin tag Intervention: This participant was very receptive. Provided appropriate educational handouts. Discussed the following topics: Encouraged SMBG Medication management: access to [employer], potential for other pharmacies prn Review of general nutrition recommendations and current intake Review of strategies for access to behavioral health access Jardiance action and precautions: water intake and risk reduction for urinary related infections Created SMART goals for patient self-care and success. Goals: Call BH number from insurance card- not met sewing department supervisor water flavoring tomorrow- met Check FBG- not met sewing department supervisor salads tomorrow- not met Check out [employer] for supplemental foods- met If pharmacy does not have Jardiance, call RD to brainstorm next step- new Call insurance for therapy options- new Restart FBG checks- new Follow-up: YURIY CDCES follow-up in 3-4 weeks. Secondary MNT referral needed to help Anurag continue to increase understanding of nutrition and new DM medication. Monserrat Bruce RDN, [facility] Certified Diabetes Care and Rn Infusion P: [phone] Thank you for this referral
== END ==
PROVIDERS: Family Provider Family Medicine; PCP Family Medicine; Referring Provider Family Medicine
DX: E11.9 Type 2 diabetes mellitus without complications (principal); Z79.84 Long term (current) use of oral hypoglycemic drugs; Z71.3 Dietary counseling and surveillance

== ENCOUNTER → 2023-09-13 15:57 | Outpatient (CLI) | payer MEDICARE, MEDICAID, SELFPAY ==
[2020-12-20 14:15] VITALS: BMI 30.3
--- NOTE | 2023-09-13 15:58 | DI.RAD.S_ITS ---
PROCEDURE: XR SHOULDER RT MIN 2V INDICATIONS: right shoulder pain TECHNIQUE: 3 views of the shoulder were acquired. COMPARISON: [facility], , XR SHOULDER RT MIN 2V, 04/16/2019, 9:35. FINDINGS: Bones: No fractures or dislocations. No suspicious bony lesions. Mild acromioclavicular joint degeneration. Visualized ribs appear intact. Soft tissues: Calcific densities over the humeral head likely secondary to rotator cuff calcific tendinitis. IMPRESSION: 1. No acute bony abnormality. 2. Mild degenerative joint disease. 3. Suspect rotator cuff calcific tendinitis. Dictated by: Amelia Hernandez M.D. on 09/14/2023 at 9:14 Approved by: Amelia Hernandez M.D. on 09/14/2023 at 9:20
== END ==
PROVIDERS: Family Provider Family Medicine; PCP Family Medicine; Referring Provider Nurse Practitioner Family; Visit Provider Nurse Practitioner Family
DX: M19.011 Primary osteoarthritis, right shoulder (principal); M25.511 Pain in right shoulder; E11.9 Type 2 diabetes mellitus without complications; Z79.84 Long term (current) use of oral hypoglycemic drugs; Z71.3 Dietary counseling and surveillance
CPT/HCPCS: 73030; G0108

== ENCOUNTER → 2023-10-19 12:42 | Outpatient (CLI) | payer MEDICARE, MEDICAID, SELFPAY ==
[2020-12-20 14:15] VITALS: BMI 30.3
--- NOTE | 2023-10-19 13:04 | DIAB.MNTFU ---
Follow-up Diabetes Medical Nutrition Therapy Assessment Name: Kyle Navarrete (Anurag) Date: 10/19/23 Time: 1-145p Dx: Type II Diabetes Not currently checking BG. Want to start making this a habit again. Eating breakfast earlier than usual. Mood is better, attributes this to improved weather and less stress. Picked up Jardiance and taking as rx'd. Reports slight increase in urination. Back up to drinking water with water flavoring, 32oz x 1. Diet soda 2-3 cans per day. Conscious of protein with meals. Trying to get more veggies in, cost is a barrier and girlfriend's indigestion limits what veggies they purchase. Reports getting commodities from the food bank based on low income. This includes some veggies within stews. Has some canned veggies, but he does not like them. has not called resource but found a 211 number for resources. Reports less stress in personal life lately. Diet Recall: 8-9a: egg, cheese +/- meat OR cereal (1.5c Cheerios with milk) 12p: leftover dinner (ie chicken on a bun) 5-6p: 1 med potato, cheese, ranch dressing, lunch meat sn: nothing or chips or 1/3c spicy pretzel Anthropometrics: Ht: 67 Wt: 193# 09/2023 at PCP History: 188# 03/2024 Physical Activity: Walking to grocery store 2-3x per week. Plans to restart PT for shoulder. Self-Monitoring Blood Glucose: No longer checking FBG due to stage of change contemplation/relapse. Having a difficult time getting this going again. Diabetes Medications: Glipizide 5 ER BID Metformin 2000mg Pioglitizone 15mg Jardiance 25mg Pertinent Labs: HgA1c: 10.1% 09/2022 6.8% 12/2022 8.9% 03/2023 7.7% 08/2023 Past Medical History: (Last Reviewed 09/27/23 @ 11:14 by Beto Solomon DO) Adhesive capsulitis Borderline personality disorder Depression Diabetes mellitus Hypertension Pancreatitis Psoriasis Right knee pain Right shoulder pain Skin tag Nutrition Rx: Carbohydrates: Meal:45g Snack:15-30g Nutrition Diagnosis: Inconsistent fiber intake r/t veggies x 1 per day aeb diet recall- in progress Physical inactivity r/t stage of change contemplative aeb pt report- continue Inadequate fluid intake r/t food access for water flavoring aeb pt report- improved Food insecurity r/t limited income, unaware of road opening, and waiting on EBT aeb pt report - improved Intervention: This participant was very receptive. Provided appropriate educational handouts. Discussed the following topics: Discussed importance of some FBG to see how Jardiance may be improving BG Reviewed action and recommendations when taking Jardiance Strategies around increasing veggies with cost and preference in mind Hydration recommendations Created SMART goals for patient self-care and success. Goals: If pharmacy does not have Jardiance, call RD to brainstorm next step- d/c Call insurance for therapy options- not met Restart FBG checks- not met/continue Aim for 1-1.5 L water per day- new Discuss vegetables with - new Follow-up: YURIY DEGROOT follow-up in 4-6 weeks Monserrat Bruce RDN, [facility] Certified Diabetes Care and Interchange Agent P: [phone] Thank you for this referral
== END ==
PROVIDERS: Family Provider Family Medicine; PCP Family Medicine; Referring Provider Family Medicine
DX: E11.9 Type 2 diabetes mellitus without complications (principal); Z79.84 Long term (current) use of oral hypoglycemic drugs; Z71.3 Dietary counseling and surveillance
CPT/HCPCS: G0270

== ENCOUNTER → 2023-11-19 13:04 | Outpatient (CLI) | payer MEDICARE, MEDICAID, SELFPAY ==
[2020-12-20 14:15] VITALS: BMI 30.3
[2023-11-19 14:17] LABS: Influenza A - CEPHEID Flu A NEGATIVE (NEGATIVE); Influenza B - CEPHEID Flu B NEGATIVE (NEGATIVE); Respiratory Syncytial Virus Negative (Negative)
[2023-11-19 14:32] LABS: COVID-19 CEPHEID 4-PLEX PCR POSITIVE (Negative)
== END ==
PROVIDERS: Family Provider Family Medicine; PCP Family Medicine; Visit Provider Registered Nurse
DX: R05.1 Acute cough (principal)
CPT/HCPCS: 0241U

== ENCOUNTER 2024-01-08 13:45 | Outpatient (RCR) | payer MEDICARE, MEDICAID, SELFPAY ==
[2020-12-20 14:15] VITALS: BMI 30.3
--- NOTE | 2023-10-23 18:18 | PT.OIE ---
Current Diagnoses Pain in right shoulder (10/23/23) Muscle weakness (generalized) (10/23/23) Adhesive capsulitis of unspecified shoulder (10/23/23) Past Medical History (Last Reviewed 09/27/23 @ 11:14 by Beto Solomon DO) Adhesive capsulitis Borderline personality disorder Depression Diabetes mellitus Hypertension Pancreatitis Psoriasis Right knee pain Right shoulder pain Skin tag Visit Care Team Role Provider Type Beto Solomon DO Attending Provider Physician Family Provider Primary Care Provider Referring Provider Specialty: Family Practice Address: [address] [place] [address] Email: [email or web address] [facility] Initial Evaluation PT-OP-A Visit Information Start: 10/16/23 20:36 Freq: Status: Active Protocol: Document 10/23/23 14:50 LRN (Rec: 10/23/23 14:25 LRN [id number]) Out-Patient Physical Therapy Visit Information Visit Information Visit Type Initial Evaluation Visit Start Time 14:34 Visit Stop Time 15:17 Visit Number Evaluation Information Evaluation Date 10/23/23 Precautions Precautions PMH: Diabetes type II PT-OP-B Current Condition Start: 10/16/23 20:36 Freq: Status: Active Protocol: Document 10/23/23 14:50 LRN (Rec: 10/23/23 14:25 LRN [id number]) Current Condition History of Current Condition Onset Date 08/04 Current Complaints R shoulder pain when carrying heavy weight (6pk soda) History of Current Condition Pt reports he noticed onset of R shoulder pain after carrying 2-3 6 packs of soda home from grocery store. He states his pain varies in intensity and is intermittent depending on if he is carrying a heavy weight. His pain is present in the R shoulder anteriorly and sometimes in the axiall region and the inferior brachium. Prior Treatments and Tests Physical therapy at , for R shoulder strain that pt did not complete. Treatment Goals Patient/Caregiver Goals Pt goals: Decrease R shoulder pain to carry a 6 pk of soda without pain. Decrease the contant pain. Agreeable to HEP. Personal Factors Other Personal Factors That May Effect Diabetes type II Therapy/Recovery PT-OP-C Subjective Start: 10/16/23 20:36 Freq: Status: Active Protocol: Document 10/23/23 14:50 LRN (Rec: 10/23/23 14:25 LRN [id number]) Patient Questionnaires Quick Dash- Upper Extremity Quick Dash UE Score 22.7 Quick Dash UE Impairment 20 to 39% Impaired (Score 20- 39) OP-PT Pain Assessment Pain Assessment Grid Paper Pain Assessment Grid Completed Yes Location R shoulder Pain Location Details Anterior/Infer shoulder joint, Anter Pecs, Inferior upper arm Intensity 4 Scale Used Numeric (0 - 10) Description Aching Frequency Constant Pain Duration Pt reports constant but felt lifting/carrying heavy objects PT-OP-H Neuro Start: 10/16/23 20:36 Freq: Status: Active Protocol: Document 10/23/23 14:50 LRN (Rec: 10/23/23 14:25 LRN [id number]) Sensation Evaluation Gross Sensation Gross Sensation WNL PT-OP-J Posture/Palpation/Skin Start: 10/16/23 20:36 Freq: Status: Active Protocol: Document 10/23/23 14:50 LRN (Rec: 10/23/23 14:25 LRN [id number]) Posture Evaluation Position Standing Head/C-Spine Posture C-Spine Flattened,Forward Head T-Spine Posture Increased Kyphosis Scapula Posture (R) Depressed Arm Posture (R) Neutral,(L) Internally Rotated Weight Distribution Balanced Comments Posture Comments Upper flattened C/S. Palpation Assessment Location R posterior shoulder Palpation Location Posterior to R scapula Palpation Details Ms atrophy of infraspinatus and Teres rosalee/minor R shoulder Palpation Location R Anterior Pecs, axilla, inferior upper brachium, UT's Palpation Findings Soft Tissue Tightness, Tenderness PT-OP-K Range of Motion Start: 10/16/23 20:36 Freq: Status: Active Protocol: Document 10/23/23 14:50 LRN (Rec: 10/23/23 14:25 LRN [id number]) Cervical Spine Range of Motion Cervical Spine Active Degrees Testing Position Sitting Flexion 60 Extension 20 Rotation Left 54 Rotation Right 65 Lateral Flexion Left 25 Lateral Flexion Right 25 Comments L neck pain limiting L SB. Shoulder Goniometric Range of Motion Shoulder Left Passive Testing Position Supine Flexion 160 External Rotation at 90 degrees 90 Abduction Internal Rotation 50 Right Passive Shoulder ROM WFL No Testing Position Supine Flexion 148 External Rotation at 90 degrees 90 Abduction Internal Rotation 40 Right Active Shoulder ROM WFL No Testing Position Sitting Flexion 108 Abduction 105 External Rotation at 0 degrees Abduction 27 Left Active Shoulder ROM WFL Yes Testing Position Sitting Flexion 122 Abduction 150 External Rotation at 0 degrees Abduction 16 Elbow/Forearm Range of Motion Elbow/Forearm Right Active ROM Testing Position Sitting Left Active ROM Testing Position Sitting PT-OP-L Special Tests Start: 10/16/23 20:36 Freq: Status: Active Protocol: Document 10/23/23 14:50 LRN (Rec: 10/23/23 14:25 LRN [id number]) Special Tests Shoulder Special Tests Elevation Impingement Test Results + right & + left Comments R shoulder has greater limitation in ROM before pain onset. PT-OP-M Strength Start: 10/16/23 20:36 Freq: Status: Active Protocol: Document 10/23/23 14:50 LRN (Rec: 10/23/23 14:25 LRN [id number]) Cervical Spine Strength Cervical Spine Manual Muscle Testing Testing Position Sitting Comments Strength is generally 5/5. Pain L side of neck with MMT R SB. Shoulder Strength Shoulder Manual Muscle Testing Right Comments Strength is 5/5. Pain is present with MMT of flex (in pecs) and AB (in UT). Left Comments Strength is 5/5. Elbow/Forearm Strength Elbow and Forearm Manual Muscle Testing Right Flexion (C6) 5 Normal Left Flexion (C6) 5 Normal PT-OP-Q Treatments Start: 10/16/23 20:36 Freq: Status: Active Protocol: Document 10/23/23 14:50 LRN (Rec: 10/23/23 14:25 LRN [id number]) Therapeutic Exercises Supine Exercises Pec stretch Supine Exercise Name Shoulder V-stretch shown as pec stretch, but I/S not into pain Side right Reps/Minutes 1' Comments HEP Shoulder Flex stretch Supine Exercise Name Max tolerated shoulder Flex stretch, but I/S not into pain . Side right Reps/Minutes 1' Comments HEP Sidelying Exercises Sleeper stretch Sidelying Exercise Name Shown L side for awareness of ROM limitation to stretch Side bilateral Reps/Minutes 3' Comments HEP Self-Care/Home Management Treatment Education Other Education Discussed results of evaluation, goals, and plan of care (POC) with pt, discussed attendance/cx/dns policy; pt agreeable to goals, attendance /cx/dns policy and POC. Activities Self-Care/Home Management Activities Issued & reviewed HEP for R shoulder: Sleeper stretch, Wand ex: Supine flexion and AB stretch PT-OP-T Assessment and Plan Start: 10/16/23 20:36 Freq: Status: Active Protocol: Document 10/23/23 14:50 LRN (Rec: 10/23/23 14:25 LRN [id number]) Physical Therapy Assessment Rehab Potential Rehabilitation Potential Good Evaluation Complexity Number of Personal Factors/Comorbidities 1-2 Number of Body Systems Impaired 4 or More Clinical Presentation at Evaluation Evolving Impairments Impairments Activity Tolerance,Posture,ROM ,Soft Tissue Mobility,Strength Goals Three Impairment R shoulder pain constant when starts hurting, limiting function Impairment UE Quickdash score 22.7 (29-39 % impaired, score 20-39) Short Term Goal (STG) Pt educated in RICE technique to reduce pain with onset. STG Duration 10/30/23 Retirement Goal (LTG) Improve function with decrease in pain per UE Quickdash score of 19 or less LTG Duration 01/18/24 Two Impairment Decreased R shdr strength causing pain limiting ability to carry heavy wgt Impairment R shoulder pain limiting ability to carry a 6 pk of soda from grocery store to home due to pain. Retirement Goal (LTG) Improve R shoulder strength and decrease pain with pt able to carry a 6 pk of soda from grocery store to home without pain. LTG Duration 01/18/24 One Impairment Pt lacks appropriate self care HEP Retirement Goal (LTG) Pt will be educated in a self care HEP to manage his R shoulder pain. LTG Duration 01/18/24 Assessment Summary Assessment Pt is a 48 yo male who presents with soft tissue dysfunction of a R rotator cuff strain (most notably subscapularis) and anterior shoulder muscles, resulting in decreased R shoulder mobility and functional strength/ endurance. The pt will benefit from skilled physical therapy to achieve the above stated goals. Physical Therapy Plan Frequency and Duration Frequency of Treatment 2x/Week Duration of treatment (weeks) 12 Plan of Care Start Date 10/23/23 Plan of Care End Date 01/18/24 Therapeutic Interventions Therapeutic Interventions Home Exercise Program,Manual Therapy,Neuromuscular Re- education,Self-Care/Home Management,Soft Tissue Mobilization,Taping, Therapeutic Activities, Therapeutic Exercises Modalities Cold Pack/Ice Massage,Electric Stimulation,Hot Packs, Ultrasound Next Visit Focus/Plan Next Note Type Treatment Note Next Visit Plan Next: Test: C/S involvement. Review HEP issued, progress further exer to improve R shoulder IR and shoulder Horiz AB (pec stretch), strengthening of the shoulder in general; pt education in self care pain management, postural education (to decrease impingement mechanics ), modalities to decrease pain .
--- NOTE | 2023-10-23 18:18 | PT.OPPOC ---
Addendum entered and electronically signed by Barbara Gates, PT 10/25/23 17:21: Resending POC Original Note: Physical, Occupational & Speech Therapy At [facility] Current Diagnoses Pain in right shoulder (10/23/23) Muscle weakness (generalized) (10/23/23) Adhesive capsulitis of unspecified shoulder (10/23/23) Visit Care Team Role Provider Type Beto Solomon DO Attending Provider Physician Family Provider Primary Care Provider Referring Provider Specialty: Family Practice Address: [address] [place] [address], [facility] Email: [email or web address] Of Care PT-OP-T Assessment and Plan Start: 10/16/23 20:36 Freq: Status: Active Protocol: Document 10/23/23 14:50 LRN (Rec: 10/23/23 14:25 LRN [id number]) Physical Therapy Assessment Rehab Potential Rehabilitation Potential Good Evaluation Complexity Number of Personal Factors/Comorbidities 1-2 Number of Body Systems Impaired 4 or More Clinical Presentation at Evaluation Evolving Impairments Impairments Activity Tolerance,Posture,ROM ,Soft Tissue Mobility,Strength Goals Three Impairment R shoulder pain constant when starts hurting, limiting function Impairment UE Quickdash score 22.7 (29-39 % impaired, score 20-39) Short Term Goal (STG) Pt educated in RICE technique to reduce pain with onset. STG Duration 10/30/23 Correction Goal (LTG) Improve function with decrease in pain per UE Quickdash score of 19 or less LTG Duration 01/18/24 Two Impairment Decreased R shdr strength causing pain limiting ability to carry heavy wgt Impairment R shoulder pain limiting ability to carry a 6 pk of soda from grocery store to home due to pain. Adoption Social Worker Goal (LTG) Improve R shoulder strength and decrease pain with pt able to carry a 6 pk of soda from grocery store to home without pain. LTG Duration 01/18/24 One Impairment Pt lacks appropriate self care HEP Adoption Social Worker Goal (LTG) Pt will be educated in a self care HEP to manage his R shoulder pain. LTG Duration 01/18/24 Assessment Summary Assessment Pt is a 48 yo male who presents with soft tissue dysfunction of a R rotator cuff strain (most notably subscapularis) and anterior shoulder muscles, resulting in decreased R shoulder mobility and functional strength/ endurance. The pt will benefit from skilled physical therapy to achieve the above stated goals. Physical Therapy Plan Frequency and Duration Frequency of Treatment 2x/Week Duration of treatment (weeks) 12 Plan of Care Start Date 10/23/23 Plan of Care End Date 01/18/24 Therapeutic Interventions Therapeutic Interventions Home Exercise Program,Manual Therapy,Neuromuscular Re- education,Self-Care/Home Management,Soft Tissue Mobilization,Taping, Therapeutic Activities, Therapeutic Exercises Modalities Cold Pack/Ice Massage,Electric Stimulation,Hot Packs, Ultrasound Next Visit Focus/Plan Next Note Type Treatment Note Next Visit Plan Next: Test: C/S involvement. Review HEP issued, progress further exer to improve R shoulder IR and shoulder Horiz AB (pec stretch), strengthening of the shoulder in general; pt education in self care pain management, postural education (to decrease impingement mechanics ), modalities to decrease pain . Plan of Care Dates Plan of Care Start Date 10/23/23 Plan of Care End Date 01/18/24 Electronically Signed by: Barbara Gates, PT 10/23/23 2302 If you are in agreement with this Plan of Care, please return a signed and dated copy. I have reviewed this Plan of Care and certify that the skilled therapy services above are required to meet the patient?s needs. Physician Signature Date Printed Name and Credentials Clinical Instructor Signature Printed Name and Credentials
--- NOTE | 2023-10-26 15:36 | PT.OTN ---
Current Diagnoses Pain in right shoulder (10/26/23) Muscle weakness (generalized) (10/26/23) Adhesive capsulitis of unspecified shoulder (10/26/23) Physical Therapy Treatment Note PT-OP-A Visit Information Start: 10/16/23 20:36 Freq: Status: Active Protocol: Document 10/26/23 14:32 LRN (Rec: 10/26/23 15:36 LRN [id number]) Out-Patient Physical Therapy Visit Information Visit Information Visit Type Treatment Note Visit Start Time 14:32 Visit Stop Time 15:18 Visit Number 2 Evaluation Information Evaluation Date 10/23/23 Precautions Precautions PMH: Diabetes type II PT-OP-B Current Condition Start: 10/16/23 20:36 Freq: Status: Active Protocol: Document 10/23/23 14:50 LRN (Rec: 10/23/23 14:25 LRN [id number]) Current Condition History of Current Condition Onset Date 08/04 Current Complaints R shoulder pain when carrying heavy weight (6pk soda) History of Current Condition Pt reports he noticed onset of R shoulder pain after carrying 2-3 6 packs of soda home from grocery store. He states his pain varies in intensity and is intermittent depending on if he is carrying a heavy weight. His pain is present in the R shoulder anteriorly and sometimes in the axiall region and the inferior brachium. Prior Treatments and Tests Physical therapy at , for R shoulder strain that pt did not complete. Treatment Goals Patient/Caregiver Goals Pt goals: Decrease R shoulder pain to carry a 6 pk of soda without pain. Decrease the contant pain. Agreeable to HEP. Personal Factors Other Personal Factors That May Effect Diabetes type II Therapy/Recovery PT-OP-C Subjective Start: 10/16/23 20:36 Freq: Status: Active Protocol: Document 10/26/23 14:32 LRN (Rec: 10/26/23 15:36 LRN [id number]) OP-PT Subjective Patient Comments Patient Comments Didn't know how many times to do the ex's. Thougt PT-OP-H Neuro Start: 10/16/23 20:36 Freq: Status: Active Protocol: Document 10/23/23 14:50 LRN (Rec: 10/23/23 14:25 LRN [id number]) Sensation Evaluation Gross Sensation Gross Sensation WNL PT-OP-J Posture/Palpation/Skin Start: 10/16/23 20:36 Freq: Status: Active Protocol: Document 10/23/23 14:50 LRN (Rec: 10/23/23 14:25 LRN [id number]) Posture Evaluation Position Standing Head/C-Spine Posture C-Spine Flattened,Forward Head T-Spine Posture Increased Kyphosis Scapula Posture (R) Depressed Arm Posture (R) Neutral,(L) Internally Rotated Weight Distribution Balanced Comments Posture Comments Upper flattened C/S. Palpation Assessment Location R posterior shoulder Palpation Location Posterior to R scapula Palpation Details Ms atrophy of infraspinatus and Teres rosalee/minor R shoulder Palpation Location R Anterior Pecs, axilla, inferior upper brachium, UT's Palpation Findings Soft Tissue Tightness, Tenderness PT-OP-K Range of Motion Start: 10/16/23 20:36 Freq: Status: Active Protocol: Document 10/23/23 14:50 LRN (Rec: 10/23/23 14:25 LRN [id number]) Cervical Spine Range of Motion Cervical Spine Active Degrees Testing Position Sitting Flexion 60 Extension 20 Rotation Left 54 Rotation Right 65 Lateral Flexion Left 25 Lateral Flexion Right 25 Comments L neck pain limiting L SB. Shoulder Goniometric Range of Motion Shoulder Left Passive Testing Position Supine Flexion 160 External Rotation at 90 degrees 90 Abduction Internal Rotation 50 Right Passive Shoulder ROM WFL No Testing Position Supine Flexion 148 External Rotation at 90 degrees 90 Abduction Internal Rotation 40 Right Active Shoulder ROM WFL No Testing Position Sitting Flexion 108 Abduction 105 External Rotation at 0 degrees Abduction 27 Left Active Shoulder ROM WFL Yes Testing Position Sitting Flexion 122 Abduction 150 External Rotation at 0 degrees Abduction 16 Elbow/Forearm Range of Motion Elbow/Forearm Right Active ROM Testing Position Sitting Left Active ROM Testing Position Sitting PT-OP-L Special Tests Start: 10/16/23 20:36 Freq: Status: Active Protocol: Document 10/26/23 14:32 LRN (Rec: 10/26/23 15:36 LRN [id number]) Special Tests Cervical Spine Special Tests Spurling's Test Test Results negative Comments No change in R shoulder pain Vertebral Artery Comments Limited mobility of rot due to cervical discomfort and stretch opp side. Traction Test Results ? Comments Caused burning at R shoulder Foraminal Compression Test Results negative Comments No significant change in R shoulder symptoms PT-OP-M Strength Start: 10/16/23 20:36 Freq: Status: Active Protocol: Document 10/23/23 14:50 LRN (Rec: 10/23/23 14:25 LRN [id number]) Cervical Spine Strength Cervical Spine Manual Muscle Testing Testing Position Sitting Comments Strength is generally 5/5. Pain L side of neck with MMT R SB. Shoulder Strength Shoulder Manual Muscle Testing Right Comments Strength is 5/5. Pain is present with MMT of flex (in pecs) and AB (in UT). Left Comments Strength is 5/5. Elbow/Forearm Strength Elbow and Forearm Manual Muscle Testing Right Flexion (C6) 5 Normal Left Flexion (C6) 5 Normal PT-OP-Q Treatments Start: 10/16/23 20:36 Freq: Status: Active Protocol: Document 10/26/23 14:32 LRN (Rec: 10/26/23 15:36 LRN [id number]) Therapeutic Exercises Supine Exercises Neck Rot & ant scalene stretch Supine Exercise Name C. Rot and C. rot with arm in football goal post position Side right Reps/Minutes 5 SH x 3 Neck SB stretch Supine Exercise Name Stretch to R side of neck Side left Reps/Minutes 10 SH x 10 (7') Comments Extra time needed to train pt and deter max tolerated stretch. Pec stretch Supine Exercise Name Single shdr V-stretch as pec stretch, but I/S not into pain Side right Reps/Minutes 5 SH x 10 (9') Comments HEP. Cued to breath with hold Shoulder Flex stretch Supine Exercise Name Max tolerated shoulder Flex stretch, but I/S not into pain . Side right Reps/Minutes 10 SH x 10 (6') Comments HEP Sidelying Exercises Sleeper stretch Sidelying Exercise Name 1st Checked L side for mvmt norm, then stretched R side Side bilateral Reps/Minutes 10 SH x 10 Therapeutic Activity Therapeutic Activity Sitting posture training Name Sitting posture education/ training Reps/Minutes 8' Comments Handout issued and reviewed, and trained in several positions (unsupported sitting , chair sitting, discussion of his rand chair sitting). Self-Care/Home Management Treatment Education Patient Education Home Exercise Program,Pain Management,Posture Other Education Pt educated in RICE technique to reduce pain. Activities Self-Care/Home Management Activities Handouts issued and reviewed: Posture sitting/standing and pain management RICE technique . PT-OP-T Assessment and Plan Start: 10/16/23 20:36 Freq: Status: Active Protocol: Document 10/26/23 14:32 LRN (Rec: 10/26/23 15:36 LRN [id number]) Physical Therapy Assessment Goals Three Impairment R shoulder pain constant when starts hurting, limiting function Impairment UE Quickdash score 22.7 (29-39 % impaired, score 20-39) Short Term Goal (STG) Pt educated in RICE technique to reduce pain with onset. 10/26/23: Pt educated in RICE technique. STG Duration 10/30/23 (10/26/23: MET GOAL) Hvac Tech Goal (LTG) Improve function with decrease in pain per UE Quickdash score of 19 or less LTG Duration 01/18/24 Two Impairment Decreased R shdr strength causing pain limiting ability to carry heavy wgt Impairment R shoulder pain limiting ability to carry a 6 pk of soda from grocery store to home due to pain. Hvac Tech Goal (LTG) Improve R shoulder strength and decrease pain with pt able to carry a 6 pk of soda from grocery store to home without pain. LTG Duration 01/18/24 One Impairment Pt lacks appropriate self care HEP Care Home Goal (LTG) Pt will be educated in a self care HEP to manage his R shoulder pain. 10/26/23: HEP: Neck L SB stretch. (late entry of HEP issued 10/23/23: HEP for R shoulder: Sleeper stretch, Wand ex: Supine flexion and AB stretch). LTG Duration 01/18/24 (progressed ) Assessment Summary Assessment Pt is a 48 yo male who presents with soft tissue dysfunction of a R rotator cuff strain (most notably subscapularis) and anterior shoulder muscles, resulting in decreased R shoulder mobility and functional strength/ endurance. Pt moves slowly through the stretches and needs extra time to complete ex's. His R shoulder no longer appears fwd in supine, but demonstrates poor posturing of shoulder in sitting unless cued. Postural ex's are needed. Physical Therapy Plan Frequency and Duration Frequency of Treatment 2x/Week Duration of treatment (weeks) 12 Plan of Care Start Date 10/23/23 Plan of Care End Date 01/18/24 Next Visit Focus/Plan Next Note Type Treatment Note Next Visit Plan Next: Check Upper limb tension. Progress further exer to improve ROM for R shoulder IR and shoulder Horiz AB (pec stretch), strengthening of the shoulder in general and scapular stabilizers, modalities to decrease pain if needed.
--- NOTE | 2023-10-30 15:34 | PT.OTN ---
Current Diagnoses Pain in right shoulder (10/30/23) Muscle weakness (generalized) (10/30/23) Adhesive capsulitis of unspecified shoulder (10/30/23) Physical Therapy Treatment Note PT-OP-A Visit Information Start: 10/16/23 20:36 Freq: Status: Active Protocol: Document 10/30/23 14:31 AB (Rec: 10/30/23 15:34 AB [id number]) Out-Patient Physical Therapy Visit Information Visit Information Visit Type Treatment Note Visit Note Visit [email or web address] Access Code: [email or web address] Visit Start Time 14:34 Visit Stop Time 15:13 Visit Number Evaluation Information Evaluation Date 10/23/23 Precautions Precautions PMH: Diabetes type II PT-OP-B Current Condition Start: 10/16/23 20:36 Freq: Status: Active Protocol: Document 10/23/23 14:50 LRN (Rec: 10/23/23 14:25 LRN [id number]) Current Condition History of Current Condition Onset Date 08/04 Current Complaints R shoulder pain when carrying heavy weight (6pk soda) History of Current Condition Pt reports he noticed onset of R shoulder pain after carrying 2-3 6 packs of soda home from grocery store. He states his pain varies in intensity and is intermittent depending on if he is carrying a heavy weight. His pain is present in the R shoulder anteriorly and sometimes in the axiall region and the inferior brachium. Prior Treatments and Tests Physical therapy at , for R shoulder strain that pt did not complete. Treatment Goals Patient/Caregiver Goals Pt goals: Decrease R shoulder pain to carry a 6 pk of soda without pain. Decrease the contant pain. Agreeable to HEP. Personal Factors Other Personal Factors That May Effect Diabetes type II Therapy/Recovery PT-OP-C Subjective Start: 10/16/23 20:36 Freq: Status: Active Protocol: Document 10/30/23 14:31 AB (Rec: 10/30/23 15:34 AB [id number]) OP-PT Subjective Patient Comments Patient Comments Patient reports his shoulder is the same, comments the exercise are making it feel better, feels stretched sore not pain. Hand behind back to right glute/right UE, and + ulnar nerve test PT-OP-H Neuro Start: 10/16/23 20:36 Freq: Status: Active Protocol: Document 10/23/23 14:50 LRN (Rec: 10/23/23 14:25 LRN [id number]) Sensation Evaluation Gross Sensation Gross Sensation WNL PT-OP-J Posture/Palpation/Skin Start: 10/16/23 20:36 Freq: Status: Active Protocol: Document 10/23/23 14:50 LRN (Rec: 10/23/23 14:25 LRN [id number]) Posture Evaluation Position Standing Head/C-Spine Posture C-Spine Flattened,Forward Head T-Spine Posture Increased Kyphosis Scapula Posture (R) Depressed Arm Posture (R) Neutral,(L) Internally Rotated Weight Distribution Balanced Comments Posture Comments Upper flattened C/S. Palpation Assessment Location R posterior shoulder Palpation Location Posterior to R scapula Palpation Details Ms atrophy of infraspinatus and Teres rosalee/minor R shoulder Palpation Location R Anterior Pecs, axilla, inferior upper brachium, UT's Palpation Findings Soft Tissue Tightness, Tenderness PT-OP-K Range of Motion Start: 10/16/23 20:36 Freq: Status: Active Protocol: Document 10/23/23 14:50 LRN (Rec: 10/23/23 14:25 LRN [id number]) Cervical Spine Range of Motion Cervical Spine Active Degrees Testing Position Sitting Flexion 60 Extension 20 Rotation Left 54 Rotation Right 65 Lateral Flexion Left 25 Lateral Flexion Right 25 Comments L neck pain limiting L SB. Shoulder Goniometric Range of Motion Shoulder Left Passive Testing Position Supine Flexion 160 External Rotation at 90 degrees 90 Abduction Internal Rotation 50 Right Passive Shoulder ROM WFL No Testing Position Supine Flexion 148 External Rotation at 90 degrees 90 Abduction Internal Rotation 40 Right Active Shoulder ROM WFL No Testing Position Sitting Flexion 108 Abduction 105 External Rotation at 0 degrees Abduction 27 Left Active Shoulder ROM WFL Yes Testing Position Sitting Flexion 122 Abduction 150 External Rotation at 0 degrees Abduction 16 Elbow/Forearm Range of Motion Elbow/Forearm Right Active ROM Testing Position Sitting Left Active ROM Testing Position Sitting PT-OP-L Special Tests Start: 10/16/23 20:36 Freq: Status: Active Protocol: Document 10/26/23 14:32 LRN (Rec: 10/26/23 15:36 LRN [id number]) Special Tests Cervical Spine Special Tests Spurling's Test Test Results negative Comments No change in R shoulder pain Vertebral Artery Comments Limited mobility of rot due to cervical discomfort and stretch opp side. Traction Test Results ? Comments Caused burning at R shoulder Foraminal Compression Test Results negative Comments No significant change in R shoulder symptoms PT-OP-M Strength Start: 10/16/23 20:36 Freq: Status: Active Protocol: Document 10/23/23 14:50 LRN (Rec: 10/23/23 14:25 LRN [id number]) Cervical Spine Strength Cervical Spine Manual Muscle Testing Testing Position Sitting Comments Strength is generally 5/5. Pain L side of neck with MMT R SB. Shoulder Strength Shoulder Manual Muscle Testing Right Comments Strength is 5/5. Pain is present with MMT of flex (in pecs) and AB (in UT). Left Comments Strength is 5/5. Elbow/Forearm Strength Elbow and Forearm Manual Muscle Testing Right Flexion (C6) 5 Normal Left Flexion (C6) 5 Normal PT-OP-Q Treatments Start: 10/16/23 20:36 Freq: Status: Active Protocol: Document 10/30/23 14:31 AB (Rec: 10/30/23 15:34 AB [id number]) Therapeutic Exercises Sidelying Exercises sidelying shoulder IR AROM Sidelying Exercise Name HEP Side right Reps/Minutes X15 Comments verbal and tactile cues HEP sidelying shoulder ER Sidelying Exercise Name AROM Side right Reps/Minutes X10 Comments verbal and tactile cues Sleeper stretch Sidelying Exercise Name 1st Checked L side for mvmt norm, then stretched R side Side right Reps/Minutes X10 for 10 seconds Standing Exercises ulnar nerve glide Standing Exercise Name HEP Side right Reps/Minutes X5 Comments added head sidebend away from UE cheerleaders Standing Exercise Name HEP horizontal abduction, diagonal left UE upward, diagnoal right UE upward Resistance Level one band Reps/Minutes X8 each direction Comments Verbal and visual cues HEP Manual Therapy Treatment Soft Tissue Mobilization right shoulder Body Location pec, post cuff, periscapular muscles Mobilization Type Cross-Friction,Rolling, Sustained Pressure Intensity/Depth Moderate Body Position Hooklying Comments and sidelying, monitored for pain Joint Mobilizations right scapula Direction into adduction and depression Grade III Body Position Sidelying Reps/Duration X10 each Comments monitored for pain repeated cues to relax UE PT-OP-T Assessment and Plan Start: 10/16/23 20:36 Freq: Status: Active Protocol: Document 10/30/23 14:31 AB (Rec: 10/30/23 15:34 AB [id number]) Physical Therapy Assessment Goals Three Impairment R shoulder pain constant when starts hurting, limiting function Impairment UE Quickdash score 22.7 (29-39 % impaired, score 20-39) Short Term Goal (STG) Pt educated in RICE technique to reduce pain with onset. 10/26/23: Pt educated in RICE technique. STG Duration 10/30/23 (10/26/23: MET GOAL) Long-Term Goal (LTG) Improve function with decrease in pain per UE Quickdash score of 19 or less LTG Duration 01/18/24 Two Impairment Decreased R shdr strength causing pain limiting ability to carry heavy wgt Impairment R shoulder pain limiting ability to carry a 6 pk of soda from grocery store to home due to pain. Long-Term Goal (LTG) Improve R shoulder strength and decrease pain with pt able to carry a 6 pk of soda from grocery store to home without pain. LTG Duration 01/18/24 One Impairment Pt lacks appropriate self care HEP Poultry Inspector Goal (LTG) Pt will be educated in a self care HEP to manage his R shoulder pain. 10/26/23: HEP: Neck L SB stretch. (late entry of HEP issued 10/23/23: HEP for R shoulder: Sleeper stretch, Wand ex: Supine flexion and AB stretch). 10/30/2023 HEP sidelying AROM IR, cheerleaders ( horizontal abd +) ulnar nerve glide LTG Duration 01/18/24 (progressed ) Assessment Summary Assessment Anurag was able to reach right UE behind back to L3 end of session, and reports feeling stretched end of session, commenting he feels like he got something done. Physical Therapy Plan Frequency and Duration Frequency of Treatment 2x/Week Duration of treatment (weeks) 12 Plan of Care Start Date 10/23/23 Plan of Care End Date 01/18/24 Next Visit Focus/Plan Next Note Type Treatment Note Next Visit Plan Next: Assess sherif to ulnar nerve glide, sidelying shoulder IR and, shoulder horizontal and diagonal pulls with level one band/possibly HEP review. strengthening of the shoulder in general ( possibly trial of isometric reactive IR and ER and scapular stabilizers (wall push up plus), modalities to decrease pain if needed.
--- NOTE | 2023-11-01 16:22 | PT.OTN ---
Current Diagnoses Pain in right shoulder (11/01/23) Muscle weakness (generalized) (11/01/23) Adhesive capsulitis of unspecified shoulder (11/01/23) Physical Therapy Treatment Note PT-OP-A Visit Information Start: 10/16/23 20:36 Freq: Status: Active Protocol: Document 11/01/23 13:22 AB (Rec: 11/01/23 16:22 AB [id number]) Out-Patient Physical Therapy Visit Information Visit Information Visit Type Treatment Note Visit Note Visit [email or web address] Access Code: [email or web address] Visit Start Time 14:33 Visit Stop Time 15:16 Visit Number [id number] Number of HOTEL ASSISTANT MANAGER Visits 2 Evaluation Information Evaluation Date 10/23/23 Precautions Precautions PMH: Diabetes type II PT-OP-B Current Condition Start: 10/16/23 20:36 Freq: Status: Active Protocol: Document 10/23/23 14:50 LRN (Rec: 10/23/23 14:25 LRN [id number]) Current Condition History of Current Condition Onset Date 08/04 Current Complaints R shoulder pain when carrying heavy weight (6pk soda) History of Current Condition Pt reports he noticed onset of R shoulder pain after carrying 2-3 6 packs of soda home from grocery store. He states his pain varies in intensity and is intermittent depending on if he is carrying a heavy weight. His pain is present in the R shoulder anteriorly and sometimes in the axiall region and the inferior brachium. Prior Treatments and Tests Physical therapy at , for R shoulder strain that pt did not complete. Treatment Goals Patient/Caregiver Goals Pt goals: Decrease R shoulder pain to carry a 6 pk of soda without pain. Decrease the contant pain. Agreeable to HEP. Personal Factors Other Personal Factors That May Effect Diabetes type II Therapy/Recovery PT-OP-C Subjective Start: 10/16/23 20:36 Freq: Status: Active Protocol: Document 11/01/23 13:22 AB (Rec: 11/01/23 16:22 AB [id number]) OP-PT Subjective Patient Comments Patient Comments Patient reports the shoulder is a little sore, carried groceries, rates soreness 1/10 start of session. Patient reports he needs to be able to carry a 12 pack. Hand behind back to L 3 start of session right UE. Midline resistance testing right UE able against fair + resistance, comments right UE feels weaker with test compared to left UE. Patient reports the nerve glide and exercise are going fine. PT-OP-H Neuro Start: 10/16/23 20:36 Freq: Status: Active Protocol: Document 10/23/23 14:50 LRN (Rec: 10/23/23 14:25 LRN [id number]) Sensation Evaluation Gross Sensation Gross Sensation WNL PT-OP-J Posture/Palpation/Skin Start: 10/16/23 20:36 Freq: Status: Active Protocol: Document 10/23/23 14:50 LRN (Rec: 10/23/23 14:25 LRN [id number]) Posture Evaluation Position Standing Head/C-Spine Posture C-Spine Flattened,Forward Head T-Spine Posture Increased Kyphosis Scapula Posture (R) Depressed Arm Posture (R) Neutral,(L) Internally Rotated Weight Distribution Balanced Comments Posture Comments Upper flattened C/S. Palpation Assessment Location R posterior shoulder Palpation Location Posterior to R scapula Palpation Details Ms atrophy of infraspinatus and Teres rosalee/minor R shoulder Palpation Location R Anterior Pecs, axilla, inferior upper brachium, UT's Palpation Findings Soft Tissue Tightness, Tenderness PT-OP-K Range of Motion Start: 10/16/23 20:36 Freq: Status: Active Protocol: Document 10/23/23 14:50 LRN (Rec: 10/23/23 14:25 LRN [id number]) Cervical Spine Range of Motion Cervical Spine Active Degrees Testing Position Sitting Flexion 60 Extension 20 Rotation Left 54 Rotation Right 65 Lateral Flexion Left 25 Lateral Flexion Right 25 Comments L neck pain limiting L SB. Shoulder Goniometric Range of Motion Shoulder Left Passive Testing Position Supine Flexion 160 External Rotation at 90 degrees 90 Abduction Internal Rotation 50 Right Passive Shoulder ROM WFL No Testing Position Supine Flexion 148 External Rotation at 90 degrees 90 Abduction Internal Rotation 40 Right Active Shoulder ROM WFL No Testing Position Sitting Flexion 108 Abduction 105 External Rotation at 0 degrees Abduction 27 Left Active Shoulder ROM WFL Yes Testing Position Sitting Flexion 122 Abduction 150 External Rotation at 0 degrees Abduction 16 Elbow/Forearm Range of Motion Elbow/Forearm Right Active ROM Testing Position Sitting Left Active ROM Testing Position Sitting PT-OP-L Special Tests Start: 10/16/23 20:36 Freq: Status: Active Protocol: Document 10/26/23 14:32 LRN (Rec: 10/26/23 15:36 LRN [id number]) Special Tests Cervical Spine Special Tests Spurling's Test Test Results negative Comments No change in R shoulder pain Vertebral Artery Comments Limited mobility of rot due to cervical discomfort and stretch opp side. Traction Test Results ? Comments Caused burning at R shoulder Foraminal Compression Test Results negative Comments No significant change in R shoulder symptoms PT-OP-M Strength Start: 10/16/23 20:36 Freq: Status: Active Protocol: Document 10/23/23 14:50 LRN (Rec: 10/23/23 14:25 LRN [id number]) Cervical Spine Strength Cervical Spine Manual Muscle Testing Testing Position Sitting Comments Strength is generally 5/5. Pain L side of neck with MMT R SB. Shoulder Strength Shoulder Manual Muscle Testing Right Comments Strength is 5/5. Pain is present with MMT of flex (in pecs) and AB (in [place]). Left Comments Strength is 5/5. Elbow/Forearm Strength Elbow and Forearm Manual Muscle Testing Right Flexion (C6) 5 Normal Left Flexion (C6) 5 Normal PT-OP-Q Treatments Start: 10/16/23 20:36 Freq: Status: Active Protocol: Document 11/01/23 13:22 AB (Rec: 11/01/23 16:22 AB [id number]) Therapeutic Exercises Sidelying Exercises sidelying shoulder IR AROM Sidelying Exercise Name HEP Side right Reps/Minutes X15 Comments verbal and tactile cues HEP sidelying shoulder ER Sidelying Exercise Name AROM Side right Reps/Minutes X10 Comments verbal and tactile cues Sleeper stretch Side right Reps/Minutes X10 for 10 seconds Comments Pt reequests review Standing Exercises shoulder taps in counter plank position Standing Exercise Name HEP Side bilateral Reps/Minutes X10 Comments Verbal and visual cues isometric reactive shoulder ER and IR Standing Exercise Name HEP Side right Resistance level one band Reps/Minutes X10 each wall push up plus Side bilateral Reps/Minutes X6 counter push up X 1 on counter Comments wrist stiffness limited left on wall, increased muscle shaking on counter ulnar nerve glide Standing Exercise Name HEP Side right Reps/Minutes X8 Comments added head sidebend away from UE cheerleaders Standing Exercise Name HEP horizontal abduction, diagonal left UE upward, diagnoal right UE upward Resistance Level one band Reps/Minutes X8 each direction Comments Verbal and visual cues HEP Manual Therapy Treatment Soft Tissue Mobilization right shoulder Body Location pec, post cuff, periscapular muscles Mobilization Type Cross-Friction,Rolling, Sustained Pressure Intensity/Depth Moderate Body Position Hooklying Comments and sidelying, monitored for pain Joint Mobilizations right scapula Direction into adduction and depression Grade III Body Position Sidelying Reps/Duration X10 each Comments monitored for pain repeated cues to relax UE Manual Techniques PROM Type right shoulder IR Body Position Hooklying Reps/Duration X4 for 15 seconds PT-OP-T Assessment and Plan Start: 10/16/23 20:36 Freq: Status: Active Protocol: Document 11/01/23 13:22 AB (Rec: 11/01/23 16:22 AB [id number]) Physical Therapy Assessment Goals Three Impairment R shoulder pain constant when starts hurting, limiting function Impairment UE Quickdash score 22.7 (29-39 % impaired, score 20-39) Short Term Goal (STG) Pt educated in RICE technique to reduce pain with onset. 10/26/23: Pt educated in RICE technique. STG Duration 10/30/23 (10/26/23: MET GOAL) Ophthalmologist Goal (LTG) Improve function with decrease in pain per UE Quickdash score of 19 or less LTG Duration 01/18/24 Two Impairment Decreased R shdr strength causing pain limiting ability to carry heavy wgt Impairment R shoulder pain limiting ability to carry a 6 pk of soda from grocery store to home due to pain. Ophthalmologist Goal (LTG) Improve R shoulder strength and decrease pain with pt able to carry a 6 pk of soda from grocery store to home without pain. 11/01/2023 Patient reports he is sore from carrying groceries today rates pain 1/ 10 right shoulder, comments he needs to carry 12 pack, has no car. LTG Duration 01/18/24 One Impairment Pt lacks appropriate self care HEP Ophthalmologist Goal (LTG) Pt will be educated in a self care HEP to manage his R shoulder pain. 10/26/23: HEP: Neck L SB stretch. (late entry of HEP issued 10/23/23: HEP for R shoulder: Sleeper stretch, Wand ex: Supine flexion and AB stretch). 10/30/2023 HEP sidelying AROM IR, cheerleaders ( horizontal abd +) ulnar nerve glide 11/01/2023 reports makes sure he does HEP, but continues to require cues to perform correctly, added isometric reactive ER and IR right shoulder and shoulder taps. LTG Duration 01/18/24 (progressed ) Assessment Summary Assessment Anurag reports he is tuckered out end of session, but part of it is from shopping and is a good tired. Push up plus not tolerated due to increased muscle shaking and wrist ROM limitations. Physical Therapy Plan Frequency and Duration Frequency of Treatment 2x/Week Duration of treatment (weeks) 12 Plan of Care Start Date 10/23/23 Plan of Care End Date 01/18/24 Next Visit Focus/Plan Next Note Type Treatment Note Next Visit Plan Next: strengthening of the shoulder in general assess sherif to trial of isometric reactive IR and ER and scapular stabilizers (wall push up plus modalities to decrease pain if needed.
--- NOTE | 2023-11-07 12:59 | PT.OTN ---
Current Diagnoses Pain in right shoulder (11/07/23) Muscle weakness (generalized) (11/07/23) Adhesive capsulitis of unspecified shoulder (11/07/23) Physical Therapy Treatment Note PT-OP-A Visit Information Start: 10/16/23 20:36 Freq: Status: Active Protocol: Document 11/07/23 08:12 AB (Rec: 11/07/23 12:59 AB [id number]) Out-Patient Physical Therapy Visit Information Visit Information Visit Type Treatment Note Visit Note Visit [email or web address] Access [email or web address]: [email or web address] Visit Start Time 09:02 Visit Stop Time 09:48 Visit Number [id number] Number of SOFTWARE DEVELOPMENT ANALYST Visits 3 Evaluation Information Evaluation Date 10/23/23 Precautions Precautions PMH: Diabetes type II PT-OP-B Current Condition Start: 10/16/23 20:36 Freq: Status: Active Protocol: Document 10/23/23 14:50 LRN (Rec: 10/23/23 14:25 LRN [id number]) Current Condition History of Current Condition Onset Date 08/04 Current Complaints R shoulder pain when carrying heavy weight (6pk soda) History of Current Condition Pt reports he noticed onset of R shoulder pain after carrying 2-3 6 packs of soda home from grocery store. He states his pain varies in intensity and is intermittent depending on if he is carrying a heavy weight. His pain is present in the R shoulder anteriorly and sometimes in the axiall region and the inferior brachium. Prior Treatments and Tests Physical therapy at , for R shoulder strain that pt did not complete. Treatment Goals Patient/Caregiver Goals Pt goals: Decrease R shoulder pain to carry a 6 pk of soda without pain. Decrease the contant pain. Agreeable to HEP. Personal Factors Other Personal Factors That May Effect Diabetes type II Therapy/Recovery PT-OP-C Subjective Start: 10/16/23 20:36 Freq: Status: Active Protocol: Document 11/07/23 08:12 AB (Rec: 11/07/23 12:59 AB [id number]) OP-PT Subjective Patient Comments Patient Comments Patient reports he is doing better, just this morning bought 5 (12 packs ) lifting them one at a time and had no pain post. Patient reports he tweaks the right shoulder 2-3 X a week. 134 deg AROM right shoulder flexion start of session. PT-OP-H Neuro Start: 10/16/23 20:36 Freq: Status: Active Protocol: Document 10/23/23 14:50 LRN (Rec: 10/23/23 14:25 LRN [id number]) Sensation Evaluation Gross Sensation Gross Sensation WNL PT-OP-J Posture/Palpation/Skin Start: 10/16/23 20:36 Freq: Status: Active Protocol: Document 10/23/23 14:50 LRN (Rec: 10/23/23 14:25 LRN [id number]) Posture Evaluation Position Standing Head/C-Spine Posture C-Spine Flattened,Forward Head T-Spine Posture Increased Kyphosis Scapula Posture (R) Depressed Arm Posture (R) Neutral,(L) Internally Rotated Weight Distribution Balanced Comments Posture Comments Upper flattened C/S. Palpation Assessment Location R posterior shoulder Palpation Location Posterior to R scapula Palpation Details Ms atrophy of infraspinatus and Teres rosalee/minor R shoulder Palpation Location R Anterior Pecs, axilla, inferior upper brachium, UT's Palpation Findings Soft Tissue Tightness, Tenderness PT-OP-K Range of Motion Start: 10/16/23 20:36 Freq: Status: Active Protocol: Document 10/23/23 14:50 LRN (Rec: 10/23/23 14:25 LRN [id number]) Cervical Spine Range of Motion Cervical Spine Active Degrees Testing Position Sitting Flexion 60 Extension 20 Rotation Left 54 Rotation Right 65 Lateral Flexion Left 25 Lateral Flexion Right 25 Comments L neck pain limiting L SB. Shoulder Goniometric Range of Motion Shoulder Left Passive Testing Position Supine Flexion 160 External Rotation at 90 degrees 90 Abduction Internal Rotation 50 Right Passive Shoulder ROM WFL No Testing Position Supine Flexion 148 External Rotation at 90 degrees 90 Abduction Internal Rotation 40 Right Active Shoulder ROM WFL No Testing Position Sitting Flexion 108 Abduction 105 External Rotation at 0 degrees Abduction 27 Left Active Shoulder ROM WFL Yes Testing Position Sitting Flexion 122 Abduction 150 External Rotation at 0 degrees Abduction 16 Elbow/Forearm Range of Motion Elbow/Forearm Right Active ROM Testing Position Sitting Left Active ROM Testing Position Sitting PT-OP-L Special Tests Start: 10/16/23 20:36 Freq: Status: Active Protocol: Document 10/26/23 14:32 LRN (Rec: 10/26/23 15:36 LRN [id number]) Special Tests Cervical Spine Special Tests Spurling's Test Test Results negative Comments No change in R shoulder pain Vertebral Artery Comments Limited mobility of rot due to cervical discomfort and stretch opp side. Traction Test Results ? Comments Caused burning at R shoulder Foraminal Compression Test Results negative Comments No significant change in R shoulder symptoms PT-OP-M Strength Start: 10/16/23 20:36 Freq: Status: Active Protocol: Document 10/23/23 14:50 LRN (Rec: 10/23/23 14:25 LRN [id number]) Cervical Spine Strength Cervical Spine Manual Muscle Testing Testing Position Sitting Comments Strength is generally 5/5. Pain L side of neck with MMT R SB. Shoulder Strength Shoulder Manual Muscle Testing Right Comments Strength is 5/5. Pain is present with MMT of flex (in pecs) and AB (in UT). Left Comments Strength is 5/5. Elbow/Forearm Strength Elbow and Forearm Manual Muscle Testing Right Flexion (C6) 5 Normal Left Flexion (C6) 5 Normal PT-OP-Q Treatments Start: 10/16/23 20:36 Freq: Status: Active Protocol: Document 11/07/23 08:12 AB (Rec: 11/07/23 12:59 AB [id number]) Cardio Equipment Upper Body Ergometer (UBE) Duration (Minutes) 4 RPM 75 Height 7 Other 2' fwd/bkwd in standing Therapeutic Exercises Sidelying Exercises sidelying shoulder IR AROM Sidelying Exercise Name HEP Side right Reps/Minutes X15 Comments verbal and tactile cues HEP sidelying shoulder ER Sidelying Exercise Name AROM Side right Reps/Minutes X10 Comments verbal and tactile cues Sleeper stretch Side right Reps/Minutes 60 sec X 3 Standing Exercises isometric reactive shoulder ER and IR Standing Exercise Name AROM to HEP wall push up plus Standing Exercise Name HEP Side bilateral Reps/Minutes X5 on wall Comments wrist stiffness limited left on wall, increased muscle shaking on counter Manual Therapy Treatment Consent Patient gave verbal consent for manual Yes treatment Soft Tissue Mobilization right shoulder Body Location pec, post cuff, periscapular muscles Mobilization Type Cross-Friction,Rolling, Sustained Pressure Intensity/Depth Moderate Body Position Hooklying Comments and sidelying, monitored for pain Joint Mobilizations right scapula Direction into adduction and depression Grade III Body Position Sidelying Reps/Duration X10 each Comments monitored for pain repeated cues to relax UE PT-OP-T Assessment and Plan Start: 10/16/23 20:36 Freq: Status: Active Protocol: Document 11/07/23 08:12 AB (Rec: 11/07/23 12:59 AB [id number]) Physical Therapy Assessment Goals Three Impairment R shoulder pain constant when starts hurting, limiting function Impairment UE Quickdash score 22.7 (29-39 % impaired, score 20-39) Short Term Goal (STG) Pt educated in RICE technique to reduce pain with onset. 10/26/23: Pt educated in RICE technique. STG Duration 10/30/23 (10/26/23: MET GOAL) Penitentiary Goal (LTG) Improve function with decrease in pain per UE Quickdash score of 19 or less LTG Duration 01/18/24 Two Impairment Decreased R shdr strength causing pain limiting ability to carry heavy wgt Impairment R shoulder pain limiting ability to carry a 6 pk of soda from grocery store to home due to pain. Penitentiary Goal (LTG) Improve R shoulder strength and decrease pain with pt able to carry a 6 pk of soda from grocery store to home without pain. 11/01/2023 Patient reports he is sore from carrying groceries today rates pain 1/ 10 right shoulder, comments he needs to carry 12 pack, has no car. 11/07/2023 bought 5 (12 packs ) lifting them one at a time and had no pain post. LTG Duration 01/18/24 One Impairment Pt lacks appropriate self care HEP Liquid Compounder Goal (LTG) Pt will be educated in a self care HEP to manage his R shoulder pain. 10/26/23: HEP: Neck L SB stretch. (late entry of HEP issued 10/23/23: HEP for R shoulder: Sleeper stretch, Wand ex: Supine flexion and AB stretch). 10/30/2023 HEP sidelying AROM IR, cheerleaders ( horizontal abd +) ulnar nerve glide 11/01/2023 reports makes sure he does HEP, but continues to require cues to perform correctly, added isometric reactive ER and IR right shoulder and shoulder taps. 11/07/2023 progressed to ER and IR AROM from isometric reactive shoulder ER and IR on HEP. Also LTG Duration 01/18/24 (progressed ) Assessment Summary Assessment 138 deg AROM right shoulder flexion end of session, with patient into session with reports of increased tolerance to lifting 12 packs. Functional mobility improving, ROM not yet WNL, muscle shaking noted with shoulder IR strengthening with level one band and limited repetitions. Physical Therapy Plan Frequency and Duration Frequency of Treatment 2x/Week Duration of treatment (weeks) 12 Plan of Care Start Date 10/23/23 Plan of Care End Date 01/18/24 Next Visit Focus/Plan Next Note Type Treatment Note Next Visit Plan Next: HEP review as needed, progress strengthening of the shoulder in general and scapular stabilizers, modalities to decrease pain if needed. [ End ]
--- NOTE | 2023-11-27 14:30 | PT.OTN ---
Current Diagnoses Pain in right shoulder (11/27/23) Muscle weakness (generalized) (11/27/23) Adhesive capsulitis of unspecified shoulder (11/27/23) Physical Therapy Treatment Note PT-OP-A Visit Information Start: 10/16/23 20:36 Freq: Status: Active Protocol: Document 11/27/23 13:48 LRN (Rec: 11/27/23 14:30 LRN [id number]) Out-Patient Physical Therapy Visit Information Visit Information Visit Type Treatment Note Visit Start Time 13:48 Visit Stop Time 14:28 Visit Number Evaluation Information Evaluation Date 10/23/23 Precautions Precautions PMH: Diabetes type II PT-OP-B Current Condition Start: 10/16/23 20:36 Freq: Status: Active Protocol: Document 10/23/23 14:50 LRN (Rec: 10/23/23 14:25 LRN [id number]) Current Condition History of Current Condition Onset Date 08/04 Current Complaints R shoulder pain when carrying heavy weight (6pk soda) History of Current Condition Pt reports he noticed onset of R shoulder pain after carrying 2-3 6 packs of soda home from grocery store. He states his pain varies in intensity and is intermittent depending on if he is carrying a heavy weight. His pain is present in the R shoulder anteriorly and sometimes in the axiall region and the inferior brachium. Prior Treatments and Tests Physical therapy at , for R shoulder strain that pt did not complete. Treatment Goals Patient/Caregiver Goals Pt goals: Decrease R shoulder pain to carry a 6 pk of soda without pain. Decrease the contant pain. Agreeable to HEP. Personal Factors Other Personal Factors That May Effect Diabetes type II Therapy/Recovery PT-OP-C Subjective Start: 10/16/23 20:36 Freq: Status: Active Protocol: Document 11/27/23 13:48 LRN (Rec: 11/27/23 14:30 LRN [id number]) OP-PT Subjective Patient Comments Patient Comments Hasn't had pain in R shoulder for a week, but has been getting over COVID on the tail end of illness. PT-OP-H Neuro Start: 10/16/23 20:36 Freq: Status: Active Protocol: Document 10/23/23 14:50 LRN (Rec: 10/23/23 14:25 LRN [id number]) Sensation Evaluation Gross Sensation Gross Sensation WNL PT-OP-J Posture/Palpation/Skin Start: 10/16/23 20:36 Freq: Status: Active Protocol: Document 10/23/23 14:50 LRN (Rec: 10/23/23 14:25 LR [id number]) Posture Evaluation Position Standing Head/C-Spine Posture C-Spine Flattened,Forward Head T-Spine Posture Increased Kyphosis Scapula Posture (R) Depressed Arm Posture (R) Neutral,(L) Internally Rotated Weight Distribution Balanced Comments Posture Comments Upper flattened C/S. Palpation Assessment Location R posterior shoulder Palpation Location Posterior to R scapula Palpation Details Ms atrophy of infraspinatus and Teres rosalee/minor R shoulder Palpation Location R Anterior Pecs, axilla, inferior upper brachium, UT's Palpation Findings Soft Tissue Tightness, Tenderness PT-OP-K Range of Motion Start: 10/16/23 20:36 Freq: Status: Active Protocol: Document 10/23/23 14:50 LRN (Rec: 10/23/23 14:25 LR [id number]) Cervical Spine Range of Motion Cervical Spine Active Degrees Testing Position Sitting Flexion 60 Extension 20 Rotation Left 54 Rotation Right 65 Lateral Flexion Left 25 Lateral Flexion Right 25 Comments L neck pain limiting L SB. Shoulder Goniometric Range of Motion Shoulder Left Passive Testing Position Supine Flexion 160 External Rotation at 90 degrees 90 Abduction Internal Rotation 50 Right Passive Shoulder ROM WFL No Testing Position Supine Flexion 148 External Rotation at 90 degrees 90 Abduction Internal Rotation 40 Right Active Shoulder ROM WFL No Testing Position Sitting Flexion 108 Abduction 105 External Rotation at 0 degrees Abduction 27 Left Active Shoulder ROM WFL Yes Testing Position Sitting Flexion 122 Abduction 150 External Rotation at 0 degrees Abduction 16 Elbow/Forearm Range of Motion Elbow/Forearm Right Active ROM Testing Position Sitting Left Active ROM Testing Position Sitting PT-OP-L Special Tests Start: 10/16/23 20:36 Freq: Status: Active Protocol: Document 10/26/23 14:32 LRN (Rec: 10/26/23 15:36 LR [id number]) Special Tests Cervical Spine Special Tests Spurling's Test Test Results negative Comments No change in R shoulder pain Vertebral Artery Comments Limited mobility of rot due to cervical discomfort and stretch opp side. Traction Test Results ? Comments Caused burning at R shoulder Foraminal Compression Test Results negative Comments No significant change in R shoulder symptoms PT-OP-M Strength Start: 10/16/23 20:36 Freq: Status: Active Protocol: Document 10/23/23 14:50 LRN (Rec: 10/23/23 14:25 LRN [id number]) Cervical Spine Strength Cervical Spine Manual Muscle Testing Testing Position Sitting Comments Strength is generally 5/5. Pain L side of neck with MMT R SB. Shoulder Strength Shoulder Manual Muscle Testing Right Comments Strength is 5/5. Pain is present with MMT of flex (in pecs) and AB (in [place]). Left Comments Strength is 5/5. Elbow/Forearm Strength Elbow and Forearm Manual Muscle Testing Right Flexion (C6) 5 Normal Left Flexion (C6) 5 Normal PT-OP-Q Treatments Start: 10/16/23 20:36 Freq: Status: Active Protocol: Document 11/27/23 13:48 LRN (Rec: 11/27/23 14:30 LRN [id number]) Cardio Equipment Upper Body Ergometer (UBE) Duration (Minutes) 5 RPM 75 Height 7 Other 2' fwd/bkwd in standing Therapeutic Exercises Sidelying Exercises sidelying shoulder IR AROM Sidelying Exercise Name HEP Side right Equipment Used 1# Reps/Minutes 30x Comments verbal and tactile cues HEP sidelying shoulder ER Sidelying Exercise Name AROM Side right Equipment Used 1# Reps/Minutes 30x Comments verbal and tactile cues Sleeper stretch Side right Reps/Minutes 10 sec X 2 Standing Exercises shoulder taps in counter plank position Side bilateral Reps/Minutes 10x each Comments No cuing needed isometric reactive shoulder ER and IR Standing Exercise Name Elbow by side/90 deg's flexed holding band for step outs Side right Equipment Used Lev 2 TB Reps/Minutes 15x 2 Comments Cued palm up wall push up plus Standing Exercise Name HEP Side bilateral Reps/Minutes 8x 2 on wall Comments Cuing needed for extra shove , minimal shaking of arms with ex. Manual Therapy Treatment Soft Tissue Mobilization right shoulder Body Location Pecs - Arms in V-position Mobilization Type Cross-Friction,Sustained Pressure Intensity/Depth Moderate Body Position Hooklying Comments Towel roll down spine/neck and pillow under head Joint Mobilizations right scapula Direction into adduction and depression Grade III Body Position Sidelying Reps/Duration X10 each Comments monitored for pain repeated cues to relax shoulder/scapula PT-OP-T Assessment and Plan Start: 10/16/23 20:36 Freq: Status: Active Protocol: Document 11/27/23 13:48 LRN (Rec: 11/27/23 14:30 LRN [id number]) Physical Therapy Assessment Goals Three Impairment R shoulder pain constant when starts hurting, limiting function Impairment UE Quickdash score 22.7 (29-39 % impaired, score 20-39) Short Term Goal (STG) Pt educated in RICE technique to reduce pain with onset. 10/26/23: Pt educated in RICE technique. STG Duration 10/30/23 (10/26/23: MET GOAL) Custodial Goal (LTG) Improve function with decrease in pain per UE Quickdash score of 19 or less LTG Duration 01/18/24 Two Impairment Decreased R shdr strength causing pain limiting ability to carry heavy wgt Impairment R shoulder pain limiting ability to carry a 6 pk of soda from grocery store to home due to pain. Custodial Goal (LTG) Improve R shoulder strength and decrease pain with pt able to carry a 6 pk of soda from grocery store to home without pain. 11/01/2023 Patient reports he is sore from carrying groceries today rates pain 1/ 10 right shoulder, comments he needs to carry 12 pack, has no car. 11/07/2023 bought 5 (12 packs ) lifting them one at a time and had no pain post. 11/27/23: Able to carry normal amount of groceries home w/o R shdr pain. LTG Duration 01/18/24 (11/26/23: MET GOAL ) One Impairment Pt lacks appropriate self care HEP Custodial Goal (LTG) Pt will be educated in a self care HEP to manage his R shoulder pain. 10/26/23: HEP: Neck L SB stretch. (late entry of HEP issued 10/23/23: HEP for R shoulder: Sleeper stretch, Wand ex: Supine flexion and AB stretch). 10/30/2023 HEP sidelying AROM IR, cheerleaders ( horizontal abd +) ulnar nerve glide 11/01/2023 reports makes sure he does HEP, but continues to require cues to perform correctly, added isometric reactive ER and IR right shoulder and shoulder taps. 11/07/2023 progressed to ER and IR AROM from isometric reactive shoulder ER and IR on HEP. Also LTG Duration 01/18/24 (progressed ) Assessment Summary Assessment Pt is a 48 yo male who presents with soft tissue dysfunction of a R rotator cuff strain (most notably subscapularis) and anterior shoulder muscles, resulting in decreased R shoulder mobility and functional strength/ endurance. Today pt demonstrates good tolerance to increased R shdr strengthening without c/o R shdr pain. Physical Therapy Plan Frequency and Duration Frequency of Treatment 2x/Week Duration of treatment (weeks) 12 Plan of Care Start Date 10/23/23 Plan of Care End Date 01/18/24 Next Visit Focus/Plan Next Note Type Treatment Note Next Visit Plan Next: Collect UE Quickdash. Assess R shdr ROM/strength. HEP as needed, progress strengthening of the shoulder in general and *scapular stabilizers, modalities to decrease pain if needed. [ End ]
--- NOTE | 2023-11-29 12:21 | PT.OTN ---
Current Diagnoses Pain in right shoulder (11/29/23) Muscle weakness (generalized) (11/29/23) Adhesive capsulitis of unspecified shoulder (11/29/23) Physical Therapy Treatment Note PT-OP-A Visit Information Start: 10/16/23 20:36 Freq: Status: Active Protocol: Document 11/29/23 11:18 LRN (Rec: 11/29/23 12:14 LRN [id number]) Out-Patient Physical Therapy Visit Information Visit Information Visit Type Treatment Note Visit Start Time 11:18 Visit Stop Time 11:58 Visit Number 7 Evaluation Information Evaluation Date 10/23/23 Precautions Precautions PMH: Diabetes type II PT-OP-B Current Condition Start: 10/16/23 20:36 Freq: Status: Active Protocol: Document 10/23/23 14:50 LRN (Rec: 10/23/23 14:25 LRN [id number]) Current Condition History of Current Condition Onset Date 08/04 Current Complaints R shoulder pain when carrying heavy weight (6pk soda) History of Current Condition Pt reports he noticed onset of R shoulder pain after carrying 2-3 6 packs of soda home from grocery store. He states his pain varies in intensity and is intermittent depending on if he is carrying a heavy weight. His pain is present in the R shoulder anteriorly and sometimes in the axiall region and the inferior brachium. Prior Treatments and Tests Physical therapy at , for R shoulder strain that pt did not complete. Treatment Goals Patient/Caregiver Goals Pt goals: Decrease R shoulder pain to carry a 6 pk of soda without pain. Decrease the contant pain. Agreeable to HEP. Personal Factors Other Personal Factors That May Effect Diabetes type II Therapy/Recovery PT-OP-C Subjective Start: 10/16/23 20:36 Freq: Status: Active Protocol: Document 11/29/23 11:18 LRN (Rec: 11/29/23 12:14 LRN [id number]) OP-PT Subjective Patient Comments Patient Comments States his LB is hurting today from having to use an office chair w/o a back support to do his rand. Patient Questionnaires Quick Dash- Upper Extremity Quick Dash UE Score 4.54 Quick Dash UE Impairment 1 to 19% Impaired (Score 1-19) PT-OP-H Neuro Start: 10/16/23 20:36 Freq: Status: Active Protocol: Document 10/23/23 14:50 LRN (Rec: 10/23/23 14:25 LRN [id number]) Sensation Evaluation Gross Sensation Gross Sensation WNL PT-OP-J Posture/Palpation/Skin Start: 10/16/23 20:36 Freq: Status: Active Protocol: Document 10/23/23 14:50 LRN (Rec: 10/23/23 14:25 LRN [id number]) Posture Evaluation Position Standing Head/C-Spine Posture C-Spine Flattened,Forward Head T-Spine Posture Increased Kyphosis Scapula Posture (R) Depressed Arm Posture (R) Neutral,(L) Internally Rotated Weight Distribution Balanced Comments Posture Comments Upper flattened C/S. Palpation Assessment Location R posterior shoulder Palpation Location Posterior to R scapula Palpation Details Ms atrophy of infraspinatus and Teres rosalee/minor R shoulder Palpation Location R Anterior Pecs, axilla, inferior upper brachium, UT's Palpation Findings Soft Tissue Tightness, Tenderness PT-OP-K Range of Motion Start: 10/16/23 20:36 Freq: Status: Active Protocol: Document 11/29/23 11:18 LRN (Rec: 11/29/23 12:20 LRN [id number]) Shoulder Goniometric Range of Motion Shoulder Right Active Testing Position Sitting Flexion 140 Abduction 152 External Rotation at 0 degrees Abduction 47 Left Active Shoulder ROM WFL Yes Testing Position Sitting Flexion 142 Abduction 160 External Rotation at 0 degrees Abduction 42 PT-OP-L Special Tests Start: 10/16/23 20:36 Freq: Status: Active Protocol: Document 10/26/23 14:32 LRN (Rec: 10/26/23 15:36 LRN [id number]) Special Tests Cervical Spine Special Tests Spurling's Test Test Results negative Comments No change in R shoulder pain Vertebral Artery Comments Limited mobility of rot due to cervical discomfort and stretch opp side. Traction Test Results ? Comments Caused burning at R shoulder Foraminal Compression Test Results negative Comments No significant change in R shoulder symptoms PT-OP-M Strength Start: 10/16/23 20:36 Freq: Status: Active Protocol: Document 11/29/23 11:18 LRN (Rec: 11/29/23 12:20 LRN [id number]) Shoulder Strength Shoulder Manual Muscle Testing Right External Rotation 4+ Good+ Comments Strength for flex, AB, IR is 5 /5, ER is as indicated above. Left Comments Strength for flex, AB, IR, ER is 5/5. PT-OP-Q Treatments Start: 10/16/23 20:36 Freq: Status: Active Protocol: Document 11/29/23 11:18 LRN (Rec: 11/29/23 12:14 LRN [id number]) Cardio Equipment Upper Body Ergometer (UBE) Duration (Minutes) 6 RPM 75 Seat Position 11 sitting. Sitting due to back pain Height 7 Other 1' fwd/bkwd Therapeutic Exercises Sidelying Exercises sidelying shoulder ER Sidelying Exercise Name AROM Side right Equipment Used 2# Reps/Minutes 15x Comments verbal and tactile cues to keep elbow in by side. Sleeper stretch Side right Reps/Minutes 10 sec X 6 Sitting Exercises Shoulder AROM Sitting Exercise Name Flex, AB, ER stretch & AROM ( focus RUE) Side bilateral Reps/Minutes 10 Comments AROM taken and MMT, including IR. Standing Exercises Wall slides Standing Exercise Name Shoulder flex (armando), AB (R) stretch Side bilateral Reps/Minutes 10 SH (3 breath hold) x 10 Comments Extra time taken to determine positioning for max sherif stretch PT-OP-T Assessment and Plan Start: 10/16/23 20:36 Freq: Status: Active Protocol: Document 11/29/23 11:18 LRN (Rec: 11/29/23 12:14 N [id number]) Physical Therapy Assessment Rehab Potential Rehabilitation Potential Good Evaluation Complexity Number of Personal Factors/Comorbidities 1-2 Number of Body Systems Impaired 3 Clinical Presentation at Evaluation Evolving Impairments Impairments Activity Tolerance,ROM, Strength Goals Three Impairment R shoulder pain constant when starts hurting, limiting function Impairment UE Quickdash score 22.7 (29-39 % impaired, score 20-39) Short Term Goal (STG) Pt educated in RICE technique to reduce pain with onset. 10/26/23: Pt educated in RICE technique. STG Duration 10/30/23 (10/26/23: MET GOAL) Assisted Goal (LTG) Improve function with decrease in pain per UE Quickdash score of 19 or less. 11/29/23: UE QUickdash score of 4.54 (1-19% impaired). LTG Duration 01/18/24 (11/29/23: MET GOAL) Two Impairment Decreased R shdr strength causing pain limiting ability to carry heavy wgt Impairment R shoulder pain limiting ability to carry a 6 pk of soda from grocery store to home due to pain. [employer] Goal (LTG) Improve R shoulder strength and decrease pain with pt able to carry a 6 pk of soda from grocery store to home without pain. 11/01/2023 Patient reports he is sore from carrying groceries today rates pain 1/ 10 right shoulder, comments he needs to carry 12 pack, has no car. 11/07/2023 bought 5 (12 packs ) lifting them one at a time and had no pain post. 11/27/23: Able to carry normal amount of groceries home w/o R shdr pain. LTG Duration 01/18/24 (11/26/23: MET GOAL ) One Impairment Pt lacks appropriate self care HEP [employer] Goal (LTG) Pt will be educated in a self care HEP to manage his R shoulder pain. 10/26/23: HEP: Neck L SB stretch. (late entry of HEP issued 10/23/23: HEP for R shoulder: Sleeper stretch, Wand ex: Supine flexion and AB stretch). 10/30/2023 HEP sidelying AROM IR, cheerleaders ( horizontal abd +) ulnar nerve glide 11/01/2023 reports makes sure he does HEP, but continues to require cues to perform correctly, added isometric reactive ER and IR right shoulder and shoulder taps. 11/07/2023 progressed to ER and IR AROM from isometric reactive shoulder ER and IR on HEP. Also LTG Duration 01/18/24 (progressed ) Assessment Summary Assessment Pt is a 48 yo male who presents with soft tissue dysfunction of a R rotator cuff strain (most notably subscapularis) and anterior shoulder muscles, resulting in decreased R shoulder mobility and functional strength/ endurance. Pt shows functional improvement per UE quickdash score of 4.54 ( initially 22.7) indicating 1- 19% impairement. He has decreased R shoulder flex/AB AROM and weakenss of rotators. Pt's LB is hindering his tolerance to exercise causing greater time to complete ex's; therefore pt will benefit from further physical therapy to promote improvement as previously mentioned and to encorporate core stab with R shoulder/scapula rehab. Physical Therapy Plan Frequency and Duration Frequency of Treatment 1x/Week Duration of treatment (weeks) 12 Plan of Care Start Date 10/23/23 Plan of Care End Date 01/18/24 Therapeutic Interventions Therapeutic Interventions Home Exercise Program,Joint Mobilizations,Manual Therapy, Neuromuscular Re-education, Self-Care/Home Management, Therapeutic Exercises Modalities Cold Pack/Ice Massage Next Visit Focus/Plan Next Note Type Progress Note Next Visit Plan Next: Decr therapy to 1x/wk with pt doing more advancing with HEP independence, incr R shdlr flex/AB & shdr/scapula strength & stabilization. Work core stability with shdr ex's. When PT returns, assess R shdr AROM/strength and for pt readinees for early DC, over 1-2 visits, for placement on HEP if appropriate. Progress pt's R shoulder/ scapula for ROM/strength. HEP as needed, progress strengthening of the shoulder in general and *scapular stabilizers, modalities to decrease pain if needed. [ End ]
--- NOTE | 2023-12-07 16:34 | PT.OTN ---
Current Diagnoses Pain in right shoulder (12/07/23) Muscle weakness (generalized) (12/07/23) Adhesive capsulitis of unspecified shoulder (12/07/23) Physical Therapy Treatment Note PT-OP-A Visit Information Start: 10/16/23 20:36 Freq: Status: Active Protocol: Document 12/07/23 13:50 AB (Rec: 12/07/23 16:33 AB [id number]) Out-Patient Physical Therapy Visit Information Visit Information Visit Type Treatment Note Visit Start Time 13:50 Visit Stop Time 14:32 Visit Number Number of BUREAU CHIEF Visits 1 PT-OP-B Current Condition Start: 10/16/23 20:36 Freq: Status: Active Protocol: Document 10/23/23 14:50 LRN (Rec: 10/23/23 14:25 LRN [id number]) Current Condition History of Current Condition Onset Date 08/04 Current Complaints R shoulder pain when carrying heavy weight (6pk soda) History of Current Condition Pt reports he noticed onset of R shoulder pain after carrying 2-3 6 packs of soda home from grocery store. He states his pain varies in intensity and is intermittent depending on if he is carrying a heavy weight. His pain is present in the R shoulder anteriorly and sometimes in the axiall region and the inferior brachium. Prior Treatments and Tests Physical therapy at , for R shoulder strain that pt did not complete. Treatment Goals Patient/Caregiver Goals Pt goals: Decrease R shoulder pain to carry a 6 pk of soda without pain. Decrease the contant pain. Agreeable to HEP. Personal Factors Other Personal Factors That May Effect Diabetes type II Therapy/Recovery PT-OP-C Subjective Start: 10/16/23 20:36 Freq: Status: Active Protocol: Document 12/07/23 13:50 AB (Rec: 12/07/23 16:33 AB [id number]) OP-PT Subjective Patient Comments Patient Comments Patient reports shoulder is better as the sale of 4 six pack is over and is no longer carrying 4 six packs home. Patient reports the shoulder feels sore about twice a week, after the exercise. AROM right shoulder flexion. AROM right shoulder flexion 141 deg start of session. PT-OP-H Neuro Start: 10/16/23 20:36 Freq: Status: Active Protocol: Document 10/23/23 14:50 LRN (Rec: 10/23/23 14:25 LRN [id number]) Sensation Evaluation Gross Sensation Gross Sensation WNL PT-OP-J Posture/Palpation/Skin Start: 10/16/23 20:36 Freq: Status: Active Protocol: Document 10/23/23 14:50 LRN (Rec: 10/23/23 14:25 LRN [id number]) Posture Evaluation Position Standing Head/C-Spine Posture C-Spine Flattened,Forward Head T-Spine Posture Increased Kyphosis Scapula Posture (R) Depressed Arm Posture (R) Neutral,(L) Internally Rotated Weight Distribution Balanced Comments Posture Comments Upper flattened C/S. Palpation Assessment Location R posterior shoulder Palpation Location Posterior to R scapula Palpation Details Ms atrophy of infraspinatus and Teres rosalee/minor R shoulder Palpation Location R Anterior Pecs, axilla, inferior upper brachium, UT's Palpation Findings Soft Tissue Tightness, Tenderness PT-OP-K Range of Motion Start: 10/16/23 20:36 Freq: Status: Active Protocol: Document 11/29/23 11:18 LRN (Rec: 11/29/23 12:20 LRN [id number]) Shoulder Goniometric Range of Motion Shoulder Right Active Testing Position Sitting Flexion 140 Abduction 152 External Rotation at 0 degrees Abduction 47 Left Active Shoulder ROM WFL Yes Testing Position Sitting Flexion 142 Abduction 160 External Rotation at 0 degrees Abduction 42 PT-OP-L Special Tests Start: 10/16/23 20:36 Freq: Status: Active Protocol: Document 10/26/23 14:32 LRN (Rec: 10/26/23 15:36 LRN [id number]) Special Tests Cervical Spine Special Tests Spurling's Test Test Results negative Comments No change in R shoulder pain Vertebral Artery Comments Limited mobility of rot due to cervical discomfort and stretch opp side. Traction Test Results ? Comments Caused burning at R shoulder Foraminal Compression Test Results negative Comments No significant change in R shoulder symptoms PT-OP-M Strength Start: 10/16/23 20:36 Freq: Status: Active Protocol: Document 11/29/23 11:18 LRN (Rec: 11/29/23 12:20 LRN [id number]) Shoulder Strength Shoulder Manual Muscle Testing Right External Rotation 4+ Good+ Comments Strength for flex, AB, IR is 5 /5, ER is as indicated above. Left Comments Strength for flex, AB, IR, ER is 5/5. PT-OP-Q Treatments Start: 10/16/23 20:36 Freq: Status: Active Protocol: Document 12/07/23 13:50 AB (Rec: 12/07/23 16:33 AB [id number]) Cardio Equipment Upper Body Ergometer (UBE) Duration (Minutes) 5 RPM 60 Seat Position standing Height 7 Other 4 fwd 1 retro Therapeutic Exercises Sidelying Exercises sidelying shoulder IR AROM Sidelying Exercise Name weight added to HEP hand out Side right Equipment Used 1Lb then 2 lb Reps/Minutes X15 X 2 Comments X15 with 1 lb then X 15 with 2 lb Sleeper stretch Sidelying Exercise Name HEP review Side right Reps/Minutes 10 sec X 10 Comments tactile cues required Standing Exercises Wall slides Standing Exercise Name flexion to HEP Side right Reps/Minutes X10 Comments Verbal cues to slide up, lift off and lower without use of wall cheerleaders Standing Exercise Name HEP horizontal abduction, diagonal left UE upward, diagnoal right UE upward Resistance level 3 band Reps/Minutes X8 each direction Comments Verbal and visual cues HEP Manual Therapy Treatment Soft Tissue Mobilization post cuff/lat right shoulder Mobilization Type Cross-Friction,Rolling Intensity/Depth Moderate Body Position Sidelying Joint Mobilizations right scapula Direction into adduction and depression Grade III Body Position Sidelying Reps/Duration X10 each Comments monitored for pain repeated cues to relax shoulder/scapula Manual Techniques PROM Type sidelying abduction Body Position Sidelying Reps/Duration X10 Comments lat and pin stretch with AROM abduction right shoulder PT-OP-T Assessment and Plan Start: 10/16/23 20:36 Freq: Status: Active Protocol: Document 12/07/23 13:50 AB (Rec: 12/07/23 16:33 AB [id number]) Physical Therapy Assessment Goals Three Impairment R shoulder pain constant when starts hurting, limiting function Impairment UE Quickdash score 22.7 (29-39 % impaired, score 20-39) Short Term Goal (STG) Pt educated in RICE technique to reduce pain with onset. 10/26/23: Pt educated in RICE technique. STG Duration 10/30/23 (10/26/23: MET GOAL) [employer] Goal (LTG) Improve function with decrease in pain per UE Quickdash score of 19 or less. 11/29/23: UE QUickdash score of 4.54 (1-19% impaired). LTG Duration 01/18/24 (11/29/23: MET GOAL) Two Impairment Decreased R shdr strength causing pain limiting ability to carry heavy wgt Impairment R shoulder pain limiting ability to carry a 6 pk of soda from grocery store to home due to pain. [employer] Goal (LTG) Improve R shoulder strength and decrease pain with pt able to carry a 6 pk of soda from grocery store to home without pain. 11/01/2023 Patient reports he is sore from carrying groceries today rates pain 1/ 10 right shoulder, comments he needs to carry 12 pack, has no car. 11/07/2023 bought 5 (12 packs ) lifting them one at a time and had no pain post. 11/27/23: Able to carry normal amount of groceries home w/o R shdr pain. LTG Duration 01/18/24 (11/26/23: MET GOAL ) One Impairment Pt lacks appropriate self care HEP [employer] Goal (LTG) Pt will be educated in a self care HEP to manage his R shoulder pain. 10/26/23: HEP: Neck L SB stretch. (late entry of HEP issued 10/23/23: HEP for R shoulder: Sleeper stretch, Wand ex: Supine flexion and AB stretch). 10/30/2023 HEP sidelying AROM IR, cheerleaders ( horizontal abd +) ulnar nerve glide 11/01/2023 reports makes sure he does HEP, but continues to require cues to perform correctly, added isometric reactive ER and IR right shoulder and shoulder taps. 11/07/2023 progressed to ER and IR AROM from isometric reactive shoulder ER and IR on HEP. Also 12/07/2023 progressed sidelying IR to 2 lb, cheerleaders to level 3 band and wall slide with lift off and lower without use of wall added to HEP LTG Duration 01/18/24 (progressed ) Assessment Summary Assessment Pt is a 48 yo male who presents with soft tissue dysfunction of a R rotator cuff strain (most notably subscapularis) and anterior shoulder muscles, resulting in decreased R shoulder mobility and functional strength/ endurance. 155 deg AROM right shoulder flexion post manual therapy and exercise should allow Anurag to reach items placed at higher levels in the home. Physical Therapy Plan Next Visit Focus/Plan Next Note Type Treatment Note Next Visit Plan Next: Decr therapy to 1x/wk with pt doing more advancing with HEP independence, incr R shdlr flex/AB & shdr/scapula strength & stabilization. Work core stability with shdr ex's. When PT returns, assess R shdr AROM/strength and for pt readinees for early DC, over 1-2 visits, for placement on HEP if appropriate. Progress pt's R shoulder/ scapula for ROM/strength. HEP as needed, progress strengthening of the shoulder in general/ isometric reactive for shoulder flexion, extension abduction, adduction and *scapular stabilizers, modalities to decrease pain if needed. [ End ]
--- NOTE | 2023-12-11 16:18 | PT.OTN ---
Current Diagnoses Pain in right shoulder (12/11/23) Muscle weakness (generalized) (12/11/23) Adhesive capsulitis of unspecified shoulder (12/11/23) Physical Therapy Treatment Note PT-OP-A Visit Information Start: 10/16/23 20:36 Freq: Status: Active Protocol: Document 12/11/23 13:01 AB (Rec: 12/11/23 16:18 AB [id number]) Out-Patient Physical Therapy Visit Information Visit Information Visit Type Treatment Note Visit Note Visit [email or web address] Access Code: [email or web address] Visit Start Time 13:47 Visit Stop Time 14:29 Visit Number Evaluation Information Evaluation Date 10/23/23 Precautions Precautions PMH: Diabetes type II PT-OP-B Current Condition Start: 10/16/23 20:36 Freq: Status: Active Protocol: Document 10/23/23 14:50 LRN (Rec: 10/23/23 14:25 LRN [id number]) Current Condition History of Current Condition Onset Date 08/04 Current Complaints R shoulder pain when carrying heavy weight (6pk soda) History of Current Condition Pt reports he noticed onset of R shoulder pain after carrying 2-3 6 packs of soda home from grocery store. He states his pain varies in intensity and is intermittent depending on if he is carrying a heavy weight. His pain is present in the R shoulder anteriorly and sometimes in the axiall region and the inferior brachium. Prior Treatments and Tests Physical therapy at , for R shoulder strain that pt did not complete. Treatment Goals Patient/Caregiver Goals Pt goals: Decrease R shoulder pain to carry a 6 pk of soda without pain. Decrease the contant pain. Agreeable to HEP. Personal Factors Other Personal Factors That May Effect Diabetes type II Therapy/Recovery PT-OP-C Subjective Start: 10/16/23 20:36 Freq: Status: Active Protocol: Document 12/11/23 13:01 AB (Rec: 12/11/23 16:18 AB [id number]) OP-PT Subjective Patient Comments Patient Comments Patient reports he hasn't had shoulder pain in a long time. Patient reports he is doing his exercises regularly. AROM right shoulder flexion 147 deg start of session PT-OP-H Neuro Start: 10/16/23 20:36 Freq: Status: Active Protocol: Document 10/23/23 14:50 LRN (Rec: 10/23/23 14:25 LRN [id number]) Sensation Evaluation Gross Sensation Gross Sensation WNL PT-OP-J Posture/Palpation/Skin Start: 10/16/23 20:36 Freq: Status: Active Protocol: Document 10/23/23 14:50 LRN (Rec: 10/23/23 14:25 LRN [id number]) Posture Evaluation Position Standing Head/C-Spine Posture C-Spine Flattened,Forward Head T-Spine Posture Increased Kyphosis Scapula Posture (R) Depressed Arm Posture (R) Neutral,(L) Internally Rotated Weight Distribution Balanced Comments Posture Comments Upper flattened C/S. Palpation Assessment Location R posterior shoulder Palpation Location Posterior to R scapula Palpation Details Ms atrophy of infraspinatus and Teres rosalee/minor R shoulder Palpation Location R Anterior Pecs, axilla, inferior upper brachium, UT's Palpation Findings Soft Tissue Tightness, Tenderness PT-OP-K Range of Motion Start: 10/16/23 20:36 Freq: Status: Active Protocol: Document 11/29/23 11:18 LRN (Rec: 11/29/23 12:20 LRN [id number]) Shoulder Goniometric Range of Motion Shoulder Right Active Testing Position Sitting Flexion 140 Abduction 152 External Rotation at 0 degrees Abduction 47 Left Active Shoulder ROM WFL Yes Testing Position Sitting Flexion 142 Abduction 160 External Rotation at 0 degrees Abduction 42 PT-OP-L Special Tests Start: 10/16/23 20:36 Freq: Status: Active Protocol: Document 10/26/23 14:32 LRN (Rec: 10/26/23 15:36 LRN [id number]) Special Tests Cervical Spine Special Tests Spurling's Test Test Results negative Comments No change in R shoulder pain Vertebral Artery Comments Limited mobility of rot due to cervical discomfort and stretch opp side. Traction Test Results ? Comments Caused burning at R shoulder Foraminal Compression Test Results negative Comments No significant change in R shoulder symptoms PT-OP-M Strength Start: 10/16/23 20:36 Freq: Status: Active Protocol: Document 11/29/23 11:18 LRN (Rec: 11/29/23 12:20 LRN [id number]) Shoulder Strength Shoulder Manual Muscle Testing Right External Rotation 4+ Good+ Comments Strength for flex, AB, IR is 5 /5, ER is as indicated above. Left Comments Strength for flex, AB, IR, ER is 5/5. PT-OP-Q Treatments Start: 10/16/23 20:36 Freq: Status: Active Protocol: Document 12/11/23 13:01 AB (Rec: 12/11/23 16:18 AB [id number]) Therapeutic Exercises Standing Exercises scapular depression Side bilateral Resistance level one band Reps/Minutes X10 Comments verbal and visual cues pec stretch Standing Exercise Name hands behind head HEP initiated supine/pt prefers standing Reps/Minutes 60 sec X 2 Comments verbal and visual cues isometric reactives Standing Exercise Name flex, ext, add, abd HEP Side right Resistance levle 4 band Reps/Minutes X10 each Comments bilateral for flex and ext isometric reactive shoulder ER and IR Standing Exercise Name AROM this session, not reactives Side right Equipment Used Lev 1 TB Reps/Minutes X15 Comments monitored for pain cheerleaders Standing Exercise Name HEP horizontal abduction, diagonal left UE upward, diagnoal right UE upward Resistance level 3 band Reps/Minutes X8 each direction Comments Verbal and visual cues HEP Manual Therapy Treatment Soft Tissue Mobilization post cuff/lat right shoulder Mobilization Type Cross-Friction,Rolling Intensity/Depth Moderate Body Position Sidelying right shoulder Body Location Pecs - Arms in V-position Mobilization Type Cross-Friction,Sustained Pressure Intensity/Depth Moderate Body Position Hooklying Comments Towel roll down spine/neck and pillow under head Joint Mobilizations right scapula Direction into adduction and depression Grade III Body Position Sidelying Reps/Duration X10 each Comments monitored for pain repeated cues to relax shoulder/scapula PT-OP-T Assessment and Plan Start: 10/16/23 20:36 Freq: Status: Active Protocol: Document 12/11/23 13:01 AB (Rec: 12/11/23 16:18 AB [id number]) Physical Therapy Assessment Goals Three Impairment R shoulder pain constant when starts hurting, limiting function Impairment UE Quickdash score 22.7 (29-39 % impaired, score 20-39) Short Term Goal (STG) Pt educated in RICE technique to reduce pain with onset. 10/26/23: Pt educated in RICE technique. STG Duration 10/30/23 (10/26/23: MET GOAL) Usp Goal (LTG) Improve function with decrease in pain per UE Quickdash score of 19 or less. 11/29/23: UE QUickdash score of 4.54 (1-19% impaired). LTG Duration 01/18/24 (11/29/23: MET GOAL) Two Impairment Decreased R shdr strength causing pain limiting ability to carry heavy wgt Impairment R shoulder pain limiting ability to carry a 6 pk of soda from grocery store to home due to pain. Usp Goal (LTG) Improve R shoulder strength and decrease pain with pt able to carry a 6 pk of soda from grocery store to home without pain. 11/01/2023 Patient reports he is sore from carrying groceries today rates pain right shoulder, comments he needs to carry 12 pack, has no car. 11/07/2023 bought 5 (12 packs ) lifting them one at a time and had no pain post. 11/27/23: Able to carry normal amount of groceries home w/o R shdr pain. LTG Duration 01/18/24 (11/26/23: MET GOAL ) One Impairment Pt lacks appropriate self care HEP Clinical Staff Rn Goal (LTG) Pt will be educated in a self care HEP to manage his R shoulder pain. 10/26/23: HEP: Neck L SB stretch. (late entry of HEP issued 10/23/23: HEP for R shoulder: Sleeper stretch, Wand ex: Supine flexion and AB stretch). 10/30/2023 HEP sidelying AROM IR, cheerleaders ( horizontal abd +) ulnar nerve glide 11/01/2023 reports makes sure he does HEP, but continues to require cues to perform correctly, added isometric reactive ER and IR right shoulder and shoulder taps. 11/07/2023 progressed to ER and IR AROM from isometric reactive shoulder ER and IR on HEP. Also 12/07/2023 progressed sidelying IR to 2 lb, cheerleaders to level 3 band and wall slide with lift off and lower without use of wall added to HEP 12/11/2023 Isometric reactives for shoulder flex, abd, add and add as well as scapular depression added to HEP. LTG Duration 01/18/24 (progressed ) Assessment Summary Assessment AROM right shoulder flexion 150 deg end of session. Good return demonstration for additions to HEP. Patient reports muscle soreness end of session, vs pain. Physical Therapy Plan Frequency and Duration Frequency of Treatment 1x/Week Duration of treatment (weeks) 12 Plan of Care Start Date 10/23/23 Plan of Care End Date 01/18/24 Next Visit Focus/Plan Next Note Type Treatment Note Next Visit Plan Next: Decr therapy to 1x/wk with pt doing more advancing with HEP independence, incr R shdlr flex/AB & shdr/scapula strength & stabilization. Work core stability with shdr ex's. When PT returns, assess R shdr AROM/strength and for pt readinees for early DC, over 1-2 visits, for placement on HEP if appropriate. Progress pt's R shoulder/ scapula for ROM/strength. HEP as needed, progress strengthening of the shoulder in general/ assess sherif to isometric reactive for shoulder flexion, extension abduction, adduction and * scapular stabilizers, modalities to decrease pain if needed. [ End ]
--- NOTE | 2024-01-01 16:04 | PT.OTN ---
Current Diagnoses Pain in right shoulder (01/01/24) Muscle weakness (generalized) (01/01/24) Adhesive capsulitis of unspecified shoulder (01/01/24) Physical Therapy Treatment Note PT-OP-A Visit Information Start: 10/16/23 20:36 Freq: Status: Active Protocol: Document 01/01/24 13:48 LRN (Rec: 01/01/24 14:34 LRN [id number]) Out-Patient Physical Therapy Visit Information Visit Information Visit Type Treatment Note Visit Start Time 13:48 Visit Stop Time 14:28 Visit Number Evaluation Information Evaluation Date 10/23/23 Precautions Precautions PMH: Diabetes type II PT-OP-B Current Condition Start: 10/16/23 20:36 Freq: Status: Active Protocol: Document 10/23/23 14:50 LRN (Rec: 10/23/23 14:25 LRN [id number]) Current Condition History of Current Condition Onset Date 08/04 Current Complaints R shoulder pain when carrying heavy weight (6pk soda) History of Current Condition Pt reports he noticed onset of R shoulder pain after carrying 2-3 6 packs of soda home from grocery store. He states his pain varies in intensity and is intermittent depending on if he is carrying a heavy weight. His pain is present in the R shoulder anteriorly and sometimes in the axiall region and the inferior brachium. Prior Treatments and Tests Physical therapy at , for R shoulder strain that pt did not complete. Treatment Goals Patient/Caregiver Goals Pt goals: Decrease R shoulder pain to carry a 6 pk of soda without pain. Decrease the contant pain. Agreeable to HEP. Personal Factors Other Personal Factors That May Effect Diabetes type II Therapy/Recovery PT-OP-C Subjective Start: 10/16/23 20:36 Freq: Status: Active Protocol: Document 01/01/24 13:48 LRN (Rec: 01/01/24 14:34 LRN [id number]) OP-PT Subjective Patient Comments Patient Comments Have had no trouble/no pain, with the R shoulder. Carried groceries home the other day w /o a problem. Patient Questionnaires Quick Dash- Upper Extremity Quick Dash UE Score 0 Quick Dash UE Impairment 0% Impaired (Score 0) PT-OP-H Neuro Start: 10/16/23 20:36 Freq: Status: Active Protocol: Document 10/23/23 14:50 LRN (Rec: 10/23/23 14:25 LRN [id number]) Sensation Evaluation Gross Sensation Gross Sensation WNL PT-OP-J Posture/Palpation/Skin Start: 10/16/23 20:36 Freq: Status: Active Protocol: Document 10/23/23 14:50 LRN (Rec: 10/23/23 14:25 LRN [id number]) Posture Evaluation Position Standing Head/C-Spine Posture C-Spine Flattened,Forward Head T-Spine Posture Increased Kyphosis Scapula Posture (R) Depressed Arm Posture (R) Neutral,(L) Internally Rotated Weight Distribution Balanced Comments Posture Comments Upper flattened C/S. Palpation Assessment Location R posterior shoulder Palpation Location Posterior to R scapula Palpation Details Ms atrophy of infraspinatus and Teres rosalee/minor R shoulder Palpation Location R Anterior Pecs, axilla, inferior upper brachium, UT's Palpation Findings Soft Tissue Tightness, Tenderness PT-OP-K Range of Motion Start: 10/16/23 20:36 Freq: Status: Active Protocol: Document 01/01/24 13:48 LRN (Rec: 01/01/24 14:34 LRN [id number]) Shoulder Goniometric Range of Motion Shoulder Right Passive Testing Position Supine Flexion 168 External Rotation at 90 degrees 90 Abduction Internal Rotation 55 Right Active Testing Position Sitting Flexion 153 Abduction 166 External Rotation at 0 degrees Abduction 60 PT-OP-L Special Tests Start: 10/16/23 20:36 Freq: Status: Active Protocol: Document 10/26/23 14:32 LRN (Rec: 10/26/23 15:36 LRN [id number]) Special Tests Cervical Spine Special Tests Spurling's Test Test Results negative Comments No change in R shoulder pain Vertebral Artery Comments Limited mobility of rot due to cervical discomfort and stretch opp side. Traction Test Results ? Comments Caused burning at R shoulder Foraminal Compression Test Results negative Comments No significant change in R shoulder symptoms PT-OP-M Strength Start: 10/16/23 20:36 Freq: Status: Active Protocol: Document 01/01/24 13:48 LRN (Rec: 01/01/24 14:34 LRN [id number]) Shoulder Strength Shoulder Manual Muscle Testing Right Flexion 5 Normal Extension 5 Normal Abduction (C5) 5 Normal Adduction 5 Normal External Rotation 4+ Good+ Internal Rotation 4+ Good+ Comments Pt felt he was weak with ER/IR . PT-OP-Q Treatments Start: 10/16/23 20:36 Freq: Status: Active Protocol: Document 01/01/24 13:48 LRN (Rec: 01/01/24 14:34 N [id number]) Therapeutic Exercises Supine Exercises R shoulder PROM Side right Reps/Minutes 5' Comments PROM taken Neck Rot & ant scalene stretch Supine Exercise Name R>L neck rot Side bilateral Reps/Minutes 5 SH x 5 Neck SB stretch Side bilateral Reps/Minutes 5 SH x 5 Pec stretch Supine Exercise Name Single shdr V-stretch as pec stretch, arm straight and hands behind head. Side right Reps/Minutes 5 SH x 10 (9') Comments HEP. Cued to breath with hold Shoulder Flex stretch Supine Exercise Name Max sherif shoulder stretch Side right Resistance 10 SH x 10 Equipment Used Cane Reps/Minutes 10 SH x 10 (7') Comments Cued to breath with stretch Sidelying Exercises Sleeper stretch Side bilateral Reps/Minutes 5 SH x 2 Comments Cued to stretch to achieve symmetry of motion. Sitting Exercises R shoulder ana Side right Reps/Minutes 3' Comments MMT taken Shoulder AROM Side right Reps/Minutes 4' Comments AROM taken Standing Exercises isometric reactive shoulder ER and IR Reps/Minutes X8 each direction cheerleaders Standing Exercise Name Horizontal abduction, diagonal left UE upward, diagnoal right UE upward Resistance level 3 band Reps/Minutes 4' Comments HEP review. PT-OP-T Assessment and Plan Start: 10/16/23 20:36 Freq: Status: Active Protocol: Document 01/01/24 13:48 LRN (Rec: 01/01/24 14:34 [facility] [id number]) Physical Therapy Assessment Goals Three Impairment R shoulder pain constant when starts hurting, limiting function Impairment UE Quickdash score 22.7 (29-39 % impaired, score 20-39) Short Term Goal (STG) Pt educated in RICE technique to reduce pain with onset. 10/26/23: Pt educated in RICE technique. STG Duration 10/30/23 (10/26/23: MET GOAL) Mcfp Goal (LTG) Improve function with decrease in pain per UE Quickdash score of 19 or less. 11/29/23: UE QUickdash score of 4.54 (1-19% impaired). LTG Duration 01/18/24 (11/29/23: MET GOAL) Two Impairment Decreased R shdr strength causing pain limiting ability to carry heavy wgt Impairment R shoulder pain limiting ability to carry a 6 pk of soda from grocery store to home due to pain. Drill Runner Helper Goal (LTG) Improve R shoulder strength and decrease pain with pt able to carry a 6 pk of soda from grocery store to home without pain. 11/01/2023 Patient reports he is sore from carrying groceries today rates pain 1/ 10 right shoulder, comments he needs to carry 12 pack, has no car. 11/07/2023 bought 5 (12 packs ) lifting them one at a time and had no pain post. 11/27/23: Able to carry normal amount of groceries home w/o R shdr pain. LTG Duration 01/18/24 (11/26/23: MET GOAL ) One Impairment Pt lacks appropriate self care HEP Mcfp Goal (LTG) Pt will be educated in a self care HEP to manage his R shoulder pain. 10/26/23: HEP: Neck L SB stretch. (late entry of HEP issued 10/23/23: HEP for R shoulder: Sleeper stretch, Wand ex: Supine flexion and AB stretch). 10/30/2023 HEP sidelying AROM IR, cheerleaders ( horizontal abd +) ulnar nerve glide 11/01/2023 reports makes sure he does HEP, but continues to require cues to perform correctly, added isometric reactive ER and IR right shoulder and shoulder taps. 11/07/2023 progressed to ER and IR AROM from isometric reactive shoulder ER and IR on HEP. Also 12/07/2023 progressed sidelying IR to 2 lb, cheerleaders to level 3 band and wall slide with lift off and lower without use of wall added to HEP 12/11/2023 Isometric reactives for shoulder flex, abd, add and add as well as scapular depression added to HEP. LTG Duration 01/18/24 (01/01/24: MET GOAL) Assessment Summary Assessment Pt is a 48 yo male who initially presented with soft tissue dysfunction of a R rotator cuff strain (most notably subscapularis) and anterior shoulder muscles, resulting in decreased R shoulder mobility and functional strength/endurance. He attends today indicating recovery of his R shoulder with no pain and return to prior level of function. Pt has improved in R shoulder mobility and strength and is ready for discharge to his [facility] . Physical Therapy Plan Frequency and Duration Frequency of Treatment 1x/Week Duration of treatment (weeks) 12 Plan of Care Start Date 10/23/23 Plan of Care End Date 01/18/24 Discharge Physical Therapy Discharge Reasons Goals Met Discharge Comments Thank you for your referral.
== END 2024-01-22 14:29 | disposition home or self-care (01) ==
LOC: PHYS 13:45
PROVIDERS: Family Provider Family Medicine; PCP Family Medicine; Referring Provider Family Medicine; Visit Provider Family Medicine
DX: M75.00 Adhesive capsulitis of unspecified shoulder (principal); M25.511 Pain in right shoulder; M62.81 Muscle weakness (generalized)
CPT/HCPCS: 97110; 97140; 97162; 97530; 97535

== ENCOUNTER → 2024-01-24 10:16 | Outpatient (CLI) | payer MEDICARE, MEDICAID, SELFPAY ==
[2020-12-20 14:15] VITALS: BMI 30.3
[2024-01-24 11:00] LABS: Influenza A - CEPHEID Flu A NEGATIVE (NEGATIVE); Influenza B - CEPHEID Flu B NEGATIVE (NEGATIVE); Respiratory Syncytial Virus Negative (Negative)
[2024-01-24 11:11] LABS: COVID-19 CEPHEID 4-PLEX PCR Negative (Negative)
== END ==
PROVIDERS: Family Provider Family Medicine; PCP Family Medicine; Visit Provider Physician Assistant
DX: R05.1 Acute cough (principal)
CPT/HCPCS: 0241U

== ENCOUNTER → 2024-02-29 08:59 | Outpatient (CLI) | payer MEDICARE, MEDICAID, SELFPAY ==
[2020-12-20 14:15] VITALS: BMI 30.3
[2024-02-29 09:54] LABS: Hemoglobin A1C% w Est Avg Glu 7.4 % (4.0-6.0)
[2024-02-29 10:33] LABS: Alanine Aminotransferase 23 IU/L (<50); Albumin 4.3 g/dL (3.5-5.0); Albumin Globulin Ratio 1.7 (1.0-2.8); Alkaline Phosphatase 79 U/L (38-126); Aspartate Aminotransferase 25 IU/L (17-59); Bilirubin Total 1.2 mg/dL (0.2-1.3); Blood Urea Nitrogen 18 mg/dL (9-20); Calcium 9.4 mg/dL (8.4-10.2); Carbon Dioxide 22 mmol/L (22-32); Chloride 107 mmol/L (98-107); Estimated Glomerular Filt Rate > 60 mL/min (>60); Globulin 2.6 g/dL (1.7-4.1); Glucose 111 mg/dL (70-100); HEMOLYSIS < 15 (0-50); Potassium 4.6 mmol/L (3.4-5.1); Sodium 138 mmol/L (137-145); Total Protein 6.9 g/dL (6.3-8.2)
== END ==
LOC: LAB 09:00
PROVIDERS: Family Provider Family Medicine; PCP Family Medicine; Referring Provider Family Medicine; Visit Provider Family Medicine
DX: I10 Essential (primary) hypertension (principal); E11.9 Type 2 diabetes mellitus without complications; E78.5 Hyperlipidemia, unspecified
CPT/HCPCS: 36415; 80053; 83036

== ENCOUNTER 2024-06-14 13:45 | Emergency (ER) | payer MEDICARE, MEDICAID, SELFPAY ==
[2020-12-20 14:15] VITALS: BMI 30.3
[2024-06-14] VITALS (9 sets, daily range): BP systolic 115–131; BP diastolic 74–79; PULSE 79–89; RESP 11–30; TEMP 36.4–37; O2SAT 98–100; BMI 29.0
--- NOTE | 2024-06-14 14:15 | DI.RAD.S_ITS ---
PROCEDURE: XR CHEST 1V INDICATIONS: Possible stroke TECHNIQUE: One view of the chest was acquired. COMPARISON: None. FINDINGS: Surgical changes and devices: None. Lungs and pleura: Lungs are clear. No pleural effusions or pneumothorax. Mediastinum: Mediastinal contours appear normal. Heart size is normal. Bones and chest wall: No suspicious bony lesions. Overlying soft tissues appear unremarkable. IMPRESSION: No acute cardiopulmonary abnormality is seen. Approved by: Shabbir Yusuf M.D. on 06/14/2024 at 14:02
--- NOTE | 2024-06-14 14:15 | DI.CT.S_ITS ---
PROCEDURE: CT STROKE INDICATIONS: right sided facial numbness TECHNIQUE: Noncontrast 4.5 mm thick angled axial sections acquired from the foramen magnum to the vertex, with coronal reformats. For radiation dose reduction, the following was used: automated exposure control, adjustment of mA and/or kV according to patient size. COMPARISON: None. FINDINGS: Image quality: Diagnostic. CSF spaces: Basal cisterns are patent. No extra-axial fluid collections. Ventricles are normal in size and shape. Brain: No midline shift. No intracranial masses or hemorrhage. Andres-white matter interface is normal. Skull and face: Calvarium and visualized facial bones are intact, without suspicious lesions. Sinuses: Visualized sinuses and mastoids are clear. IMPRESSION: No acute intracranial pathology. This study fulfills neurological imaging criteria for inclusion or exclusion of acute stroke therapies based on available published neurological imaging guidelines. Note: Critical results were discussed with Dr. Enamorado at 02:30 PM [place] time on 06/14/24 Dictated by: Shabbir Yusuf M.D. on 06/14/2024 at 14:27 Approved by: Shabbir Yusuf M.D. on 06/14/2024 at 14:31
--- NOTE | 2024-06-14 14:15 | DI.CT.S_ITS ---
PROCEDURE: CT ANGIO HEAD AND NECK INDICATIONS: right sided facial numbness TECHNIQUE: After the administration of intravenous contrast, 1 mm thick sections acquired from the aortic arch through the Richardson of Garcia. 3-dimensional mnogdew-hfdhieaaf-pqolktsykd (MIP) and/or volume rendering reformats were acquired of the central intracranial vasculature and neck separately. For radiation dose reduction, the following was used: automated exposure control, adjustment of mA and/or kV according to patient size. COMPARISON: None. FINDINGS: Image quality: Diagnostic. BRAIN: CSF spaces: Ventricles are normal in size and shape. Basal cisterns are patent. No extra-axial fluid collections. Brain: No significant abnormality of the brain can be seen. Skull and face: Calvarium and facial bones appear intact, without suspicious lesions. Orbits appear normal. Sinuses: Sinuses and mastoids are clear. HEAD CT ANGIOGRAPHY: Anterior circulation: Intracranial internal carotid arteries are normal in size and flow. The flow within the paired anterior cerebral arteries is normal and symmetric. The flow within the middle cerebral arteries is normal and symmetric. The anterior communicating artery is seen. No aneurysms are seen. Posterior circulation: Visualized portions of the vertebral arteries demonstrate normal caliber, and join to form a normal appearing basilar artery. Flow within the posterior cerebral arteries is normal and symmetric. No aneurysms are seen. NECK CT ANGIOGRAPHY: Carotid system: The great vessels demonstrate a conventional anatomy as they arise from the aortic arch. The origins of the common carotid arteries appear patent. The common carotid arteries demonstrate normal caliber and courses. The bifurcation regions are both widely patent. The internal carotid arteries demonstrate normal calibers and courses. Posterior circulation: The origins of the vertebral arteries both appear widely patent. The more superior extracranial portions of both vertebral arteries also demonstrate normal courses and calibers. They join to form a normal appearing basilar artery. Soft tissues: Visualized neck soft tissues demonstrate no suspicious abnormalities. Bones: No suspicious bony lesions. Visualized cervical spine appears normally aligned. IMPRESSION: No significant intracranial arterial abnormality is seen. No significant abnormality is seen within the arteries of the neck. Any quantitative measurements of stenosis were performed using NASCET criteria. Approved by: Shabbir Yusuf M.D. on 06/14/2024 at 14:45
[2024-06-14 14:21] LABS: Add Manual Diff / Slide Review NO; Basophils Absolute Auto 100 /uL (0-100); Basophils Percent Auto 0.7 % (0-2); Eosinophils Absolute Auto 400 /uL (0-450); Eosinophils Percent Auto 5.2 % (2-4); Hematocrit 45.8 % (41-53); Hemoglobin 15.6 g/dL (13.5-17.5); Lymphocytes Absolute Auto 1200 /uL (1100-4500); Mean Corpuscular HGB Conc 34.1 % (30-36); Mean Corpuscular Hemoglobin 28.8 PG (26-34); Mean Corpuscular Volume 84.6 fL (80-100); Monocytes Absolute Auto 500 /uL (0-900); Monocytes Percent Auto 7.4 % (3-14); Neutrophils Absolute Auto 5000 /uL (1500-7000); Neutrophils Percent Auto 69.7 % (50-75); Platelet Count 232 X10^3/uL (150-400); Red Blood Cell Count 5.41 X10^6/uL (4.5-5.9); Red Cell Distribution Width 13.4 % (11.6-14.8); White Blood Cell Count 7.2 X10^3/uL (4.5-11.0)
[2024-06-14 14:28] LABS: Prothrombin Time 11.1 SECONDS (9.4-12.5)
[2024-06-14 14:30] LABS: PTT Partial Thromboplastin Tim 32 SECONDS (25.1-36.5)
[2024-06-14 14:32] LABS: Alanine Aminotransferase 31 IU/L (<50); Albumin 4.6 g/dL (3.5-5.0); Albumin Globulin Ratio 1.5 (1.0-2.8); Alkaline Phosphatase 58 U/L (38-126); Aspartate Aminotransferase 32 IU/L (17-59); BUN Creatinine Ratio 20.2 (6-22); Bilirubin Total 1.8 mg/dL (0.2-1.3); Blood Urea Nitrogen 21 mg/dL (9-20); Calcium 9.5 mg/dL (8.4-10.2); Carbon Dioxide 27 mmol/L (22-32); Chloride 102 mmol/L (98-107); Creatine Kinase 230 U/L (55-170); Estimated Glomerular Filt Rate > 60 mL/min (>60); Glucose 151 mg/dL (70-100); HEMOLYSIS < 15 (0-50); Magnesium 1.7 mg/dL (1.6-2.3); Potassium 4.5 mmol/L (3.4-5.1); Sodium 137 mmol/L (137-145); Total Protein 7.6 g/dL (6.3-8.2)
[2024-06-14 14:33] LABS: Ethanol (ETOH) < 10 mg/dL
--- NOTE | 2024-06-14 14:36 | ED.NEUROSD ---
HPI - Neuro Symptoms/Deficit General Chief Complaint: Neuro Symptoms/Deficit Stated Complaint: r side body was numb sent from [facility] Time Seen by Provider: 06/14/24 14:15 Source: patient Mode of arrival: Wheelchair History of Present Illness HPI Narrative: 49-year-old male with a history of hyperlipidemia diabetes comes into the ED from home for evaluation of right-sided decreased sensation to face tongue and arm, states it started approximately 30 minutes prior to arrival but has since significantly improved. At time of evaluation patient with NIH of 1 for decreased sensation to the right side of the face. Patient denies any headache visual disturbances chest pain shortness breath fever chills nausea vomiting abdominal pain or any other GI/ symptoms at this time. Patient denies any trauma or falls not on any blood thinners. On Anticoagulants: No Related Data Previous Rx's Medication Instructions Recorded alcohol swabs 1 pad topical QID Use to check BG 10/03/22 QAC/ #200 ea blood-glucose meter #1 ea 10/03/22 empty container (Sharps Container) #1 ea 10/03/22 lancets 30 gauge #200 ea 10/03/22 glipizide 5 mg tablet, extended 5 mg PO BID #180 tabs 04/20/23 release 24 hr pioglitazone 15 mg tablet 15 mg PO DAILY #90 tabs 04/20/23 atorvastatin 10 mg tablet 10 mg PO BEDTIME #90 tabs 09/07/23 naproxen 500 mg tablet 500 mg PO BID PRN pain #30 tabs 09/27/23 mupirocin 2 % topical ointment 1 applic topical TID #15 grams 12/18/23 empagliflozin 25 mg tablet 25 mg PO DAILY #90 tabs 12/31/23 (Jardiance) sitagliptin phosphate 50 1 tab PO BID #180 tabs 12/31/23 mg-metformin 1,000 mg tablet (Janumet) ondansetron 4 mg disintegrating 4 mg PO Q8H #30 tabs 01/24/24 tablet blood sugar diagnostic (Blood #100 ea 02/07/24 Glucose Test strips) Allergies Allergy/AdvReac Type Severity Reaction Status Date / Time Penicillins [PENICILLINS] Allergy Severe RASH Verified 03/03/24 14:07 acetaminophen AdvReac Severe VOMITING Verified 03/03/24 14:07 [From EXCEDRIN PM] diphenhydramine AdvReac Severe VOMITING Verified 03/03/24 14:07 [From EXCEDRIN PM] Review of Systems Review of Systems Narrative: General: Denies fever, chills, weight loss HEENT: Denies headache, eye drainage, eye irritation, head trauma, sore throat, voice change Cardiovascular: Denies any chest pain, palpitations, shortness of breath, tachycardia Respiratory: Denies any shortness of breath, cough, wheeze, stridor GI/: Denies any abdominal pain, nausea, vomiting, diarrhea, bright red blood per rectum, melanotic stools, urinary frequency, urinary retention, dysuria, hematuria MSK: Denies any joint pain, muscle pains, swelling Skin: Denies any rashes, lesions, discoloration Neuro: Decreased sensation to the right side of the face and right upper extremity, Denies any headache, lightheadedness, dizziness, fainting, weakness Psych: Denies SI/HI Hematologic/Lymphatic On Anticoagulants: No Patient History Medical History Sleep apnea Adhesive capsulitis Right shoulder pain Pancreatitis Skin tag Hypertension Right knee pain Depression Borderline personality disorder Psoriasis Diabetes mellitus Family History Grandmother Diabetes mellitus Grandfather Diabetes mellitus Social History household members: spouse and none Smoking Status: Never smoker alcohol intake: current Smoking Status: Never smoker alcohol intake frequency: holidays/special occasions only Exam Narrative Exam Narrative: General: Cooperative, comfortable, well-developed, not in acute distress HEENT: Normocephalic, atraumatic, PERRLA, normal sclera, eyelids normal, Neck: Active full range of motion, atraumatic Chest: Normal to inspection, negative crepitus, no overlying erythema ecchymosis Respiratory: Normal respiratory effort, not in acute respiratory distress, clear to auscultation bilaterally negative cough, wheeze, tachypnea, rhonchi, rales Cardiology: Regular rate rhythm negative gallop, murmur, rubs GI/: Normal to inspection, soft, nonrigid, no tenderness to palpation, exam deferred MSK: Full range of active range of motion of all 4 extremities, atraumatic Skin: No rashes lesions noted Neuro: Mild decreased sensation to the right side of the face, NIH of 1, Alert awake oriented x3, moves all 4 extremities spontaneously, cranial nerves intact, able to answer all questions appropriately follows commands appropriately Psych: Cooperative, negative suicidal or homicidal ideations Initial Vital Signs Initial Vital Signs: Vital Signs Temperature 97.6 F 06/14/24 13:53 Pulse Rate 85 06/14/24 13:53 Respiratory Rate 18 06/14/24 13:53 Blood Pressure 115/76 06/14/24 13:53 Pulse Oximetry 99 06/14/24 13:53 Oxygen Delivery Method Room Air 06/14/24 13:53 Scores NIH Stroke Scale Level of Conciousness: Alert, keenly responsive Ask month/age: Answers both questions correctly. Open/close eyes, close hand: Performs both tasks correctly Best gaze horizontal: Normal Visual brody: No visual loss Facial palsy: Normal symetrical movement Left arm drift: No drift for full 10 sec Right arm drift: No drift for full 10 sec Left leg drift: No drift for full 5 sec Right leg drift: No drift for full 5 sec Limb ataxia: Absent Sensory on face/arms/legs: Mild to moderate sensory loss, can tell touch (Mildly decreased to the right side of the face) Best language: No aphasia, normal Dysarthria: Normal Extinction or inattention: No abnormality Total NIH Stroke scale score: 1 Course Orders Ordered: ED Orders 06/14/24 14:13 Complete Blood Count AUTO DIFF Stat Comprehensive Metabolic Panel Stat Ethanol (ETOH) Stat Magnesium Stat PTT Partial Thromboplastin [place] Stat Prothrombin Time INR Stat Troponin & CK Cardiac Panel Stat 06/14/24 14:[address] angio head and neck Stat XR chest 1V Stat EKG-12 Lead Stat 06/14/24 14:52 COVID19 -Nasal RAPID Stat 06/14/24 15:32 Urinalysis and Microscopic Stat Urine Drug Screen, Rapid Stat Ondansetron HCl (Ondansetron 4 Mg/2 Ml Inj) 4 mg IV NOW PRN PRN Reason: Nausea And Vomiting Ondansetron HCl (Ondansetron 4 Mg Odt) 4 mg SL NOW PRN PRN Reason: Nausea And Vomiting Vital Signs Vital signs: Vital Signs - 8 hr 06/14/24 13:53 06/14/24 14:21 06/14/24 14:22 Temperature 97.6 F Pulse Rate 85 80 Respiratory Rate 18 Blood Pressure 115/76 120/74 Pulse Oximetry 99 99 Oxygen Delivery Method Room Air 06/14/24 14:22 06/14/24 14:30 06/14/24 14:30 Temperature Pulse Rate 84 83 Respiratory Rate Blood Pressure 125/79 Pulse Oximetry 99 98 Oxygen Delivery Method 06/14/24 15:00 06/14/24 15:00 06/14/24 15:32 Temperature Pulse Rate 79 80 Respiratory Rate 11 L 20 Blood Pressure 129/75 Pulse Oximetry 98 100 Oxygen Delivery Method MDM - Neuro Symptoms/Deficit Differential Diagnosis Differential diagnosis: Likely other (CVA, TIA, electrolyte abnormality, pneumonia, COVID, migraine) Lab Data 06/14/24 14:13 06/14/24 14:13 Labs: Lab Results 06/14/24 06/14/24 06/14/24 Range/Units 14:13 14:52 15:32 WBC 7.2 (4.5-11.0) X10^3/uL RBC 5.41 (4.5-5.9) X10^6/uL Hgb 15.6 (13.5-17.5) g/dL Hct 45.8 (41-53) % MCV 84.6 (80-100) fL MCH 28.8 (26-34) PG MCHC 34.1 (30-36) % RDW 13.4 (11.6-14.8) % Plt Count 232 (150-400) X10^3/uL Neut % (Auto) 69.7 (50-75) % Lymph % (Auto) 17.0 L (25-40) % Hancock % (Auto) 7.4 (3-14) % Eos % (Auto) 5.2 H (2-4) % Baso % (Auto) 0.7 (0-2) % Neut # (Auto) 5000 (9695-0312) /uL Lymph # (Auto) 1200 (8217-5614) /uL Hancock # (Auto) 500 (0-900) /uL Eos # (Auto) 400 (0-450) /uL Baso # (Auto) 100 (0-100) /uL PT 11.1 (9.4-12.5) SECONDS INR 1.0 (0.9-1.3) APTT 32 (25.1-36.5) SECONDS Sodium 137 (137-145) mmol/L Potassium 4.5 (3.4-5.1) mmol/L Chloride 102 (98-107) mmol/L Carbon Dioxide 27 (22-32) mmol/L BUN 21 H (9-20) mg/dL Creatinine 1.04 (0.66-1.25) mg/dL Estimated GFR > 60 (>60) mL/min BUN/Creatinine Ratio 20.2 (6-22) Glucose 151 H (70-100) mg/dL Calcium 9.5 (8.4-10.2) mg/dL Magnesium 1.7 (1.6-2.3) mg/dL Total Bilirubin 1.8 H (0.2-1.3) mg/dL AST 32 (17-59) IU/L ALT 31 (<50) IU/L Alkaline Phosphatase 58 (38-126) U/L Total Creatine Kinase 230 H (55-170) U/L Troponin I < 0.012 (0.01-0.034) ng/mL Total Protein 7.6 (6.3-8.2) g/dL Albumin 4.6 (3.5-5.0) g/dL Globulin 3.0 (1.7-4.1) g/dL Albumin/Globulin Ratio 1.5 (1.0-2.8) Urine Color Yellow Urine Appearance Clear Urine pH 7.0 (4.5-8.0) Ur Specific [place] 1.010 (1.000-1.035) Urine Protein Negative (Negative) Urine Glucose (UA) 1+ H (Negative) g/dL Urine Ketones Negative (NEGATIVE) Urine Occult Blood Negative (Negative) Urine Nitrate Negative (Negative) Urine Bilirubin Negative (NEGATIVE) Urine Urobilinogen 0.2 (0.2) E.U./dL Ur Leukocyte Esterase Negative (NEGATIVE) Urine RBC None seen (0-5/HPF) Urine WBC 0-1/hpf (0-5/HPF) Ur Squamous Epith Cells None seen (0-5/HPF) Urine Bacteria Few (2-10) H (None) Ur Culture Indicated? Cult not indicated Vol Urine Centrifuged 10ml (spun) U Opiates 300ng/mL cut Negative (Negative) Ur Oxycodone Screen Negative (Negative) Urine Methadone Screen Negative (Negative) Ur Barbiturates Screen Negative (Negative) U Tricyclic Antidepress Negative (Negative) Ur Phencyclidine Scrn Negative (Negative) Ur Amphetamines Screen Negative (Negative) U Methamphetamines Scrn Negative (Negative) Ur MDMA Scrn (Ecstasy) Negative (Negative) U Benzodiazepines Scrn Negative (Negative) Urine Cocaine Screen Negative (Negative) U Marijuana (THC) Screen Negative (Negative) Urine Specific [place] (Normal) Ethyl Alcohol < 10 ( - 10) mg/dL Ur Creatinine (Normal) SARS-CoV-2 (PCR) Negative (Negative) 06/14/24 Range/Units 15:32 WBC (4.5-11.0) X10^3/uL RBC (4.5-5.9) X10^6/uL Hgb (13.5-17.5) g/dL Hct (41-53) % MCV (80-100) fL MCH (26-34) PG MCHC (30-36) % RDW (11.6-14.8) % Plt Count (150-400) X10^3/uL Neut % (Auto) (50-75) % Lymph % (Auto) (25-40) % Hancock % (Auto) (3-14) % Eos % (Auto) (2-4) % Baso % (Auto) (0-2) % Neut # (Auto) (5420-8313) /uL Lymph # (Auto) (2982-4492) /uL Hancock # (Auto) (0-900) /uL Eos # (Auto) (0-450) /uL Baso # (Auto) (0-100) /uL PT (9.4-12.5) SECONDS INR (0.9-1.3) APTT (25.1-36.5) SECONDS Sodium (137-145) mmol/L Potassium (3.4-5.1) mmol/L Chloride (98-107) mmol/L Carbon Dioxide (22-32) mmol/L BUN (9-20) mg/dL Creatinine (0.66-1.25) mg/dL Estimated GFR (>60) mL/min BUN/Creatinine Ratio (6-22) Glucose (70-100) mg/dL Calcium (8.4-10.2) mg/dL Magnesium (1.6-2.3) mg/dL Total Bilirubin (0.2-1.3) mg/dL AST (17-59) IU/L ALT (<50) IU/L Alkaline Phosphatase (38-126) U/L Total Creatine Kinase (55-170) U/L Troponin I (0.01-0.034) ng/mL Total Protein (6.3-8.2) g/dL Albumin (3.5-5.0) g/dL Globulin (1.7-4.1) g/dL Albumin/Globulin Ratio (1.0-2.8) Urine Color Urine Appearance Urine pH Normal (4.5-8.0) Ur Specific Cay[place] (1.000-1.035) Urine Protein (Negative) Urine Glucose (UA) (Negative) g/dL Urine Ketones (NEGATIVE) Urine Occult Blood (Negative) Urine Nitrate (Negative) Urine Bilirubin (NEGATIVE) Urine Urobilinogen (0.2) E.U./dL Ur Leukocyte Esterase (NEGATIVE) Urine RBC (0-5/HPF) Urine WBC (0-5/HPF) Ur Squamous Epith Cells (0-5/HPF) Urine Bacteria (None) Ur Culture Indicated? Vol Urine Centrifuged U Opiates 300ng/mL cut (Negative) Ur Oxycodone Screen (Negative) Urine Methadone Screen (Negative) Ur Barbiturates Screen (Negative) U Tricyclic Antidepress (Negative) Ur Phencyclidine Scrn (Negative) Ur Amphetamines Screen (Negative) U Methamphetamines Scrn (Negative) Ur MDMA Scrn (Ecstasy) (Negative) U Benzodiazepines Scrn (Negative) Urine Cocaine Screen (Negative) U Marijuana (THC) Screen (Negative) Urine Specific [place] Normal (Normal) Ethyl Alcohol ( - 10) mg/dL Ur Creatinine Normal (Normal) SARS-CoV-2 (PCR) (Negative) Point of Care Testing Glucose POC [address] scan - head: Radiologist's Impression: [address] [address] [address] Scan Report Signed Patient: Kyle Navarrete MR#: [id number] : 1975 Acct:[id number] Age/Sex: 49 / M Date of Service: 06/14/24 Loc: ED Accession Number: [id number] Procedure: CT Stroke Ordering Provider: Margarito Enamorado D.O. PROCEDURE: CT STROKE INDICATIONS: right sided facial numbness TECHNIQUE: Noncontrast 4.5 mm thick angled axial sections acquired from the foramen magnum to the vertex, with coronal reformats. For radiation dose reduction, the following was used: automated exposure control, adjustment of mA and/or kV according to patient size. COMPARISON: None. FINDINGS: Image quality: Diagnostic. CSF spaces: Basal cisterns are patent. No extra-axial fluid collections. Ventricles are normal in size and shape. Brain: No midline shift. No intracranial masses or hemorrhage. Andres-white matter interface is normal. Skull and face: Calvarium and visualized facial bones are intact, without suspicious lesions. Sinuses: Visualized sinuses and mastoids are clear. IMPRESSION: No acute intracranial pathology. This study fulfills neurological imaging criteria for inclusion or exclusion of acute stroke therapies based on available published neurological imaging guidelines. CTA - brain/neck: Radiologist's Impression: [address] [address] [address] Scan Report Signed Patient: Kyle Navarrete MR#: [id number] : 1975 Acct:[id number] Age/Sex: 49 / M Date of Service: 06/14/24 Loc: ED Accession Number: [id number] Procedure: CT angio head and neck Ordering Provider: Margarito Enamorado D.O. PROCEDURE: CT ANGIO HEAD AND NECK INDICATIONS: right sided facial numbness TECHNIQUE: After the administration of intravenous contrast, 1 mm thick sections acquired from the aortic arch through the Hamilton of Garcia. 3-dimensional ywvwdww-gkkcrecaf-tomazoedno (MIP) and/or volume rendering reformats were acquired of the central intracranial vasculature and neck separately. For radiation dose reduction, the following was used: automated exposure control, adjustment of mA and/or kV according to patient size. COMPARISON: None. FINDINGS: Image quality: Diagnostic. BRAIN: CSF spaces: Ventricles are normal in size and shape. Basal cisterns are patent. No extra-axial fluid collections. Brain: No significant abnormality of the brain can be seen. Skull and face: Calvarium and facial bones appear intact, without suspicious lesions. Orbits appear normal. Sinuses: Sinuses and mastoids are clear. HEAD CT ANGIOGRAPHY: Anterior circulation: Intracranial internal carotid arteries are normal in size and flow. The flow within the paired anterior cerebral arteries is normal and symmetric. The flow within the middle cerebral arteries is normal and symmetric. The anterior communicating artery is seen. No aneurysms are seen. Posterior circulation: Visualized portions of the vertebral arteries demonstrate normal caliber, and join to form a normal appearing basilar artery. Flow within the posterior cerebral arteries is normal and symmetric. No aneurysms are seen. NECK CT ANGIOGRAPHY: Carotid system: The great vessels demonstrate a conventional anatomy as they arise from the aortic arch. The origins of the common carotid arteries appear patent. The common carotid arteries demonstrate normal caliber and courses. The bifurcation regions are both widely patent. The internal carotid arteries demonstrate normal calibers and courses. Posterior circulation: The origins of the vertebral arteries both appear widely patent. The more superior extracranial portions of both vertebral arteries also demonstrate normal courses and calibers. They join to form a normal appearing basilar artery. Soft tissues: Visualized neck soft tissues demonstrate no suspicious abnormalities. Bones: No suspicious bony lesions. Visualized cervical spine appears normally aligned. IMPRESSION: No significant intracranial arterial abnormality is seen. No significant abnormality is seen within the arteries of the neck. Chest x-ray: Radiologist's Impression: [address] [address] XRay Report Signed Patient: Kyle Navarrete MR#: [id number] : 1975 Acct:[id number] Age/Sex: 49 / M Date of Service: 06/14/24 Loc: ED Accession Number: [id number] Procedure: XR chest 1V Ordering Provider: Margarito Enamorado D.O. PROCEDURE: XR CHEST 1V INDICATIONS: Possible stroke TECHNIQUE: One view of the chest was acquired. COMPARISON: None. FINDINGS: Surgical changes and devices: None. Lungs and pleura: Lungs are clear. No pleural effusions or pneumothorax. Mediastinum: Mediastinal contours appear normal. Heart size is normal. Bones and chest wall: No suspicious bony lesions. Overlying soft tissues appear unremarkable. IMPRESSION: No acute cardiopulmonary abnormality is seen. ECG Data Interpretation: EKG interpreted by ED physician sinus at 87 beats per minute QTC 428, normal axis nonspecific ST changes, no STEMI MDM Narrative Medical decision making narrative: 49-year-old male with a history of hyperlipidemia diabetes comes into the ED from home for evaluation of right facial right tongue and right upper extremity numbness tingling sensation started 30 minutes prior to arrival states it started on his face and is tolerating then spread to his right arm,/hand. He states that these symptoms resolved by the time he was being fully evaluated here in the emergency department. Patient initial NIH of 1 but after coming back from CT scan NIH of 0 given resolving symptoms. Patient with negative CT head CTA angio head and neck. Chest x-ray unremarkable patient's lab work unremarkable had a discussion with tele neurologist Dr. Vasquez who states symptoms more likely consistent with the atypical migraine would not recommend dual antiplatelet therapy states to discuss risks benefits for starting aspirin, he states that he would like to start taking a baby aspirin a day but to follow up with Cardiology and have an outpatient MRI no indications for admission or transfer at this time. This was informed to the patient he verbalized understanding strict return precautions given he understands and agrees to being discharged home with outpatient follow up 1635: Had a discussion with tele neurologist Dr. Vasquez, who personally reviewed the images, states imaging and symptomology less concerning less likely for TIA or stroke, states no need for dual antiplatelet therapy continue statin have risks benefits with starting aspirin patient can have MRI outpatient need for admission no other interventions or recommendations at this time, states more likely migraine in nature Discharge Plan Departure Patient Disposition: Home Clinical Impression: Arm paresthesia, right Activity Restrictions/Additional Instructions: Please follow up with Cardiology and primary care doctor, please discuss need for obtaining MRI in an outpatient setting Please read the discharge instructions sheet carefully and bring all papers to all doctor follow-up visits, as it may contain information that your doctor may want to see. Disease processes change and evolve, if your symptoms worsen or if you develop any new symptoms that are concerning to you please return for evaluation. Your evaluation today does not show any evidence of any life-threatening/serious illnesses requiring admission to the hospital or surgery. Please follow-up with your doctor for re-evaluation in approximately 1 day. Seek immediate medical attention for any worrisome symptoms. *If you do not have a primary care provider please contact the [facility] Resource line at [phone]. They will ask some questions about your medical history and help get you set up with a doctor in the community. Prescriptions: No Action mupirocin 2 % ointment 1 applic topical TID Qty: 15 0RF ondansetron 4 mg tablet,disintegrating 4 mg PO Q8H Qty: 30 0RF (DME) blood-glucose meter Misc See Rx Instructions .Route Qty: 1 8RF Rx Instructions: Use to check BG QAC/HS (DME) lancets 30 gauge misc See Rx Instructions .Route Qty: 200 8RF Rx Instructions: Use to check BG QAC/HS (DME) Sharps Container Misc See Rx Instructions .Route Qty: 1 8RF Rx Instructions: Use to check BG QAC/HS alcohol swabs Pads, Medicated 1 pad topical QID Qty: 200 8RF Janumet 50-1,000 mg tablet 1 tab PO BID Qty: 180 0RF Jardiance 25 mg tablet 25 mg PO DAILY Qty: 90 0RF (DME) Blood Glucose Test Strip See Rx Instructions .Route Qty: 100 8RF Rx Instructions: Use to check BG QAC/HS atorvastatin 10 mg tablet 10 mg PO BEDTIME Qty: 90 3RF glipizide 5 mg tablet extended release 24hr 5 mg PO BID Qty: 180 3RF pioglitazone 15 mg tablet 15 mg PO DAILY Qty: 90 3RF naproxen 500 mg tablet 500 mg PO BID PRN (Reason: pain) Qty: 30 2RF Referrals: Samaria Rogers MD [Physician] - Beto Solomon DO [Primary Care Provider] - Stand Alone Forms: Patient Portal/API/Survey
[2024-06-14 14:44] LABS: Troponin I < 0.012 ng/mL (0.01-0.034)
[2024-06-14 15:17] LABS: COVID19 -Nasal RAPID Negative (Negative)
--- NOTE | 2024-06-14 15:19 | PC.NURSE ---
Delay to CT r/t CT unavailable. Dr. Enamorado aware.
[2024-06-14 15:47] LABS: Appearance Urine UA CLEAR; Bilirubin Urine UA NEGATIVE (NEGATIVE); Color Urine UA YELLOW; Glucose Urine UA 1+ g/dL (Negative); Ketones Urine UA NEGATIVE (NEGATIVE); Leukocyte Esterase Urine UA NEGATIVE (NEGATIVE); Nitrite Urine UA NEGATIVE (Negative); Occult Blood Urine UA NEGATIVE (Negative); Protein Urine UA NEGATIVE (Negative); Urobilinogen Urine UA 0.2 E.U./dL (0.2)
[2024-06-14 15:52] LABS: UR Morphine/Opiate cutoff 300 Negative (Negative); Ur Creatinine Normal (Normal); Ur Specific Gravity Normal (Normal); Urine Amphetamines Negative (Negative); Urine Barbiturates Negative (Negative); Urine Benzodiazepines Negative (Negative); Urine Cocaine Negative (Negative); Urine MDMA Negative (Negative); Urine Methadone Negative (Negative); Urine Methamphetamines Negative (Negative); Urine Oxycodone Negative (Negative); Urine Phencyclidine Negative (Negative); Urine Tetrahydrocannabinol Negative (Negative); Urine Tricyclic Antidepressant Negative (Negative); Urine pH Normal (Normal)
[2024-06-14 15:54] LABS: Bacteria Urine Few (2-10); Culture Indicated Urine Cult Not Indicated; RBC Urine None Seen (0-5/HPF); Squamous Epithelial Cell Urine None Seen (0-5/HPF); Urine Volume 10mL (spun); WBC Urine 0-1/HPF (0-5/HPF)
--- NOTE | 2024-06-14 16:35 | EKG_ITS ---
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
== END 2024-06-14 17:02 | disposition home or self-care (01) ==
PROVIDERS: Emergency Provider Student in an Organized Health Care Education/Training Program; Family Provider Family Medicine; PCP Family Medicine
DX: R20.2 Paresthesia of skin (principal); R29.701 NIHSS score 1; E78.5 Hyperlipidemia, unspecified; E11.9 Type 2 diabetes mellitus without complications; Z79.84 Long term (current) use of oral hypoglycemic drugs; I10 Essential (primary) hypertension
CPT/HCPCS: 70450; 70496; 70498; 71045; 80053; 80305; 80320; 81001; 82550; 82962; 83735; 84484; 85025; 85610; 85730; 87635; 93005; 99284; Q9967

== ENCOUNTER → 2024-06-16 09:22 | Outpatient (CLI) | payer MEDICARE, MEDICAID, SELFPAY ==
[2020-12-20 14:15] VITALS: BMI 30.3
[2024-06-16 09:53] LABS: Hemoglobin A1C% w Est Avg Glu 7.7 % (4.0-6.0)
[2024-06-16 10:03] LABS: Alanine Aminotransferase 30 IU/L (<50); Albumin 4.3 g/dL (3.5-5.0); Albumin Globulin Ratio 1.7 (1.0-2.8); Alkaline Phosphatase 55 U/L (38-126); Aspartate Aminotransferase 32 IU/L (17-59); BUN Creatinine Ratio 24.8 (6-22); Bilirubin Total 1.3 mg/dL (0.2-1.3); Blood Urea Nitrogen 26 mg/dL (9-20); Calcium 9.2 mg/dL (8.4-10.2); Carbon Dioxide 26 mmol/L (22-32); Chloride 104 mmol/L (98-107); Cholesterol 188 mg/dL (140-199); Estimated Glomerular Filt Rate > 60 mL/min (>60); Globulin 2.6 g/dL (1.7-4.1); Glucose 141 mg/dL (70-100); HDL Cholesterol 36 mg/dL (40-60); HEMOLYSIS < 15 (0-50); LDL Cholesterol Calculated 127 mg/dL (<100); Potassium 4.6 mmol/L (3.4-5.1); Sodium 136 mmol/L (137-145); Total Protein 6.9 g/dL (6.3-8.2); Triglycerides 125 mg/dL (35-150)
== END ==
PROVIDERS: Family Provider Family Medicine; PCP Family Medicine; Referring Provider Family Medicine; Visit Provider Family Medicine
DX: E11.9 Type 2 diabetes mellitus without complications (principal); E78.5 Hyperlipidemia, unspecified; I10 Essential (primary) hypertension
CPT/HCPCS: 36415; 80053; 80061; 83036

== ENCOUNTER → 2024-09-25 09:58 | Outpatient (CLI) | payer MEDICARE, MEDICAID, SELFPAY ==
[2020-12-20 14:15] VITALS: BMI 30.3
[2024-09-25 10:43] LABS: Hemoglobin A1C% w Est Avg Glu 8.4 % (4.0-6.0)
[2024-09-25 10:52] LABS: Alanine Aminotransferase 31 IU/L (<50); Albumin 4.6 g/dL (3.5-5.0); Albumin Globulin Ratio 1.8 (1.0-2.8); Alkaline Phosphatase 61 U/L (38-126); Aspartate Aminotransferase 29 IU/L (17-59); BUN Creatinine Ratio 21.7 (6-22); Bilirubin Total 1.6 mg/dL (0.2-1.3); Blood Urea Nitrogen 20 mg/dL (9-20); Calcium 9.3 mg/dL (8.4-10.2); Carbon Dioxide 26 mmol/L (22-32); Chloride 103 mmol/L (98-107); Estimated Glomerular Filt Rate > 60 mL/min (>60); Globulin 2.5 g/dL (1.7-4.1); Glucose 185 mg/dL (70-99); HEMOLYSIS 18 (0-50); Potassium 4.8 mmol/L (3.4-5.1); Sodium 138 mmol/L (137-145); Total Protein 7.1 g/dL (6.3-8.2)
== END ==
PROVIDERS: Family Provider Family Medicine; PCP Family Medicine; Referring Provider Family Medicine; Visit Provider Family Medicine
DX: E11.69 Type 2 diabetes mellitus with other specified complication (principal)
CPT/HCPCS: 36415; 80053; 83036

== ENCOUNTER → 2024-10-11 08:06 | Outpatient (CLI) | payer MEDICARE, MEDICAID, SELFPAY ==
[2020-12-20 14:15] VITALS: BMI 30.3
[2024-10-11 08:57] LABS: Influenza A - CEPHEID Flu A NEGATIVE (NEGATIVE); Influenza B - CEPHEID Flu B NEGATIVE (NEGATIVE); Respiratory Syncytial Virus Negative (Negative)
[2024-10-11 09:13] LABS: COVID-19 CEPHEID 4-PLEX PCR Negative (Negative)
== END ==
PROVIDERS: Family Provider Family Medicine; PCP Family Medicine; Visit Provider Nurse Practitioner Family
DX: R05.1 Acute cough (principal)
CPT/HCPCS: 0241U

== ENCOUNTER → 2024-10-11 08:18 | Outpatient (CLI) | payer MEDICARE, MEDICAID, SELFPAY ==
[2020-12-20 14:15] VITALS: BMI 30.3
--- NOTE | 2024-10-11 08:22 | DI.RAD.S_ITS ---
PROCEDURE: XR CHEST 2V INDICATIONS: Cough TECHNIQUE: 2 views of the chest were acquired. COMPARISON: [facility], CR, XR CHEST 1V, 06/14/2024, 14:27. FINDINGS: Surgical changes and devices: None. Lungs and pleura: Lungs are clear. No pleural effusions or pneumothorax. Mediastinum: Mediastinal contours are normal. Heart size is normal. Bones and chest wall: No suspicious bony abnormalities. Soft tissues appear unremarkable. IMPRESSION: No acute cardiopulmonary pathology. Dictated by: Noe Sims M.D. on 10/11/2024 at 18:10 Approved by: Noe Sims M.D. on 10/11/2024 at 18:11
== END ==
PROVIDERS: Family Provider Family Medicine; PCP Family Medicine; Referring Provider Family Medicine; Visit Provider Family Medicine
DX: R05.9 Cough, unspecified (principal); R05.1 Acute cough
CPT/HCPCS: 0241U; 71046

== ENCOUNTER → 2025-04-13 10:36 | Outpatient (CLI) | payer MEDICARE, MEDICAID, SELFPAY ==
[2020-12-20 14:15] VITALS: BMI 30.3
[2025-04-13 11:11] LABS: Add Manual Diff / Slide Review NO; Hematocrit 47.0 % (41-53); Hemoglobin 16.1 g/dL (13.5-17.5); Lymphocytes Absolute Auto 1200 /uL (1100-4500); Mean Corpuscular HGB Conc 34.2 % (30-36); Mean Corpuscular Hemoglobin 28.8 PG (26-34); Mean Corpuscular Volume 84.1 fL (80-100); Platelet Count 216 X10^3/uL (150-400)
[2025-04-13 11:32] LABS: Hemoglobin A1C% w Est Avg Glu 7.4 % (4.0-6.0)
[2025-04-13 11:39] LABS: Alanine Aminotransferase 30 IU/L (<50); Albumin 4.7 g/dL (3.5-5.0); Albumin Globulin Ratio 1.7 (1.0-2.8); Alkaline Phosphatase 67 U/L (38-126); Blood Urea Nitrogen 20 mg/dL (9-20); Calcium 9.3 mg/dL (8.4-10.2); Carbon Dioxide 24 mmol/L (22-32); Chloride 104 mmol/L (98-107); Estimated Glomerular Filt Rate > 60 mL/min (>60); Globulin 2.8 g/dL (1.7-4.1); Glucose 154 mg/dL (70-99); HEMOLYSIS < 15 (0-50); Potassium 4.9 mmol/L (3.4-5.1); Sodium 139 mmol/L (137-145); Total Protein 7.5 g/dL (6.3-8.2)
[2025-04-13 11:40] LABS: HEMOLYSIS < 15 (0-50); Iron 112 ug/dL (49-181)
[2025-04-13 11:50] LABS: Percent Iron Saturation 39 % (20-50); Total Iron Binding Capacity 284 ug/dL (261-462); Transferrin 240 mg/dL (206-381)
[2025-04-13 12:28] LABS: Vitamin B12 633 pg/mL (239-931)
== END ==
PROVIDERS: Family Provider Family Medicine; PCP Family Medicine; Referring Provider Family Medicine; Visit Provider Family Medicine
DX: Z13.21 Encounter for screening for nutritional disorder (principal); Z13.0 Encounter for screening for diseases of the blood and blood-forming organs and certain disorders involving the immune mechanism; I10 Essential (primary) hypertension; E11.69 Type 2 diabetes mellitus with other specified complication; E78.2 Mixed hyperlipidemia
CPT/HCPCS: 36415; 80053; 82607; 83036; 83540; 83550; 85025